=== PATIENT | female | born 1950 | race Caucasian/White ===

== ENCOUNTER 2022-11-18 11:39 | Outpatient (CLI) | payer MEDICARE, BC, SELFPAY | END 2022-11-18 11:40 | disposition home or self-care (01) | LOC: AMB 11-23 05:18 | PROVIDERS: PCP Internal Medicine; Visit Provider Family Medicine | DX: L89.329 Pressure ulcer of left buttock, unspecified stage (principal) | CPT/HCPCS: A0425; A0428 ==

== ENCOUNTER 2022-11-22 14:19 | Outpatient (CLI) | payer MEDICARE, BC, MEDICAID, SELFPAY | END 2022-11-22 14:20 | disposition home or self-care (01) | PROVIDERS: PCP Internal Medicine; Visit Provider Nurse Practitioner Family | DX: L89.314 Pressure ulcer of right buttock, stage 4 (principal); L89.152 Pressure ulcer of sacral region, stage 2; M86.68 Other chronic osteomyelitis, other site; G35 Multiple sclerosis; M62.3 Immobility syndrome (paraplegic); Z99.3 Dependence on wheelchair | CPT/HCPCS: 11042; 97602; 99213 ==

== ENCOUNTER 2022-11-29 12:40 | Outpatient (CLI) | payer MEDICARE, BC, MEDICAID, SELFPAY | END 2022-11-29 12:41 | disposition home or self-care (01) | LOC: WOUND 12:40 | PROVIDERS: PCP Internal Medicine; Visit Provider Nurse Practitioner Family | DX: L89.314 Pressure ulcer of right buttock, stage 4 (principal); G35 Multiple sclerosis; Z99.3 Dependence on wheelchair | CPT/HCPCS: 11042 ==

== ENCOUNTER 2022-12-05 14:05 | Outpatient (CLI) | payer MEDICARE, BC, MEDICAID, SELFPAY | END 2022-12-05 14:06 | disposition home or self-care (01) | LOC: WOUND 14:05 | PROVIDERS: PCP Internal Medicine; Visit Provider Family Medicine | DX: M86.68 Other chronic osteomyelitis, other site (principal); L89.152 Pressure ulcer of sacral region, stage 2; L89.314 Pressure ulcer of right buttock, stage 4; G35 Multiple sclerosis; M62.3 Immobility syndrome (paraplegic); Z99.3 Dependence on wheelchair; R55 Syncope and collapse | CPT/HCPCS: 11042; 97597; 99212 ==

== ENCOUNTER 2022-12-05 15:05 | Emergency (ER) | payer MEDICARE, BC, MEDICAID, SELFPAY ==
[2022-12-05 15:15] VITALS: BP 113/47; PULSE 91; RESP 16; TEMP 35.8; O2SAT 89
--- NOTE | 2022-12-05 15:23 | ED_ITS ---
HPI - General Adult General Chief complaint: Syncope/Fainted Stated complaint: Low BP Time Seen by Provider: 12/05/22 15:14 History of Present Illness HPI narrative: This 72-year-old female was at the wound clinic having a decubitus ulcer treated when she yawned and then became suddenly lightheaded with near loss of consciousness. Her blood pressure was noted to be a systolic value of around 70. She did not have an immediate recovery of her blood pressure her so she was sent here. Upon arrival here her systolic blood pressure is 105. Repeat blood pressure shows 113/47. Other vital signs are in normal range. She does not have tachycardia or fever. Related Data Home Medications Medication Instructions Recorded Confirmed anastrozole 1 mg tablet 1 mg PO DAILY 11/16/22 11/16/22 baclofen 20 mg tablet 40 mg PO QID 11/16/22 11/16/22 calcium carbonate 600 mg-vitamin 1 tab PO QAM 11/16/22 11/16/22 D3 10 mcg (400 unit) tablet cetirizine 10 mg tablet 10 mg PO DAILY 11/16/22 11/16/22 citalopram 10 mg tablet 10 mg PO DAILY 11/16/22 11/16/22 clonazepam 0.5 mg tablet 1 mg PO HS 11/16/22 11/17/22 dalfampridine 10 mg 10 mg PO Q12H 11/16/22 11/17/22 tablet,extended release,12 hr (Ampyra) doxycycline hyclate 100 mg capsule 100 mg PO BID 11/16/22 11/16/22 levofloxacin 750 mg tablet 750 mg PO QAM 11/16/22 11/16/22 levothyroxine 50 mcg tablet 50 mcg PO QAM 11/16/22 11/16/22 metoprolol tartrate 25 mg tablet 25 mg PO BID 11/16/22 11/16/22 omeprazole 20 mg capsule,delayed 20 mg PO QAM 11/16/22 11/16/22 release potassium chloride 10 mEq 10 meq PO BID 11/16/22 11/16/22 tablet,extended release(part/cryst) rivaroxaban 10 mg tablet (Xarelto) 10 mg PO QPM 11/16/22 11/16/22 simvastatin 20 mg tablet 20 mg PO QPM 11/16/22 11/16/22 tizanidine 4 mg tablet 4 mg PO QPM 11/16/22 11/16/22 melatonin 10 mg capsule 20 mg PO HS 11/17/22 11/17/22 multivitamin (Daily Multi-Vitamin 1 tab PO DAILY 11/17/22 11/17/22 tablet) natalizumab 300 mg/15 mL 300 mg IV Q28D 11/17/22 11/17/22 intravenous solution (Tysabri) omega 3-ucm-yrk-fish oil 1,000 mg 1 cap PO DAILY 11/17/22 11/17/22 (120 mg-180 mg) capsule (Fish Oil) vitamin B complex (B 1 tab PO DAILY 11/17/22 11/17/22 Complex-Vitamin B12 tablet) Allergies Allergy/AdvReac Type Severity Reaction Status Date / Time Penicillins Allergy Verified 11/16/22 13:37 Review of Systems Status of ROS: Reports: 10 or more systems reviewed and unremarkable except as noted in History and below Narrative: Constitutional: No fevers, no weight gain or loss. Eyes: No discharge. No vision changes. HENT: No congestion, no sore throat, no ear pain. Cardiovascular: No chest pain, no palpitations. Respiratory: No shortness of breath, no wheezes, no cough. Gastrointestinal: No abdominal pain, no vomiting, no diarrhea. Genitourinary: No dysuria, no hematuria. Musculoskeletal: Normal range of motion. Skin: No rashes, no pruritis. Decubitus ulcer. Neurological: No weakness, sensory change, speech change. History of multiple sclerosis. Endo/Heme/Allergies: No bruising or bleeding. No polydipsia. Pysch: no suicidality, no anxiety, no insomnia. All other systems reviewed and are negative. [facility] Medical History (Updated 12/05/22 @ 16:31 by Josesito Mccoy MD) Sleep apnea ?G47.30 - Sleep apnea, unspecified (ICD-10) History of DVT (deep vein thrombosis) ?Z86.718 - Personal history of other venous thrombosis and embolism (ICD-10) Decubitus ulcer ?L89.90 - Pressure ulcer of unspecified site, unspecified stage (ICD-10) Breast cancer ?C50.919 - Malignant neoplasm of unspecified site of unspecified female breast (ICD-10) Chronic anemia ?D64.9 - Anemia, unspecified (ICD-10) Neurogenic bladder ?N31.9 - Neuromuscular dysfunction of bladder, unspecified (ICD-10) Paroxysmal atrial fibrillation ?I48.0 - Paroxysmal atrial fibrillation (ICD-10) Morbid obesity ?E66.01 - Morbid (severe) obesity due to excess calories (ICD-10) Multiple sclerosis ?G35 - Multiple sclerosis (ICD-10) Osteomyelitis ?M86.9 - Osteomyelitis, unspecified (ICD-10) Surgical History S/P breast lumpectomy ?Z98.890 - Other specified postprocedural states (ICD-10) Family History (Updated 11/16/22 @ 23:21 by Nikolas Moncada MD) Sister Breast cancer Mother Diabetes Heart disease Brother Lung cancer Father Stroke Social History (Updated 11/16/22 @ 23:23 by Nikolas Moncada MD) Narrative: She has been nonambulatory since about 1976 secondary to multiple sclerosis. She is bed-bound or wheelchair-bound. She has custom equipment made for her both wheelchair in bed due to her disabilities. She does not smoke. She does not drink alcohol. Her son Du and daughter Dottie are healthcare power of powder room attendant. Code status is full. She lives at home in [place]. Prolonged hospital stay at [facility] for 3 months this winter Highest level of school completed/degree received: 10th grade Smoking Status: Never smoker Do you use any of these nicotine containing products: None Second hand tobacco smoke exposure: No How often do you have a drink containing alcohol: never AUDIT-C Alcohol total score: 0 Non-prescribed substance use: denies use Caffeine: Yes (soda) service: No Exam Narrative: Exam Narrative: Constitutional: Well-developed, well-nourished, no acute distress. HEENT: Normocephalic, atraumatic. Neck: Normal range of motion. Nontender. Supple. Heart: Regular. No murmurs. Normal rate. Intact distal pulses. Lungs: Clear to auscultation. No chest discomfort. No wheezes, rhonchi, or rales. Abdomen: Normal bowel sounds. Nontender. No rebound tenderness. Genitalia: Deferred. Back: No midline tenderness. Normal range of motion. Extremities: Normal range of motion. No injury. Skin: No rash. Warm. No erythema or pallor. Neurologic: No altered sensation. No weakness. Alert and oriented. Psychiatric: No suicidality. No anxiety or depression. No insomnia. Nursing notes and vitals signs are reviewed. Const: Vital Signs, click to edit/add: Vital Signs - 24 hr 12/05/22 15:15 12/05/22 15:56 12/05/22 16:02 Temperature 96.5 F L Pulse Rate [Bilate ral Apical] 91 Respiratory Rate 16 Blood Pressure 121/43 L 120/41 L Blood Pressure [Ri ght Upper Arm] 113/47 L Pulse Oximetry 89 Oxygen Delivery Me thod Room Air 12/05/22 16:12 12/05/22 16:22 Temperature Pulse Rate [Bilate ral Apical] Respiratory Rate Blood Pressure 108/43 L 120/42 L Blood Pressure [Ri ght Upper Arm] Pulse Oximetry Oxygen Delivery Me thod Course Vital Signs Vital signs: Initial Vital Signs Temperature 96.5 F L 12/05/22 15:15 Temperature Source Temporal Artery Scan 12/05/22 15:15 Pulse Rate 91 12/05/22 15:15 Respiratory Rate 16 12/05/22 15:15 Blood Pressure 113/47 L 12/05/22 15:15 Blood Pressure Mean 69 L 12/05/22 15:15 Blood Pressure Position Sitting 12/05/22 15:15 Pulse Oximetry 89 12/05/22 15:15 Oxygen Delivery Method Room Air 12/05/22 15:15 Vital Signs Temperature 96.5 F L 12/05/22 15:15 Pulse Rate 91 12/05/22 15:15 Respiratory Rate 16 12/05/22 15:15 Blood Pressure 113/47 L 12/05/22 15:15 Pulse Oximetry 89 12/05/22 15:15 Oxygen Delivery Method Room Air 12/05/22 15:15 Temperature 96.5 F L 12/05/22 15:15 Pulse Rate 91 12/05/22 15:15 Respiratory Rate 16 12/05/22 15:15 Blood Pressure 120/42 L 12/05/22 16:22 Pulse Oximetry 89 12/05/22 15:15 Oxygen Delivery Method Room Air 12/05/22 15:15 Medical Decision Making MDM Narrative Medical decision making narrative: This patient had low blood pressure at to wound clinic that did not immediately respond. Upon arrival here her blood pressure had improved and has remained in normal range along with other vital signs. She did have an IV established and labs drawn. She received a L of normal saline intravenously. Lab results returned with no new findings. She does have a chronic anemia. This patient is okay to be discharged home to continue current plans. Lab Data Labs: Lab Results 12/05/22 Range/Units 15:25 WBC 7.14 (4.50-11.00) K/uL RBC 4.12 (4.00-5.20) m/uL Hgb 8.9 L (12.0-16.0) gm/dL Hct 31.2 L (33.0-51.0) % MCV 76 L (80-100) fL MCH 22 L (26-34) pg MCHC 29 L (32-36) gm/dL RDW Coeff of Michele 20.2 H (11.5-15.5) % Plt Count 294 (140-440) K/uL Neut % (Auto) 56.4 (42.0-72.0) % Lymph % (Auto) 30.4 (20-44) % [place] % (Auto) 9.1 (0.0-11.0) % Eos % (Auto) 3.1 (0.0-7.0) % Baso % (Auto) 0.7 (0.0-3.0) % Neut # (Auto) 4.03 (1.7-7.0) K/uL Lymph # (Auto) 2.17 (0.90-2.90) K/uL [place] # (Auto) 0.60 (0.00-0.90) K/UL Eos # (Auto) 0.22 (0.00-0.50) K/uL Baso # (Auto) 0.05 (0.00-0.30) K/uL Sodium 133 L (135-149) mmol/L Potassium 3.8 (3.6-5.1) mmol/L Chloride 101 (96-114) mmol/L Carbon Dioxide 26 (20-32) mmol/L BUN 20 (7-30) mg/dL Creatinine 0.6 (0.5-1.5) mg/dL Estimated GFR 95 ml/min Glucose 119 H (60-115) mg/dL Calcium 10.0 (8.4-10.6) mg/dL Discharge Plan Discharge Clinical Impression: Vasovagal syncope Patient Disposition: Home w/ Parent or Adult Condition: Improved Additional Instructions: Continue current plans. Follow up with MD or return if worsening. Prescriptions: No Action anastrozole 1 mg tablet 1 mg PO DAILY doxycycline hyclate 100 mg capsule 100 mg PO BID cetirizine 10 mg tablet 10 mg PO DAILY tizanidine 4 mg tablet 4 mg PO QPM citalopram 10 mg tablet 10 mg PO DAILY clonazepam 0.5 mg tablet 1 mg PO HS baclofen 20 mg tablet 40 mg PO QID levothyroxine 50 mcg tablet 50 mcg PO QAM simvastatin 20 mg tablet 20 mg PO QPM omeprazole 20 mg capsule,delayed release(DR/EC) 20 mg PO QAM levofloxacin 750 mg tablet 750 mg PO QAM potassium chloride 10 mEq tablet,ER particles/crystals 10 meq PO BID metoprolol tartrate 25 mg tablet 25 mg PO BID calcium carbonate-vitamin D3 600 mg-10 mcg (400 unit) tablet 1 tab PO QAM dalfampridine [Ampyra] 10 mg tablet extended release 12 hr 10 mg PO Q12H Xarelto 10 mg tablet 10 mg PO QPM Tysabri 300 mg/15 mL solution 300 mg IV Q28D Rx Instructions: administer over 60 mins melatonin 10 mg capsule 20 mg PO HS multivitamin [Daily Multi-Vitamin] Tablet 1 tab PO DAILY vitamin B complex [B Complex-Vitamin B12] Tablet 1 tab PO DAILY omega 9-lpc-zrs-fish oil [Fish Oil] 1,000 mg (120 mg-180 mg) capsule 1 cap PO DAILY Follow Up/Referrals: Lory Hudson PA-C [Primary Care Provider] - Stand Alone Forms: [employer] ([employer] Info Instructions
[2022-12-05] MEDS: 0.9 % SODIUM CHLORIDE 1000 ml 1,000 ML IV (15:38)
[2022-12-05 15:45] LABS: Basophils Absolute Auto 0.05 K/uL (0.00-0.30); Basophils Percent Auto 0.7 % (0.0-3.0); Eosinophils Absolute Auto 0.22 K/uL (0.00-0.50); Eosinophils Percent Auto 3.1 % (0.0-7.0); Hematocrit 31.2 % (33.0-51.0); Hemoglobin* 8.9 gm/dL (12.0-16.0); Immature Granulocytes Abs Auto 0.02 K/uL (0.00-0.30); Immature Granulocytes Pct Auto 0.3 %; Lymphocytes Absolute Auto 2.17 K/uL (0.90-2.90); Lymphocytes Percent Auto 30.4 % (20-44); Mean Corpuscular HGB Conc 29 gm/dL (32-36); Mean Corpuscular Hemoglobin 22 pg (26-34); Mean Corpuscular Volume 76 fL (80-100); Monocytes Percent Auto 9.1 % (0.0-11.0); Neutrophils Absolute Auto 4.03 K/uL (1.7-7.0); Neutrophils Percent Auto 56.4 % (42.0-72.0); Platelet Count* 294 K/uL (140-440); RDW Coefficient of Variation % 20.2 % (11.5-15.5); Red Blood Count 4.12 m/uL (4.00-5.20); White Blood Count* 7.14 K/uL (4.50-11.00)
[2022-12-05 15:48] LABS: Slide Review Reflex No
[2022-12-05 15:56] VITALS: BP 121/43
[2022-12-05 16:02] VITALS: BP 120/41
[2022-12-05 16:03] LABS: Chloride* 101 mmol/L (96-114)
[2022-12-05 16:04] LABS: Potassium* 3.8 mmol/L (3.6-5.1); Sodium* 133 mmol/L (135-149)
[2022-12-05 16:06] LABS: Creatinine* 0.6 mg/dL (0.5-1.5); Estimated Glomerular Filt Rate 95 ml/min
[2022-12-05 16:07] LABS: Blood Urea Nitrogen* 20 mg/dL (7-30); Carbon Dioxide* 26 mmol/L (20-32); Glucose* 119 mg/dL (60-115)
[2022-12-05 16:12] VITALS: BP 108/43
[2022-12-05 16:22] VITALS: BP 120/42
== END 2022-12-05 18:03 | disposition home or self-care (01) ==
PROVIDERS: Emergency Provider Emergency Medicine Emergency Medical Services; PCP Internal Medicine
DX: R55 Syncope and collapse (principal)
CPT/HCPCS: 11042; 36415; 80048; 85025; 97597; 99212; 99283; 99284; J7030

== ENCOUNTER 2022-12-13 11:03 | Outpatient (CLI) | payer MEDICARE, BC, MEDICAID, SELFPAY | END 2022-12-13 11:04 | disposition home or self-care (01) | LOC: WOUND 11:03 | PROVIDERS: PCP Internal Medicine; Visit Provider Family Medicine | DX: S31.821A Laceration without foreign body of left buttock, initial encounter (principal); M86.68 Other chronic osteomyelitis, other site; Z99.3 Dependence on wheelchair | CPT/HCPCS: 11042 ==

== ENCOUNTER 2022-12-27 11:09 | Outpatient (CLI) | payer MEDICARE, BC, MEDICAID, SELFPAY | END 2022-12-27 11:10 | disposition home or self-care (01) | LOC: WOUND 11:10 | PROVIDERS: PCP Internal Medicine; Visit Provider Nurse Practitioner Family | DX: M86.68 Other chronic osteomyelitis, other site (principal); L89.314 Pressure ulcer of right buttock, stage 4; M62.3 Immobility syndrome (paraplegic) | CPT/HCPCS: 11042 ==

== ENCOUNTER 2023-01-03 12:56 | Outpatient (CLI) | payer MEDICARE, BC, MEDICAID, SELFPAY | END 2023-01-03 12:57 | disposition home or self-care (01) | LOC: WOUND 12:56 | PROVIDERS: PCP Internal Medicine; Visit Provider Nurse Practitioner Family | DX: M86.68 Other chronic osteomyelitis, other site (principal); L89.314 Pressure ulcer of right buttock, stage 4 | CPT/HCPCS: 11042 ==

== ENCOUNTER 2023-01-10 12:35 | Outpatient (CLI) | payer MEDICARE, BC, MEDICAID, SELFPAY | END 2023-01-10 12:36 | disposition home or self-care (01) | LOC: WOUND 12:36 | PROVIDERS: PCP Internal Medicine; Visit Provider Nurse Practitioner Family | DX: M86.68 Other chronic osteomyelitis, other site (principal); L89.314 Pressure ulcer of right buttock, stage 4; M62.3 Immobility syndrome (paraplegic) | CPT/HCPCS: 11042 ==

== ENCOUNTER 2023-01-24 12:50 | Outpatient (CLI) | payer MEDICARE, BC, MEDICAID, SELFPAY | END 2023-01-24 12:51 | disposition home or self-care (01) | LOC: WOUND 12:51 | PROVIDERS: PCP Internal Medicine; Visit Provider Nurse Practitioner Family | DX: L89.314 Pressure ulcer of right buttock, stage 4 (principal); M62.3 Immobility syndrome (paraplegic); Z99.3 Dependence on wheelchair | CPT/HCPCS: 11042 ==

== ENCOUNTER 2023-01-31 13:01 | Outpatient (CLI) | payer MEDICARE, BC, MEDICAID, SELFPAY | END 2023-01-31 13:02 | disposition home or self-care (01) | LOC: WOUND 13:02 | PROVIDERS: PCP Internal Medicine; Visit Provider Nurse Practitioner Family | DX: M86.68 Other chronic osteomyelitis, other site; G35 Multiple sclerosis; Z99.3 Dependence on wheelchair; L89.314 Pressure ulcer of right buttock, stage 4 | CPT/HCPCS: 11042 ==

== ENCOUNTER 2023-02-07 12:41 | Outpatient (CLI) | payer MEDICARE, BC, MEDICAID, SELFPAY | END 2023-02-07 12:42 | disposition home or self-care (01) | LOC: WOUND 12:42 | PROVIDERS: PCP Internal Medicine; Visit Provider Nurse Practitioner Family | DX: M86.68 Other chronic osteomyelitis, other site (principal); L89.314 Pressure ulcer of right buttock, stage 4; G35 Multiple sclerosis; M62.3 Immobility syndrome (paraplegic); Z99.3 Dependence on wheelchair | CPT/HCPCS: 11043 ==

== ENCOUNTER 2023-02-14 14:11 | Outpatient (CLI) | payer MEDICARE, BC, SELFPAY ==
[2023-02-14 16:06] LABS: Basophils Absolute Auto 0.07 K/uL (0.00-0.30); Basophils Percent Auto 1.1 % (0.0-3.0); Eosinophils Absolute Auto 0.28 K/uL (0.00-0.50); Eosinophils Percent Auto 4.3 % (0.0-7.0); Hematocrit 38.8 % (33.0-51.0); Hemoglobin* 11.6 gm/dL (12.0-16.0); Immature Granulocytes Abs Auto 0.11 K/uL (0.00-0.30); Immature Granulocytes Pct Auto 1.7 %; Mean Corpuscular HGB Conc 30 gm/dL (32-36); Mean Corpuscular Hemoglobin 26 pg (26-34); Mean Corpuscular Volume 86 fL (80-100); Monocytes Percent Auto 6.4 % (0.0-11.0); Neutrophils Percent Auto 41.5 % (42.0-72.0); Platelet Count* 394 K/uL (140-440); RDW Coefficient of Variation % 26.1 % (11.5-15.5); Red Blood Count 4.49 m/uL (4.00-5.20); White Blood Count* 6.55 K/uL (4.50-11.00)
[2023-02-14 16:18] LABS: Chloride* 101 mmol/L (96-114); Sodium* 138 mmol/L (135-149)
[2023-02-14 16:21] LABS: Creatinine* 0.6 mg/dL (0.5-1.5); Estimated Glomerular Filt Rate 95 ml/min
[2023-02-14 16:22] LABS: Anion Gap 10 mEq/L (7-15); Blood Urea Nitrogen* 11 mg/dL (7-30); Calcium* 10.6 mg/dL (8.4-10.6); Carbon Dioxide* 27 mmol/L (20-32); Glucose* 94 mg/dL (60-115)
[2023-02-14 16:25] LABS: C Reactive Protein* 5.5 mg/dL (0.5-1.0)
[2023-02-14 16:46] LABS: Slide Review Reflex Yes
[2023-02-14 16:47] LABS: Slide Review Acceptable Review (Acceptable)
== END 2023-02-14 14:12 | disposition home or self-care (01) ==
PROVIDERS: PCP Internal Medicine; Visit Provider Nurse Practitioner Family
DX: M86.68 Other chronic osteomyelitis, other site (principal); L89.314 Pressure ulcer of right buttock, stage 4; G35 Multiple sclerosis; M62.3 Immobility syndrome (paraplegic); Z99.3 Dependence on wheelchair; Z11.2 Encounter for screening for other bacterial diseases
CPT/HCPCS: 11043; 36415; 72193; 80048; 85025; 86140; 87070; 87186; 99213; Q9967

== ENCOUNTER 2023-02-14 16:00 | Outpatient (CLI) | payer MEDICARE, BC, SELFPAY ==
--- NOTE | 2023-02-14 16:00 | CRLHL7_ITS ---
For Patients: As a result of the Century Cures Act, medical imaging exams and procedure reports are released immediately into your electronic medical record. You may view this report before your referring provider. If you have questions, please contact your health care provider. Indication: Non healing, infected pressure ulcer Technique: Postcontrast CT pelvis. 116 cc Isovue 370 intravenous contrast. Please note that all CT scans at this facility use dose modulation, iterative reconstruction, and/or weight-based dosing when appropriate to reduce radiation dose to as low as reasonably achievable. Comparison: CT 01/17/2023. MRI 11/16/2022. Findings: Chronic pressure ulcer at the right ischial region noted with packing material present. There is no drainable abscess present. Chronic osteomyelitis changes to the right posterior ischial bone noted without acute fracture. Chronic postop changes of cystectomy and ileal diversion with peristomal hernia containing non inflamed loops of bowel. No adenopathy. Impression: Chronic pressure ulcer about the right ischial tuberosity with no drainable fluid collection or abscess. Chronic osteomyelitis changes to the right posterior iliac bone. Please note that all CT scans at this facility use dose modulation, iterative reconstruction, and/or weight-based dosing when appropriate to reduce radiation dose to as low as reasonably achievable. Dictated by Star Gutierrez MD @ 02/15/2023 10:20:21 AM (Electronically Signed)
== END 2023-02-14 16:01 | disposition home or self-care (01) ==
LOC: CT 16:00
PROVIDERS: PCP Internal Medicine; Visit Provider Nurse Practitioner Family
DX: L89.90 Pressure ulcer of unspecified site, unspecified stage (principal); M86.8X8 Other osteomyelitis, other site
CPT/HCPCS: 72193; Q9967

== ENCOUNTER 2023-02-21 12:48 | Outpatient (CLI) | payer MEDICARE, BC, SELFPAY | END 2023-02-21 12:49 | disposition home or self-care (01) | LOC: WOUND 12:48 | PROVIDERS: PCP Internal Medicine; Visit Provider Nurse Practitioner Family | DX: M86.68 Other chronic osteomyelitis, other site (principal); L89.314 Pressure ulcer of right buttock, stage 4; G35 Multiple sclerosis; M62.3 Immobility syndrome (paraplegic); Z99.3 Dependence on wheelchair | CPT/HCPCS: 11043 ==

== ENCOUNTER 2023-02-28 12:42 | Outpatient (CLI) | payer MEDICARE, BC, SELFPAY | END 2023-02-28 12:43 | disposition home or self-care (01) | LOC: WOUND 12:42 | PROVIDERS: PCP Internal Medicine; Visit Provider Nurse Practitioner Family | DX: M86.68 Other chronic osteomyelitis, other site (principal); L89.314 Pressure ulcer of right buttock, stage 4; G35 Multiple sclerosis; M62.3 Immobility syndrome (paraplegic); Z99.3 Dependence on wheelchair | CPT/HCPCS: 11043 ==

== ENCOUNTER 2023-03-07 13:06 | Emergency (ER) | payer MEDICARE, BC, SELFPAY ==
[2023-03-07 13:16] VITALS: BP 127/81; RESP 18; TEMP 36.6; O2SAT 95; BMI 40.3
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
--- NOTE | 2023-03-07 13:36 | CRLHL7_ITS ---
For Patients: As a result of the Century Cures Act, medical imaging exams and procedure reports are released immediately into your electronic medical record. You may view this report before your referring provider. If you have questions, please contact your health care provider. INDICATION: Trauma. TECHNIQUE: Noncontrast CT images acquired through the brain. COMPARISON: None. FINDINGS: Prominence of the ventricles and sulci compatible with mild diffuse cerebral volume loss. No mass effect or midline shift. The cook-white differentiation is maintained. No acute intracranial hemorrhage or pathologic extra-axial fluid collection. Scattered hypoattenuation in the supratentorial white matter, suggestive of mild chronic microvascular ischemic changes. Atherosclerotic calcifications in the carotid siphons. The globes are symmetric. The calvarium is intact. The paranasal sinuses and mastoid air cells are clear. IMPRESSION: No acute intracranial hemorrhage or mass effect. Please note that all CT scans at this facility use dose modulation, iterative reconstruction, and/or weight-based dosing when appropriate to reduce radiation dose to as low as reasonably achievable. Dictated by Sonu Grant MD @ 03/07/2023 2:58:45 PM (Electronically Signed)
--- NOTE | 2023-03-07 14:51 | ED.NURSE ---
Large decubitus ulcer on right buttock. Wound treated by Yamile from wound care. Pt tolerated procedure well. See note from wound care.
== END 2023-03-07 15:28 | disposition home or self-care (01) ==
PROVIDERS: Emergency Provider Emergency Medicine; PCP Internal Medicine
DX: S09.90XA Unspecified injury of head, initial encounter (principal); W05.0XXA Fall from non-moving wheelchair, initial encounter
CPT/HCPCS: 70450; 99283; 99284

== ENCOUNTER 2023-03-14 13:00 | Outpatient (CLI) | payer MEDICARE, BC, SELFPAY | END 2023-03-14 13:01 | disposition home or self-care (01) | LOC: WOUND 13:00 | PROVIDERS: PCP Internal Medicine; Visit Provider Nurse Practitioner Family | DX: M86.68 Other chronic osteomyelitis, other site (principal); L89.314 Pressure ulcer of right buttock, stage 4; G35 Multiple sclerosis; M62.3 Immobility syndrome (paraplegic); Z99.3 Dependence on wheelchair | CPT/HCPCS: 11042 ==

== ENCOUNTER 2023-03-15 17:26 | Inpatient (IN) | payer MEDICARE, BC, SELFPAY ==
[2023-03-15] VITALS (19 sets, daily range): BP systolic 114–166; BP diastolic 54–89; PULSE 103–121; RESP 16–24; TEMP 38.3–39.6; O2SAT 89–96; BMI 40.1
--- NOTE | 2023-03-15 18:10 | ED_ITS ---
HPI - General Adult General Chief complaint: Fever Stated complaint: Fever Time Seen by Provider: 03/15/23 18:10 History of Present Illness HPI narrative: Patient with fever that started this morning. Being seen by wound care clinic for coccyx wound, was evaluated by home care today and that looked stable . UA was run today (urostomy ) and negative. 72-year-old woman presenting to the emergency room with concern of fever. She says she feels fine though when prompted does admit that she feels hot. She does acknowledge that fever was supposedly measured earlier today. Does have a slow healing decubitus ulcer with history of associated osteomyelitis in the setting of some degree of immobility, non ambulatory, with multiple sclerosis. Does have a neurogenic bladder and urostomy. Apparently this was checked earlier and ?negative?. Reportedly this coccygeal wound area was also ?stable?. She denies any pain. No sore throat. No cough or cold symptoms. She says she is not feeling short of breath. No diarrhea. With questioning again does admit that she feels more weak. Resides in her home with her . Has a FACILITIES MAINTENANCE SUPERVISOR. Related Data Home Medications Medication Instructions Recorded Confirmed anastrozole 1 mg tablet 1 mg PO DAILY 11/16/22 03/16/23 baclofen 20 mg tablet 40 mg PO QID 11/16/22 03/16/23 calcium carbonate 600 mg-vitamin 1 tab PO QAM 11/16/22 03/16/23 D3 10 mcg (400 unit) tablet cetirizine 10 mg tablet 10 mg PO DAILY 11/16/22 03/16/23 citalopram 10 mg tablet 10 mg PO DAILY 11/16/22 03/16/23 clonazepam 0.5 mg tablet 1 mg PO HS 11/16/22 03/16/23 dalfampridine 10 mg 10 mg PO Q12H 11/16/22 03/16/23 tablet,extended release,12 hr (Ampyra) levothyroxine 50 mcg tablet 50 mcg PO QAM 11/16/22 03/16/23 metoprolol tartrate 25 mg tablet 12.5 mg PO BID 11/16/22 03/16/23 omeprazole 20 mg capsule,delayed 20 mg PO QAM 11/16/22 03/16/23 release potassium chloride 10 mEq 10 meq PO BID 11/16/22 03/16/23 tablet,extended release(part/cryst) rivaroxaban 10 mg tablet (Xarelto) 10 mg PO QPM 11/16/22 03/16/23 simvastatin 20 mg tablet 20 mg PO QPM 11/16/22 03/16/23 tizanidine 4 mg tablet 4 mg PO QPM 11/16/22 03/16/23 melatonin 10 mg capsule 20 mg PO HS 11/17/22 03/16/23 multivitamin (Daily Multi-Vitamin 1 tab PO DAILY 11/17/22 03/16/23 tablet) natalizumab 300 mg/15 mL 300 mg IV Q28D 11/17/22 03/16/23 intravenous solution (Tysabri) omega 9-rxc-npc-fish oil 1,000 mg 1 cap PO DAILY 11/17/22 03/16/23 (120 mg-180 mg) capsule (Fish Oil) vitamin B complex (B 1 tab PO DAILY 11/17/22 03/16/23 Complex-Vitamin B12 tablet) alendronate 70 mg tablet 70 mg PO .WEEKLY 03/16/23 03/16/23 Allergies Allergy/AdvReac Type Severity Reaction Status Date / Time Penicillins Allergy Verified 03/15/23 17:37 Review of Systems Status of ROS: Reports: 6 or more systems reviewed and unremarkable except as noted in History and below [facility] Medical History Sleep apnea ?G47.30 - Sleep apnea, unspecified (ICD-10) History of DVT (deep vein thrombosis) ?Z86.718 - Personal history of other venous thrombosis and embolism (ICD-10) Decubitus ulcer ?L89.90 - Pressure ulcer of unspecified site, unspecified stage (ICD-10) Breast cancer ?C50.919 - Malignant neoplasm of unspecified site of unspecified female breast (ICD-10) Chronic anemia ?D64.9 - Anemia, unspecified (ICD-10) Neurogenic bladder ?N31.9 - Neuromuscular dysfunction of bladder, unspecified (ICD-10) Paroxysmal atrial fibrillation ?I48.0 - Paroxysmal atrial fibrillation (ICD-10) Morbid obesity ?E66.01 - Morbid (severe) obesity due to excess calories (ICD-10) Multiple sclerosis ?G35 - Multiple sclerosis (ICD-10) Osteomyelitis ?M86.9 - Osteomyelitis, unspecified (ICD-10) Surgical History S/P breast lumpectomy ?Z98.890 - Other specified postprocedural states (ICD-10) Family History Sister Breast cancer Mother Diabetes Heart disease Brother Lung cancer Father Stroke Social History Narrative: She has been nonambulatory since about 1976 secondary to multiple sclerosis. She is bed-bound or wheelchair-bound. She has custom equipment made for her both wheelchair in bed due to her disabilities. She does not smoke. She does not drink alcohol. Her son Du and daughter Dottie are healthcare power of car dumper operator helper. Code status is full. She lives at home in [place]. Prolonged hospital stay at [place] for 3 months this winter What is your current living situation?: I presently have a place to live Problems where you live: no known problems Problems where you live details: n/a In the past 12 months, utilities in danger of being shut off: no In past 12 months, lack of transportation kept you from medical appts, meetings, work, or getting things needed for daily living: no In the past 12 mos, have been you worried that your food would run out before you had money to buy more?: never true In the past 12 mos, the food you bought just didn't last and you didn't have money to buy more?: never true Highest level of school completed/degree received: 10th grade Smoking Status: Never smoker Do you use any of these nicotine containing products: None Second hand tobacco smoke exposure: No How often do you have a drink containing alcohol: never AUDIT-C Alcohol total score: 0 Non-prescribed substance use: denies use Caffeine: Yes (soda) How often does anyone, including family, friends and others, physically hurt you : never How often does anyone, including family, friends and others, insult or talk down to you: never How often does anyone, including family, friends and others, threaten you with harm: never How often does anyone, including family, friends and others, scream or curse at you: never service: No Exam Narrative: Exam Narrative: Pleasant. Answers reflexively. 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 Looks quite flushed over her under chin and upper chest. Skin otherwise is warm and dry. Examination of the decubitus ulcer/sacral ulcer has a protective bandage spanning and dressing in the area. Quite hot without indurated skin though on the left buttock area. Some striations into the buttock. No apparent pain. Do not appreciate drainage from the area of the wound. Generally erythematous though it looks like this is somewhat chronic surrounding the wound. Lungs appear to be clear. Heart is tachycardic in what auscultates for a regular rhythm. Abdomen is soft and nontender. Large ventral wall hernia is soft low left of midline. There is noninflamed urostomy with moderately yellow urine that looks clear. Oropharynx is moist. Difficult to appreciate the posterior oropharynx but I think it is without erythema. Cranial nerves 2-12 to be intact. She is weak and needs significant assistance to sit. Contracted so mewhat and with less muscle tone on the right leg versus the left. Is well perfused. No lower extremity edema. Const: Vital Signs, click to edit/add: Vital Signs - 24 hr 03/15/23 17:37 03/15/23 18:35 03/15/23 19:16 Temperature 100.9 F H 103.2 F H Pulse Rate 112 H Pulse Rate [Pulse Oximeter] 108 H Respiratory Rate 24 Blood Pressure Blood Pressure [Ri ght Forearm] 141/73 H Pulse Oximetry 93 91 Oxygen Delivery Me thod Room Air 03/15/23 19:17 03/15/23 19:30 03/15/23 19:32 Temperature 103 F H Pulse Rate 112 H 113 H Pulse Rate [Pulse Oximeter] Respiratory Rate 16 Blood Pressure 166/89 H Blood Pressure [Ri ght Forearm] Pulse Oximetry 96 91 91 Oxygen Delivery Me thod Room Air 03/15/23 19:45 Temperature 102.5 F H Pulse Rate Pulse Rate [Pulse Oximeter] Respiratory Rate Blood Pressure Blood Pressure [Ri ght Forearm] Pulse Oximetry Oxygen Delivery Me thod Documenting provider has reviewed patient's vital signs: yes Course Vital Signs Vital signs: Initial Vital Signs Temperature 100.9 F H 03/15/23 17:37 Temperature Source Temporal Artery Scan 03/15/23 17:37 Pulse Rate 108 H 03/15/23 17:37 Respiratory Rate 24 03/15/23 17:37 Blood Pressure 141/73 H 03/15/23 17:37 Blood Pressure Mean 95 03/15/23 17:37 Blood Pressure Position Supine 03/15/23 17:37 Pulse Oximetry 93 03/15/23 17:37 Oxygen Delivery Method Room Air 03/15/23 17:37 Vital Signs Temperature 100.9 F H 03/15/23 17:37 Pulse Rate 108 H 03/15/23 17:37 Respiratory Rate 24 03/15/23 17:37 Blood Pressure 141/73 H 03/15/23 17:37 Pulse Oximetry 93 03/15/23 17:37 Oxygen Delivery Method Room Air 03/15/23 17:37 Temperature 98.3 F 03/23/23 15:31 Pulse Rate 87 03/23/23 15:31 Respiratory Rate 24 03/23/23 15:31 Blood Pressure 147/75 H 03/23/23 15:31 Pulse Oximetry 91 03/23/23 15:31 Oxygen Delivery Method Room Air 03/23/23 15:31 Oxygen Flow Rate 0 03/23/23 15:31 Medical Decision Making MDM Narrative Medical decision making narrative: Especially with urostomy and history of MS differential for fever should include UTI. Will check for pneumonia as well. She is anticoagulated though could have secondary tachycardia with AFib with RVR or recurrent pulmonary embolus. I would think that this tachycardia is more related to the degree of fever that has escalated quickly. Will be checking blood cultures. Concern also of sepsis; uncertain source at this point. Initiating fluid hydration/boluses. By the time I am seeing Ms. Pierson, screenings are negative for COVID and influenza. I would anticipate admission. I think she is hotter than initially measured. Recheck does confirm 103.2. Has been ordered for acetaminophen. Wound cultures from October and January of this year with E coli demonstrating toussaint sensitivity. Elevated lactate and white count. Possibly altered mental status. Initially tachycardic. Marked fever. Meeting criteria for sepsis. Urine might be source on review. Cellulitis associated with possibly associated decubitus ulcer may also be source. I did review chest x-ray without clear infiltrate. Radiology over-read as below. IMPRESSION: Bibasilar atelectasis. No acute findings and no significant changes from the prior exam. Discussed with hospitalist for admission. Ertapenem initiated Fever and tachycardia is resolved. Sustained blood pressure. Lab Data Lab results reviewed: Yes I reviewed the patient's lab results Labs: Lab Results 03/15/23 03/15/23 03/15/23 Range/Units 17:36 18:35 18:50 WBC 13.63 H (4.50-11.00) K/uL RBC 4.38 (4.00-5.20) m/uL Hgb 11.7 L (12.0-16.0) gm/dL Hct 37.2 (33.0-51.0) % MCV 85 (80-100) fL MCH 27 (26-34) pg MCHC 32 (32-36) gm/dL RDW Coeff of Michele 22.4 H (11.5-15.5) % Plt Count 257 (140-440) K/uL Neut % (Auto) 85.5 H (42.0-72.0) % Lymph % (Auto) 9.0 L (20-44) % [place] % (Auto) 5.0 (0.0-11.0) % Eos % (Auto) 0.1 (0.0-7.0) % Baso % (Auto) 0.2 (0.0-3.0) % Neut # (Auto) 11.70 H (1.7-7.0) K/uL Lymph # (Auto) 1.20 (0.90-2.90) K/uL [place] # (Auto) 0.70 (0.00-0.90) K/UL Eos # (Auto) 0.00 (0.00-0.50) K/uL Baso # (Auto) 0.00 (0.00-0.30) K/uL Abs Immat Gran (auto) 0.00 (0.00-0.30) K/uL Imm/Tot Granulo (auto) 0.2 % Sodium 134 L (135-149) mmol/L Potassium 4.1 (3.6-5.1) mmol/L Chloride 101 (96-114) mmol/L Carbon Dioxide 21 (20-32) mmol/L Anion Gap 12 (7-15) mEq/L BUN 12 (7-30) mg/dL Creatinine 0.7 (0.5-1.5) mg/dL Estimated GFR 92 ml/min Glucose 142 H (60-115) mg/dL Lactate 2.5 H (0.5-1.9) mmol/L Calcium 9.9 (8.4-10.6) mg/dL Magnesium 1.7 (1.5-2.6) mg/dL Total Bilirubin 0.5 (0.1-1.5) mg/dL Direct Bilirubin 0.0 (0.0-0.5) mg/dL AST 36 H (12-35) U/L ALT 28 (4-35) U/L Alkaline Phosphatase 113 (40-150) U/L C-Reactive Protein 6.9 H (0.5-1.0) mg/dL Total Protein 8.1 (6.0-8.3) g/dL Albumin 4.0 (3.3-5.0) g/dL Procalcitonin 0.23 (<0.50) ng/mL Urine Color (Yellow) Urine Appearance (Clear) Urine pH (5.0-8.5) Ur Specific [place] (1.000-1.030) Urine Protein (Negative) Urine Glucose (UA) (Negative) Urine Ketones (Negative) Urine Blood (Negative) Urine Nitrite (Negative) Urine Bilirubin (Negative) Urine Urobilinogen (0.2-1.0) Ur Leukocyte Esterase (Negative) Urine RBC (0-2) Urine WBC (0-5) Ur Squamous Epith Cells (None-Few) Urine Bacteria (None) SARS-CoV-2 (PCR) Negative SARS-CoV-2 (Negative) Influenza Type A (PCR) Negative PCR FLU A (Negative) Influenza Type B (PCR) Negative PCR FLU B (Negative) 03/15/23 Range/Units 19:10 WBC (4.50-11.00) K/uL RBC (4.00-5.20) m/uL Hgb (12.0-16.0) gm/dL Hct (33.0-51.0) % MCV (80-100) fL MCH (26-34) pg MCHC (32-36) gm/dL RDW Coeff of Michele (11.5-15.5) % Plt Count (140-440) K/uL Neut % (Auto) (42.0-72.0) % Lymph % (Auto) (20-44) % [place] % (Auto) (0.0-11.0) % Eos % (Auto) (0.0-7.0) % Baso % (Auto) (0.0-3.0) % Neut # (Auto) (1.7-7.0) K/uL Lymph # (Auto) (0.90-2.90) K/uL [place] # (Auto) (0.00-0.90) K/UL Eos # (Auto) (0.00-0.50) K/uL Baso # (Auto) (0.00-0.30) K/uL Abs Immat Gran (auto) (0.00-0.30) K/uL Imm/Tot Granulo (auto) % Sodium (135-149) mmol/L Potassium (3.6-5.1) mmol/L Chloride (96-114) mmol/L Carbon Dioxide (20-32) mmol/L Anion Gap (7-15) mEq/L BUN (7-30) mg/dL Creatinine (0.5-1.5) mg/dL Estimated GFR ml/min Glucose (60-115) mg/dL Lactate (0.5-1.9) mmol/L Calcium (8.4-10.6) mg/dL Magnesium (1.5-2.6) mg/dL Total Bilirubin (0.1-1.5) mg/dL Direct Bilirubin (0.0-0.5) mg/dL AST (12-35) U/L ALT (4-35) U/L Alkaline Phosphatase (40-150) U/L C-Reactive Protein (0.5-1.0) mg/dL Total Protein (6.0-8.3) g/dL Albumin (3.3-5.0) g/dL Procalcitonin (<0.50) ng/mL Urine Color Yellow (Yellow) Urine Appearance Clear (Clear) Urine pH 7.0 (5.0-8.5) Ur Specific [place] 1.015 (1.000-1.030) Urine Protein Negative (Negative) Urine Glucose (UA) Negative (Negative) Urine Ketones Negative (Negative) Urine Blood 2+ A (Negative) Urine Nitrite Negative (Negative) Urine Bilirubin Negative (Negative) Urine Urobilinogen 0.2 (0.2-1.0) Ur Leukocyte Esterase 1+ A (Negative) Urine RBC 5-10 A (0-2) Urine WBC 2-5 (0-5) Ur Squamous Epith Cells None (None-Few) Urine Bacteria None (None) SARS-CoV-2 (PCR) (Negative) Influenza Type A (PCR) (Negative) Influenza Type B (PCR) (Negative) Critical Care Time Critical Care Time Critical Care Time: Yes Attestation: The patient required my highest level preparedness to intervene emergently and I personally spent this critical care time directly and personally managing the patient. This critical care time included: Obtaining a history; Examining the patient; Pulse oximetry; Ordering and reviewing of studies; Arranging urgent treatment with development of a management plan; Evaluation of patients response to treatment; Frequent reassessment discussions with other providers. This critical care time was performed to assess and manage the high probability of imminent life-threatening deterioration that could result in multiorgan failure. It was exclusive of separate billable procedures and treating other patients and teaching time. Total Critical Care Time in Minutes: 60 Discharge Plan Discharge Clinical Impression: Fever, Cellulitis, Sepsis Patient Disposition: Admitted As Observation Condition: Stable
[2023-03-15 18:18] LABS: PCR FLU A Negative PCR FLU A (Negative); PCR FLU B Negative PCR FLU B (Negative)
[2023-03-15 18:19] LABS: SARS PCR* Negative SARS-CoV-2 (Negative)
--- NOTE | 2023-03-15 18:34 | CRLHL7_ITS ---
For Patients: As a result of the Century Cures Act, medical imaging exams and procedure reports are released immediately into your electronic medical record. You may view this report before your referring provider. If you have questions, please contact your health care provider. INDICATION: Fever. TECHNIQUE: Chest 1 views. COMPARISON: June 27, 2018. FINDINGS: Patient is rotated. Cardiovascular and mediastinum: Heart size and vasculature are normal in caliber and appearance. Lungs and pleural spaces: Bibasilar atelectasis no sign of infiltrate or mass. No sign of pleural effusion. No pneumothorax. Bones and soft tissues: No significant findings. IMPRESSION: Bibasilar atelectasis. No acute findings and no significant changes from the prior exam. Dictated by Boo North MD @ 03/15/2023 8:07:25 PM (Electronically Signed)
[2023-03-15 19:00] LABS: Lactate* 2.5 mmol/L (0.5-1.9)
[2023-03-15 19:03] LABS: Basophils Percent Auto 0.2 % (0.0-3.0); Eosinophils Percent Auto 0.1 % (0.0-7.0); Hematocrit 37.2 % (33.0-51.0); Hemoglobin* 11.7 gm/dL (12.0-16.0); Immature Granulocytes Pct Auto 0.2 %; Mean Corpuscular HGB Conc 32 gm/dL (32-36); Mean Corpuscular Hemoglobin 27 pg (26-34); Mean Corpuscular Volume 85 fL (80-100); Neutrophils Percent Auto 85.5 % (42.0-72.0); Platelet Count* 257 K/uL (140-440); RDW Coefficient of Variation % 22.4 % (11.5-15.5); Red Blood Count 4.38 m/uL (4.00-5.20); White Blood Count* 13.63 K/uL (4.50-11.00)
[2023-03-15 19:05] LABS: Slide Review Reflex No
[2023-03-15] MEDS: ACETAMINOPHEN 500 MG TABLET 1000 MG PO (19:05)
[2023-03-15] MEDS: 0.9 % SODIUM CHLORIDE 1000 ml 1,000 ML 2000 ML IV (19:05)
[2023-03-15 19:15] LABS: Appearance Urine Clear (Clear); Bilirubin Urine Negative (Negative); Blood Urine 2+ (Negative); Color Urine Yellow (Yellow); Glucose Urine Negative (Negative); Ketones Urine Negative (Negative); Leukocyte Esterase Urine 1+ (Negative); Nitrite Urine Negative (Negative); Protein Urine Negative (Negative); Specific Gravity Urine 1.015 (1.000-1.030); Urobilinogen Urine 0.2 (0.2-1.0)
[2023-03-15 19:19] LABS: Chloride* 101 mmol/L (96-114)
[2023-03-15 19:20] LABS: Potassium* 4.1 mmol/L (3.6-5.1); Sodium* 134 mmol/L (135-149)
[2023-03-15 19:22] LABS: Creatinine* 0.7 mg/dL (0.5-1.5); Estimated Glomerular Filt Rate 92 ml/min
[2023-03-15 19:23] LABS: Alanine Aminotransferase* 28 U/L (4-35); Alkaline Phosphatase* 113 U/L (40-150); Anion Gap 12 mEq/L (7-15); Aspartate Amino Transferase* 36 U/L (12-35); Bilirubin Total* 0.5 mg/dL (0.1-1.5); Blood Urea Nitrogen* 12 mg/dL (7-30); Calcium* 9.9 mg/dL (8.4-10.6); Carbon Dioxide* 21 mmol/L (20-32); Glucose* 142 mg/dL (60-115); Magnesium* 1.7 mg/dL (1.5-2.6); Total Protein* 8.1 g/dL (6.0-8.3)
[2023-03-15 19:25] LABS: C Reactive Protein* 6.9 mg/dL (0.5-1.0)
[2023-03-15] MEDS: LACTATED RINGERS 1000 ML 1,000 ML 3000 ML IV (20:04)
[2023-03-15] MEDS: ERTAPENEM 1 GM in 0.9 % SODIUM CHLORIDE Mini-bag 100 ML IVPB (20:09)
--- NOTE | 2023-03-15 20:37 | ED.NURSE ---
Called and updated patient's son and Margarito HONG.
--- NOTE | 2023-03-15 21:28 | P.IMHP_ITS ---
Hospitalist- H&P: HPI History of Present Illness Date Seen: 03/15/23 Chief complaint: Fever Narrative: Serene Pierson is a 72 year old female [facility] Medical History Sleep apnea ?G47.30 - Sleep apnea, unspecified (ICD-10) History of DVT (deep vein thrombosis) ?Z86.718 - Personal history of other venous thrombosis and embolism (ICD-10) Decubitus ulcer ?L89.90 - Pressure ulcer of unspecified site, unspecified stage (ICD-10) Breast cancer ?C50.919 - Malignant neoplasm of unspecified site of unspecified female breast (ICD-10) Chronic anemia ?D64.9 - Anemia, unspecified (ICD-10) Neurogenic bladder ?N31.9 - Neuromuscular dysfunction of bladder, unspecified (ICD-10) Paroxysmal atrial fibrillation ?I48.0 - Paroxysmal atrial fibrillation (ICD-10) Morbid obesity ?E66.01 - Morbid (severe) obesity due to excess calories (ICD-10) Multiple sclerosis ?G35 - Multiple sclerosis (ICD-10) Osteomyelitis ?M86.9 - Osteomyelitis, unspecified (ICD-10) Surgical History S/P breast lumpectomy ?Z98.890 - Other specified postprocedural states (ICD-10) Family History Sister Breast cancer Mother Diabetes Heart disease Brother Lung cancer Father Stroke Social History Narrative: She has been nonambulatory since about 1976 secondary to multiple sclerosis. She is bed-bound or wheelchair-bound. She has custom equipment made for her both wheelchair in bed due to her disabilities. She does not smoke. She does not drink alcohol. Her son Du and daughter Dottie are healthcare power of bankruptcy attorney. Code status is full. She lives at home in [place]. Prolonged hospital stay at [place] for 3 months this winter Highest level of school completed/degree received: 10th grade Smoking Status: Never smoker Do you use any of these nicotine containing products: None Second hand tobacco smoke exposure: No How often do you have a drink containing alcohol: never AUDIT-C Alcohol total score: 0 Non-prescribed substance use: denies use Caffeine: Yes (soda) service: No Meds Home Medications and Allergies Home Medications Medication Instructions Recorded Confirmed Type anastrozole 1 mg tablet 1 mg PO DAILY 11/16/22 11/16/22 History baclofen 20 mg tablet 40 mg PO QID 11/16/22 11/16/22 History calcium carbonate 600 mg-vitamin 1 tab PO QAM 11/16/22 11/16/22 History D3 10 mcg (400 unit) tablet cetirizine 10 mg tablet 10 mg PO DAILY 11/16/22 11/16/22 History citalopram 10 mg tablet 10 mg PO DAILY 11/16/22 11/16/22 History clonazepam 0.5 mg tablet 1 mg PO HS 11/16/22 11/17/22 History dalfampridine 10 mg 10 mg PO Q12H 11/16/22 11/17/22 History tablet,extended release,12 hr (Ampyra) doxycycline hyclate 100 mg capsule 100 mg PO BID 11/16/22 11/16/22 History levofloxacin 750 mg tablet 750 mg PO QAM 11/16/22 11/16/22 History levothyroxine 50 mcg tablet 50 mcg PO QAM 11/16/22 11/16/22 History metoprolol tartrate 25 mg tablet 25 mg PO BID 11/16/22 11/16/22 History omeprazole 20 mg capsule,delayed 20 mg PO QAM 11/16/22 11/16/22 History release potassium chloride 10 mEq 10 meq PO BID 11/16/22 11/16/22 History tablet,extended release(part/cryst) rivaroxaban 10 mg tablet (Xarelto) 10 mg PO QPM 11/16/22 11/16/22 History simvastatin 20 mg tablet 20 mg PO QPM 11/16/22 11/16/22 History tizanidine 4 mg tablet 4 mg PO QPM 11/16/22 11/16/22 History melatonin 10 mg capsule 20 mg PO HS 11/17/22 11/17/22 History multivitamin (Daily Multi-Vitamin 1 tab PO DAILY 11/17/22 11/17/22 History tablet) natalizumab 300 mg/15 mL 300 mg IV Q28D 11/17/22 11/17/22 History intravenous solution (Tysabri) omega 4-qte-atd-fish oil 1,000 mg 1 cap PO DAILY 11/17/22 11/17/22 History (120 mg-180 mg) capsule (Fish Oil) vitamin B complex (B 1 tab PO DAILY 11/17/22 11/17/22 History Complex-Vitamin B12 tablet) Allergies Allergy/AdvReac Type Severity Reaction Status Date / Time Penicillins Allergy Verified 03/15/23 17:37 Exam Const: Vital Signs, click to edit/add: Vital Signs - 24 hr 03/15/23 17:37 03/15/23 18:35 03/15/23 19:16 Temperature 100.9 F H 103.2 F H Pulse Rate 112 H Pulse Rate [Pulse Oximeter] 108 H Respiratory Rate 24 Blood Pressure Blood Pressure [Ri ght Forearm] 141/73 H Pulse [facility]ximetry 93 [facility] 03/15/23 19:17 03/15/23 19:30 03/15/23 19:32 Temperature 103 F H Pulse Rate 112 H 113 H Pulse Rate [Pulse Oximeter] Respiratory Rate 16 Blood Pressure 166/89 H Blood Pressure [Ri ght Forearm] Pulse Oximetry 96 91 [facility] 03/15/23 19:33 03/15/23 19:45 03/15/23 19:45 Temperature 102.5 F H Pulse Rate 113 H 115 H Pulse Rate [Pulse Oximeter] Respiratory Rate Blood Pressure Blood Pressure [Ri ght Forearm] Pulse Oximetry 91 91 [facility] 03/15/23 20:00 03/15/23 20:02 03/15/23 20:15 Temperature Pulse Rate 121 H 119 H 120 H Pulse Rate [Pulse Oximeter] Respiratory Rate Blood Pressure 157/77 H Blood Pressure [Ri ght Forearm] Pulse Oximetry 91 91 92 [facility] 03/15/23 20:30 03/15/23 20:32 03/15/23 20:33 Temperature Pulse Rate 119 H 121 H 120 H Pulse Rate [Pulse Oximeter] Respiratory Rate Blood Pressure 146/72 H Blood Pressure [Ri ght Forearm] Pulse Oximetry 91 96 95 [facility] 03/15/23 20:45 Temperature Pulse Rate 120 H Pulse Rate [Pulse Oximeter] Respiratory Rate Blood Pressure Blood Pressure [Ri ght Forearm] Pulse Oximetry 89 Oxygen Delivery [facility] Hospitalist - H&P: Result Labs Labs: Short CBC 03/15/23 Range/Units 18:50 WBC 13.63 H (4.50-11.00) K/uL Hgb 11.7 L (12.0-16.0) gm/dL Hct 37.2 (33.0-51.0) % Plt Count 257 (140-440) K/uL BMP 03/15/23 18:35 Sodium 134 L Potassium 4.1 Chloride 101 Carbon Dioxide 21 BUN 12 Creatinine 0.7 Glucose 142 H Calcium 9.9 Liver Function 03/15/23 Range/Units 18:35 Total Bilirubin 0.5 (0.1-1.5) mg/dL Direct Bilirubin 0.0 (0.0-0.5) mg/dL AST 36 H (12-35) U/L ALT 28 (4-35) U/L Alkaline Phosphatase 113 (40-150) U/L Albumin 4.0 (3.3-5.0) g/dL Urine 03/15/23 Range/Units 19:10 Urine Color Yellow (Yellow) Urine Appearance Clear (Clear) Urine pH 7.0 (5.0-8.5) Ur Specific [place] 1.015 (1.000-1.030) Urine Protein Negative (Negative) Urine Glucose (UA) Negative (Negative) Assessment and Plan Assessment and plan (1) Sepsis: Status: Acute (2) Osteomyelitis: Problem comment: Associated with decubitus ulcer she has osteomyelitis on her right ischial spine. Status: Acute (3) Decubitus ulcer: Problem comment: Acute worsening of chronic ulcer. Associated with osteomyelitis. Given ch ronicity uncertain if this will ever heal completely. Surgical consultation. Obtain cultures from Clinic in [place] to help guide therapy. Status: Acute (4) Paroxysmal atrial fibrillation: Problem comment: On rate control and partial anticoagulation Status: Acute (5) History of DVT (deep vein thrombosis): Problem comment: On long-term anticoagulation with rivaroxaban 10 mg daily Status: Acute (6) Multiple sclerosis: Status: Acute (7) Neurogenic bladder: Problem comment: Has urostomy after cystectomy and ileal conduit from sigmoid Status: Acute (8) Morbid obesity: Status: Acute (9) Sleep apnea: Problem comment: Suspected based on clinical factors. patient doubts this diagnosis. Outpatient evaluation if desired Status: Suspected
[2023-03-15 21:38] LABS: Lactate* 2.5 mmol/L (0.5-1.9)
--- NOTE | 2023-03-15 21:53 | P.IMHP_ITS ---
Hospitalist- H&P: HPI History of Present Illness Date Seen: 03/15/23 Chief complaint: Fever Narrative: Serene Pierson is a 72 year old female with complicated past medical history including history paroxysmal atrial fibrillation (on Xarelto), neurogenic bladder with a ileal conduit urostomy,, multiple sclerosis, hypothyroidism, hypertension, hematuria, history of osteomyelitis, pressure injury of the right heel and of the perineal ischial region, multiple ventral abdominal wall dagoberto ias, large diaphragmatic hiatal hernia. She also has a poorly healing sacral ulcer. She follows with wound clinic. She reports fever this morning. Associated symptoms included chills, rigors, and generalized weakness. Her home care [employer] recommended ED evaluation. She presented to ED where she was febrile and tachycardic. CXR with no acute findings. In the ED notable labs included WBC 13.6. Lactate 2.5. Repeat lactate 2.5. She was started on ertapenem, given IVF bolus and admitted for further evaluation. She denies chest pain, sob, abdominal pain, back pain. CXR IMPRESSION: Bibasilar atelectasis. No acute findings and no significant changes from the prior exam. Review of Systems Status of ROS: Reports: 10 or more systems reviewed and unremarkable except as noted in History and below [facility] Medical History Sleep apnea ?G47.30 - Sleep apnea, unspecified (ICD-10) History of DVT (deep vein thrombosis) ?Z86.718 - Personal history of other venous thrombosis and embolism (ICD-10) Decubitus ulcer ?L89.90 - Pressure ulcer of unspecified site, unspecified stage (ICD-10) Breast cancer ?C50.919 - Malignant neoplasm of unspecified site of unspecified female breast (ICD-10) Chronic anemia ?D64.9 - Anemia, unspecified (ICD-10) Neurogenic bladder ?N31.9 - Neuromuscular dysfunction of bladder, unspecified (ICD-10) Paroxysmal atrial fibrillation ?I48.0 - Paroxysmal atrial fibrillation (ICD-10) Morbid obesity ?E66.01 - Morbid (severe) obesity due to excess calories (ICD-10) Multiple sclerosis ?G35 - Multiple sclerosis (ICD-10) Osteomyelitis ?M86.9 - Osteomyelitis, unspecified (ICD-10) Surgical History S/P breast lumpectomy ?Z98.890 - Other specified postprocedural states (ICD-10) Family History Sister Breast cancer Mother Diabetes Heart disease Brother Lung cancer Father Stroke Social History Narrative: She has been nonambulatory since about 1976 secondary to multiple sclerosis. She is bed-bound or wheelchair-bound. She has custom equipment made for her both wheelchair in bed due to her disabilities. She does not smoke. She does not drink alcohol. Her son Du and daughter Dottie are healthcare power of combination welder apprentice. Code status is full. She lives at home in [place]. Prolonged hospital stay at [place] for 3 months this winter What is your current living situation?: I presently have a place to live Problems where you live: no known problems Problems where you live details: n/a In the past 12 months, utilities in danger of being shut off: no In past 12 months, lack of transportation kept you from medical appts, meetings, work, or getting things needed for daily living: no In the past 12 mos, have been you worried that your food would run out before you had money to buy more?: never true In the past 12 mos, the food you bought just didn't last and you didn't have money to buy more?: never true Highest level of school completed/degree received: 10th grade Smoking Status: Never smoker Do you use any of these nicotine containing products: None Second hand tobacco smoke exposure: No How often do you have a drink containing alcohol: never AUDIT-C Alcohol total score: 0 Non-prescribed substance use: denies use Caffeine: Yes (soda) How often does anyone, including family, friends and others, physically hurt you : never How often does anyone, including family, friends and others, insult or talk down to you: never How often does anyone, including family, friends and others, threaten you with harm: never How often does anyone, including family, friends and others, scream or curse at you: never service: No Meds Home Medications and Allergies Home Medications Medication Instructions Recorded Confirmed Type anastrozole 1 mg tablet 1 mg PO DAILY 05/31/23 05/31/23 History baclofen 20 mg tablet 40 mg PO QID 11/16/22 11/16/22 History calcium carbonate 600 mg-vitamin 1 tab PO QAM 11/16/22 11/16/22 History D3 10 mcg (400 unit) tablet cetirizine 10 mg tablet 10 mg PO DAILY 11/16/22 11/16/22 History citalopram 10 mg tablet 10 mg PO DAILY 11/16/22 11/16/22 History clonazepam 0.5 mg tablet 1 mg PO HS 11/16/22 11/17/22 History dalfampridine 10 mg 10 mg PO Q12H 11/16/22 11/17/22 History tablet,extended release,12 hr (Ampyra) doxycycline hyclate 100 mg capsule 100 mg PO BID 11/16/22 11/16/22 History levofloxacin 750 mg tablet 750 mg PO QAM 11/16/22 11/16/22 History levothyroxine 50 mcg tablet 50 mcg PO QAM 11/16/22 11/16/22 History metoprolol tartrate 25 mg tablet 25 mg PO BID 11/16/22 11/16/22 History omeprazole 20 mg capsule,delayed 20 mg PO QAM 11/16/22 11/16/22 History release potassium chloride 10 mEq 10 meq PO BID 11/16/22 11/16/22 History tablet,extended release(part/cryst) rivaroxaban 10 mg tablet (Xarelto) 10 mg PO QPM 11/16/22 11/16/22 History simvastatin 20 mg tablet 20 mg PO QPM 11/16/22 11/16/22 History tizanidine 4 mg tablet 4 mg PO QPM 11/16/22 11/16/22 History melatonin 10 mg capsule 20 mg PO HS 11/17/22 11/17/22 History multivitamin (Daily Multi-Vitamin 1 tab PO DAILY 11/17/22 11/17/22 History tablet) natalizumab 300 mg/15 mL 300 mg IV Q28D 11/17/22 11/17/22 History intravenous solution (Tysabri) omega 5-cfy-ldv-fish oil 1,000 mg 1 cap PO DAILY 11/17/22 11/17/22 History (120 mg-180 mg) capsule (Fish Oil) vitamin B complex (B 1 tab PO DAILY 11/17/22 11/17/22 History Complex-Vitamin B12 tablet) Allergies Allergy/AdvReac Type Severity Reaction Status Date / Time Penicillins Allergy Verified 03/15/23 17:37 Exam Narrative: Exam Narrative: Gen: no acute distress HEENT: NCAT EOMI mmm Neck: Supple CV: Tachycardic normal s1 s2 Lungs: CTAB Abd: Soft,nt, nd Neuro: Alert, oriented, CN grossly intact; nonfocal screening?exam Psych: appropriate affect MSK: age appropriate muscle mass Skin; Warm, dry no rash on face; chronic osteomyelitis of coccyx/decubitus ulcer with purulent discharge Const: Vital Signs, click to edit/add: Vital Signs - 24 hr 03/15/23 17:37 03/15/23 18:35 03/15/23 19:16 Temperature 100.9 F H 103.2 F H Pulse Rate 112 H Pulse Rate [Pulse Oximeter] 108 H Respiratory Rate 24 Blood Pressure Blood Pressure [Le ft Arm] Blood Pressure [Ri ght Forearm] 141/73 H Pulse Oximetry 93 91 Oxygen Delivery Me thod Room Air 03/15/23 19:17 03/15/23 19:30 03/15/23 19:32 Temperature 103 F H Pulse Rate 112 H 113 H Pulse Rate [Pulse Oximeter] Respiratory Rate 16 Blood Pressure 166/89 H Blood Pressure [Le ft Arm] Blood Pressure [Ri ght Forearm] Pulse Oximetry 96 91 91 Oxygen Delivery Me thod Room Air 03/15/23 19:33 03/15/23 19:45 03/15/23 19:45 Temperature 102.5 F H Pulse Rate 113 H 115 H Pulse Rate [Pulse Oximeter] Respiratory Rate Blood Pressure Blood Pressure [Le ft Arm] Blood Pressure [Ri ght Forearm] Pulse Oximetry 91 91 Oxygen Delivery Me thod 03/15/23 20:00 03/15/23 20:02 03/15/23 20:15 Temperature Pulse Rate 121 H 119 H 120 H Pulse Rate [Pulse Oximeter] Respiratory Rate Blood Pressure 157/77 H Blood Pressure [Le ft Arm] Blood Pressure [Ri ght Forearm] Pulse Oximetry 91 91 92 Oxygen Delivery Me thod 03/15/23 20:30 03/15/23 20:32 03/15/23 20:33 Temperature Pulse Rate 119 H 121 H 120 H Pulse Rate [Pulse Oximeter] Respiratory Rate Blood Pressure 146/72 H Blood Pressure [Le ft Arm] Blood Pressure [Ri ght Forearm] Pulse Oximetry 91 96 95 Oxygen Delivery Me thod 03/15/23 20:45 03/15/23 21:11 03/15/23 21:11 Temperature 103.0 F H Pulse Rate 120 H Pulse Rate [Pulse Oximeter] 118 H Respiratory Rate 18 16 Blood Pressure Blood Pressure [Le ft Arm] 114/54 L Blood Pressure [Ri ght Forearm] Pulse Oximetry 89 91 89 Oxygen Delivery Me thod Room Air Room Air Hospitalist - H&P: Result Labs Labs: Short CBC 03/15/23 Range/Units 18:50 WBC 13.63 H (4.50-11.00) K/uL Hgb 11.7 L (12.0-16.0) gm/dL Hct 37.2 (33.0-51.0) % Plt Count 257 (140-440) K/uL BMP 03/15/23 18:35 Sodium 134 L Potassium 4.1 Chloride 101 Carbon Dioxide 21 BUN 12 Creatinine 0.7 Glucose 142 H Calcium 9.9 Liver Function 03/15/23 Range/Units 18:35 Total Bilirubin 0.5 (0.1-1.5) mg/dL Direct Bilirubin 0.0 (0.0-0.5) mg/dL AST 36 H (12-35) U/L ALT 28 (4-35) U/L Alkaline Phosphatase 113 (40-150) U/L Albumin 4.0 (3.3-5.0) g/dL Urine 03/15/23 Range/Units 19:10 Urine Color Yellow (Yellow) Urine Appearance Clear (Clear) Urine pH 7.0 (5.0-8.5) Ur Specific [place] 1.015 (1.000-1.030) Urine Protein Negative (Negative) Urine Glucose (UA) Negative (Negative) Assessment and Plan Assessment and plan (1) Sepsis: Status: Acute (2) Osteomyelitis: Problem comment: Associated with decubitus ulcer she has osteomyelitis on her right ischial spine. Status: Acute (3) Decubitus ulcer: Problem comment: Acute worsening of chronic ulcer. Associated with osteomyelitis. Given chronicity uncertain if this will ever heal completely. Surgical consultation. Obtain cultures from Clinic in [place] to help guide therapy. Status: Acute (4) History of DVT (deep vein thrombosis): Problem comment: On long-term anticoagulation with rivaroxaban 10 mg daily Status: Acute (5) Paroxysmal atrial fibrillation: Problem comment: On rate control and partial anticoagulation Status: Acute (6) Neurogenic bladder: Problem comment: Has urostomy after cystectomy and ileal conduit from sigmoid Status: Acute (7) Multiple sclerosis: Status: Acute (8) Morbid obesity: Status: Acute (9) Sleep apnea: Problem comment: Suspected based on clinical factors. patient doubts this diagnosis. Outpatient evaluation if desired Status: Suspected Plan Serene Pierson is a 72 year old female with complicated past medical history including history paroxysmal atrial fibrillation (on Xarelto), neurogenic bladder with a ileal conduit urostomy,, multiple sclerosis, hypothyroidism, hypertension, hematuria, history of osteomyelitis, pressure injury of the right heel and of the perineal ischial region, multiple ventral abdominal wall hernias, large diaphragmatic hiatal hernia. She also has a poorly healing sacral ulcer. She follows with wound clinic. She reports fever this morning. Associated symptoms included chills, rigors, and generalized weakness. She presented to ED where she was febrile and tachycardic. CXR with no acute findings. In the ED notable labs included WBC 13.6. Lactate 2.5. Repeat lactate 2.5. She was started on ertapenem, given IVF bolus and admitted for further evaluation. 1. Sepsis secondary to decubitus ulcer and chronic osteomyelitis of coccyx and ischial/preineal region pressure ulcers 2. Hx of PAF, on Xarelto Plan -admit to inpatient -wound cx and gram stain of decubitus ulcer -wound care consult in AM; may consider curbside surgical consult re local tissue debridement -IVF -goal MAP>65 -monitor I&0 -serial lactate -antibiotics: add vanco, continue ertapenem previous wound cx with pansensitive Ecoli; ?PCN allergy -f/u Cx -consider ID teleconsult in AM pending clinical course and CT imaging of lumbar/sacral region if not improving. Code-Full DVT ppx-on xarelto Family communication-updated son levi by phone his sister is planning to stop by tomorrow
[2023-03-15 22:02] LABS: Procalcitonin* 0.23 ng/mL (<0.50)
[2023-03-15] MEDS: RIVAROXABAN 10 MG TABLET PO (22:03)
[2023-03-15] MEDS: 0.9 % SODIUM CHLORIDE 1000 ml 1,000 ML 125 ML IV (22:04)
[2023-03-15] MEDS: SODIUM CHLORIDE 0.9 % (FLUSH) 10 ML SYRINGE 5 ML IVF (22:05)
[2023-03-15] MEDS: 0.9 % SODIUM CHLORIDE 1000 ml 1,000 ML IV (22:18)
[2023-03-16] VITALS (12 sets, daily range): BP systolic 91–131; BP diastolic 46–67; PULSE 70–102; RESP 18–24; TEMP 37.2–39.5; O2SAT 92–97; BMI 39.9
[2023-03-16] MEDS: ACETAMINOPHEN 325 MG TABLET 650 MG PO ×3 (00:58→18:16)
[2023-03-16] MEDS: ONDANSETRON 2 MG/ML inj 4 MG IVP (01:02)
[2023-03-16] MEDS: SODIUM CHLORIDE 0.9 % (FLUSH) 10 ML SYRINGE 5 ML IVF ×2 (01:03→20:53)
[2023-03-16 03:12] LABS: Lactate Sepsis w/Reflex* 1.5 mmol/L (0.5-1.9)
[2023-03-16 03:14] LABS: Basophils Percent Auto 0.1 % (0.0-3.0); Eosinophils Percent Auto 0.1 % (0.0-7.0); Hematocrit 30.6 % (33.0-51.0); Hemoglobin* 9.7 gm/dL (12.0-16.0); Immature Granulocytes Pct Auto 0.5 %; Lymphocytes Percent Auto 9.7 % (20-44); Mean Corpuscular HGB Conc 32 gm/dL (32-36); Mean Corpuscular Hemoglobin 27 pg (26-34); Mean Corpuscular Volume 86 fL (80-100); Monocytes Percent Auto 4.3 % (0.0-11.0); Neutrophils Percent Auto 85.3 % (42.0-72.0); Platelet Count* 201 K/uL (140-440); RDW Coefficient of Variation % 22.2 % (11.5-15.5); Red Blood Count 3.58 m/uL (4.00-5.20); White Blood Count* 11.44 K/uL (4.50-11.00)
[2023-03-16 03:20] LABS: Slide Review Reflex No
[2023-03-16 03:27] LABS: Albumin* 3.2 g/dL (3.3-5.0); Chloride* 105 mmol/L (96-114)
[2023-03-16 03:28] LABS: Potassium* 3.6 mmol/L (3.6-5.1); Sodium* 134 mmol/L (135-149)
[2023-03-16 03:30] LABS: Alkaline Phosphatase* 88 U/L (40-150); Anion Gap 9 mEq/L (7-15); Aspartate Amino Transferase* 37 U/L (12-35); Bilirubin Total* 0.4 mg/dL (0.1-1.5); Blood Urea Nitrogen* 11 mg/dL (7-30); Carbon Dioxide* 20 mmol/L (20-32); Creatinine* 0.5 mg/dL (0.5-1.5); Est. Creatinine Clearance* 43.91; Estimated Glomerular Filt Rate 100 ml/min; Total Protein* 6.8 g/dL (6.0-8.3)
[2023-03-16 03:31] LABS: Alanine Aminotransferase* 26 U/L (4-35); Calcium* 8.6 mg/dL (8.4-10.6); Glucose* 152 mg/dL (60-115)
[2023-03-16 03:47] LABS: Procalcitonin* 0.84 ng/mL (<0.50)
[2023-03-16] MEDS: LEVOTHYROXINE 50 MCG TABLET PO (06:08)
--- NOTE | 2023-03-16 06:57 | PC.NURSE ---
Pt arrived to floor approx 2100 from ED and appears sweaty and felt hot to touch, oral temp of 103.0, tylenol administed with low temp of 101.3 and back up to 103.1 and then 102.1. Pt has urostomy which requires frequent emptying due to all the IV fluids pt received, changed this morning due to leaking under the wafer. Please have pt or [employer] bring in pt own urology supplies. Dressing changed to wound pr Dr Lofton, wound care consult currently in place. repositions q2hrs, tolerated well. Pt confusion cleared up as night progressed. BP stable during night. 1 episode of emesis, pt had relief with zofran and no more emesis remainder of night.
[2023-03-16] MEDS: OMEPRAZOLE 20 MG CAPSULE DR PO (08:54)
[2023-03-16] MEDS: CITALOPRAM HYDROBROMIDE 20 MG TABLET 10 MG PO (08:54)
[2023-03-16] MEDS: METOPROLOL TARTRATE 25 MG TABLET 12.5 MG PO ×2 (08:55→20:32)
[2023-03-16] MEDS: BACLOFEN 10 MG TABLET 40 MG PO ×4 (08:55→20:37)
[2023-03-16] MEDS: 0.9 % SODIUM CHLORIDE 1000 ml 1,000 ML 125 ML IV (08:57)
--- NOTE | 2023-03-16 13:42 | PM.IMPN1 ---
Progress Note: A&P Assessment and plan (1) Sepsis: Problem details: Source is likely osteomyelitis of the right ischial spine. Vancomycin and imipenem. Status: Acute (2) Bacteremia: Problem details: Blood culture shows Gram-positive cocci in clusters. Status: Acute (3) Multiple sclerosis: Problem details: Functionally paraplegic. Unclear whether she can get the care she needs from her with wound care and repositioning to heal her ulcers. Consider residential facility Status: Acute (4) Osteomyelitis: Problem details: Associated with decubitus ulcer she has osteomyelitis on her right ischial spine. Chronic since at least May of 2022 Status: Acute (5) Morbid obesity: Status: Acute (6) Paroxysmal atrial fibrillation: Problem details: On rate control and partial anticoagulation Status: Acute (7) Neurogenic bladder: Problem details: Has urostomy after cystectomy and ileal conduit from sigmoid Status: Acute (8) Chronic anemia: Problem details: January 2023 had evaluation at [facility] with EGD which showed cystic fundic gland polyps in the gastric antrum and colonoscopy which was incomplete showing a 7 mm sessile polyp in the sigmoid. She underwent CT colonography which was unremarkable. Overall findings were felt to be reassuring. No obvious source of bleeding identified. Status: Acute (9) Decubitus ulcer: Problem details: Acute worsening of chronic ulcer. Associated with osteomyelitis. Given chronicity uncertain if this will ever heal completely. Surgical consultation. Status: Acute (10) Sleep apnea: Problem details: Suspected based on clinical factors. patient doubts this diagnosis. Outpatient evaluation if desired Status: Suspected Time Spent With Patient Total time spent: Total time spent today is 65 minutes, 45 minutes in coordination of care and discussing with patient and other providers ongoing evaluation management of chronic osteomyelitis and sepsis Subjective Date Seen: 03/16/23 Interval history: 72-year-old female paraplegic from multiple sclerosis and chronic decubitus ulcer with osteomyelitis of the right ischial tuberosity admitted to the hospital with fever and chills. She has been followed by [facility] and was doing well as recently as Monday, 2 days ago. Yesterday she had onset of symptoms of illness with fever and weakness. At the time of admission she was felt to have sepsis presumably from her decubitus ulcer. She was admitted on vancomycin and ertapenem. She was hospitalized at [facility] from May 30, 2022 to 08/24/2022. She had surgical debridement of her wound at that time. She was hospitalized here in October 2022. At that time MRI showed chronic osteomyelitis of right ischial spine. Discharged from here on Levaquin and doxycycline. She took this for about 8 weeks by secondhand report. She has subsequently been treated again recently with Levaquin for a cellulitis in the area of her decubitus ulcer.. She has previously had pansensitive E coli and Pseudomonas cultured from wound and urine. Secondhand reports also history of MRSA infection. She lives at home with her who is her caregiver. She is unable to reposition herself in bed. She has a urostomy Exam Narrative: Exam Narrative: She is alert and appears in no distress. She gives her own history. Breathing is unlabored. Respirations are clear to auscultation. Cardiovascular: S1, S2 relatively regular rate and rhythm. Abdomen is soft she has a large mid abdominal hernia. Palpation shows there is bowel present in this hernia. This is nontender and easily reduced. Urostomy noted. She has a deep ulcer over her right ischial tuberosity with relatively well-healing granulation tissue surrounding this. No fluctuance or tenderness. Over her mid sacrum she has development of some new superficial decubitus ulcers and erythema. Const: Vital Signs, click to edit/add: Vital Signs - 24 hr 03/15/23 17:37 03/15/23 18:35 03/15/23 19:16 Temperature 100.9 F H 103.2 F H Pulse Rate 112 H Pulse Rate [Pulse Oximeter] 108 H Respiratory Rate 24 Blood Pressure Blood Pressure [Le ft Arm] Blood Pressure [Ri ght Forearm] 141/73 H Pulse Oximetry 93 91 Oxygen Delivery Me thod Room Air Oxygen Flow Rate 03/15/23 19:17 03/15/23 19:30 03/15/23 19:32 Temperature 103 F H Pulse Rate 112 H 113 H Pulse Rate [Pulse Oximeter] Respiratory Rate 16 Blood Pressure 166/89 H Blood Pressure [Le ft Arm] Blood Pressure [Ri ght Forearm] Pulse Oximetry 96 91 91 Oxygen Delivery Me thod Room Air Oxygen Flow Rate 03/15/23 19:33 03/15/23 19:45 03/15/23 19:45 Temperature 102.5 F H Pulse Rate 113 H 115 H Pulse Rate [Pulse Oximeter] Respiratory Rate Blood Pressure Blood Pressure [Le ft Arm] Blood Pressure [Ri ght Forearm] Pulse Oximetry 91 91 Oxygen Delivery Me thod Oxygen Flow Rate 03/15/23 20:00 03/15/23 20:02 03/15/23 20:15 Temperature Pulse Rate 121 H 119 H 120 H Pulse Rate [Pulse Oximeter] Respiratory Rate Blood Pressure 157/77 H Blood Pressure [Le ft Arm] Blood Pressure [Ri ght Forearm] Pulse Oximetry 91 91 92 Oxygen Delivery Me thod Oxygen Flow Rate 03/15/23 20:30 03/15/23 20:32 03/15/23 20:33 Temperature Pulse Rate 119 H 121 H 120 H Pulse Rate [Pulse Oximeter] Respiratory Rate Blood Pressure 146/72 H Blood Pressure [Le ft Arm] Blood Pressure [Ri ght Forearm] Pulse Oximetry 91 96 95 Oxygen Delivery Me thod Oxygen Flow Rate 03/15/23 20:45 03/15/23 21:11 03/15/23 21:11 Temperature 103.0 F H Pulse Rate 120 H Pulse Rate [Pulse Oximeter] 118 H Respiratory Rate 18 16 Blood Pressure Blood Pressure [Le ft Arm] 114/54 L Blood Pressure [Ri ght Forearm] Pulse Oximetry 89 91 89 Oxygen Delivery Me thod Room Air Room Air Oxygen Flow Rate 03/15/23 22:33 03/15/23 22:42 03/15/23 22:42 Temperature 102.4 F H Pulse Rate Pulse Rate [Pulse Oximeter] 108 H 108 H Respiratory Rate 20 20 Blood Pressure Blood Pressure [Le ft Arm] 132/67 Blood Pressure [Ri ght Forearm] Pulse Oximetry 94 94 Oxygen Delivery Me thod Room Air Oxygen Flow Rate 03/15/23 23:00 03/16/23 01:18 03/16/23 03:00 Temperature 103.1 F H 102.1 F H Pulse Rate 103 H Pulse Rate [Pulse Oximeter] 102 H Respiratory Rate 18 Blood Pressure Blood Pressure [Le ft Arm] 111/56 L Blood Pressure [Ri ght Forearm] Pulse Oximetry 93 Oxygen Delivery Me thod Nasal Cannula Oxygen Flow Rate 1 03/16/23 07:00 03/16/23 07:00 03/16/23 07:00 Temperature 100.3 F H Pulse Rate Pulse Rate [Pulse Oximeter] 95 Respiratory Rate 18 Blood Pressure Blood Pressure [Le ft Arm] 91/67 Blood Pressure [Ri ght Forearm] Pulse Oximetry 97 97 97 Oxygen Delivery Me thod Nasal Cannula Nasal Cannula Oxygen Flow Rate 1 1 03/16/23 07:00 03/16/23 07:00 03/16/23 07:53 Temperature 100.3 F H Pulse Rate 90 Pulse Rate [Pulse Oximeter] 95 Respiratory Rate 18 Blood Pressure Blood Pressure [Le ft Arm] Blood Pressure [Ri ght Forearm] Pulse Oximetry Oxygen Delivery Me thod Oxygen Flow Rate 03/16/23 09:00 03/16/23 11:00 Temperature 102.2 F H 100.3 F H Pulse Rate Pulse Rate [Pulse Oximeter] 83 Respiratory Rate 18 Blood Pressure Blood Pressure [Le ft Arm] 104/46 L Blood Pressure [Ri ght Forearm] Pulse Oximetry 94 Oxygen Delivery Me thod Nasal Cannula Oxygen Flow Rate 1 Documenting provider has reviewed patient's vital signs: yes Labs Labs: Laboratory Results - last 24 hr 03/15/23 03/15/23 03/15/23 17:36 18:35 18:50 WBC 13.63 H RBC 4.38 Hgb 11.7 L Hct 37.2 MCV 85 MCH 27 MCHC 32 RDW Coeff of Michele 22.4 H Plt Count 257 Neut % (Auto) 85.5 H Lymph % (Auto) 9.0 L [place] % (Auto) 5.0 Eos % (Auto) 0.1 Baso % (Auto) 0.2 Neut # (Auto) 11.70 H Lymph # (Auto) 1.20 [place] # (Auto) 0.70 Eos # (Auto) 0.00 Baso # (Auto) 0.00 Abs Immat Gran (auto) 0.00 Imm/Tot Granulo (auto) 0.2 Sodium 134 L Potassium 4.1 Chloride 101 Carbon Dioxide 21 Anion Gap 12 BUN 12 Creatinine 0.7 Estimated Creat Clear Estimated GFR 92 Glucose 142 H Lactate 2.5 H Calcium 9.9 Magnesium 1.7 Total Bilirubin 0.5 Direct Bilirubin 0.0 AST 36 H ALT 28 Alkaline Phosphatase 113 C-Reactive Protein 6.9 H Total Protein 8.1 Albumin 4.0 Procalcitonin 0.23 Urine Color Urine Appearance Urine pH Ur Specific [place] Urine Protein Urine Glucose (UA) Urine Ketones Urine Blood Urine Nitrite Urine Bilirubin Urine Urobilinogen Ur Leukocyte Esterase Urine RBC Urine WBC Ur Squamous Epith Cells Urine Bacteria SARS-CoV-2 (PCR) Negative SARS-CoV-2 Influenza Type A (PCR) Negative PCR FLU A Influenza Type B (PCR) Negative PCR FLU B Lab Acknowledgement 03/15/23 03/15/23 03/15/23 19:10 21:29 21:30 WBC RBC Hgb Hct MCV MCH MCHC RDW Coeff of Michele Plt Count Neut % (Auto) Lymph % (Auto) [place] % (Auto) Eos % (Auto) Baso % (Auto) Neut # (Auto) Lymph # (Auto) [place] # (Auto) Eos # (Auto) Baso # (Auto) Abs Immat Gran (auto) Imm/Tot Granulo (auto) Sodium Potassium Chloride Carbon Dioxide Anion Gap BUN Creatinine Estimated Creat Clear Estimated GFR Glucose Lactate 2.5 H Calcium Magnesium Total Bilirubin Direct Bilirubin AST ALT Alkaline Phosphatase C-Reactive Protein Total Protein Albumin Procalcitonin Urine Color Yellow Urine Appearance Clear Urine pH 7.0 Ur Specific [place] 1.015 Urine Protein Negative Urine Glucose (UA) Negative Urine Ketones Negative Urine Blood 2+ A Urine Nitrite Negative Urine Bilirubin Negative Urine Urobilinogen 0.2 Ur Leukocyte Esterase 1+ A Urine RBC 5-10 A Urine WBC 2-5 Ur Squamous Epith Cells None Urine Bacteria None SARS-CoV-2 (PCR) Influenza Type A (PCR) Influenza Type B (PCR) Lab Acknowledgement Test Added 03/16/23 03:04 WBC 11.44 H RBC 3.58 L Hgb 9.7 L Hct 30.6 L MCV 86 MCH 27 MCHC 32 RDW Coeff of Michele 22.2 H Plt Count 201 Neut % (Auto) 85.3 H Lymph % (Auto) 9.7 L [place] % (Auto) 4.3 Eos % (Auto) 0.1 Baso % (Auto) 0.1 Neut # (Auto) 9.80 H Lymph # (Auto) 1.10 [place] # (Auto) 0.50 Eos # (Auto) 0.00 Baso # (Auto) 0.00 Abs Immat Gran (auto) 0.10 Imm/Tot Granulo (auto) 0.5 Sodium 134 L Potassium 3.6 Chloride 105 Carbon Dioxide 20 Anion Gap 9 BUN 11 Creatinine 0.5 Estimated Creat Clear 43.91 Estimated GFR 100 Glucose 152 H Lactate 1.5 Calcium 8.6 Magnesium Total Bilirubin 0.4 Direct Bilirubin AST 37 H ALT 26 Alkaline Phosphatase 88 C-Reactive Protein Total Protein 6.8 Albumin 3.2 L Procalcitonin 0.84 H Urine Color Urine Appearance Urine pH Ur Specific [place] Urine Protein Urine Glucose (UA) Urine Ketones Urine Blood Urine Nitrite Urine Bilirubin Urine Urobilinogen Ur Leukocyte Esterase Urine RBC Urine WBC Ur Squamous Epith Cells Urine Bacteria SARS-CoV-2 (PCR) Influenza Type A (PCR) Influenza Type B (PCR) Lab Acknowledgement
--- NOTE | 2023-03-16 14:44 | PC.NURSE ---
End of shift Note: Patient has been T & R today. Have not tried to get her oob yet this shift. Have noted some intermittent confusion. Patient was very sure that she had her cell phone here with her. looked all over the room and then called her son Du who stated her cell phone is at home. she has been febrile and treated with tylenol. Yamile DE ANDA from wound center was here to change wound dressing. Will continue to monitor until report given to the next shift.
[2023-03-16] MEDS: RIVAROXABAN 10 MG TABLET PO (18:06)
[2023-03-16] MEDS: TIZANIDINE HCL 4 MG TABLET PO (18:06)
[2023-03-16] MEDS: SIMVASTATIN 20 MG TABLET PO (18:06)
[2023-03-16] MEDS: 0.9 % SODIUM CHLORIDE 1000 ml 1,000 ML 75 ML IV (20:21)
--- NOTE | 2023-03-16 23:40 | PC.NURSE ---
Patient pleasant, cooperative, and oriented to self. Patient displayed intermittent confusion during shift. Patient denies pain. Wound dressings are dry and intact. Dressing on left buttock replaced during shift and zinc cream added to surrounding area. Increased oral intake, urine output remains low despite PO intake of 1910mL this shift. Patient vital signs remained within adequate limits during shift other than temperature which ranged from 99-100.3F during shift. Antipyretic interventions given per AUG with improvement. BP remains low 100s systolically. Patient repositioned Q2h with assistance. Patient requested nasal cannula to be removed during shift, MD notified, O2 saturation maintaining above 90%. Standing order of melatonin added for HS per patient request. MRSA swab taken per MD order, results pending. ?
[2023-03-17] VITALS (9 sets, daily range): BP systolic 93–137; BP diastolic 45–68; PULSE 74–91; RESP 18–22; TEMP 37–37.4; O2SAT 91–95
[2023-03-17 06:53] LABS: Basophils Absolute Auto 0.02 K/uL (0.00-0.30); Basophils Percent Auto 0.3 % (0.0-3.0); Eosinophils Absolute Auto 0.16 K/uL (0.00-0.50); Eosinophils Percent Auto 2.7 % (0.0-7.0); Hematocrit 28.4 % (33.0-51.0); Hemoglobin* 8.9 gm/dL (12.0-16.0); Immature Granulocytes Abs Auto 0.02 K/uL (0.00-0.30); Immature Granulocytes Pct Auto 0.3 %; Lymphocytes Absolute Auto 1.43 K/uL (0.90-2.90); Lymphocytes Percent Auto 24.1 % (20-44); Mean Corpuscular HGB Conc 31 gm/dL (32-36); Mean Corpuscular Hemoglobin 27 pg (26-34); Mean Corpuscular Volume 87 fL (80-100); Monocytes Percent Auto 6.2 % (0.0-11.0); Neutrophils Absolute Auto 3.94 K/uL (1.7-7.0); Neutrophils Percent Auto 66.4 % (42.0-72.0); Platelet Count* 180 K/uL (140-440); RDW Coefficient of Variation % 22.3 % (11.5-15.5); Red Blood Count 3.27 m/uL (4.00-5.20); White Blood Count* 5.94 K/uL (4.50-11.00)
[2023-03-17 07:13] LABS: Slide Review Reflex Yes
[2023-03-17 07:17] LABS: Chloride* 108 mmol/L (96-114); Sodium* 136 mmol/L (135-149)
[2023-03-17 07:18] LABS: Potassium* 3.3 mmol/L (3.6-5.1)
[2023-03-17 07:20] LABS: Creatinine* 0.5 mg/dL (0.5-1.5); Est. Creatinine Clearance* 43.91; Estimated Glomerular Filt Rate 100 ml/min
[2023-03-17 07:21] LABS: Anion Gap 8 mEq/L (7-15); Blood Urea Nitrogen* 12 mg/dL (7-30); Calcium* 8.7 mg/dL (8.4-10.6); Carbon Dioxide* 20 mmol/L (20-32); Glucose* 88 mg/dL (60-115)
[2023-03-17] MEDS: LEVOTHYROXINE 50 MCG TABLET PO (07:40)
--- NOTE | 2023-03-17 07:43 | PC.NURSE ---
End of shift: Pt A&O with some forgetfulness. pt hypotensive at beginning of shift, provider notified, no change. Pt has been afebrile throughout shift. Denies pain. turn and repo q2h. Urostomy in place and draining large amounts of urine. Dressings to buttocks c/d/i.
[2023-03-17 07:47] LABS: C Reactive Protein* 18.2 mg/dL (0.5-1.0)
[2023-03-17] MEDS: BACLOFEN 10 MG TABLET 40 MG PO ×4 (09:46→22:09)
[2023-03-17] MEDS: CITALOPRAM HYDROBROMIDE 20 MG TABLET 10 MG PO (09:47)
[2023-03-17] MEDS: METOPROLOL TARTRATE 25 MG TABLET 12.5 MG PO ×2 (09:49→22:09)
[2023-03-17] MEDS: OMEPRAZOLE 20 MG CAPSULE DR PO (09:51)
--- NOTE | 2023-03-17 11:30 | P.IMPN_ITS ---
Progress Note: A&P Assessment and plan (1) Sepsis: Problem details: Source is likely osteomyelitis of the right ischial spine. Vancomycin and imipenem. Clinically appears to be improving. Blood and wound cultures pending Status: Acute (2) Bacteremia: Problem details: Blood culture shows Gram-positive cocci in clusters. Preliminary report is coag-negative staph Status: Acute (3) Multiple sclerosis: Problem details: Functionally paraplegic. Has been bed ridden for the last several months. Chantel ble to reposition herself in bed. Unclear whether she can get the care she needs from her with wound care and repositioning to heal her ulcers. Consider correction facility Status: Acute (4) Osteomyelitis: Problem details: Associated with decubitus ulcer she has osteomyelitis on her right ischial spine. Chronic since at least May of 2022 Status: Acute (5) Morbid obesity: Status: Acute (6) Paroxysmal atrial fibrillation: Problem details: On rate control and anticoagulation Status: Acute (7) Neurogenic bladder: Problem details: Has urostomy after cystectomy and ileal conduit from sigmoid Status: Acute (8) Chronic anemia: Problem details: January 2023 had evaluation at [place] with EGD which showed cystic fundic gland polyps in the gastric antrum and colonoscopy which was incomplete showing a 7 mm sessile polyp in the sigmoid. She underwent CT colonography which was unremarkable. Overall findings were felt to be reassuring. No obvious source of bleeding identified. Status: Acute (9) Decubitus ulcer: Problem details: Acute worsening of chronic ulcer. Associated with osteomyelitis. Given chronicity uncertain if this will ever heal completely. Status: Acute (10) Sleep apnea: Problem details: Suspected based on clinical factors. Likely the cause of nocturnal hypoxia. patient doubts this diagnosis. Outpatient evaluation if desired. Status: Suspected Plan Continue in hospital pending cultures. Continue broad-spectrum IV antibiotics pending cultures. Continue routine wound care. Ongoing assessment for plan to promote wound healing. Possible correction facility for improve skin care Time Spent With Patient Total time spent: Total time spent today is 60 minutes, 40 minutes in coordination of care discussing with patient other providers ongoing evaluation management of ulcers, id disability, sepsis Subjective Date Seen: 03/17/23 Interval history: 72-year-old female paraplegic from multiple sclerosis and chronic decubitus ulcer with osteomyelitis of the right ischial tuberosity admitted to the hospital with fever and chills. She has been followed by [facility] and was doing well as recently as Monday, 2 days prior to admission. Yesterday she had onset of symptoms of illness with fever and weakness. At the time of admission she was felt to have sepsis presumably from her decubitus ulcer. She was admitted on vancomycin and ertapenem. She was hospitalized at [facility] from May 30, 2022 to 08/24/2022 for management of her decubitus ulcer and osteomyelitis. She had surgical debridement of her wound at that time. She was hospitalized here in October 2022. At that time MRI showed chronic osteomyelitis of right ischial spine. Discharged from here on Levaquin and doxycycline. She took this for about 8 weeks by secondhand report. She has subsequently been treated again with Levaquin for a cellulitis in the area of her decubitus ulcer. She was treated with a cephalosporin for a UTI in January. She has previously had pansensitive E coli and Pseudomonas cultured from wound and urine. Secondhand reports also history of MRSA infection. She lives at home with her who is her caregiver. She is unable to reposition herself in bed. She has a urostomy. She still had low-grade fevers last night. She is otherwise feeling well. She did receive supplemental oxygen overnight. Clinical suspicion for sleep apnea. She reports never having evaluation for that but is on her list of medical problems. She is not dyspneic. She does not have a cough or chest pain. 1 of 2 blood cultures yesterday were positive. Results of that today suggests contamination with coag-negative Gram-positive cocci. Exam Narrative: Exam Narrative: She is alert and appears in no distress. She gives her own history. When I showed off her oxygen her O2 sat remains in the mid 90s. Respirations are clear to auscultation. Breathing is unlabored. Cardiovascular: S1, S2, relatively regular rhythm. Abdomen is soft without tenderness or mass. Abdominal hernia unchanged. Urostomy noted. Lower extremities are profoundly weak. No significant edema. Const: Vital Signs, click to edit/add: Vital Signs - 24 hr 03/16/23 15:00 03/16/23 15:00 03/16/23 15:00 Temperature 99.0 F Pulse Rate Pulse Rate [Pulse Oximeter] 89 Respiratory Rate 20 20 Blood Pressure [Le ft Arm] 100/65 Pulse Oximetry 97 97 97 Oxygen Delivery Me thod Nasal Cannula Nasal Cannula Oxygen Flow Rate 1 1 03/16/23 15:00 03/16/23 15:00 03/16/23 18:16 Temperature 100.3 F H Pulse Rate 84 Pulse Rate [Pulse Oximeter] Respiratory Rate 20 Blood Pressure [Le ft Arm] Pulse Oximetry Oxygen Delivery Me thod Oxygen Flow Rate 03/16/23 19:00 03/16/23 20:21 03/16/23 23:00 Temperature 100.3 F H 100 F H Pulse Rate Pulse Rate [Pulse Oximeter] 102 H Respiratory Rate 20 24 Blood Pressure [Le ft Arm] 131/49 L Pulse Oximetry 92 92 Oxygen Delivery Me thod Room Air Room Air Oxygen Flow Rate 03/16/23 23:00 03/16/23 23:13 03/17/23 01:04 Temperature 99.0 F 98.7 F Pulse Rate 70 Pulse Rate [Pulse Oximeter] 70 75 Respiratory Rate 24 Blood Pressure [Le ft Arm] 96/53 L 93/45 L Pulse Oximetry 92 91 Oxygen Delivery Me thod Room Air Room Air Oxygen Flow Rate 03/17/23 03:02 03/17/23 04:54 03/17/23 07:00 Temperature 99.4 F 99.4 F Pulse Rate Pulse Rate [Pulse Oximeter] 91 80 Respiratory Rate 22 22 Blood Pressure [Le ft Arm] 108/62 Pulse Oximetry 93 Oxygen Delivery Me thod Room Air Oxygen Flow Rate 03/17/23 07:00 03/17/23 07:00 Temperature 99.4 F Pulse Rate Pulse Rate [Pulse Oximeter] 80 Respiratory Rate 22 22 Blood Pressure [Le ft Arm] 131/67 Pulse Oximetry 95 95 Oxygen Delivery Me thod Nasal Cannula Nasal Cannula Oxygen Flow Rate 1 1 Documenting provider has reviewed patient's vital signs: yes Labs Labs: Laboratory Results - last 24 hr 03/17/23 05:38 WBC 5.94 RBC 3.27 L Hgb 8.9 L Hct 28.4 L MCV 87 MCH 27 MCHC 31 L RDW Coeff of Michele 22.3 H Plt Count 180 Neut % (Auto) 66.4 Lymph % (Auto) 24.1 [place] % (Auto) 6.2 Eos % (Auto) 2.7 Baso % (Auto) 0.3 Neut # (Auto) 3.94 Lymph # (Auto) 1.43 [place] # (Auto) 0.40 Eos # (Auto) 0.16 Baso # (Auto) 0.02 Abs Immat Gran (auto) 0.02 Imm/Tot Granulo (auto) 0.3 Sodium 136 Potassium 3.3 L Chloride 108 Carbon Dioxide 20 Anion Gap 8 BUN 12 Creatinine 0.5 Estimated Creat Clear 43.91 Estimated GFR 100 Glucose 88 Calcium 8.7 C-Reactive Protein 18.2 H
--- NOTE | 2023-03-17 12:21 | PM.WSCN ---
Date of Consult Consult date: 03/16/23 Requesting Physician: Hospitalist Primary Care Provider: Lory Hudson PA-C Consult Narrative Reason for consult: chronic stage 4 pressure ulcer right right IT Narrative: Serene Pierson is a 72 year old female known to Wound Services, being seen today after she was admitted inpatient yesterday via ER for fever and suspected sepsis. Patient with chronic osteomyelitis stage IV pressure ulcer to right Buttock/IT region. Patient was seen in the Wound Center less than 48 hours prior to today's encounter and at that time she did not have any fever, chills, malaise. She denied having pain. At that time physical exam findings showed wound had improved with increased healthy granulation tissue, and decreased wound depth measurement. . Patient reports the next morning she woke up and began experiencing a fever and malaise. She described feeling confused, but is able to answer A&O4. ER admision testing showed negative COVID, influenza, etc. She did had deterioration of wound 6 weeks ago, after she had a prolonged period in her wheelchair and was not eating consistent dressing changes and repositioning in her group [address] unchanged. Wound culture completed same day as CT with culture growth of moderate amount of E coli she was treated with a 14 day course of levofloxacin 02/22-03/08; this was supported by sensitivities report. There is a new pressure ulcer to coccyx/sacrum that was not present two days ago in wound center. patient is 100% dependent on others to help in her repositioning and incontinence efforts. Her who is of the same age often independently attempts to reposition patient in bed she does have group to mattress however this has been insufficient to support her offloading needs to facilitate wound healing we have been in direct contact with the [facility] in her case management team and they are working with the [facility] to fund a group 3 support surface/mattress to be delivered for patient to use in home to increase offloading efforts. Patient verbalizes she would be open to facility placement. Dr. Moncada present at bedside. Review of Systems Status of ROS: Reports: 6 or more systems reviewed and unremarkable except as noted in History and below [facility] Medical History Sleep apnea ?G47.30 - Sleep apnea, unspecified (ICD-10) History of DVT (deep vein thrombosis) ?Z86.718 - Personal history of other venous thrombosis and embolism (ICD-10) Decubitus ulcer ?L89.90 - Pressure ulcer of unspecified site, unspecified stage (ICD-10) Breast cancer ?C50.919 - Malignant neoplasm of unspecified site of unspecified female breast (ICD-10) Chronic anemia ?D64.9 - Anemia, unspecified (ICD-10) Neurogenic bladder ?N31.9 - Neuromuscular dysfunction of bladder, unspecified (ICD-10) Paroxysmal atrial fibrillation ?I48.0 - Paroxysmal atrial fibrillation (ICD-10) Morbid obesity ?E66.01 - Morbid (severe) obesity due to excess calories (ICD-10) Multiple sclerosis ?G35 - Multiple sclerosis (ICD-10) Osteomyelitis ?M86.9 - Osteomyelitis, unspecified (ICD-10) Surgical History S/P breast lumpectomy ?Z98.890 - Other specified postprocedural states (ICD-10) Family History Sister Breast cancer Mother Diabetes Heart disease Brother Lung cancer Father Stroke Social History Narrative: She has been nonambulatory since about 1976 secondary to multiple sclerosis. She is bed-bound or wheelchair-bound. She has custom equipment made for her both wheelchair in bed due to her disabilities. She does not smoke. She does not drink alcohol. Her son Du and daughter Dottie are healthcare power of threat analyst. Code status is full. She lives at home in [place]. Prolonged hospital stay at [place] for 3 months this winter What is your current living situation?: I presently have a place to live Problems where you live: no known problems Problems where you live details: n/a In the past 12 months, utilities in danger of being shut off: no In past 12 months, lack of transportation kept you from medical appts, meetings, work, or getting things needed for daily living: no In the past 12 mos, have been you worried that your food would run out before you had money to buy more?: never true In the past 12 mos, the food you bought just didn't last and you didn't have money to buy more?: never true Highest level of school completed/degree received: 10th grade Smoking Status: Never smoker Do you use any of these nicotine containing products: None Second hand tobacco smoke exposure: No How often do you have a drink containing alcohol: never AUDIT-C Alcohol total score: 0 Non-prescribed substance use: denies use Caffeine: Yes (soda) How often does anyone, including family, friends and others, physically hurt you: never How often does anyone, including family, friends and others, insult or talk down to you: never How often does anyone, including family, friends and others, threaten you with harm: never How often does anyone, including family, friends and others, scream or curse at you: never service: No Meds Home Medications and Allergies Home Medications Medication Instructions Recorded Confirmed Type anastrozole 1 mg tablet 1 mg PO DAILY 11/16/22 03/16/23 History baclofen 20 mg tablet 40 mg PO QID 11/16/22 03/16/23 History calcium carbonate 600 mg-vitamin 1 tab PO QAM 11/16/22 03/16/23 History D3 10 mcg (400 unit) tablet cetirizine 10 mg tablet 10 mg PO DAILY 11/16/22 03/16/23 History citalopram 10 mg tablet 10 mg PO DAILY 11/16/22 03/16/23 History clonazepam 0.5 mg tablet 1 mg PO HS 11/16/22 03/16/23 History dalfampridine 10 mg 10 mg PO Q12H 11/16/22 03/16/23 History tablet,extended release,12 hr (Ampyra) levothyroxine 50 mcg tablet 50 mcg PO QAM 11/16/22 03/16/23 History metoprolol tartrate 25 mg tablet 12.5 mg PO BID 11/16/22 03/16/23 History omeprazole 20 mg capsule,delayed 20 mg PO QAM 11/16/22 03/16/23 History release potassium chloride 10 mEq 10 meq PO BID 11/16/22 03/16/23 History tablet,extended release(part/cryst) rivaroxaban 10 mg tablet (Xarelto) 10 mg PO QPM 11/16/22 03/16/23 History simvastatin 20 mg tablet 20 mg PO QPM 11/16/22 03/16/23 History tizanidine 4 mg tablet 4 mg PO QPM 11/16/22 03/16/23 History melatonin 10 mg capsule 20 mg PO HS 11/17/22 03/16/23 History multivitamin (Daily Multi-Vitamin 1 tab PO DAILY 11/17/22 03/16/23 History tablet) natalizumab 300 mg/15 mL 300 mg IV Q28D 11/17/22 03/16/23 History intravenous solution (Tysabri) omega 5-smg-thw-fish oil 1,000 mg 1 cap PO DAILY 11/17/22 03/16/23 History (120 mg-180 mg) capsule (Fish Oil) vitamin B complex (B 1 tab PO DAILY 11/17/22 03/16/23 History Complex-Vitamin B12 tablet) alendronate 70 mg tablet 70 mg PO .WEEKLY 03/16/23 03/16/23 History Allergies Allergy/AdvReac Type Severity Reaction Status Date / Time Penicillins Allergy Verified 03/15/23 17:37 Exam Narrative: Exam Narrative: General: NAD Eyes: wearing glasses. Conjunctiva clear without drainage. Pulmonary: unlabored, symmetrical rise. On 1 L nasal cannula. Abdomen: Chronic hernia present soft and easily reducible. Abdomen nontender. Urostomy present with yellow urine in bag. Wounds: coccyx: full-thickness evolving stage 3 pressure. Measuring 3X4X0.2cm. Moderate drainage. 100% slough/biofilm/non-viable tissue. Amy-wound with darkened tissue, non-blanchable. Right IT wound: 1.2X1.2X3.5cm finger probe/exploration into wound depth reveals no fluctuance or tenderness. No periwound fluctuance or tenderness, skin temp WNL. Amy-wound with diffuse MASD. wound base with healthy granulated tissue. No evidence of purulence. Drainage moderate serosang. Const: Vital Signs, click to edit/add: Vital Signs - 24 hr 03/16/23 15:03/16/23 15:03/16/23 15:00 Temperature 99.0 F Pulse Rate Pulse Rate [Pulse Oximeter] 89 Respiratory Rate 20 20 Blood Pressure [Le ft Arm] 100/65 Pulse Oximetry 97 97 97 Oxygen Delivery Me thod Nasal Cannula Nasal Cannula Oxygen Flow Rate 1 1 03/16/23 15:03/16/23 15:00 03/16/23 18:16 Temperature 100.3 F H Pulse Rate 84 Pulse Rate [Pulse Oximeter] Respiratory Rate 20 Blood Pressure [Le ft Arm] Pulse Oximetry Oxygen Delivery Me thod Oxygen Flow Rate 03/16/23 19:00 03/16/23 20:21 03/16/23 23:00 Temperature 100.3 F H 100 F H Pulse Rate Pulse Rate [Pulse Oximeter] 102 H Respiratory Rate 20 24 Blood Pressure [Le ft Arm] 131/49 L Pulse Oximetry 92 92 Oxygen Delivery Me thod Room Air Room Air Oxygen Flow Rate 03/16/23 23:00 03/16/23 23:13 03/17/23 01:04 Temperature 99.0 F 98.7 F Pulse Rate 70 Pulse Rate [Pulse Oximeter] 70 75 Respiratory Rate 24 Blood Pressure [Le ft Arm] 96/53 L 93/45 L Pulse Oximetry 92 91 Oxygen Delivery Me thod Room Air Room Air Oxygen Flow Rate 03/17/23 03:02 03/17/23 04:54 03/17/23 07:00 Temperature 99.4 F 99.4 F Pulse Rate Pulse Rate [Pulse Oximeter] 91 80 Respiratory Rate 22 22 Blood Pressure [Le ft Arm] 108/62 Pulse Oximetry 93 Oxygen Delivery Me thod Room Air Oxygen Flow Rate 03/17/23 07:00 03/17/23 07:00 Temperature 99.4 F Pulse Rate Pulse Rate [Pulse Oximeter] 80 Respiratory Rate 22 22 Blood Pressure [Le ft Arm] 131/67 Pulse Oximetry 95 95 Oxygen Delivery Me thod Nasal Cannula Nasal Cannula Oxygen Flow Rate 1 1 Documenting provider has reviewed patient's vital signs: yes Labs Labs: Short CBC 03/17/23 Range/Units 05:38 WBC 5.94 (4.50-11.00) K/uL Hgb 8.9 L (12.0-16.0) gm/dL Hct 28.4 L (33.0-51.0) % Plt Count 180 (140-440) K/uL BMP 03/17/23 05:38 Sodium 136 Potassium 3.3 L Chloride 108 Carbon Dioxide 20 BUN 12 Creatinine 0.5 Glucose 88 Calcium 8.7 Assessment and Plan Assessment and plan (1) Pressure ulcer of contiguous region involving right buttock and hip, stage 4: Problem comment: -this wound was just cultured on 11/10 by [facility]. The results show Pseudomonas aeruginosa and Staphylococcus aureus that is MRSA. Susceptibilities are available over both of these bacteria (in our office and scanned into our EMR). Levofloxin and Vanc are appropriate -general surgery feels no debridement is necessary -outpatient wound care is appropriate -she has an appt next week with wound care; I'll have her finish her course of levofloxin and doxycycline that were ordered the day prior to admission -pt will work with wound care for appropriate mattress, hospital bed Status: Acute (2) Stage 3 skin ulcer of sacral region: Status: Acute Plan Known wound appears stable, and is unchanged from examination 2 days ago with the exception of the periwound with increased MASD. New wound to coccyx, full-thickness stage 3. Likely patient was not properly offloaded at home which lead to the development of new wound. Nursing to move patient to mattress with increased offloading capabilities. Will need repositioning every 2 hours. ABX management to continue to be managed by hospitalist team. Wound care dressing change and patient repositioned in bed to offload wound completed by this conventional underwriter with the assistance of her assigned bedside nurse. Wound care: right IT wound thoroughly cleanse the wound. Pat dry. Apply zinc barrier cream/ointment to the periwound pack wound with vashe soaked kerlix, and cover with abd. Change daily. Coccyx wound: Thoroughly cleanse. Pat dry. Apply Medihoney cover with Mepilex changed every other day and p.r.n. Hospitalist updated at bedside. Nursing updated at bedside.
[2023-03-17] MEDS: POTASSIUM BICARB 25 MEQ EFFERVESCENT TAB 50 MEQ PO (12:48)
--- NOTE | 2023-03-17 14:51 | NUTR.NU ---
RD follow-up note - following for hi protein intake. Pt declined supplements in visit with RD yesterday. Today, B intake recorded as 40%. Pt states it would be helpful for her to have the higher protein items marked on the menu. This machine sign writer assisted with that. Pt states she will focus on ordering higher protein foods and not order so much of the other items. RD will continue to monitor and evaluate per protocol.
[2023-03-17] MEDS: RIVAROXABAN 10 MG TABLET PO (17:23)
[2023-03-17] MEDS: SIMVASTATIN 20 MG TABLET PO (17:23)
[2023-03-17] MEDS: TIZANIDINE HCL 4 MG TABLET PO (17:24)
--- NOTE | 2023-03-17 18:33 | PC.NURSE ---
Patient alert, pleasant and cooperative. Remained in bed all shift. Temperatures 98.8-99.4. O2 sats 93-94% on room air. Patient was repositioned q 2 hrs. Tolerated regular diet. Dressings to buttocks changed as they were soiled. Patient tolerated dressing change well. Patient has denied pain. IV saline locked per MD orders.
[2023-03-17] MEDS: SODIUM CHLORIDE 0.9 % (FLUSH) 10 ML SYRINGE 5 ML IVF (19:53)
[2023-03-17] MEDS: MELATONIN 3 MG TABLET PO (22:09)
[2023-03-18] VITALS (7 sets, daily range): BP systolic 123–144; BP diastolic 68–82; PULSE 70–77; RESP 18–22; TEMP 36.8–37.1; O2SAT 92–95
--- NOTE | 2023-03-18 06:37 | PC.NURSE ---
Shift note: Pt is doing well this shift. Alert and oriented. Turn and reposition Q2h and on demand. At 2300, pt complained of leaking of urostomy bag. New bag applied and beddings change, dressing to the coccyx area changed. Pt remained in bed throughout the night, had adequate sleep. Low grade fever 99.3 recorded at the start of the shift, otherwise vitally stable.
[2023-03-18 06:39] LABS: Basophils Percent Auto 0.7 % (0.0-3.0); Hematocrit 29.4 % (33.0-51.0); Hemoglobin* 9.2 gm/dL (12.0-16.0); Immature Granulocytes Pct Auto 0.2 %; Lymphocytes Percent Auto 37.5 % (20-44); Mean Corpuscular HGB Conc 31 gm/dL (32-36); Mean Corpuscular Hemoglobin 27 pg (26-34); Mean Corpuscular Volume 87 fL (80-100); Neutrophils Percent Auto 49.6 % (42.0-72.0); Platelet Count* 198 K/uL (140-440); RDW Coefficient of Variation % 21.7 % (11.5-15.5); White Blood Count* 4.43 K/uL (4.50-11.00)
[2023-03-18 06:54] LABS: Slide Review Reflex Yes
[2023-03-18] MEDS: LEVOTHYROXINE 50 MCG TABLET PO (06:55)
[2023-03-18 07:08] LABS: Chloride* 107 mmol/L (96-114)
[2023-03-18 07:09] LABS: Potassium* 3.6 mmol/L (3.6-5.1); Sodium* 138 mmol/L (135-149)
[2023-03-18 07:11] LABS: Creatinine* 0.5 mg/dL (0.5-1.5); Est. Creatinine Clearance* 43.91; Estimated Glomerular Filt Rate 100 ml/min
[2023-03-18 07:12] LABS: Anion Gap 11 mEq/L (7-15); Blood Urea Nitrogen* 10 mg/dL (7-30); Carbon Dioxide* 20 mmol/L (20-32); Glucose* 87 mg/dL (60-115)
[2023-03-18 07:13] LABS: Calcium* 9.4 mg/dL (8.4-10.6)
[2023-03-18 07:15] LABS: C Reactive Protein* 8.1 mg/dL (0.5-1.0)
[2023-03-18 07:18] LABS: Slide Review Acceptable Review (Acceptable)
[2023-03-18] MEDS: BACLOFEN 10 MG TABLET 40 MG PO ×4 (08:51→20:40)
[2023-03-18] MEDS: CITALOPRAM HYDROBROMIDE 20 MG TABLET 10 MG PO (08:53)
[2023-03-18] MEDS: OMEPRAZOLE 20 MG CAPSULE DR PO (08:54)
[2023-03-18] MEDS: METOPROLOL TARTRATE 25 MG TABLET 12.5 MG PO ×2 (08:55→20:40)
[2023-03-18] MEDS: SODIUM CHLORIDE 0.9 % (FLUSH) 10 ML SYRINGE 5 ML IVF ×2 (08:56→20:42)
[2023-03-18 10:54] LABS: Slide Review Acceptable Review (Acceptable)
[2023-03-18] MEDS: LACTOBACILLUS ACIDOPHILUS 1 TABLET 1 TAB PO ×2 (14:46→17:41)
--- NOTE | 2023-03-18 15:24 | PM.IMPN1 ---
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 Current culture growing MRSA Status: Acute (2) Stage 3 skin ulcer of sacral region: Status: Acute (3) Bacteremia: Problem details: One of 2 blood cultures show Staph epidermidis. Suspect contamination. Status: Acute (4) Sepsis: Problem details: Source is likely osteomyelitis of the right ischial spine. Vancomycin and imipenem. Clinically appears to be improving. Blood and wound cultures pending Status: Acute (5) Cellulitis: Problem details: Wound cellulitis appears better Status: Acute (6) Fever: Problem details: Resolved Status: Acute (7) Sleep apnea: Problem details: Suspected based on clinical factors. Likely the cause of nocturnal hypoxia. patient doubts this diagnosis. Outpatient evaluation if desired. Status: Suspected (8) History of DVT (deep vein thrombosis): Problem details: On long-term anticoagulation with rivaroxaban 10 mg daily Status: Acute (9) Decubitus ulcer: Problem details: Acute worsening of chronic ulcer. Associated with osteomyelitis. Status: Acute (10) Neurogenic bladder: Problem details: Has urostomy after cystectomy and ileal conduit from sigmoid Status: Acute (11) Chronic anemia: Problem details: January 2023 had evaluation at [place] with EGD which showed cystic fundic gland polyps in the gastric antrum and colonoscopy which was incomplete showing a 7 mm sessile polyp in the sigmoid. She underwent CT colonography which was unremarkable. Overall findings were felt to be reassuring. No obvious source of bleeding identified. Status: Acute (12) Multiple sclerosis: Problem details: Functionally paraplegic. Has been bed ridden for the last several months. Unable to reposition herself in bed. Unclear whether she can get the care she needs from her with wound care and repositioning to heal her ulcers. Consider [facility] facility Status: Acute (13) Morbid obesity: Status: Acute (14) Paroxysmal atrial fibrillation: Problem details: On rate control and anticoagulation Status: Acute Plan Continue in hospital pending cultures. Broad-spectrum IV antibiotics pending cultures. Discuss with Infectious Disease plan of care for chronic osteomyelitis of the ischial spine. Time Spent With Patient Total time spent: Total time spent today is 40 minutes, 30 minutes in coordination care discussing with patient and other providers ongoing evaluation management of osteomyelitis, disability, chronic ulcers Subjective Date Seen: 03/18/23 Interval history: 72-year-old female paraplegic from multiple sclerosis and chronic decubitus ulcer with osteomyelitis of the right ischial tuberosity admitted to the hospital with fever and chills. She has been followed by [facility] and was doing well as recently as Monday, 2 days prior to admission. Yesterday she had onset of symptoms of illness with fever and weakness. At the time of admission she was felt to have sepsis presumably from her decubitus ulcer. She was admitted on vancomycin and ertapenem. She was hospitalized at [facility] [place], [place] from May 30, 2022 to 08/24/2022 for management of her decubitus ulcer and osteomyelitis. She had surgical debridement of her wound at that time. She was hospitalized here in October 2022. At that time MRI showed chronic osteomyelitis of right ischial spine. Discharged from here on Levaquin and doxycycline. She took this for about 8 weeks by secondhand report. She has subsequently been treated again with Levaquin for a cellulitis in the area of her decubitus ulcer. She was treated with a cephalosporin for a UTI in January. She has previously had pansensitive E coli and Pseudomonas cultured from wound and urine. Secondhand reports also history of MRSA infection. She lives at home with her who is her caregiver. She is unable to reposition herself in bed. She has a urostomy. She has had no further fevers. Her blood pressure has improved. She is otherwise feeling well. She did not receive supplemental oxygen overnight. Clinical suspicion for sleep apnea. She reports never having evaluation for that but is on her list of medical problems. She is not dyspneic. She does not have a cough or chest pain. Blood culture, 1 of 2, shows Staph epidermatitis. Wound culture shows MRSA. She reports having a loose stool today. Exam Narrative: Exam Narrative: She is alert appears in no distress. Breathing is unlabored. Abdomen with bowel sounds are active. Abdomen is soft without tenderness or mass. Const: Vital Signs, click to edit/add: Vital Signs - 24 hr 03/17/23 16:00 03/17/23 16:00 03/17/23 19:00 Temperature 99.2 F 99.3 F Pulse Rate Pulse Rate [Pulse Oximeter] 79 74 Respiratory Rate 18 18 18 Blood Pressure [Le ft Arm] 137/68 102/56 L Pulse Oximetry 94 94 94 Oxygen Delivery Me thod Room Air Room Air Room Air Oxygen Flow Rate 03/17/23 23:00 03/17/23 23:00 03/17/23 23:00 Temperature 98.6 F Pulse Rate 75 Pulse Rate [Pulse Oximeter] 79 Respiratory Rate 18 18 Blood Pressure [Le ft Arm] 129/65 Pulse Oximetry 94 94 Oxygen Delivery Me thod Room Air Room Air Oxygen Flow Rate 03/18/23 03:00 Temperature 98.5 F Pulse Rate Pulse Rate [Pulse Oximeter] 77 Respiratory Rate 18 Blood Pressure [Le ft Arm] 141/77 H Pulse Oximetry 94 Oxygen Delivery Me thod Room Air Oxygen Flow Rate 1 Labs Labs: Laboratory Results - last 24 hr 03/17/23 03/18/23 05:38 05:41 WBC 4.43 L RBC 3.40 L Hgb 9.2 L Hct 29.4 L MCV 87 MCH 27 MCHC 31 L RDW Coeff of Michele 21.7 H Plt Count 198 Neut % (Auto) 49.6 Lymph % (Auto) 37.5 [place] % (Auto) 7.0 Eos % (Auto) 5.0 Baso % (Auto) 0.7 Neut # (Auto) 2.20 Lymph # (Auto) 1.70 [place] # (Auto) 0.30 Eos # (Auto) 0.20 Baso # (Auto) 0.00 Abs Immat Gran (auto) 0.00 Imm/Tot Granulo (auto) 0.2 Diff Slide Review Acceptable Review Acceptable Review Sodium 138 Potassium 3.6 Chloride 107 Carbon Dioxide 20 Anion Gap 11 BUN 10 Creatinine 0.5 Estimated Creat Clear 43.91 Estimated GFR 100 Glucose 87 Calcium 9.4 C-Reactive Protein 8.1 H
[2023-03-18] MEDS: TIZANIDINE HCL 4 MG TABLET PO (17:41)
[2023-03-18] MEDS: SIMVASTATIN 20 MG TABLET PO (17:41)
[2023-03-18] MEDS: RIVAROXABAN 10 MG TABLET PO (17:41)
--- NOTE | 2023-03-18 18:35 | PC.NURSE ---
Patient pleasant, alert and oriented today. Patient afebrile. Patient turned and repositioned in bed. Tolerated regular diet. Denied any pain. Niece was here, gave patient a bed bath, washed her hair and changed dressings to coccyx and right gluteal. Bedding changed.
[2023-03-18] MEDS: POTASSIUM CHLORIDE 10 MEQ CAPSULE ER PO (20:39)
[2023-03-18] MEDS: clonazePAM 0.5 MG TABLET 1 MG PO (20:40)
[2023-03-18] MEDS: MELATONIN 3 MG TABLET PO (20:41)
[2023-03-18] MEDS: 0.9 % SODIUM CHLORIDE 250 ml IV (21:48)
[2023-03-19] VITALS (8 sets, daily range): BP systolic 145–166; BP diastolic 58–97; PULSE 71–85; RESP 16–18; TEMP 36.6–37; O2SAT 91–93
--- NOTE | 2023-03-19 05:02 | PC.NURSE ---
Shift note: Turned and repo pt in bed throughout the night, pt tolerates dressing change to her coccix and repositioning with no c/o pain. Mepilex to the coccyx changed by RN in PM due to the stool presence.
[2023-03-19 06:42] LABS: Basophils Absolute Auto 0.02 K/uL (0.00-0.30); Basophils Percent Auto 0.4 % (0.0-3.0); Eosinophils Percent Auto 4.4 % (0.0-7.0); Hematocrit 30.9 % (33.0-51.0); Hemoglobin* 9.8 gm/dL (12.0-16.0); Immature Granulocytes Abs Auto 0.05 K/uL (0.00-0.30); Immature Granulocytes Pct Auto 1.1 %; Lymphocytes Absolute Auto 1.55 K/uL (0.90-2.90); Lymphocytes Percent Auto 33.8 % (20-44); Mean Corpuscular HGB Conc 32 gm/dL (32-36); Mean Corpuscular Hemoglobin 27 pg (26-34); Mean Corpuscular Volume 85 fL (80-100); Monocytes Percent Auto 8.3 % (0.0-11.0); Neutrophils Absolute Auto 2.39 K/uL (1.7-7.0); Platelet Count* 223 K/uL (140-440); Red Blood Count 3.62 m/uL (4.00-5.20); White Blood Count* 4.59 K/uL (4.50-11.00)
[2023-03-19 06:45] LABS: Slide Review Reflex No
[2023-03-19 07:07] LABS: Chloride* 109 mmol/L (96-114); Potassium* 3.4 mmol/L (3.6-5.1); Sodium* 140 mmol/L (135-149)
[2023-03-19 07:10] LABS: Creatinine* 0.5 mg/dL (0.5-1.5); Est. Creatinine Clearance* 43.91; Estimated Glomerular Filt Rate 100 ml/min
[2023-03-19 07:11] LABS: Anion Gap 8 mEq/L (7-15); Blood Urea Nitrogen* 10 mg/dL (7-30); Calcium* 9.4 mg/dL (8.4-10.6); Carbon Dioxide* 23 mmol/L (20-32); Glucose* 96 mg/dL (60-115)
[2023-03-19 07:13] LABS: C Reactive Protein* 4.7 mg/dL (0.5-1.0)
[2023-03-19] MEDS: BACLOFEN 10 MG TABLET 40 MG PO ×4 (09:04→20:15)
[2023-03-19] MEDS: OMEPRAZOLE 20 MG CAPSULE DR PO (09:04)
[2023-03-19] MEDS: POTASSIUM CHLORIDE 10 MEQ CAPSULE ER PO ×2 (09:04→20:16)
[2023-03-19] MEDS: CITALOPRAM HYDROBROMIDE 20 MG TABLET 10 MG PO (09:04)
[2023-03-19] MEDS: CETIRIZINE HCL 10 MG TABLET PO (09:04)
[2023-03-19] MEDS: LEVOTHYROXINE 50 MCG TABLET PO (09:06)
[2023-03-19] MEDS: METOPROLOL TARTRATE 25 MG TABLET 12.5 MG PO ×2 (09:06→20:13)
[2023-03-19] MEDS: MULTIVITAMIN/MINERALS 1 TABLET 1 TAB PO (09:06)
[2023-03-19] MEDS: LACTOBACILLUS ACIDOPHILUS 1 TABLET 1 TAB PO ×3 (09:06→17:38)
[2023-03-19] MEDS: SODIUM CHLORIDE 0.9 % (FLUSH) 10 ML SYRINGE 5 ML IVF ×2 (09:08→20:10)
--- NOTE | 2023-03-19 16:58 | PM.IMPN1 ---
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 Current culture growing MRSA Status: Acute (2) Stage 3 skin ulcer of sacral region: Status: Acute (3) Bacteremia: Problem details: One of 2 blood cultures show Staph epidermidis. Subsequent cultures negative. Suspect contamination. Status: Acute (4) Sepsis: Problem details: Clinically improved. Source is likely osteomyelitis of the right ischial spine. Vancomycin and imipenem. Clinically appears to be improving. Blood and wound cultures pending Status: Acute (5) Cellulitis: Problem details: Wound cellulitis appears better Status: Acute (6) Fever: Problem details: Resolved Status: Acute (7) Sleep apnea: Problem details: Suspected based on clinical factors. Likely the cause of nocturnal hypoxia. patient doubts this diagnosis. Outpatient evaluation if desired. Status: Suspected (8) History of DVT (deep vein thrombosis): Problem details: On long-term anticoagulation with rivaroxaban 10 mg daily Status: Acute (9) Decubitus ulcer: Problem details: Acute worsening of chronic ulcer. Associated with osteomyelitis. Status: Acute (10) Neurogenic bladder: Problem details: Has urostomy after cystectomy and ileal conduit from sigmoid Status: Acute (11) Chronic anemia: Problem details: January 2023 had evaluation at [place] with EGD which showed cystic fundic gland polyps in the gastric antrum and colonoscopy which was incomplete showing a 7 mm sessile polyp in the sigmoid. She underwent CT colonography which was unremarkable. Overall findings were felt to be reassuring. No obvious source of bleeding identified. Status: Acute (12) Multiple sclerosis: Problem details: Functionally paraplegic. Has been bed ridden for the last several months. Unable to reposition herself in bed. Unclear whether she can get the care she needs from her with wound care and repositioning to heal her ulcers. Consider senior care facility Status: Acute (13) Morbid obesity: Status: Acute (14) Paroxysmal atrial fibrillation: Problem details: On rate control and anticoagulation Status: Acute Plan Patient is clinically improving. Consult with Infectious Disease regarding ongoing plan for osteomyelitis. Also spoke with and daughter today. I am concerned that she will not do well in the home environment with the need for continuous repositioning in bed. Continue to look at alternative plans. Time Spent With Patient Total time spent: Total time spent today is 40 minutes, 30 minutes in coordination of care discussing with patient and family ongoing evaluation management of osteomyelitis and decubitus ulcers in the context of disability Subjective Date Seen: 03/19/23 Interval history: 72-year-old female paraplegic from multiple sclerosis and chronic decubitus ulcer with osteomyelitis of the right ischial tuberosity admitted to the hospital with fever and chills. She has been followed by [facility] and was doing well as recently as Monday, 2 days prior to admission. Yesterday she had onset of symptoms of illness with fever and weakness. At the time of admission she was felt to have sepsis presumably from her decubitus ulcer. She was admitted on vancomycin and ertapenem. [place] [facility] [place]/24/[place] for management of her decubitus ulcer and osteomyelitis. She had surgical debridement of her wound at that time. She was hospitalized here in October 2022. At that time MRI showed chronic osteomyelitis of right ischial spine. Discharged from here on Levaquin and doxycycline. She took this for about 8 weeks by secondhand report. She has subsequently been treated again with Levaquin for a cellulitis in the area of her decubitus ulcer. She was treated with a cephalosporin for a UTI in January. She has previously had pansensitive E coli and Pseudomonas cultured from wound and urine. Secondhand reports also history of MRSA infection. She lives at home with her who is her caregiver. She is unable to reposition herself in bed. She has a urostomy. She has had no further fevers. Her blood pressure has improved. She is otherwise feeling well. She did not receive supplemental oxygen overnight. Clinical suspicion for sleep apnea. She reports never having evaluation for that but is on her list of medical problems. She is not dyspneic. She does not have a cough or chest pain. Blood culture, 1 of 2, shows Staph epidermatitis. Repeat cultures are negative. Wound culture shows MRSA. She reports having 1 loose stool today again. Exam Narrative: Exam Narrative: She is alert and appears in no distress. Speech is normal. Respirations are clear. Cardiovascular: S1, S2, regular rate and rhythm. Abdomen is soft without tenderness. Urostomy bag noted. Extremities without significant edema. Const: Vital Signs, click to edit/add: Vital Signs - 24 hr 03/18/23 20:22 03/18/23 21:55 03/18/23 23:00 Temperature 98.3 F 98.8 F Pulse Rate [Pulse Oximeter] 70 75 75 Respiratory Rate 20 18 18 Blood Pressure [Le ft Arm] 123/69 137/68 Pulse Oximetry 92 93 Oxygen Delivery Me thod Room Air Room Air 03/18/23 23:00 03/19/23 03:00 03/19/23 07:00 Temperature 98.4 F 98.5 F Pulse Rate [Pulse Oximeter] 75 76 Respiratory Rate 18 18 18 Blood Pressure [Le ft Arm] 153/82 H 152/79 H Pulse Oximetry 93 92 92 Oxygen Delivery Me thod Room Air Room Air Room Air 03/19/23 07:00 03/19/23 07:00 03/19/23 11:00 Temperature 98.2 F Pulse Rate [Pulse Oximeter] 76 78 Respiratory Rate 18 18 18 Blood Pressure [Le ft Arm] 161/58 H Pulse Oximetry 92 92 Oxygen Delivery Me thod Room Air Room Air 03/19/23 15:00 03/19/23 15:00 Temperature Pulse Rate [Pulse Oximeter] 78 Respiratory Rate 18 18 Blood Pressure [Le ft Arm] Pulse Oximetry 92 Oxygen Delivery Me thod Room Air Documenting provider has reviewed patient's vital signs: yes Labs Labs: Laboratory Results - last 24 hr 03/19/23 05:50 WBC 4.59 RBC 3.62 L Hgb 9.8 L Hct 30.9 L MCV 85 MCH 27 MCHC 32 RDW Coeff of Michele 21.0 H Plt Count 223 Neut % (Auto) 52.0 Lymph % (Auto) 33.8 [place] % (Auto) 8.3 Eos % (Auto) 4.4 Baso % (Auto) 0.4 Neut # (Auto) 2.39 Lymph # (Auto) 1.55 [place] # (Auto) 0.40 Eos # (Auto) 0.20 Baso # (Auto) 0.02 Abs Immat Gran (auto) 0.05 Imm/Tot Granulo (auto) 1.1 Sodium 140 Potassium 3.4 L Chloride 109 Carbon Dioxide 23 Anion Gap 8 BUN 10 Creatinine 0.5 Estimated Creat Clear 43.91 Estimated GFR 100 Glucose 96 Calcium 9.4 C-Reactive Protein 4.7 H
[2023-03-19] MEDS: TIZANIDINE HCL 4 MG TABLET PO (17:37)
[2023-03-19] MEDS: SIMVASTATIN 20 MG TABLET PO (17:37)
[2023-03-19] MEDS: RIVAROXABAN 10 MG TABLET PO (17:37)
--- NOTE | 2023-03-19 17:50 | PC.NURSE ---
Patient turned and repositioned every two hours. Incontinent of loose stools. Urostomy draining cloudy yellow urine. Denies pain. Tolerating a regular diet. Per education from staff/dietitian - patient is making effort to add protein into diet for wound healing. Dressing change performed on coccyx and darcy wounds.
[2023-03-19] MEDS: MELATONIN 3 MG TABLET PO (20:14)
[2023-03-19] MEDS: clonazePAM 0.5 MG TABLET 1 MG PO (20:14)
[2023-03-20] VITALS (7 sets, daily range): BP systolic 140–164; BP diastolic 72–99; PULSE 75–107; RESP 16–18; TEMP 36.8–37.4; O2SAT 92–95
--- NOTE | 2023-03-20 03:20 | PC.NURSE ---
Pt rested well this night. Afebrile. Reporting zero pain. Turn and repo only.
[2023-03-20 06:07] LABS: Basophils Absolute Auto 0.03 K/uL (0.00-0.30); Basophils Percent Auto 0.6 % (0.0-3.0); Eosinophils Absolute Auto 0.27 K/uL (0.00-0.50); Eosinophils Percent Auto 5.3 % (0.0-7.0); Hematocrit 31.4 % (33.0-51.0); Immature Granulocytes Abs Auto 0.11 K/uL (0.00-0.30); Immature Granulocytes Pct Auto 2.2 %; Lymphocytes Absolute Auto 1.79 K/uL (0.90-2.90); Lymphocytes Percent Auto 35.2 % (20-44); Mean Corpuscular HGB Conc 32 gm/dL (32-36); Mean Corpuscular Hemoglobin 27 pg (26-34); Mean Corpuscular Volume 86 fL (80-100); Monocytes Percent Auto 9.2 % (0.0-11.0); Neutrophils Absolute Auto 2.42 K/uL (1.7-7.0); Neutrophils Percent Auto 47.5 % (42.0-72.0); Platelet Count* 235 K/uL (140-440); RDW Coefficient of Variation % 21.1 % (11.5-15.5); Red Blood Count 3.66 m/uL (4.00-5.20); White Blood Count* 5.09 K/uL (4.50-11.00)
[2023-03-20 06:16] LABS: Chloride* 108 mmol/L (96-114); Potassium* 3.5 mmol/L (3.6-5.1); Sodium* 140 mmol/L (135-149)
[2023-03-20 06:18] LABS: Creatinine* 0.5 mg/dL (0.5-1.5); Est. Creatinine Clearance* 43.91; Estimated Glomerular Filt Rate 100 ml/min; Slide Review Reflex No
[2023-03-20 06:19] LABS: Anion Gap 8 mEq/L (7-15); Blood Urea Nitrogen* 10 mg/dL (7-30); Calcium* 9.5 mg/dL (8.4-10.6); Carbon Dioxide* 24 mmol/L (20-32); Glucose* 96 mg/dL (60-115)
[2023-03-20] MEDS: LEVOTHYROXINE 50 MCG TABLET PO (06:59)
[2023-03-20] MEDS: OMEPRAZOLE 20 MG CAPSULE DR PO (08:42)
[2023-03-20] MEDS: SODIUM CHLORIDE 0.9 % (FLUSH) 10 ML SYRINGE 5 ML IVF (08:46)
[2023-03-20] MEDS: LACTOBACILLUS ACIDOPHILUS 1 TABLET 1 TAB PO ×3 (08:47→19:34)
[2023-03-20] MEDS: POTASSIUM CHLORIDE 10 MEQ CAPSULE ER PO ×2 (08:47→21:35)
[2023-03-20] MEDS: MULTIVITAMIN/MINERALS 1 TABLET 1 TAB PO (08:47)
[2023-03-20] MEDS: METOPROLOL TARTRATE 25 MG TABLET 12.5 MG PO ×2 (08:47→21:27)
[2023-03-20] MEDS: CETIRIZINE HCL 10 MG TABLET PO (08:48)
[2023-03-20] MEDS: CITALOPRAM HYDROBROMIDE 20 MG TABLET 10 MG PO (08:48)
[2023-03-20] MEDS: BACLOFEN 10 MG TABLET 40 MG PO ×4 (08:48→21:27)
--- NOTE | 2023-03-20 09:27 | REH.PT ---
Pt performing squat pivot transfers at home at baseline. Dependent with all mobility and ADLs. Uses Roho cushion in WC. Currently, pt is a ceiling lift for transfers.
[2023-03-20] MEDS: levoFLOXacin 500 MG TABLET PO (11:26)
[2023-03-20] MEDS: DOXYCYCLINE HYCLATE 100 MG PO ×2 (11:26→21:28)
--- NOTE | 2023-03-20 12:53 | P.IMPN_ITS ---
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 Current culture growing MRSA. Switch to oral antibiotics. Current plan is to manage wound care and to episodically manage worsening infection. Patient declines attempt at curative treatment for osteomyelitis of the ischial spine associated with decubitus ulcer Status: Acute (2) Stage 3 skin ulcer of sacral region: Problem details: Consider shelter for ongoing treatment of this to help her sacral ulcer heal Status: Acute (3) Bacteremia: Problem details: One of 2 blood cultures show Staph epidermidis. Subsequent cultures negative. Suspect contamination. Status: Acute (4) Sepsis: Problem details: Clinically improved. Source is likely osteomyelitis of the right ischial spine. Vancomycin and imipenem discontinued. Five more days of doxycycline and Levaquin. Clinically appears to be improving. Blood and wound cultures pending Status: Acute (5) Cellulitis: Problem details: Wound cellulitis appears better Status: Acute (6) Fever: Problem details: Resolved Status: Acute (7) Sleep apnea: Problem details: Suspected based on clinical factors. Likely the cause of nocturnal hypoxia. patient doubts this diagnosis. Outpatient evaluation if desired. Status: Suspected (8) History of DVT (deep vein thrombosis): Problem details: On long-term anticoagulation with rivaroxaban 10 mg daily Status: Acute (9) Decubitus ulcer: Problem details: Acute worsening of chronic ulcer. Associated with osteomyelitis. Status: Acute (10) Neurogenic bladder: Problem details: Has urostomy after cystectomy and ileal conduit from sigmoid Status: Acute (11) Chronic anemia: Problem details: January 2023 had evaluation at [place] with EGD which showed cystic fundic gland polyps in the gastric antrum and colonoscopy which was incomplete showing a 7 mm sessile polyp in the sigmoid. She underwent CT colonography which was unremarkable. Overall findings were felt to be reassuring. No obvious source of bleeding identified. Status: Acute (12) Multiple sclerosis: Problem details: Functionally paraplegic. Has been bed ridden for the last several months. Unable to reposition herself in bed. Unclear whether she can get the care she needs from her with wound care and repositioning to heal her ulcers. Consider senior care facility Status: Acute (13) Morbid obesity: Status: Acute (14) Paroxysmal atrial fibrillation: Problem details: On rate control and anticoagulation Status: Acute Plan Continue in hospital pending safe discharge plan. Discussing with patient a recommendation for senior care facility. At this point she is anxious to return home. Time Spent With Patient Total time spent: Total time spent today is 50 minutes, 40 minutes in coordination care discussing with patient and other providers ongoing management of sacral ulcer and disposition Subjective Date Seen: 03/20/23 Interval history: 72-year-old female paraplegic from multiple sclerosis and chronic decubitus ulcer with osteomyelitis of the right ischial tuberosity admitted to the hospital with fever and chills. She has been followed by [facility] and was doing well as recently as Monday, 2 days prior to admission. Yesterday she had onset of symptoms of illness with fever and weakness. At the time of admission she was felt to have sepsis presumably from her decubitus ulcer. She was admitted on vancomycin and ertapenem. [place] [facility] [place]/24/[place] for management of her decubitus ulcer and osteomyelitis. She had surgical debridement of her wound at that time. She was hospitalized here in October 2022. At that time MRI showed chronic osteomyelitis of right ischial spine. Discharged from here on Levaquin and doxycycline. She took this for about 8 weeks by secondhand report. She has subsequently been treated again with Levaquin for a cellulitis in the area of her decubitus ulcer. She was treated with a cephalosporin for a UTI in January. She has previously had pansensitive E coli and Pseudomonas cultured from wound and urine. Secondhand reports also history of MRSA infection. She lives at home with her who is her caregiver. She is unable to reposition herself in bed. She has a urostomy. She has had no further fevers. Her blood pressure has improved. She is otherwise feeling well. She did not receive supplemental oxygen overnight. Clinical suspicion for sleep apnea. She reports never having evaluation for that but is on her list of medical problems. She is not dyspneic. She does not have a cough or chest pain. Blood culture, 1 of 2, shows Staph epidermatitis. Repeat cultures are negative. Wound culture shows MRSA. She reports having 1 loose stool today again. I spoke with Infectious Disease consult today March 20. At this point recommendation is relatively complicated and difficult surgical intervention to create a flap with Plastic surgery and probably also a diverting colostomy. This would require the ability to provide exceptional wound care and skin care. I discussed this with the patient and she is not interested in pursuing this at this time. In the future, if she is interested, she should be referred to a tertiary care center for this. The alternative management would be to provide ongoing wound care and episodic antibiotics for worsening infection. At this point will switch her off of broad-spectrum IV antibiotics as her clinical syndrome of sepsis has resolved and place her on an additional 5 days of oral antibiotics to treat MRSA and Gram-negative rods. I spoke with the patient about disposition. I am concerned about her family's ability to provide wound care and repositioning her in bed. She does have on order a special bed to provide additional protection but that is not yet available. Exam Narrative: Exam Narrative: She is alert, pleasant and appears in no distress. Breathing is unlabored. Abdomen is soft without tenderness. Right buttock lesion appears largely unchanged though she has a small stage II ulcer outside of the area of the deeper gluteal ulcer with osteomyelitis. Her left buttock cheek has improvement in the generalized erythema. Const: Vital Signs, click to edit/add: Vital Signs - 24 hr 03/19/23 15:00 03/19/23 15:00 03/19/23 15:00 Temperature 97.9 F Pulse Rate [Pulse Oximeter] 78 71 Respiratory Rate 18 18 18 Blood Pressure [Le ft Arm] 151/73 H Pulse Oximetry 92 [facility] O[facility] Flow Rate 03/19/23 19:40 03/19/23 22:17 03/19/23 22:18 Temperature 98.6 F Pulse Rate [Pulse Oximeter] 84 84 Respiratory Rate 16 16 16 Blood Pressure [Le ft Arm] 145/79 H Pulse Oximetry 91 91 [facility] Room Air Oxygen Flow Rate 0 03/19/23 23:09 03/20/23 02:43 03/20/23 08:20 Temperature 98.6 F 98.6 F Pulse Rate [Pulse Oximeter] 85 75 Respiratory Rate 16 16 18 Blood Pressure [Le ft Arm] 166/97 H 159/86 H Pulse Oximetry 93 92 92 [facility] Room Air Room Air Oxygen Flow Rate 03/20/23 08:20 03/20/23 11:00 Temperature 98.3 F 98.8 F Pulse Rate [Pulse Oximeter] 76 82 Respiratory Rate 18 18 Blood Pressure [Le ft Arm] 164/99 H 141/85 H Pulse Oximetry 92 95 Oxygen Delivery Me thod Room Air Room Air Oxygen Flow Rate 0 Documenting provider has reviewed patient's vital signs: yes Labs Labs: Laboratory Results - last 24 hr 03/20/23 05:31 WBC 5.09 RBC 3.66 L Hgb 10.0 L Hct 31.4 L MCV 86 MCH 27 MCHC 32 RDW Coeff of Michele 21.1 H Plt Count 235 Neut % (Auto) 47.5 Lymph % (Auto) 35.2 [place] % (Auto) 9.2 Eos % (Auto) 5.3 Baso % (Auto) 0.6 Neut # (Auto) 2.42 Lymph # (Auto) 1.79 [place] # (Auto) 0.50 Eos # (Auto) 0.27 Baso # (Auto) 0.03 Abs Immat Gran (auto) 0.11 Imm/Tot Granulo (auto) 2.2 Sodium 140 Potassium 3.5 L Chloride 108 Carbon Dioxide 24 Anion Gap 8 BUN 10 Creatinine 0.5 Estimated Creat Clear 43.91 Estimated GFR 100 Glucose 96 Calcium 9.5
--- NOTE | 2023-03-20 17:05 | PC.SOCIAL ---
Discharge plans: Met with pt regarding d/c plans. Pt states she lives with her in their own home. Pt has [facility] services 11 hours a day and home care nursing once a week through [facility]. Pt refuses SNF placement and plans to return home at discharge. Pt states that home care could be increased to twice a week and her [facility] services will continue. Pt states that [facility] has ordered a hospital bed and special mattress for her at home and that it will de delivered any day. Pt is hoping to have her bedroom carpet removed prior to bed delivery. chemical research worker to follow up as needed.
[2023-03-20] MEDS: SIMVASTATIN 20 MG TABLET PO (19:34)
[2023-03-20] MEDS: TIZANIDINE HCL 4 MG TABLET PO (19:34)
[2023-03-20] MEDS: RIVAROXABAN 10 MG TABLET PO (19:35)
--- NOTE | 2023-03-20 19:51 | PC.NURSE ---
Pt pleasant and talkative. Unreceptive to sitting in chair. Turn/ Repo Q2H. Educated and encouraged pt to self adjust, and when repositioning to off load pressure on buttocks by laying on side rather than just placing a pillow under hip.
[2023-03-20] MEDS: clonazePAM 0.5 MG TABLET 1 MG PO (21:27)
[2023-03-20] MEDS: MELATONIN 3 MG TABLET PO (21:29)
--- NOTE | 2023-03-20 23:09 | PC.NURSE ---
Elevated BP, temp ~99, otherwise VSS. RA. Denies pain. Regular diet, drinking well. Urostomy stoma red, raised, moist- draining cloudy, pale yellow urine w/ sediment. Smear, soft BM x1. Repositioned q2h, heel boots on. Wound on right buttock and coccyx cleaned and redressed- moderate sanguinous drainage, periwound area reddened and warm, non-blanchable. No IV- oral abx. Will continue to monitor, follow POC, and keep pt and family updated. Vesna Pereira RN
[2023-03-21 03:35] VITALS: BP 153/86; PULSE 83; RESP 20; TEMP 36.8; O2SAT 90
[2023-03-21 06:37] LABS: Basophils Absolute Auto 0.02 K/uL (0.00-0.30); Basophils Percent Auto 0.3 % (0.0-3.0); Eosinophils Absolute Auto 0.27 K/uL (0.00-0.50); Eosinophils Percent Auto 4.5 % (0.0-7.0); Hematocrit 32.1 % (33.0-51.0); Immature Granulocytes Abs Auto 0.17 K/uL (0.00-0.30); Immature Granulocytes Pct Auto 2.8 %; Lymphocytes Absolute Auto 2.19 K/uL (0.90-2.90); Lymphocytes Percent Auto 36.2 % (20-44); Mean Corpuscular HGB Conc 31 gm/dL (32-36); Mean Corpuscular Hemoglobin 27 pg (26-34); Mean Corpuscular Volume 86 fL (80-100); Monocytes Percent Auto 7.6 % (0.0-11.0); Neutrophils Absolute Auto 2.94 K/uL (1.7-7.0); Neutrophils Percent Auto 48.6 % (42.0-72.0); Platelet Count* 243 K/uL (140-440); RDW Coefficient of Variation % 21.1 % (11.5-15.5); Red Blood Count 3.72 m/uL (4.00-5.20); White Blood Count* 6.05 K/uL (4.50-11.00)
[2023-03-21 06:43] LABS: Slide Review Reflex No
[2023-03-21 06:53] LABS: Chloride* 106 mmol/L (96-114); Potassium* 3.9 mmol/L (3.6-5.1); Sodium* 140 mmol/L (135-149)
--- NOTE | 2023-03-21 06:53 | PC.NURSE ---
[id number]: Patient cooperative w/cares. Denies pain. Afebrile. Patient rested well overnight. Frequent T&R. Urostomy draining large amounts of urine. No BM during shift.
[2023-03-21 06:56] LABS: Anion Gap 10 mEq/L (7-15); Blood Urea Nitrogen* 14 mg/dL (7-30); Carbon Dioxide* 24 mmol/L (20-32); Creatinine* 0.5 mg/dL (0.5-1.5); Est. Creatinine Clearance* 43.91; Estimated Glomerular Filt Rate 100 ml/min
[2023-03-21 06:57] LABS: Calcium* 9.2 mg/dL (8.4-10.6); Glucose* 108 mg/dL (60-115)
[2023-03-21] MEDS: LEVOTHYROXINE 50 MCG TABLET PO (07:04)
[2023-03-21 08:23] VITALS: BP 140/70; PULSE 82; RESP 20; TEMP 36.8; O2SAT 92
[2023-03-21] MEDS: LACTOBACILLUS ACIDOPHILUS 1 TABLET 1 TAB PO ×3 (08:30→17:42)
[2023-03-21] MEDS: DOXYCYCLINE HYCLATE 100 MG PO ×2 (08:31→20:27)
[2023-03-21] MEDS: POTASSIUM CHLORIDE 10 MEQ CAPSULE ER PO ×2 (08:31→20:25)
[2023-03-21] MEDS: CETIRIZINE HCL 10 MG TABLET PO (08:31)
[2023-03-21] MEDS: BACLOFEN 10 MG TABLET 40 MG PO ×4 (08:32→20:26)
[2023-03-21] MEDS: CITALOPRAM HYDROBROMIDE 20 MG TABLET 10 MG PO (08:32)
[2023-03-21] MEDS: OMEPRAZOLE 20 MG CAPSULE DR PO (08:32)
[2023-03-21] MEDS: METOPROLOL TARTRATE 25 MG TABLET 12.5 MG PO ×2 (08:33→20:26)
[2023-03-21] MEDS: MULTIVITAMIN/MINERALS 1 TABLET 1 TAB PO (08:34)
[2023-03-21] MEDS: levoFLOXacin 500 MG TABLET PO (11:16)
[2023-03-21 11:17] VITALS: BP 142/85; PULSE 83; RESP 20; TEMP 36.8; O2SAT 93
--- NOTE | 2023-03-21 15:04 | PC.SOCIAL ---
Discharge plan: Met with pt regarding discharge plan. Pt states she will not be able to return to her home until some home modifications are completed and her new hospital bed is delivered. Pt is requesting placement in a good chcf at discharge. She is not interested in a facility in [place]. Called the following facilities with the listed results: 1. [facility] - facility declined due to not having a private room. 2. [facility] - sent information and awaiting call back with decision on admit. 3. [facility] - sent information and awaiting call back with decision on admit. 4.[facility] [place] - sent information and awaiting call back with decision on admit. 5. [facility] - sent information and awaiting call back with decision on admit. 6. [facility]- sent information and awaiting call back with decision on admit. television maintenance worker to follow up as needed.
--- NOTE | 2023-03-21 15:16 | P.IMPN_ITS ---
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 Current culture growing MRSA. Switch to oral antibiotics. Current plan is to manage wound care and to episodically manage worsening infection. Patient declines attempt at curative treatment for osteomyelitis of the ischial spine associated with decubitus ulcer Status: Acute (2) Stage 3 skin ulcer of sacral region: Problem details: Consider detention for ongoing treatment of this to help her sacral ulcer heal. Status: Acute (3) Bacteremia: Problem details: One of 2 blood cultures show Staph epidermidis. Subsequent cultures negative. Suspect contamination. Status: Acute (4) Sepsis: Problem details: Clinically improved. Source is likely osteomyelitis of the right ischial spine. Vancomycin and imipenem discontinued. Five more days of doxycycline and Levaquin. Clinically appears to be improving. Blood and wound cultures pending Status: Acute (5) Cellulitis: Problem details: Wound cellulitis appears better Status: Acute (6) Fever: Problem details: Resolved Status: Acute (7) Sleep apnea: Problem details: Suspected based on clinical factors. Likely the cause of nocturnal hypoxia. patient doubts this diagnosis. Outpatient evaluation if desired. Status: Suspected (8) History of DVT (deep vein thrombosis): Problem details: On long-term anticoagulation with rivaroxaban 10 mg daily Status: Acute (9) Decubitus ulcer: Problem details: Acute worsening of chronic ulcer. Associated with osteomyelitis. Status: Acute (10) Neurogenic bladder: Problem details: Has urostomy after cystectomy and ileal conduit from sigmoid Status: Acute (11) Chronic anemia: Problem details: January 2023 had evaluation at [place] with EGD which showed cystic fundic gland polyps in the gastric antrum and colonoscopy which was incomplete showing a 7 mm sessile polyp in the sigmoid. She underwent CT colonography which was unremarkable. Overall findings were felt to be reassuring. No obvious source of bleeding identified. Status: Acute (12) Multiple sclerosis: Problem details: Functionally paraplegic. Has been bed ridden for the last several months. Unable to reposition herself in bed. Unclear whether she can get the care she needs from her with wound care and repositioning to heal her ulcers. Consider group home facility Status: Acute (13) Morbid obesity: Status: Acute (14) Paroxysmal atrial fibrillation: Problem details: On rate control and anticoagulation Status: Acute Plan Continue to provide wound care and skin care and oral antibiotics pending safe discharge plan looking to group home facility until she can return home with her new specialized air mattress when that becomes available. Time Spent With Patient Total time spent: Total time spent today is 55 minutes, 40 minutes in coordination of care and discussing with other providers ongoing evaluation management and disposition. Subjective Date Seen: 03/21/23 Interval history: 72-year-old female paraplegic from multiple sclerosis and chronic decubitus ulcer with osteomyelitis of the right ischial tuberosity admitted to the hospital with fever and chills. She has been followed by [facility] and was doing well as recently as Monday, 2 days prior to admission. Yesterday she had onset of symptoms of illness with fever and weakness. At the time of admission she was felt to have sepsis presumably from her decubitus ulcer. She was admitted on vancomycin and ertapenem. She was hospitalized at [facility] from May 30, 2022 to 08/24/2022 for management of her decubitus ulcer and osteomyelitis. She had surgical debridement of her wound at that time. She was hospitalized here in October 2022. At that time MRI showed chronic osteomyelitis of right ischial spine. Discharged from here on Levaquin and doxycycline. She took this for about 8 weeks by secondhand report. She has subsequently been treated again with Levaquin for a cellulitis in the area of her decubitus ulcer. She was treated with a cephalosporin for a UTI in January. She has previously had pansensitive E coli and Pseudomonas cultured from wound and urine. Secondhand reports also history of MRSA infection. She lives at home with her who is her caregiver. She is unable to reposition herself in bed. She has a urostomy. She has had no further fevers. Her blood pressure has improved. She is otherwise feeling well. She did not receive supplemental oxygen overnight. Clinical suspicion for sleep apnea. She reports never having evaluation for that but is on her list of medical problems. She is not dyspneic. She does not have a cough or chest pain. Blood culture, 1 of 2, shows Staph epidermatitis. Repeat cultures are negative. Wound culture shows MRSA. I spoke with Infectious Disease consult March 20. At this point the recommendation is a relatively complicated and difficult surgical intervention to create a flap with Plastic surgery and probably also a diverting colostomy. This would require the ability to provide exceptional wound care and skin care. I discussed this with the patient and she is not interested in pursuing this at this time. In the future, if she is interested, she should be referred to a tertiary care center for this. The alternative management would be to provide ongoing wound care and episodic antibiotics for worsening infection. At this point will switch her off of broad-spectrum IV antibiotics as her clinical syndrome of sepsis has resolved and place her on an additional 5 days of oral antibiotics to treat MRSA and Gram-negative rods. I spoke with the patient about disposition. I am concerned about her family's ability to provide wound care and repositioning her in bed. She does have on order a special bed to provide additional protection but that is not yet available. Exam Narrative: Exam Narrative: She is alert and appears in no distress. Breathing is unlabored. No new rash. Extremities without new edema. Const: Vital Signs, click to edit/add: Vital Signs - 24 hr 03/20/23 19:00 03/20/23 21:54 03/20/23 23:00 Temperature 98.5 F 99.3 F Pulse Rate [Pulse Oximeter] 87 107 H Respiratory Rate 16 16 16 Blood Pressure [Le ft Arm] 151/72 H 140/80 H Pulse Oximetry 92 95 95 Oxygen Delivery Me thod Room Air Room Air Room Air Oxygen Flow Rate 0 03/21/23 03:35 03/21/23 08:23 03/21/23 08:23 Temperature 98.3 F 98.3 F Pulse Rate [Pulse Oximeter] 83 82 82 Respiratory Rate 20 20 20 Blood Pressure [Le ft Arm] 153/86 H 140/70 H Pulse Oximetry 90 92 Oxygen Delivery Me thod Room Air Room Air Oxygen Flow Rate 03/21/23 08:23 03/21/23 11:17 Temperature 98.3 F Pulse Rate [Pulse Oximeter] 83 Respiratory Rate 20 20 Blood Pressure [Le ft Arm] 142/85 H Pulse Oximetry 92 93 Oxygen Delivery Me thod Room Air Room Air Oxygen Flow Rate 0 Documenting provider has reviewed patient's vital signs: yes Labs Labs: Laboratory Results - last 24 hr 03/21/23 06:19 WBC 6.05 RBC 3.72 L Hgb 10.0 L Hct 32.1 L MCV 86 MCH 27 MCHC 31 L RDW Coeff of Michele 21.1 H Plt Count 243 Neut % (Auto) 48.6 Lymph % (Auto) 36.2 [place] % (Auto) 7.6 Eos % (Auto) 4.5 Baso % (Auto) 0.3 Neut # (Auto) 2.94 Lymph # (Auto) 2.19 [place] # (Auto) 0.50 Eos # (Auto) 0.27 Baso # (Auto) 0.02 Abs Immat Gran (auto) 0.17 Imm/Tot Granulo (auto) 2.8 Sodium 140 Potassium 3.9 Chloride 106 Carbon Dioxide 24 Anion Gap 10 BUN 14 Creatinine 0.5 Estimated Creat Clear 43.91 Estimated GFR 100 Glucose 108 Calcium 9.2
[2023-03-21 15:43] VITALS: BP 152/88; PULSE 87; RESP 22; TEMP 36.9; O2SAT 92
[2023-03-21] MEDS: SIMVASTATIN 20 MG TABLET PO (17:42)
[2023-03-21] MEDS: RIVAROXABAN 10 MG TABLET PO (17:42)
[2023-03-21] MEDS: TIZANIDINE HCL 4 MG TABLET PO (17:42)
--- NOTE | 2023-03-21 19:09 | PC.NURSE ---
End of Shift: Patient pleasant and cooperative. Patient vitally stable, lungs clear, BS WNL, NO IV. Patient denies pain. Urostomy bag intact and draining into keane bag, light yellow, with sediment. Patient had 1 loose/soft BM. Wound cleaning and dressing change performed. Patient tolerating regular diet.
[2023-03-21 19:10] VITALS: BP 128/70; PULSE 93; RESP 20; TEMP 37.4; O2SAT 91
[2023-03-21] MEDS: clonazePAM 0.5 MG TABLET 1 MG PO (20:26)
[2023-03-21] MEDS: MELATONIN 3 MG TABLET PO (20:27)
--- NOTE | 2023-03-21 21:33 | PC.NURSE ---
SOM Stone from [facility] calls for additional information for review of patient- which was given.
--- NOTE | 2023-03-21 22:52 | PC.NURSE ---
Shift [id number]- Patient is turned and repositioned Q2H, with pillows for offloading. She denies pain. Urostomy is draining. Mepilex to heel is clean, dry and intact.
[2023-03-22] VITALS (7 sets, daily range): BP systolic 129–153; BP diastolic 71–88; PULSE 78–96; RESP 18–22; TEMP 36.6–37.3; O2SAT 91–93
[2023-03-22] MEDS: LEVOTHYROXINE 50 MCG TABLET PO (06:28)
--- NOTE | 2023-03-22 07:20 | PC.NURSE ---
Shift note [id number]: Pt is alert and oriented x3. Afebrile. Pt denies chest pain, pain, SOB and N/V. Pt was turned and repositioned throughout night. Pt has ulcer dressings to coccyx, right buttocks and right heel that are CDI. When commercial real estate underwriter was assessing dressings, pt stated ?They are always fine? ?You don?t have to look at them. I didn?t go anywhere? Pt was educated on wound infection signs and symptoms, pt?allow commercial real estate underwriter to assess dressings. Pt has ankle protectors on both feet. Pt?s catheter is patent and draining. Pt slept intermittently throughout night.??
[2023-03-22] MEDS: LACTOBACILLUS ACIDOPHILUS 1 TABLET 1 TAB PO ×3 (08:23→17:36)
[2023-03-22] MEDS: MULTIVITAMIN/MINERALS 1 TABLET 1 TAB PO (09:09)
[2023-03-22] MEDS: POTASSIUM CHLORIDE 10 MEQ CAPSULE ER PO ×2 (09:09→20:53)
[2023-03-22] MEDS: DOXYCYCLINE HYCLATE 100 MG PO ×2 (09:10→20:53)
[2023-03-22] MEDS: CETIRIZINE HCL 10 MG TABLET PO (09:10)
[2023-03-22] MEDS: CITALOPRAM HYDROBROMIDE 20 MG TABLET 10 MG PO (09:10)
[2023-03-22] MEDS: BACLOFEN 10 MG TABLET 40 MG PO ×4 (09:10→20:53)
[2023-03-22] MEDS: METOPROLOL TARTRATE 25 MG TABLET 12.5 MG PO ×2 (09:10→20:53)
[2023-03-22] MEDS: OMEPRAZOLE 20 MG CAPSULE DR PO (09:11)
[2023-03-22] MEDS: levoFLOXacin 500 MG TABLET PO (10:51)
--- NOTE | 2023-03-22 14:22 | PC.SOCIAL ---
Addendum entered by CHRIS Laird 03/22/23 15:13: Called these additional facilities regarding placement with the listed results: 1. [facility][1] in [place] - [phone]. Left message requesting call back if interested in receiving referral packet. 2. [facility] [phone] - secure emailed requested information and awaiting call back with decision on admit. 3. [facility] in [place] - [phone] - faxed requested information to [phone] awaiting callback with decision on admit. 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 Called and left messages requesting update. 1.[facility] in [place] 2. [facility] 3. [facility] in [facility], [facility] and [facility] in [place] declined admission. Called the following facilities today with the listed results: 1. [facility] - Left message requesting call back if interested in receiving referral packet on this patient. 2. [facility] [place] - Left message requesting call back if interested in receiving referral packet on this patient. 3. [facility] - [phone] - faxed information and awaiting call back with decision on admit. 4. [facility] - Left message requesting call back if interested in receiving referral packet on this patient. 5. [facility] in [place] - Left message requesting call back if interested in receiving referral packet on this patient. 6. [facility] in [place] - [phone] Faxed information and awaiting call back with decision on admit. 7. [facility] [place] - Left message requesting call back if interested in receiving referral packet on this patient. 8. [facility] - Left message requesting call back if interested in receiving referral packet on this patient. [facility] in [place] - Left message requesting call back if interested in receiving referral packet on this patient. 10. [facility] in [place] - Left message requesting call back if interested in receiving referral packet on this patient. 11. [facility] - [phone] information and awaiting call back with decision on admit. 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
--- NOTE | 2023-03-22 16:04 | P.IMPN_ITS ---
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 Current culture growing MRSA. Switch to oral antibiotics. Current plan is to manage wound care and to episodically manage worsening infection. Patient declines attempt at curative treatment for osteomyelitis of the ischial spine associated with decubitus ulcer Status: Acute (2) Stage 3 skin ulcer of sacral region: Problem details: Consider care home for ongoing treatment of this to help her sacral ulcer heal. Status: Acute (3) Bacteremia: Problem details: One of 2 blood cultures show Staph epidermidis. Subsequent cultures negative. Suspect contamination. Status: Acute (4) Sepsis: Problem details: Clinically improved. Source is likely osteomyelitis of the right ischial spine. Vancomycin and imipenem discontinued. Five more days of doxycycline and Levaquin. Clinically appears to be improving. Blood and wound cultures pending Status: Acute (5) Cellulitis: Problem details: Wound cellulitis appears better Status: Acute (6) Fever: Problem details: Resolved Status: Acute (7) Sleep apnea: Problem details: Suspected based on clinical factors. Likely the cause of nocturnal hypoxia. patient doubts this diagnosis. Outpatient evaluation if desired. Status: Suspected (8) History of DVT (deep vein thrombosis): Problem details: On long-term anticoagulation with rivaroxaban 10 mg daily Status: Acute (9) Decubitus ulcer: Problem details: Acute worsening of chronic ulcer. Associated with osteomyelitis. Status: Acute (10) Neurogenic bladder: Problem details: Has urostomy after cystectomy and ileal conduit from sigmoid Status: Acute (11) Chronic anemia: Problem details: January 2023 had evaluation at [place] with EGD which showed cystic fundic gland polyps in the gastric antrum and colonoscopy which was incomplete showing a 7 mm sessile polyp in the sigmoid. She underwent CT colonography which was unremarkable. Overall findings were felt to be reassuring. No obvious source of bleeding identified. Status: Acute (12) Multiple sclerosis: Problem details: Functionally paraplegic. Has been bed ridden for the last several months. Unable to reposition herself in bed. Unclear whether she can get the care she needs from her with wound care and repositioning to heal her ulcers. Consider nursing home facility Status: Acute (13) Morbid obesity: Status: Acute (14) Paroxysmal atrial fibrillation: Problem details: On rate control and anticoagulation Status: Acute Plan Continue in hospital pending safe discharge plan Subjective Date Seen: 03/22/23 Interval history: 72-year-old female paraplegic from multiple sclerosis and chronic decubitus ulcer with osteomyelitis of the right ischial tuberosity admitted to the hospital with fever and chills. She has been followed by [facility] and was doing well as recently as Monday, 2 days prior to admission. Yesterday she had onset of symptoms of illness with fever and weakness. At the time of admission she was felt to have sepsis presumably from her decubitus ulcer. She was admitted on vancomycin and ertapenem. She was hospitalized at [facility] from May 30, 2022 to 08/24/2022 for management of her decubitus ulcer and osteomyelitis. She had surgical debridement of her wound at that time. She was hospitalized here in October 2022. At that time MRI showed chronic osteomyelitis of right ischial spine. Discharged from here on Levaquin and doxycycline. She took this for about 8 weeks by secondhand report. She has subsequently been treated again with Levaquin for a cellulitis in the area of her decubitus ulcer. She was treated with a cephalosporin for a UTI in January. She has previously had pansensitive E coli and Pseudomonas cultured from wound and urine. Secondhand reports also history of MRSA infection. She lives at home with her who is her caregiver. She is unable to reposition herself in bed. She has a urostomy. She has had no further fevers. Her blood pressure has improved. She is otherwise feeling well. She did not receive supplemental oxygen overnight. Clinical suspicion for sleep apnea. She reports never having evaluation for that but is on her list of medical problems. She is not dyspneic. She does not have a cough or chest pain. Blood culture, 1 of 2, shows Staph epidermatitis. Repeat cultures are negative. Wound culture shows MRSA. I spoke with Infectious Disease consult March 20. At this point the recommendation is a relatively complicated and difficult surgical intervention to create a flap with Plastic surgery and probably also a diverting colostomy. This would require the ability to provide exceptional wound care and skin care. I discussed this with the patient and she is not interested in pursuing this at this time. In the future, if she is interested, she should be referred to a tertiary care center for this. The alternative management would be to provide ongoing wound care and episodic antibiotics for worsening infection. At this point will switch her off of broad-spectrum IV antibiotics as her clinical syndrome of sepsis has resolved and place her on an additional 5 days of oral antibiotics to treat MRSA and Gram-negative rods. I spoke with the patient about disposition. I am concerned about her family's ability to provide wound care and repositioning her in bed. She does have on order a special bed to provide additional protection but that is not yet available. Looking for nursing home facility pending arrival of appropriate bed/durable medical equipment. Exam Narrative: Exam Narrative: She is alert and appears in no distress. Respirations are clear to auscultation. Cardiovascular: S1, S2, regular rate and rhythm. Skin shows improvement over the erythema that she has had. Const: Vital Signs, click to edit/add: Vital Signs - 24 hr 03/21/23 19:10 03/22/23 00:50 03/22/23 00:50 Temperature 99.3 F Pulse Rate [Pulse Oximeter] 93 91 Respiratory Rate 20 22 22 Blood Pressure [Le ft Arm] 128/70 Blood Pressure [Le ft Forearm] Pulse Oximetry 91 91 Oxygen Delivery Me thod Room Air Oxygen Flow Rate 0 03/22/23 00:50 03/22/23 02:43 03/22/23 08:18 Temperature 98.7 F 98.3 F 98.2 F Pulse Rate [Pulse Oximeter] 84 81 Respiratory Rate 22 20 20 Blood Pressure [Le ft Arm] 129/76 137/88 Blood Pressure [Le ft Forearm] 150/86 H Pulse Oximetry 91 91 93 Oxygen Delivery Me thod Room Air Room Air Room Air Oxygen Flow Rate 03/22/23 08:18 03/22/23 08:18 03/22/23 11:30 Temperature 97.8 F Pulse Rate [Pulse Oximeter] 78 Respiratory Rate 20 20 20 Blood Pressure [Le ft Arm] Blood Pressure [Le ft Forearm] 153/85 H Pulse Oximetry 93 92 Oxygen Delivery Me thod Room Air Room Air Oxygen Flow Rate 0 03/22/23 15:55 Temperature 99 F Pulse Rate [Pulse Oximeter] Respiratory Rate 18 Blood Pressure [Le ft Arm] Blood Pressure [Le ft Forearm] 142/80 H Pulse Oximetry 92 Oxygen Delivery Me thod Room Air Oxygen Flow Rate Documenting provider has reviewed patient's vital signs: yes
[2023-03-22] MEDS: SIMVASTATIN 20 MG TABLET PO (17:36)
[2023-03-22] MEDS: TIZANIDINE HCL 4 MG TABLET PO (17:36)
[2023-03-22] MEDS: RIVAROXABAN 10 MG TABLET PO (17:36)
--- NOTE | 2023-03-22 18:40 | PC.NURSE ---
End of Shift: Patient pleasant and cooperative. Patient vitally stable, lungs clear, BS WNL, No IV. Patient denies pain. Patient bedrest. Wound cares performed, dressing changed x2 today. Patient had mod soft BM. Patient urostomy intact and draining. Patient tolerating regular diet.
[2023-03-22] MEDS: MELATONIN 3 MG TABLET PO (20:53)
[2023-03-22] MEDS: clonazePAM 0.5 MG TABLET 1 MG PO (20:54)
[2023-03-23] VITALS (7 sets, daily range): BP systolic 96–147; BP diastolic 58–84; PULSE 84–104; RESP 18–24; TEMP 36.7–37.1; O2SAT 91–93
[2023-03-23] MEDS: LEVOTHYROXINE 50 MCG TABLET PO (05:21)
--- NOTE | 2023-03-23 06:20 | PC.NURSE ---
End of shift: A&O, pleasant and cooperative. VSS w/ sats >90% on RA. Afebrile. LS clear and BS active. Denies pain. Turn and repo q2h. Mepilex on coccyx c/d/i. Mepilex on right heal c/d/i. Urostomy in place and draining adequate amounts.
[2023-03-23] MEDS: LACTOBACILLUS ACIDOPHILUS 1 TABLET 1 TAB PO ×3 (08:05→17:31)
[2023-03-23] MEDS: CETIRIZINE HCL 10 MG TABLET PO (08:56)
[2023-03-23] MEDS: POTASSIUM CHLORIDE 10 MEQ CAPSULE ER PO ×2 (08:56→20:44)
[2023-03-23] MEDS: DOXYCYCLINE HYCLATE 100 MG PO ×2 (08:56→20:44)
[2023-03-23] MEDS: BACLOFEN 10 MG TABLET 40 MG PO ×4 (08:57→20:45)
[2023-03-23] MEDS: MULTIVITAMIN/MINERALS 1 TABLET 1 TAB PO (08:57)
[2023-03-23] MEDS: OMEPRAZOLE 20 MG CAPSULE DR PO (08:57)
[2023-03-23] MEDS: CITALOPRAM HYDROBROMIDE 20 MG TABLET 10 MG PO (08:58)
[2023-03-23] MEDS: METOPROLOL TARTRATE 25 MG TABLET 12.5 MG PO ×2 (08:59→20:47)
[2023-03-23] MEDS: levoFLOXacin 500 MG TABLET PO (10:49)
--- NOTE | 2023-03-23 15:53 | PC.SOCIAL ---
Addendum entered by Shweta Adkins LCSW 03/23/23 16:19: Received call from [facility] in [place] [phone]. They are considering this patient. Also received e-mail from Dominga Mcdowell stating that the bed was too expensive and has not been ordered and could go to appeal. This health underwriter left message updating Yamile at Wound Care. Also updated son. Original Note: Discharge Planning: Contacted and recontacted facilities with the following results: 1.? [facility] in [place]- No 2.?[facility] -No 3.? [facility]- Msg left x 2 4.? [facility]- No 5.? [facility] -No 6.? [facility]- No 7.? [facility]-No 8.? [facility]-No 9.? [facility] msg # 2 10.?? [facility] Msg # 2 11.?? [facility] -Msg # 2 12.?? [facility] 13.?? [facility] msg left 14.?? [facility]- msg #2 15.?? [facility]- Msg # 2 16.?? [facility] in [place] ? No 17.?? [facility]-msg 18.?? [facility] No 19.?? [facility] -Msg Met with patient and updated facilities and noted that facilities are much further away than she wanted. Patient reports that her floors are now finished. Discussed the possibility of discharging home. Patient states that she has been working with the wound care with [facility] on ordering her bed. Met with Yamile Rod (wound care) who states that she would like patient to have the new bed in place before she is discharged home. this health underwriter was given contact information for [facility] worker, Dominga Castle [phone]. Left message and e-mail to find out timeline for bed being delivered. Social work to follow up as needed.
--- NOTE | 2023-03-23 17:04 | P.IMPN_ITS ---
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 Current culture growing MRSA. Switch to oral antibiotics. Current plan is to manage wound care and to episodically manage worsening infection. Patient declines attempt at curative treatment for osteomyelitis of the ischial spine associated with decubitus ulcer Status: Acute (2) Stage 3 skin ulcer of sacral region: Problem details: Consider detention for ongoing treatment of this to help her sacral ulcer heal. Status: Acute (3) Bacteremia: Problem details: One of 2 blood cultures show Staph epidermidis. Subsequent cultures negative. Suspect contamination. Status: Acute (4) Sepsis: Problem details: Clinically improved. Source is likely osteomyelitis of the right ischial spine. Vancomycin and imipenem discontinued. Five more days of doxycycline and Levaquin. Clinically appears to be improving. Blood and wound cultures pending Status: Acute (5) Cellulitis: Problem details: Wound cellulitis appears better Status: Acute (6) Fever: Problem details: Resolved Status: Acute (7) Sleep apnea: Problem details: Suspected based on clinical factors. Likely the cause of nocturnal hypoxia. patient doubts this diagnosis. Outpatient evaluation if desired. Status: Suspected (8) History of DVT (deep vein thrombosis): Problem details: On long-term anticoagulation with rivaroxaban 10 mg daily Status: Acute (9) Decubitus ulcer: Problem details: Acute worsening of chronic ulcer. Associated with osteomyelitis. Status: Acute (10) Neurogenic bladder: Problem details: Has urostomy after cystectomy and ileal conduit from sigmoid Status: Acute (11) Chronic anemia: Problem details: January 2023 had evaluation at [facility] with EGD which showed cystic fundic gland polyps in the gastric antrum and colonoscopy which was incomplete showing a 7 mm sessile polyp in the sigmoid. She underwent CT colonography which was unremarkable. Overall findings were felt to be reassuring. No obvious source of bleeding identified. Status: Acute (12) Multiple sclerosis: Problem details: Functionally paraplegic. Has been bed ridden for the last several months. Unable to reposition herself in bed. Unclear whether she can get the care she needs from her with wound care and repositioning to heal her ulcers. Consider shelter facility Status: Acute (13) Morbid obesity: Status: Acute (14) Paroxysmal atrial fibrillation: Problem details: On rate control and anticoagulation Status: Acute Plan Continue in hospital pending safe discharge plan. Continue antibiotics for 10 day course of treatment. Subjective Date Seen: 03/23/23 Interval history: 72-year-old female paraplegic from multiple sclerosis and chronic decubitus ulcer with osteomyelitis of the right ischial tuberosity admitted to the hospital with fever and chills. She has been followed by [facility] and was doing well as recently as Monday, 2 days prior to admission. Yesterday she had onset of symptoms of illness with fever and weakness. At the time of admission she was felt to have sepsis presumably from her decubitus ulcer. She was admitted on vancomycin and ertapenem. She was hospitalized at [facility] [place] from May 30, 2022 to 08/24/2022 for management of her decubitus ulcer and osteomyelitis. She had surgical debridement of her wound at that time. She was hospitalized here in October 2022. At that time MRI showed chronic osteomyelitis of right ischial spine. Discharged from here on Levaquin and doxycycline. She took this for about 8 weeks by secondhand report. She has subsequently been treated again with Levaquin for a cellulitis in the area of her decubitus ulcer. She was treated with a cephalosporin for a UTI in January. She has previously had pansensitive E coli and Pseudomonas cultured from wound and urine. Secondhand reports also history of MRSA infection. She lives at home with her who is her caregiver. She is unable to reposition herself in bed. She has a urostomy. She has had no further fevers. Her blood pressure has improved. She is otherwise feeling well. She did not receive supplemental oxygen overnight. Clinical suspicion for sleep apnea. She reports never having evaluation for that but is on her list of medical problems. She is not dyspneic. She does not have a cough or chest pain. Blood culture, 1 of 2, shows Staph epidermatitis. Repeat cultures are negative. Wound culture shows MRSA. I spoke with Infectious Disease consult March 20. At this point the recommendation is a relatively complicated and difficult surgical intervention to create a flap with Plastic surgery and probably also a diverting colostomy. This would require the ability to provide exceptional wound care and skin care. I discussed this with the patient and she is not interested in pursuing this at this time. In the future, if she is interested, she should be referred to a tertiary care center for this. The alternative management would be to provide ongoing wound care and episodic antibiotics for worsening infection. At this point will switch her off of broad-spectrum IV antibiotics as her clinical syndrome of sepsis has resolved and place her on an additional 5 days of oral antibiotics to treat MRSA and Gram-negative rods. I spoke with the patient about disposition. I am concerned about her family's ability to provide wound care and repositioning her in bed. She does have on order a special bed to provide additional protection but that is not yet available. Looking for shelter facility pending arrival of appropriate bed/durable medical equipment. She has no new concerns today. Exam Narrative: Exam Narrative: Skin of her backside shows improvement. The area of intense erythema is much improved. Presacral ulcer is stable. The ulcer in her right buttock cheek is clean with good granulation tissue. Const: Vital Signs, click to edit/add: Vital Signs - 24 hr 03/22/23 19:00 03/22/23 23:00 03/22/23 23:00 Temperature 98.6 F 99.1 F Pulse Rate [Pulse Oximeter] 95 96 Respiratory Rate 18 20 20 Blood Pressure [Le ft Arm] Blood Pressure [Le ft Forearm] 132/71 131/71 Pulse Oximetry 91 92 92 Oxygen Delivery Me thod Room Air Room Air Room Air Oxygen Flow Rate 03/23/23 03:07 03/23/23 08:01 03/23/23 08:01 Temperature 98.7 F 98.3 F Pulse Rate [Pulse Oximeter] 84 89 89 Respiratory Rate 18 18 18 Blood Pressure [Le ft Arm] 133/70 Blood Pressure [Le ft Forearm] 128/66 Pulse Oximetry 91 91 Oxygen Delivery Me thod Room Air Room Air Oxygen Flow Rate 03/23/23 08:01 03/23/23 11:44 03/23/23 15:31 Temperature 98.5 F 98.3 F Pulse Rate [Pulse Oximeter] 87 Respiratory Rate 18 20 24 Blood Pressure [Le ft Arm] Blood Pressure [Le ft Forearm] 137/84 147/75 H Pulse Oximetry 91 92 91 Oxygen Delivery Me thod Room Air Room Air Room Air Oxygen Flow Rate 0 0 03/23/23 15:31 03/23/23 15:31 Temperature Pulse Rate [Pulse Oximeter] 87 Respiratory Rate 24 24 Blood Pressure [Le ft Arm] Blood Pressure [Le ft Forearm] Pulse Oximetry 91 Oxygen Delivery Me thod Room Air Oxygen Flow Rate 0 Documenting provider has reviewed patient's vital signs: yes
[2023-03-23] MEDS: RIVAROXABAN 10 MG TABLET PO (17:31)
[2023-03-23] MEDS: TIZANIDINE HCL 4 MG TABLET PO (17:31)
[2023-03-23] MEDS: SIMVASTATIN 20 MG TABLET PO (17:31)
--- NOTE | 2023-03-23 18:03 | PC.NURSE ---
End of Shift: Patient pleasant and cooperative. Patient vitally stable, lungs clear, BS WNL, NO IV. Patient bedrest. Patient denies pain. Patient urostomy intact and draining. Wound cleaning and dressing changed performed. Patient had 1 soft BM. Patient tolerating regular diet.
[2023-03-23] MEDS: MELATONIN 3 MG TABLET PO (20:44)
[2023-03-23] MEDS: clonazePAM 0.5 MG TABLET 1 MG PO (20:44)
[2023-03-24 03:00] VITALS: BP 110/70; PULSE 82; RESP 20; TEMP 36.8; O2SAT 92
[2023-03-24] MEDS: LEVOTHYROXINE 50 MCG TABLET PO (06:52)
[2023-03-24 07:00] VITALS: BP 111/101; PULSE 86; RESP 18; TEMP 37.1; O2SAT 92
--- NOTE | 2023-03-24 07:00 | PC.NURSE ---
Shift note: Pt refused turning and reposition, and brief change. Pt said she comfortable at her position and she does not feel soiled. Alert and oriented, afebrile. Vitally stable. Pt has been in throughout the shift.
--- NOTE | 2023-03-24 08:08 | PC.SOCIAL ---
Discharge Planning: Currently discussing the possibility of purchasing one of the used beds from the LTCC facility. Consulting with [facility] (wound care clinic) feels it would be an appropriate option for patient considering poor state of her current bed at home. Social work to follow up as needed.
[2023-03-24] MEDS: LACTOBACILLUS ACIDOPHILUS 1 TABLET 1 TAB PO ×3 (08:39→18:23)
[2023-03-24] MEDS: BACLOFEN 10 MG TABLET 40 MG PO ×4 (08:39→21:17)
[2023-03-24] MEDS: CETIRIZINE HCL 10 MG TABLET PO (08:40)
[2023-03-24] MEDS: CITALOPRAM HYDROBROMIDE 20 MG TABLET 10 MG PO (08:40)
[2023-03-24] MEDS: POTASSIUM CHLORIDE 10 MEQ CAPSULE ER PO ×2 (08:41→21:16)
[2023-03-24] MEDS: DOXYCYCLINE HYCLATE 100 MG PO ×2 (08:41→21:16)
[2023-03-24] MEDS: METOPROLOL TARTRATE 25 MG TABLET 12.5 MG PO ×2 (08:41→21:15)
[2023-03-24] MEDS: OMEPRAZOLE 20 MG CAPSULE DR PO (08:41)
[2023-03-24] MEDS: MULTIVITAMIN/MINERALS 1 TABLET 1 TAB PO (08:41)
[2023-03-24 09:54] VITALS: BMI 39.9
[2023-03-24 11:00] VITALS: BP 126/71; PULSE 81; RESP 18; O2SAT 92
[2023-03-24] MEDS: levoFLOXacin 500 MG TABLET PO (12:19)
[2023-03-24 15:00] VITALS: BP 125/66; PULSE 88; RESP 18; TEMP 37.1; O2SAT 92
--- NOTE | 2023-03-24 15:05 | PM.IMPN1 ---
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 Current culture growing MRSA. Switch to oral antibiotics. Current plan is to manage wound care and to episodically manage worsening infection with antibiotics. Patient declines attempt at curative treatment for osteomyelitis of the ischial spine associated with decubitus ulcer. Status: Acute (2) Stage 3 skin ulcer of sacral region: Problem details: Consider senior care for ongoing treatment of this to help her sacral ulcer heal. Status: Acute (3) Bacteremia: Problem details: One of 2 blood cultures show Staph epidermidis. Subsequent cultures negative. Suspect contamination. Status: Acute (4) Sepsis: Problem details: Clinically improved. Source is likely osteomyelitis of the right ischial spine. Vancomycin and imipenem discontinued. Five more days of doxycycline and Levaquin, finish doses on March 25 then stop. Clinically appears to be improving. Status: Acute (5) Cellulitis: Problem details: Wound cellulitis appears better. Stop antibiotics March 25. Long-term plan would be to treat acute illness, cellulitis or sepsis with a 10 day course of appropriate antibiotic but without curative intent for her osteomyelitis of the ischial spine. Status: Acute (6) Sleep apnea: Problem details: Suspected based on clinical factors. Likely the cause of nocturnal hypoxia. patient doubts this diagnosis. Outpatient evaluation if desired. Status: Suspected (7) History of DVT (deep vein thrombosis): Problem details: On long-term anticoagulation with rivaroxaban 10 mg daily Status: Acute (8) Decubitus ulcer: Problem details: Chronic ulcer of right buttock with associated right ischial spine osteomyelitis. Hospitalized for 3 months May of 2022 to August of 2022. Surgical debridement at that time. Subsequent recurrent infections and hospitalizations without affective cure. Long-term recommendation is to provide ongoing wound care without expectation of cure. Episodic antibiotics for cellulitis or fever without expectation of cure. If patient chooses curative therapy in the future then referral to a tertiary care center for Plastic surgery to create a flap and diverting colostomy. Status: Acute (9) Neurogenic bladder: Problem details: Has urostomy after cystectomy and ileal conduit from sigmoid. Status: Acute (10) Chronic anemia: Problem details: January 2023 had evaluation at [facility] with EGD which showed cystic fundic gland polyps in the gastric antrum and colonoscopy which was incomplete showing a 7 mm sessile polyp in the sigmoid. She underwent CT colonography which was unremarkable. Overall findings were felt to be reassuring. No obvious source of bleeding identified. Status: Acute (11) Multiple sclerosis: Problem details: Functionally paraplegic. Has been bed ridden for the last several months. Unable to reposition herself in bed. Unclear whether she can get the care she needs from her with wound care and repositioning to heal her ulcers. Consider senior care facility Status: Acute (12) Morbid obesity: Status: Acute (13) Paroxysmal atrial fibrillation: Problem details: On rate control and anticoagulation Status: Acute Plan Continue hospital pending safe discharge plan. Today patient informs me that she would probably be decline transfer to senior care and be discharged to her own home instead. Time Spent With Patient Total time spent: Total time spent today is 35 minutes, 30 minutes in coordination of care and discussing with patient other providers disposition plan Subjective Date Seen: 03/24/23 Interval history: 72-year-old female paraplegic from multiple sclerosis and chronic decubitus ulcer with osteomyelitis of the right ischial tuberosity admitted to the hospital with fever and chills. She has been followed by [facility] and was doing well as recently as Monday, 2 days prior to admission. Yesterday she had onset of symptoms of illness with fever and weakness. At the time of admission she was felt to have sepsis presumably from her decubitus ulcer. She was admitted on vancomycin and ertapenem. She was hospitalized at [facility] [place] from May 30, 2022 to 08/24/2022 for management of her decubitus ulcer and osteomyelitis. She had surgical debridement of her wound at that time. She was hospitalized here in October 2022. At that time MRI showed chronic osteomyelitis of right ischial spine. Discharged from here on Levaquin and doxycycline. She took this for about 8 weeks by secondhand report. She has subsequently been treated again with Levaquin for a cellulitis in the area of her decubitus ulcer. She was treated with a cephalosporin for a UTI in January. She has previously had pansensitive E coli and Pseudomonas cultured from wound and urine. Secondhand reports also history of MRSA infection. She lives at home with her who is her caregiver. She is unable to reposition herself in bed. She has a urostomy. She has had no further fevers. Her blood pressure has improved. She is otherwise feeling well. She did not receive supplemental oxygen overnight. Clinical suspicion for sleep apnea. She reports never having evaluation for that but is on her list of medical problems. She is not dyspneic. She does not have a cough or chest pain. Blood culture, 1 of 2, shows Staph epidermatitis. Repeat cultures are negative. Wound culture shows MRSA. I spoke with Infectious Disease consult March 20. At this point the recommendation is a relatively complicated and difficult surgical intervention to create a flap with Plastic surgery and probably also a diverting colostomy. This would require the ability to provide exceptional wound care and skin care. I discussed this with the patient and she is not interested in pursuing this at this time. In the future, if she is interested, she should be referred to a tertiary care center for this. The alternative management would be to provide ongoing wound care and episodic antibiotics for worsening infection. At this point will switch her off of broad-spectrum IV antibiotics as her clinical syndrome of sepsis has resolved and place her on an additional 5 days of oral antibiotics to treat MRSA and Gram-negative rods. I spoke with the patient about disposition. I am concerned about her family's ability to provide wound care and repositioning her in bed. She does have on order a special bed to provide additional protection but that is not yet available. At this point is uncertain if the bed was ever ordered. Court Bailiff Or Sheriff looking into alternative sources for bed including something from the long-term care center downstairs. Looking for senior care facility pending arrival of appropriate bed/durable medical equipment. She has no new concerns today. Exam Narrative: Exam Narrative: She is alert and appears in no distress. She is oriented to her circumstances. Breathing is unlabored. Abdomen is soft without tenderness. Urostomy bag noted. Mild intertriginous irritation suggestive of a mild yeast dermatitis in the inguinal folds. Const: Vital Signs, click to edit/add: Vital Signs - 24 hr 03/23/23 15:31 03/23/23 15:31 03/23/23 15:31 Temperature 98.3 F Pulse Rate [Pulse Oximeter] 87 87 Respiratory Rate 24 24 24 Blood Pressure [Le ft Forearm] 147/75 H Pulse Oximetry 91 91 Oxygen Delivery Me thod Room Air Room Air Oxygen Flow Rate 0 0 03/23/23 19:00 03/23/23 20:43 03/23/23 23:00 Temperature 98.1 F Pulse Rate [Pulse Oximeter] 99 104 H 84 Respiratory Rate 20 Blood Pressure [Le ft Forearm] 96/58 L 113/70 Pulse Oximetry 92 Oxygen Delivery Me thod Room Air Oxygen Flow Rate 03/23/23 23:00 03/23/23 23:00 03/24/23 03:00 Temperature 98.3 F 98.2 F Pulse Rate [Pulse Oximeter] 84 82 Respiratory Rate 20 20 20 Blood Pressure [Le ft Forearm] 105/68 110/70 Pulse Oximetry 93 93 92 Oxygen Delivery Me thod Room Air Room Air Room Air Oxygen Flow Rate 0 0 0 03/24/23 07:00 03/24/23 07:00 03/24/23 07:00 Temperature 98.7 F Pulse Rate [Pulse Oximeter] 86 Respiratory Rate 18 18 18 Blood Pressure [Le ft Forearm] 111/101 H Pulse Oximetry 92 92 Oxygen Delivery Pa thod Room Air Room Air Oxygen Flow Rate Documenting provider has reviewed patient's vital signs: yes
--- NOTE | 2023-03-24 16:04 | PC.SOCIAL ---
Discharge Planning: [facility] used beds are not an option for this patient due to regulations per Trice Hardin. Did not mention this option to patient as unsure of regulations. Talked with patient in room about facility that was considering her in [place], [place] [phone]. Patient a bit reluctant to accept custodial. Discussion concerning what is best for healing since she does not have a good bed option at home yet. Patient states that life is not going good for her right now and she has heard bad things about all nursing homes. Discussion on nursing homes and putting positive view on short term stay. Patient states that her son is pushing custodial. Patient appears to be more accepting after discussion. [place] asking for a nurse to nurse for clarification on needs. Med/surg phone number given to [place]. This flex o writer operator also called [facility] [place] and will fax packet today. They might have openings next week and will consider. [facility] is not the patients choice of nursing homes. viscose cellar worker to follow up as needed.
[2023-03-24] MEDS: SIMVASTATIN 20 MG TABLET PO (18:21)
[2023-03-24] MEDS: TIZANIDINE HCL 4 MG TABLET PO (18:21)
[2023-03-24] MEDS: RIVAROXABAN 10 MG TABLET PO (18:21)
--- NOTE | 2023-03-24 19:07 | PC.NURSE ---
Addendum entered by Kait García RN 03/24/23 19:52: technical proposal writer called [facility] to give nurse to nurse report, went to voicemail. Left message with technical proposal writer name, reason for call and phone number to call back. Original Note: Nursing Care Hours: [id number] Pt this shift calm and cooperative with cares. VSS, BSx4, bilat pedal pulses present but diminished. U/o clear with sediment. No BM. Turn and repo. Dressing changed to glute and coccyx per wound care orders. Pt tolerated well. Eating and drinking sufficiently. Bed bath given, small yeast area to left lower abdomen under stomach fold. Hospitalist made aware.
[2023-03-24 21:00] VITALS: BP 101/60; PULSE 92; RESP 20; TEMP 36.7; O2SAT 92
[2023-03-24] MEDS: clonazePAM 0.5 MG TABLET 1 MG PO (21:15)
[2023-03-24] MEDS: MELATONIN 3 MG TABLET PO (21:16)
[2023-03-24 23:30] VITALS: BP 108/65; PULSE 80; PULSE 92; RESP 18; TEMP 37.1; O2SAT 92
[2023-03-25 03:35] VITALS: BP 123/70; PULSE 77; RESP 18; TEMP 36.6; O2SAT 93
[2023-03-25] MEDS: LEVOTHYROXINE 50 MCG TABLET PO (06:40)
[2023-03-25 07:00] VITALS: BP 122/78; PULSE 79; PULSE 85; RESP 18; TEMP 37.1; O2SAT 91
--- NOTE | 2023-03-25 07:34 | PC.NURSE ---
Shift note [id number]: Pt is alert and oriented x3. Afebrile. Pt denies chest pain, pain, SOB and N/V. Pt was turned and repositioned throughout night. Pt has ulcer dressings to coccyx, right buttocks and right heel that are CDI. Right heel dressing was changed and it had no drainage. Pt has ankle protectors on both feet. Pt?s catheter is patent and draining. Pt slept intermittently throughout night. Night uneventful.??
[2023-03-25] MEDS: LACTOBACILLUS ACIDOPHILUS 1 TABLET 1 TAB PO ×2 (08:47→12:51)
[2023-03-25] MEDS: CITALOPRAM HYDROBROMIDE 20 MG TABLET 10 MG PO (08:48)
[2023-03-25] MEDS: CETIRIZINE HCL 10 MG TABLET PO (08:48)
[2023-03-25] MEDS: BACLOFEN 10 MG TABLET 40 MG PO ×4 (08:48→20:50)
[2023-03-25] MEDS: DOXYCYCLINE HYCLATE 100 MG PO ×2 (08:49→20:51)
[2023-03-25] MEDS: MULTIVITAMIN/MINERALS 1 TABLET 1 TAB PO (08:49)
[2023-03-25] MEDS: OMEPRAZOLE 20 MG CAPSULE DR PO (08:49)
[2023-03-25] MEDS: POTASSIUM CHLORIDE 10 MEQ CAPSULE ER PO ×2 (08:49→20:51)
[2023-03-25] MEDS: METOPROLOL TARTRATE 25 MG TABLET 12.5 MG PO ×2 (08:49→20:51)
[2023-03-25] MEDS: levoFLOXacin 500 MG TABLET PO (12:52)
--- NOTE | 2023-03-25 13:07 | PM.IMPN1 ---
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 Current culture growing MRSA. Switch to oral antibiotics. Current plan is to manage wound care and to episodically manage worsening infection with antibiotics. Patient declines attempt at curative treatment for osteomyelitis of the ischial spine associated with decubitus ulcer. Status: Acute (2) Stage 3 skin ulcer of sacral region: Problem details: Consider [facility] for ongoing treatment of this to help her sacral ulcer heal. Status: Acute (3) Bacteremia: Problem details: One of 2 blood cultures show Staph epidermidis. Subsequent cultures negative. Suspect contamination. Status: Acute (4) Sepsis: Problem details: Clinically improved. Source is likely osteomyelitis of the right ischial spine. Vancomycin and imipenem discontinued. Five more days of doxycycline and Levaquin, finish doses on March 25 then stop. Clinically appears to be improving. Status: Acute (5) Cellulitis: Problem details: Wound cellulitis appears better. Stop antibiotics March 25. Long-term plan would be to treat acute illness, cellulitis or sepsis with a 10 day course of appropriate antibiotic but without curative intent for her osteomyelitis of the ischial spine. Status: Acute (6) Sleep apnea: Problem details: Suspected based on clinical factors. Likely the cause of nocturnal hypoxia. patient doubts this diagnosis. Outpatient evaluation if desired. Status: Suspected (7) History of DVT (deep vein thrombosis): Problem details: On long-term anticoagulation with rivaroxaban 10 mg daily Status: Acute (8) Decubitus ulcer: Problem details: Chronic ulcer of right buttock with associated right ischial spine osteomyelitis. Hospitalized for 3 months May of 2022 to August of 2022. Surgical debridement at that time. Subsequent recurrent infections and hospitalizations without affective cure. Long-term recommendation is to provide ongoing wound care without expectation of cure. Episodic antibiotics for cellulitis or fever without expectation of cure. If patient chooses curative therapy in the future then referral to a tertiary care center for Plastic surgery to create a flap and diverting colostomy. -hospitalized at [facility] from May 30, 2022 to 08/24/2022 for management of her decubitus ulcer and osteomyelitis. Status: Acute (9) Neurogenic bladder: Problem details: Has urostomy after cystectomy and ileal conduit from sigmoid. Status: Acute (10) Chronic anemia: Problem details: January 2023 had evaluation at [place] with EGD which showed cystic fundic gland polyps in the gastric antrum and colonoscopy which was incomplete showing a 7 mm sessile polyp in the sigmoid. She underwent CT colonography which was unremarkable. Overall findings were felt to be reassuring. No obvious source of bleeding identified. Status: Acute (11) Multiple sclerosis: Problem details: Functionally paraplegic. Has been bed ridden for the last several months. Unable to reposition herself in bed. Unclear whether she can get the care she needs from her with wound care and repositioning to heal her ulcers. Consider senior living facility Status: Acute (12) Morbid obesity: Status: Acute (13) Paroxysmal atrial fibrillation: Problem details: On rate control and anticoagulation Status: Acute Subjective Date Seen: 03/25/23 Interval history: Daily Progress Note - Hospital Medicine #: 11 CC: sepsis (resolved), unhealed stasis wounds/chronic osteo, MS, obesity OVERNIGHT UPDATES FROM STAFF & MED, LAB, IMAGING UPDATES slept fine. c/o of not having enough protein or food choices to meet her needs. no new fever. no pain. she is disappointed about the lack of [facility] support from the [facility]. reviewed and highlighted pertient history from my colleagues note: -72-year-old female paraplegic from multiple sclerosis and chronic decubitus ulcer with osteomyelitis of the right ischial tuberosity admitted to the hospital with fever and chills. -She was hospitalized at [facility] from May 30, 2022 to 08/24/2022 for management of her decubitus ulcer and osteomyelitis. She had surgical debridement of her wound at that time. -She was hospitalized here in October 2022. At that time MRI showed chronic osteomyelitis of right ischial spine. Discharged from here on Levaquin and doxycycline. She took this for about 8 weeks by secondhand report. -She has subsequently been treated again with Levaquin for a cellulitis in the area of her decubitus ulcer. -She was treated with a cephalosporin for a UTI in January. -She has previously had pansensitive E coli and Pseudomonas cultured from wound and urine. Secondhand reports also history of MRSA infection. -She lives at home with her who is her caregiver. She is unable to reposition herself in bed. She has a urostomy. -The alternative management (to diverting colostomy in setting of large flap and off weighted for months) would be to provide ongoing wound care and episodic antibiotics for worsening infection. 122/78. Pulse 85. Resp is 18. Afebrile. Room air sats 91%. No new CBCs since 03/21. Elevated white count had decreased to and a normal white count No new metabolic panels. All electrolytes and renal function were normal last checked on March 21. C reactive protein had down trended nicely, we. Following this. Blood cultures remained negative, after 1 was growing staph epi MRSA screen nasal was negative Wound culture showed MRSA Objective: stable. Vitals: see above Lungs: Clear. Cardiac: S1S2. wounds not examined this morning in rounds. Disposition/Potential discharge - Likely to return to previous living situation. Today I spent 50minutes seeing the patient, reviewing [facility] and [facility] notes/diagnostics, discussing the care plan with our care time that includes social work, PT/OT, pharmacy, RT, senior living and documenting my impressions and plan in the medical record. Exam Const: Vital Signs, click to edit/add: Vital Signs - 24 hr 03/24/23 15:00 03/24/23 15:00 03/24/23 15:00 Temperature 98.7 F Pulse Rate [Pulse Oximeter] 88 88 Respiratory Rate 18 18 18 Blood Pressure [Le ft Forearm] 125/66 Pulse Oximetry 92 92 Oxygen Delivery Me thod Room Air Room Air Oxygen Flow Rate 03/24/23 21:00 03/24/23 23:30 03/24/23 23:30 Temperature 98.1 F Pulse Rate [Pulse Oximeter] 92 80 Respiratory Rate 20 18 18 Blood Pressure [Le ft Forearm] 101/60 Pulse Oximetry 92 92 Oxygen Delivery Me thod Room Air Room Air Oxygen Flow Rate 0 03/24/23 23:30 03/25/23 03:35 03/25/23 07:00 Temperature 98.7 F 97.8 F 98.7 F Pulse Rate [Pulse Oximeter] 92 77 79 Respiratory Rate 18 18 18 Blood Pressure [Le ft Forearm] 108/65 123/70 122/78 Pulse Oximetry 92 93 91 Oxygen Delivery Me thod Room Air Room Air Room Air Oxygen Flow Rate 0 03/25/23 07:00 03/25/23 07:00 Temperature Pulse Rate [Pulse Oximeter] 85 Respiratory Rate 18 18 Blood Pressure [Le ft Forearm] Pulse Oximetry 91 Oxygen Delivery Me thod Room Air Oxygen Flow Rate 0
[2023-03-25 15:00] VITALS: BP 118/69; PULSE 85; RESP 18; O2SAT 91; O2SAT 93
[2023-03-25] MEDS: RIVAROXABAN 10 MG TABLET PO (17:45)
[2023-03-25] MEDS: TIZANIDINE HCL 4 MG TABLET PO (17:45)
[2023-03-25] MEDS: SIMVASTATIN 20 MG TABLET PO (17:45)
[2023-03-25 19:30] VITALS: BP 111/60; PULSE 87; RESP 18; TEMP 37.1; O2SAT 91
--- NOTE | 2023-03-25 19:48 | PC.NURSE ---
Nursing Care Hours: [id number] Pt this shift calm and cooperative with cares. Bed bath given, pt family member washed pt hair. Dressing changed per wound care orders, pt tolerated well. VSS. Eating and drinking sufficiently, encouraged to choose protein options. Turn and repo Q2H.
[2023-03-25] MEDS: clonazePAM 0.5 MG TABLET 1 MG PO (20:52)
[2023-03-25] MEDS: MELATONIN 3 MG TABLET PO (20:52)
[2023-03-25 22:05] VITALS: BP 111/60; PULSE 87; PULSE 94; RESP 18; TEMP 37.1; O2SAT 91; O2SAT 93
[2023-03-26] VITALS (7 sets, daily range): BP systolic 102–129; BP diastolic 63–85; PULSE 74–84; RESP 16–18; TEMP 36.7–37.5; O2SAT 92–95
[2023-03-26] MEDS: LEVOTHYROXINE 50 MCG TABLET PO (05:59)
--- NOTE | 2023-03-26 06:11 | PC.NURSE ---
Addendum entered by Senait Hoffman 03/26/23 06:56: Shift note [id number] not ([id number]) Original Note: Shift note [id number]: Pt is alert and oriented x3. Afebrile. Pt denies chest pain, pain, SOB and N/V. Pt was turned and repositioned throughout night. Pt has ulcer dressings to right buttocks, coccyx and right heel that are CDI. Pt has ankle protectors on both feet. Pt's urostomy was changed around 2200 03/27/23. Pt?s catheter is patent and draining. Pt slept intermittently throughout night.??
--- NOTE | 2023-03-26 08:44 | PM.IMPN1 ---
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 Current culture growing MRSA. Switch to oral antibiotics. Current plan is to manage wound care and to episodically manage worsening infection with antibiotics. Patient declines attempt at curative treatment for osteomyelitis of the ischial spine associated with decubitus ulcer. Status: Acute (2) Stage 3 skin ulcer of sacral region: Problem details: [facility] for [facility] treatment of this to help her sacral ulcer heal. Status: Acute (3) Bacteremia: Problem details: One of 2 blood cultures show Staph epidermidis. Subsequent cultures negative. Suspect contamination. Status: Acute (4) Sepsis: Problem details: Clinically improved. Source is likely osteomyelitis of the right ischial spine. Vancomycin and imipenem discontinued. Five more days of doxycycline and Levaquin, finish doses on March 25 then stop. Clinically appears to be improving. Status: Acute (5) Cellulitis: Problem details: Wound cellulitis appears better. Stop antibiotics March 25. Long-term plan would be to treat acute illness, cellulitis or sepsis with a 10 day course of appropriate antibiotic but without curative intent for her osteomyelitis of the ischial spine. Status: Acute (6) Sleep apnea: Problem details: Suspected based on clinical factors. Likely the cause of nocturnal hypoxia. patient doubts this diagnosis. Outpatient evaluation if desired. Status: Suspected (7) History of DVT (deep vein thrombosis): Problem details: On long-term anticoagulation with rivaroxaban 10 mg daily Status: Acute (8) Decubitus ulcer: Problem details: Chronic ulcer of right buttock with associated right ischial spine osteomyelitis. Hospitalized for 3 months May of 2022 to August of 2022. Surgical debridement at that time. Subsequent recurrent infections and hospitalizations without affective cure. Long-term recommendation is to provide ongoing wound care without expectation of cure. Episodic antibiotics for cellulitis or fever without expectation of cure. If patient chooses curative therapy in the future then referral to a tertiary care center for Plastic surgery to create a flap and diverting colostomy. -hospitalized at [facility] from May 30, 2022 to 08/24/2022 for management of her decubitus ulcer and osteomyelitis. Status: Acute (9) Neurogenic bladder: Problem details: Has urostomy after cystectomy and ileal conduit from sigmoid. Status: Acute (10) Chronic anemia: Problem details: January 2023 had evaluation at [place] [facility] with EGD which showed cystic fundic gland polyps in the gastric antrum and colonoscopy which was incomplete showing a 7 mm sessile polyp in the sigmoid. She underwent CT colonography which was unremarkable. Overall findings were felt to be reassuring. No obvious source of bleeding identified. Status: Acute (11) Multiple sclerosis: Problem details: Functionally paraplegic. Has been bed ridden for the last several months. Unable to reposition herself in bed. Unclear whether she can get the care she needs from her with wound care and repositioning to heal her ulcers. Consider [facility] Status: Acute (12) Morbid obesity: Status: Acute (13) Paroxysmal atrial fibrillation: Problem details: On rate control and anticoagulation Status: Acute Subjective Date Seen: 03/26/23 Interval history: Daily Progress Note - Hospital Medicine #: 12 CC: sepsis (resolved), unhealed stasis wounds/chronic osteo, MS, obesity OVERNIGHT UPDATES FROM STAFF & MED, LAB, IMAGING UPDATES slept ok. no new needs for hospitalist. no new fever. no pain. she is disappointed about the lack of [facility] support from the [facility]. reviewed and highlighted pertinent history from my colleagues note: -72-year-old female paraplegic from multiple sclerosis and chronic decubitus ulcer with osteomyelitis of the right ischial tuberosity admitted to the hospital with fever and chills. -She was hospitalized at [facility] from May 30, 2022 to 08/24/2022 for management of her decubitus ulcer and osteomyelitis. She had surgical debridement of her wound at that time. -She was hospitalized here in October 2022. At that time MRI showed chronic osteomyelitis of right ischial spine. Discharged from here on Levaquin and doxycycline. She took this for about 8 weeks by secondhand report. -She has subsequently been treated again with Levaquin for a cellulitis in the area of her decubitus ulcer. -She was treated with a cephalosporin for a UTI in January. -She has previously had pansensitive E coli and Pseudomonas cultured from wound and urine. Secondhand reports also history of MRSA infection. -She lives at home with her who is her caregiver. She is unable to reposition herself in bed. She has a urostomy. -The alternative management (to diverting colostomy in setting of large flap and off weighted for months) would be to provide ongoing wound care and episodic antibiotics for worsening infection. Afebrile 119/85. 129/75 Pulse 70s Respiratory rate 18 Pulse ox 93% on room air No new CBCs since 03/21. Elevated white count had decreased to and a normal white count No new metabolic panels. All electrolytes and renal function were normal last checked on March 21. C reactive protein had down trended nicely. Blood cultures remained negative, after 1 was growing staph epi MRSA screen nasal was negative Wound culture showed MRSA Objective: stable. Vitals: see above Lungs: Clear. Cardiac: S1S2. wounds not examined this morning in rounds. Disposition/Potential discharge - Likely to return to previous living situation. Today I spent 50minutes seeing the patient, reviewing [facility] and [facility] notes/diagnostics, discussing the care plan with our care time that includes social work, PT/OT, pharmacy, RT, penitentiary and documenting my impressions and plan in the medical record. Exam Const: Vital Signs, click to edit/add: Vital Signs - 24 hr 03/25/23 15:00 03/25/23 15:00 03/25/23 15:00 Temperature Pulse Rate [Pulse Oximeter] 85 85 Respiratory Rate 18 18 18 Blood Pressure [Le ft Forearm] 118/69 Pulse Oximetry 93 91 Oxygen Delivery Me thod Room Air Room Air Oxygen Flow Rate 03/25/23 19:30 03/25/23 22:05 03/25/23 22:05 Temperature 98.7 F Pulse Rate [Pulse Oximeter] 87 94 Respiratory Rate 18 18 18 Blood Pressure [Le ft Forearm] 111/60 Pulse Oximetry 91 93 Oxygen Delivery Me thod Room Air Room Air Oxygen Flow Rate 0 03/25/23 22:05 03/26/23 04:10 03/26/23 08:00 Temperature 98.7 F 98.1 F 98.3 F Pulse Rate [Pulse Oximeter] 87 77 76 Respiratory Rate 18 18 18 Blood Pressure [Le ft Forearm] 111/60 129/75 119/85 Pulse Oximetry 91 92 93 Oxygen Delivery Me thod Room Air Room Air Room Air Oxygen Flow Rate 0 03/26/23 08:00 Temperature Pulse Rate [Pulse Oximeter] Respiratory Rate Blood Pressure [Le ft Forearm] Pulse Oximetry 93 Oxygen Delivery Me thod Room Air Oxygen Flow Rate
[2023-03-26] MEDS: OMEPRAZOLE 20 MG CAPSULE DR PO (09:01)
[2023-03-26] MEDS: POTASSIUM CHLORIDE 10 MEQ CAPSULE ER PO ×2 (09:01→20:41)
[2023-03-26] MEDS: METOPROLOL TARTRATE 25 MG TABLET 12.5 MG PO ×2 (09:02→20:42)
[2023-03-26] MEDS: CITALOPRAM HYDROBROMIDE 20 MG TABLET 10 MG PO (09:02)
[2023-03-26] MEDS: BACLOFEN 10 MG TABLET 40 MG PO ×4 (09:02→20:43)
[2023-03-26] MEDS: CETIRIZINE HCL 10 MG TABLET PO (09:02)
[2023-03-26] MEDS: MULTIVITAMIN/MINERALS 1 TABLET 1 TAB PO (09:02)
[2023-03-26] MEDS: RIVAROXABAN 10 MG TABLET PO (17:34)
[2023-03-26] MEDS: TIZANIDINE HCL 4 MG TABLET PO (17:34)
[2023-03-26] MEDS: SIMVASTATIN 20 MG TABLET PO (17:34)
[2023-03-26] MEDS: clonazePAM 0.5 MG TABLET 1 MG PO (20:42)
[2023-03-26] MEDS: MELATONIN 3 MG TABLET PO (20:43)
[2023-03-27] VITALS (8 sets, daily range): BP systolic 113–140; BP diastolic 68–83; PULSE 76–104; RESP 14–18; TEMP 36.6–37.2; O2SAT 93–95
[2023-03-27] MEDS: LEVOTHYROXINE 50 MCG TABLET PO (07:48)
--- NOTE | 2023-03-27 08:16 | PC.NURSE ---
Shift note [id number]: Pt is alert and oriented x3. Afebrile. Pt denies chest pain, pain, SOB and N/V. Pt was turned and repositioned throughout night. Pt?s?ulcer dressings to right buttock, coccyx and right heel are CDI. Pt?s catheter is patent and draining. Pt has ankle protectors on both feet.?Pt slept intermittently throughout night.??
[2023-03-27] MEDS: MULTIVITAMIN/MINERALS 1 TABLET 1 TAB PO (08:54)
[2023-03-27] MEDS: CITALOPRAM HYDROBROMIDE 20 MG TABLET 10 MG PO (08:54)
[2023-03-27] MEDS: POTASSIUM CHLORIDE 10 MEQ CAPSULE ER PO ×2 (08:54→20:49)
[2023-03-27] MEDS: BACLOFEN 10 MG TABLET 40 MG PO ×4 (08:55→20:50)
[2023-03-27] MEDS: CETIRIZINE HCL 10 MG TABLET PO (08:55)
[2023-03-27] MEDS: OMEPRAZOLE 20 MG CAPSULE DR PO (08:55)
[2023-03-27] MEDS: METOPROLOL TARTRATE 25 MG TABLET 12.5 MG PO ×2 (08:56→20:48)
--- NOTE | 2023-03-27 11:53 | P.IMPN_ITS ---
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 Current culture growing MRSA. She has finished a 10 day course of doxycycline and Levaquin. Current plan is to manage wound care and to episodically manage worsening infection with antibiotics. Patient declines attempt at curative treatment for osteomyelitis of the ischial spine associated with decubitus ulcer. This would require going to a tertiary care center and having Plastic surgery perform a flap and likely a diverting colostomy to protect the healing wound. Status: Acute (2) Stage 3 skin ulcer of sacral region: Problem details: We have discussed returning home, getting a better bed and air mattress, transfe rring to long term facility. Patient decides she wants to go home. Status: Acute (3) Bacteremia: Problem details: One of 2 blood cultures show Staph epidermidis. Subsequent cultures negative. Suspect contamination. Status: Acute (4) Sepsis: Problem details: Clinically improved. Source is likely osteomyelitis of the right ischial spine. Vancomycin and imipenem discontinued. Five more days of doxycycline and Levaquin, finish doses on March 25 then stop. Clinically appears to be improving. Status: Acute (5) Cellulitis: Problem details: Wound cellulitis appears better. Stop antibiotics March 25. Long-term plan would be to treat acute illness, cellulitis or sepsis with a 10 day course of appropriate antibiotic but without curative intent for her osteomyelitis of the ischial spine. Status: Acute (6) Sleep apnea: Problem details: Suspected based on clinical factors. Likely the cause of nocturnal hypoxia. patient doubts this diagnosis. Outpatient evaluation if desired. Status: Suspected (7) History of DVT (deep vein thrombosis): Problem details: On long-term anticoagulation with rivaroxaban 10 mg daily Status: Acute (8) Decubitus ulcer: Problem details: Chronic ulcer of right buttock with associated right ischial spine osteomyelitis. Hospitalized for 3 months May of 2022 to August of 2022. Surgical debridement at that time. Subsequent recurrent infections and hospitalizations without affective cure. Long-term recommendation is to provide ongoing wound care without expectation of cure. Episodic antibiotics for cellulitis or fever without expectation of cure. If patient chooses curative therapy in the future then referral to a tertiary care center for Plastic surgery to create a flap and diverting colostomy. -hospitalized at [facility] [place] [facility] from May 30, 2022 to 08/24/2022 for management of her decubitus ulcer and osteomyelitis. Status: Acute (9) Neurogenic bladder: Problem details: Has urostomy after cystectomy and ileal conduit from sigmoid. Status: Acute (10) Chronic anemia: Problem details: January 2023 had evaluation at [place] with EGD which showed cystic fundic gland polyps in the gastric antrum and colonoscopy which was incomplete showing a 7 mm sessile polyp in the sigmoid. She underwent CT colonography which was unremarkable. Overall findings were felt to be reassuring. No obvious source of bleeding identified. Status: Acute (11) Multiple sclerosis: Problem details: Functionally paraplegic. Has been bed ridden for the last several months. Unable to reposition herself in bed. After discussion with patient she wants to be back home rather than placed in a group home for ongoing wound care and fci care. Status: Acute (12) Morbid obesity: Status: Acute (13) Paroxysmal atrial fibrillation: Problem details: On rate control and anticoagulation Status: Acute Plan Possible discharge to home tomorrow. Will need ambulance transfer. Outpatient follow-up with the wound clinic. Care Home care by family. Ongoing attempts to obtain a better bed for protection of her skin Time Spent With Patient Total time spent: Total time spent today is 40 minutes, 30 minutes in coordination of care and discussing with patient other providers plan of disposition, wound care. Subjective Date Seen: 03/27/23 Interval history: 72-year-old female severely disabled by multiple sclerosis admitted to the hospital with sepsis. The time of admission evaluation suggested the source of sepsis was cellulitis around her chronic right buttock ulcer and osteomyelitis. She was found to have MRSA in her right buttock wound She received aggressive treatment on admission and her signs and symptoms of sepsis resolved fairly quickly. She then received a 10 day course of Levaquin and doxycycline. During that time there have been no new symptoms of acute illness. She has been receiving wound care for her right buttock ulcer and osteomyelitis as well as other sacral decubitus ulcers. All of these are improving. Phone consultation with Infectious Disease specialist regarding her chronic right osteomyelitis of the ischial spine recommended either aggressive intervention with Plastic surgery providing a flap and a diverting colostomy verses no long-term antibiotic treatment of her ulcer and osteomyelitis but just good wound care. Episodic antibiotic treatment for 10 days if she develops cellulitis and fever. This would likely require treatment to cover MRSA. Ongoing discussions with patient about plan of care have led to the conclusion that she does not want aggressive treatment which would be done at a tertiary care facility including Plastic surgery for a flap and a diverting colostomy to try to resolve her pelvic osteomyelitis. Her preference is to go home. Initially it was conversation and attempts made to transfer her to a group home but does have been so far unsuccessful. Today she reports to me that she wants to go home. There has been an ongoing process of trying to arrange for her to get a higher level of air mattress and hospital bed to protect her skin. So far this is not been successful. Today she reports no new concerns. She reports otherwise feeling well. Exam Narrative: Exam Narrative: She is alert and appears in no distress. Breathing is unlabored. Abdomen is soft. Her UE urostomy is draining a clear yellow urine. Const: Vital Signs, click to edit/add: Vital Signs - 24 hr 03/26/23 12:35 03/26/23 15:00 03/26/23 15:00 Temperature 98.5 F 99.5 F Pulse Rate [Pulse Oximeter] 76 82 Respiratory Rate 18 16 Blood Pressure [Le ft Forearm] 102/77 114/74 Pulse Oximetry 95 93 93 Oxygen Delivery Me thod Room Air Room Air Room Air Oxygen Flow Rate 03/26/23 20:45 03/26/23 22:40 03/26/23 22:40 Temperature 98.2 F Pulse Rate [Pulse Oximeter] 84 74 Respiratory Rate 18 18 18 Blood Pressure [Le ft Forearm] 124/69 Pulse Oximetry 93 92 Oxygen Delivery Wy thod Room Air Room Air Oxygen Flow Rate 0 03/26/23 22:40 03/26/23 23:30 03/27/23 02:50 Temperature 98.2 F Pulse Rate [Pulse Oximeter] 74 Respiratory Rate 18 18 16 Blood Pressure [Le ft Forearm] 108/63 Pulse Oximetry 92 Oxygen Delivery Wy thod Room Air Oxygen Flow Rate 0 03/27/23 06:00 03/27/23 08:08 03/27/23 08:08 Temperature 97.9 F Pulse Rate [Pulse Oximeter] 76 76 Respiratory Rate 16 14 14 Blood Pressure [Le ft Forearm] 137/83 Pulse Oximetry 95 Oxygen Delivery Wy thod Room Air Oxygen Flow Rate 03/27/23 08:08 03/27/23 11:19 Temperature 98.1 F Pulse Rate [Pulse Oximeter] 79 Respiratory Rate 14 16 Blood Pressure [Le ft Forearm] 122/68 Pulse Oximetry 95 94 Oxygen Delivery Me thod Room Air Room Air Oxygen Flow Rate 0 Documenting provider has reviewed patient's vital signs: yes
--- NOTE | 2023-03-27 12:45 | PC.SOCIAL ---
Discharge planning: Received call back from [facility] stating they can not accept pt. Met again with pt regarding d/c plan. Pt states she has decided to discharge home and is not longer interested in a half-way facility. Pt plans to return home to the hospital bed she already has and to continue to work with [facility] regarding renting a new bed in the future. Provided pt with Important Message from Medicare and answered quwestions regarding appeal process. Pt states she is not interested in appealing her discharge and plans to return home tomorrow and is requesting ambulance transport. Pt states her insurance has covered the cost of discharge home from [facility] in the past and she expects it to be covered by her insurance this time. line worker called and left messages regarding this discharge plan with her RN from [facility], Kerrie Luna [phone]; [employer] Dominga Marrero at [phone] and [facility] home care assistant, Sravan at [phone]. Received call back from [facility] home care requesting face to face and discharge information be faxed to [phone]. [facility] has scheduled to visit pt at home on 03/29/23. line worker to follow up as needed.
--- NOTE | 2023-03-27 18:07 | PC.NURSE ---
End of Shift: Patient pleasant and cooperative. Patient vitally stable, lungs clear, BS WNL, NO IV. Patient bedrest. Patient denies pain. Urostomy intact and draining. No BM this shift. Wound Care/dressing change performed. Mepilex x3 applied to bottom, medihoney used on skin. Patient tolerating regular diet.
[2023-03-27] MEDS: TIZANIDINE HCL 4 MG TABLET PO (18:27)
[2023-03-27] MEDS: RIVAROXABAN 10 MG TABLET PO (18:27)
[2023-03-27] MEDS: SIMVASTATIN 20 MG TABLET PO (18:27)
[2023-03-27] MEDS: MELATONIN 3 MG TABLET PO (20:49)
[2023-03-27] MEDS: clonazePAM 0.5 MG TABLET 1 MG PO (20:49)
[2023-03-28 03:00] VITALS: RESP 16; O2SAT 95
[2023-03-28 05:38] VITALS: RESP 16
--- NOTE | 2023-03-28 05:39 | PC.NURSE ---
Shift note: Pt has been sleeping very well. alert and oriented and has been in bed throughout the shift. Restful night sleep observed. Urostomy patent and draining light dayanna colored urine which has normal odor. No pain, SOB, and fever reported and observed. Refused turning and reposition.
[2023-03-28] MEDS: LEVOTHYROXINE 50 MCG TABLET PO (06:55)
[2023-03-28 07:14] LABS: Basophils Absolute Auto 0.04 K/uL (0.00-0.30); Basophils Percent Auto 0.8 % (0.0-3.0); Eosinophils Absolute Auto 0.17 K/uL (0.00-0.50); Eosinophils Percent Auto 3.3 % (0.0-7.0); Hematocrit 36.5 % (33.0-51.0); Immature Granulocytes Abs Auto 0.03 K/uL (0.00-0.30); Immature Granulocytes Pct Auto 0.6 %; Lymphocytes Percent Auto 47.1 % (20-44); Mean Corpuscular HGB Conc 30 gm/dL (32-36); Mean Corpuscular Hemoglobin 27 pg (26-34); Mean Corpuscular Volume 91 fL (80-100); Monocytes Percent Auto 6.9 % (0.0-11.0); Neutrophils Percent Auto 41.3 % (42.0-72.0); Platelet Count* 296 K/uL (140-440); RDW Coefficient of Variation % 19.9 % (11.5-15.5); Red Blood Count 4.03 m/uL (4.00-5.20)
[2023-03-28 07:16] LABS: Slide Review Reflex No
[2023-03-28 07:28] LABS: Chloride* 107 mmol/L (96-114); Potassium* 4.3 mmol/L (3.6-5.1); Sodium* 140 mmol/L (135-149)
[2023-03-28 07:30] LABS: Creatinine* 0.6 mg/dL (0.5-1.5); Est. Creatinine Clearance* 43.91; Estimated Glomerular Filt Rate 95 ml/min
[2023-03-28 07:31] LABS: Anion Gap 10 mEq/L (7-15); Blood Urea Nitrogen* 20 mg/dL (7-30); Carbon Dioxide* 23 mmol/L (20-32); Glucose* 107 mg/dL (60-115)
[2023-03-28 09:00] VITALS: BP 103/79; PULSE 79; RESP 20; TEMP 36.8; O2SAT 93
[2023-03-28] MEDS: FERROUS SULFATE 325 MG TABLET 650 MG PO (09:21)
[2023-03-28] MEDS: MULTIVITAMIN/MINERALS 1 TABLET 1 TAB PO (09:23)
[2023-03-28] MEDS: CITALOPRAM HYDROBROMIDE 20 MG TABLET 10 MG PO (09:23)
[2023-03-28] MEDS: CETIRIZINE HCL 10 MG TABLET PO (09:23)
[2023-03-28] MEDS: BACLOFEN 10 MG TABLET 40 MG PO ×2 (09:23→15:43)
[2023-03-28] MEDS: POTASSIUM CHLORIDE 10 MEQ CAPSULE ER PO (09:25)
[2023-03-28] MEDS: METOPROLOL TARTRATE 25 MG TABLET 12.5 MG PO (09:25)
[2023-03-28] MEDS: OMEPRAZOLE 20 MG CAPSULE DR PO (09:25)
--- NOTE | 2023-03-28 12:24 | PC.SOCIAL ---
Discharge planning: Met with pt who is aware and agrees with discharge today. However, she wants to be discharged after 2:00 as she does not expect her hospital bed to be put togather and available at home before then. Ambulance is scheuduled for 3:00 slate picker today. Pt confirms there will be family at home to receive her from 3:00 on today if the ambulance is delayed past 3:00. Home care orders for RN for wound care were faxed to [facility]. [facility] has already planned to resume care tomorrow and will increase visits from once a week to twice a week. Pt is aware and agrees with this plan.
[2023-03-28 13:00] VITALS: BP 119/76; PULSE 92; RESP 20; TEMP 37.1; O2SAT 93
--- NOTE | 2023-03-28 15:52 | PC.NURSE ---
Please see eMar for meds given. Urostomy drained 850cc of urine. Plan EMS transfer to own home this afternoon. Report to oncoming shift RN.
--- NOTE | 2023-03-28 16:26 | PC.NURSE ---
Discharge: This newswriter picked up this patient at 1500. Professor Of Genetics performed wound dressing change and cleanse, put clothes on dressing, and EMS showed up to transport patient. Belongings were packed, vitals nor assessment were performed by newswriter. EMS vitals of patient showed patient is vitally stable. Patient denies pain. Patient signed belongings sheet and discharge form. Patient left the floor by EMS to home at 1620.
--- NOTE | 2023-03-30 21:03 | P.DS_ITS ---
DS: Providers Provider Date Seen: 03/28/23 Date of admission: 03/15/23 21:15 Primary care physician: Lory Hudson PA-C Admitting Clinician: aJmie Lofton MD Consults: 03/16/23 09:00 Consult to Wound Care [CONS] Routine Comment: chronic osteomyelitis coccyx, decubitus ulcer Consulting Provider: Yamile Rod Attending Physician on discharge: Emmanuel Moncada MD Date of Discharge: 03/28/23 DS: Diagnosis Discharge Diagnosis (1) Sepsis: Status: Acute Problem details: Was ill on admission. Cause of the illness and sepsis likely due to cellulitis around her she decubitus ulcers and osteomyelitis. Source is likely osteomyelitis of the right ischial spine. Vancomycin and imipenem discontinued. Five more days of doxycycline and Levaquin, finish doses on March 25 then stop. Clinically appears to be improving. (2) Cellulitis: Status: Acute Problem details: Wound cellulitis appears better. Stop antibiotics March 25. Long-term plan would be to treat acute illness, cellulitis or sepsis with a 10 day course of appropriate antibiotic but without curative intent for her osteomyelitis of the ischial spine. (3) Pressure ulcer of contiguous region involving right buttock and hip, stage 4: Status: Acute Problem details: Chronic ulcer with osteomyelitis. Current culture growing MRSA. She has finished a 10 day course of doxycycline and Levaquin. Current plan is to manage wound care and to episodically manage worsening infection with antibiotics. Patient declines attempt at curative treatment for osteomyelitis of the ischial spine associated with decubitus ulcer. This would require going to a tertiary care center and having Plastic surgery perform a flap and likely a diverting colostomy to protect the healing wound. (4) Osteomyelitis: Status: Acute Problem details: Associated with decubitus ulcer she has osteomyelitis on her right ischial spine. Chronic since at least May of 2022 (5) Multiple sclerosis: Status: Acute Problem details: Functionally paraplegic. Has been bed ridden for the last several months. Unable to reposition herself in bed. After discussion with patient she wants to be back home rather than placed in a residential for ongoing wound care and alf care. (6) Morbid obesity: Status: Acute (7) Paroxysmal atrial fibrillation: Status: Acute Problem details: On rate control and anticoagulation (8) Neurogenic bladder: Status: Acute Problem details: Has urostomy after cystectomy and ileal conduit from sigmoid. (9) Chronic anemia: Status: Acute Problem details: January 2023 had evaluation at [facility] with EGD which showed cystic fundic gland polyps in the gastric antrum and colonoscopy which was incomplete showing a 7 mm sessile polyp in the sigmoid. She underwent CT colonography which was unremar kable. Overall findings were felt to be reassuring. No obvious source of bleeding identified. (10) Decubitus ulcer: Status: Acute Problem details: Chronic ulcer of right buttock with associated right ischial spine osteomyelitis. Hospitalized for 3 months May of 2022 to August of 2022. Surgical debridement at that time. Subsequent recurrent infections and hospitalizations without affective cure. Long-term recommendation is to provide ongoing wound care without expectation of cure. Episodic antibiotics for cellulitis or fever without expectation of cure. If patient chooses curative therapy in the future then referral to a tertiary care center for Plastic surgery to create a flap and diverting colostomy. -hospitalized at [facility] from May 30, 2022 to 08/24/2022 for management of her decubitus ulcer and osteomyelitis. (11) History of DVT (deep vein thrombosis): Status: Acute Problem details: On long-term anticoagulation with rivaroxaban 10 mg daily (12) Sleep apnea: Status: Suspected Problem details: Suspected based on clinical factors. Likely the cause of nocturnal hypoxia. patient doubts this diagnosis. Outpatient evaluation if desired. (13) Stage 3 skin ulcer of sacral region: Status: Acute Problem details: We have discussed returning home, getting a better bed and air mattress, transferring to [facility] facility. Patient decides she wants to go home. (14) Discharge planning issues: Status: Acute Problem details: Patient has significant needs for care at home. She also has what is likely an inadequate bed and mattress for her to be resting all day. Ongoing discussion about arrangements to be made to get a better bed and mattress as an outpatient. Plan for ongoing chronic wound care also discussed. Attempted arrangements for [facility] facility placement were discussed but patient was quite adamant that she wanted to return home. DS: Summary Hospital Course Hospital Course: 72-year-old female severely disabled by multiple sclerosis admitted to the hospital with sepsis. The time of admission evaluation suggested the source of sepsis was cellulitis around her chronic right buttock ulcer and osteomyelitis. She was found to have MRSA in her right buttock wound She received aggressive treatment on admission and her signs and symptoms of sepsis resolved fairly quickly. She then received a 10 day course of Levaquin and doxycycline. During that time there have been no new symptoms of acute illness. She has been receiving wound care for her right buttock ulcer and osteomyelitis as well as other sacral decubitus ulcers. All of these are improving. Phone consultation with Infectious Disease specialist regarding her chronic right osteomyelitis of the ischial spine recommended either aggressive intervention with Plastic surgery providing a flap and a diverting colostomy verses no long-term antibiotic treatment of her ulcer and osteomyelitis but just good wound care. Episodic antibiotic treatment for 10 days if she develops cellulitis and fever. This would likely require treatment to cover MRSA. Ongoing discussions with patient about plan of care have led to the conclusion that she does not want aggressive treatment which would be done at a tertiary [facility] facility including Plastic surgery for a flap and a diverting colostomy to try to resolve her pelvic osteomyelitis. Her preference is to go home. Initially it was conversation and attempts made to transfer her to a residential but does have been so far unsuccessful. Today she reports to me that she wants to go home. There has been an ongoing process of trying to arrange for her to get a higher level of air mattress and hospital bed to protect her skin. So far this is not been successful. She has been medically stable over the last few days with no new health concerns. Status at Discharge Functional status at discharge: bed bound Overall status at discharge: patient is progressing back to baseline Time Spent with Patient Time attestation: Total time spent providing and/or coordinating discharge services:40 Time spent: Greater than 30 minutes Exam Narrative: Exam Narrative: She is alert and appears in no distress. Breathing is unlabored. Marked improvement in her sacral decubitus ulcer. Right buttock and ischial ulcer are improved since admission and stable. DS: Data Data Completed and Pending Completed studies during hospitalization: Procedures Excision of Buttock Subcutaneous Tissue and Fascia, Open Approach (11/16/22) Excision of Right Upper Leg Subcutaneous Tissue and Fascia, Open Approach (11/16/22) Transfusion of Nonautologous Red Blood Cells into Peripheral Vein, Percutaneous Approach (11/16/22) Discharge Plan Discharge Disposition: Home w/ Parent or Adult Date of Admission: 03/15/23 21:15 Attending Provider on Discharge: Nikolas Moncada Consulting Providers: Yamile Rod Primary Care Provider: Lory Hudson Condition: Stable Anticipated Discharge Date/Time: 03/28/23 10:34 Discharge Medications: New potassium chloride 10 mEq Capsule, Extended Release 10 meq PO DAILY Qty: 30 0RF ferrous sulfate 325 mg (65 mg iron) tablet 325 mg PO Q OTHER DAY Qty: 100 0RF Continued anastrozole 1 mg tablet 1 mg PO DAILY cetirizine 10 mg tablet 10 mg PO DAILY tizanidine 4 mg tablet 4 mg PO QPM citalopram 10 mg tablet 10 mg PO DAILY clonazepam 0.5 mg tablet 1 mg PO HS baclofen 20 mg tablet 40 mg PO QID levothyroxine 50 mcg tablet 50 mcg PO QAM simvastatin 20 mg tablet 20 mg PO QPM omeprazole 20 mg capsule,delayed release(DR/EC) 20 mg PO QAM metoprolol tartrate 25 mg tablet 12.5 mg PO BID calcium carbonate-vitamin D3 600 mg-10 mcg (400 unit) tablet 1 tab PO QAM dalfampridine [Ampyra] 10 mg tablet extended release 12 hr 10 mg PO Q12H Xarelto 10 mg tablet 10 mg PO QPM Tysabri 300 mg/15 mL solution 300 mg IV Q28D Rx Instructions: administer over 60 mins melatonin 10 mg capsule 20 mg PO HS multivitamin [Daily Multi-Vitamin] Tablet 1 tab PO DAILY vitamin B complex [B Complex-Vitamin B12] Tablet 1 tab PO DAILY omega 9-srp-eyc-fish oil [Fish Oil] 1,000 mg (120 mg-180 mg) capsule 1 cap PO DAILY alendronate 70 mg tablet 70 mg PO .WEEKLY Discontinued potassium chloride 10 mEq tablet,ER particles/crystals 10 meq PO BID Discharge Orders: Discharge Order (Routine); Ordered 03/28/23 Ordered By: Nikolas Moncada Patient Education: Iron Supplements (By mouth), Potassium Chloride (By mouth) Activity Level: Up with assist and Other Activity Detail: Frequently reposition in bed or chair Discharge Diet: Regular Follow Up Appointments: Lory Hudson PA-C [Primary Care Provider] - 04/03/23 2:40 pm ([facility] for follow-up. ) Yamile Rod, HOB MACHINE OPERATOR [Nurse Practitioner] - (April 04 12:45pm @ [facility]) Forms: [facility] Info Instructions
== END 2023-03-28 16:20 | disposition home or self-care (01) | DRG 871 ==
LOC: ED 19:56 → MEDSURG 20:38
PROVIDERS: Family Medicine; Admitting Provider Hospitalist; Emergency Provider Family Medicine; PCP Internal Medicine; Visit Provider Hospitalist
DX: A41.9 Sepsis, unspecified organism (principal); L89.153 Pressure ulcer of sacral region, stage 3; L89.44 Pressure ulcer of contiguous site of back, buttock and hip, stage 4; M86.18 Other acute osteomyelitis, other site; L03.90 Cellulitis, unspecified; R50.9 Fever, unspecified; G35 Multiple sclerosis; B95.8 Unspecified staphylococcus as the cause of diseases classified elsewhere; N31.9 Neuromuscular dysfunction of bladder, unspecified; I48.0 Paroxysmal atrial fibrillation; I10 Essential (primary) hypertension; E03.9 Hypothyroidism, unspecified; E66.01 Morbid (severe) obesity due to excess calories; Z86.718 Personal history of other venous thrombosis and embolism; D64.89 Other specified anemias; B95.62 Methicillin resistant Staphylococcus aureus infection as the cause of diseases classified elsewhere; G47.30 Sleep apnea, unspecified; L30.8 Other specified dermatitis; Z79.01 Long term (current) use of anticoagulants
CPT/HCPCS: 11042; 36415; 71045; 80048; 80053; 80076; 81001; 83605; 83735; 84145; 85025; 86140; 87040; 87070; 87081; 87186; 87205; 87631; 94761; 97166; 97530; 99284; 99291; A9153; A9270; J0743; J1335; J2405; J3370; J7030; J7050; J7120

== ENCOUNTER 2023-03-28 16:12 | Outpatient (CLI) | payer MEDICARE, BC, SELFPAY | END 2023-03-28 16:13 | disposition home or self-care (01) | LOC: AMB 03-29 16:44 | PROVIDERS: PCP Internal Medicine; Visit Provider Family Medicine | DX: Z74.01 Bed confinement status (principal) | CPT/HCPCS: A0425; A0428 ==

== ENCOUNTER 2023-04-04 12:50 | Outpatient (CLI) | payer MEDICARE, BC, SELFPAY | END 2023-04-04 12:51 | disposition home or self-care (01) | LOC: WOUND 12:51 | PROVIDERS: PCP Internal Medicine; Visit Provider Nurse Practitioner Family | DX: M86.68 Other chronic osteomyelitis, other site (principal); L89.314 Pressure ulcer of right buttock, stage 4; L89.613 Pressure ulcer of right heel, stage 3; M62.3 Immobility syndrome (paraplegic); Z99.3 Dependence on wheelchair | CPT/HCPCS: 11042; 97602; 99211 ==

== ENCOUNTER 2023-05-16 16:45 | Emergency (ER) | payer MEDICARE, BC, SELFPAY ==
[2023-05-16 16:55] VITALS: BP 95/51; PULSE 73; RESP 18; TEMP 36.2; O2SAT 93; BMI 40.0
[2023-05-16 17:25] VITALS: BP 95/51; PULSE 74; RESP 18; O2SAT 97
--- NOTE | 2023-05-16 17:35 | ED.GENADULT ---
HPI - General Adult General Chief complaint: Weakness Stated complaint: weakness Time Seen by Provider: 05/16/23 17:24 History of Present Illness HPI narrative: This 72-year-old female comes in reporting feeling off today. She clarifies is to state that she felt some lightheadedness and then felt warm. She has multiple sclerosis and states that she always is laying in a bed except for when she gets up for an appointment somewhere or if she needs to wash her hair. She does have a decubitus ulcer that is being attended to by home nurse. She also has a urostomy and has had frequent urinary tract infections. She finished an antibiotic bit more than a week ago and now states that her urine is odorous. She does not report any pain and has not had any fevers. She arrives with a systolic pressure at around 95 but states that this is not uncommon for her. She does not report any cough for shortness of breath. She was hospitalized for several days within the past month because of a fever and concern about a cellulitis or infection around the decubitus ulcer. She was offered a more definitive intervention for this ulcer but she declined this and stated that she simply wanted to go home. There was also discussion about placement in some snf facility but none were available and again the patient stated that she just wanted to go home At that time. Related Data Home Medications Medication Instructions Recorded Confirmed anastrozole 1 mg tablet 1 mg PO DAILY 11/16/22 03/16/23 baclofen 20 mg tablet 40 mg PO QID 11/16/22 03/16/23 calcium carbonate 600 mg-vitamin 1 tab PO QAM 11/16/22 03/16/23 D3 10 mcg (400 unit) tablet cetirizine 10 mg tablet 10 mg PO DAILY 11/16/22 03/16/23 citalopram 10 mg tablet 10 mg PO DAILY 11/16/22 03/16/23 clonazepam 0.5 mg tablet 1 mg PO HS 11/16/22 03/16/23 dalfampridine 10 mg 10 mg PO Q12H 11/16/22 03/16/23 tablet,extended release,12 hr (Ampyra) levothyroxine 50 mcg tablet 50 mcg PO QAM 11/16/22 03/16/23 metoprolol tartrate 25 mg tablet 12.5 mg PO BID 11/16/22 03/16/23 omeprazole 20 mg capsule,delayed 20 mg PO QAM 11/16/22 03/16/23 release rivaroxaban 10 mg tablet (Xarelto) 10 mg PO QPM 11/16/22 03/16/23 simvastatin 20 mg tablet 20 mg PO QPM 11/16/22 03/16/23 tizanidine 4 mg tablet 4 mg PO QPM 11/16/22 03/16/23 melatonin 10 mg capsule 20 mg PO HS 11/17/22 03/16/23 multivitamin (Daily Multi-Vitamin 1 tab PO DAILY 11/17/22 03/16/23 tablet) natalizumab 300 mg/15 mL 300 mg IV Q28D 11/17/22 03/16/23 intravenous solution (Tysabri) omega 8-fvp-qxe-fish oil 1,000 mg 1 cap PO DAILY 11/17/22 03/16/23 (120 mg-180 mg) capsule (Fish Oil) vitamin B complex (B 1 tab PO DAILY 11/17/22 03/16/23 Complex-Vitamin B12 tablet) alendronate 70 mg tablet 70 mg PO .WEEKLY 03/16/23 03/16/23 Previous Rx's Medication Instructions Recorded potassium chloride 10 mEq 10 meq PO DAILY #30 caps 03/27/23 capsule,extended release ferrous sulfate 325 mg (65 mg 325 mg PO Q OTHER DAY #100 tabs 03/28/23 iron) tablet Allergies Allergy/AdvReac Type Severity Reaction Status Date / Time Penicillins Allergy Verified 03/15/23 17:37 Review of Systems Status of ROS: Reports: 10 or more systems reviewed and unremarkable except as noted in History and below Narrative: Constitutional: No fevers, no weight gain or loss. Eyes: No discharge. No vision changes. HENT: No congestion, no sore throat, no ear pain. Cardiovascular: No chest pain, no palpitations. Respiratory: No shortness of breath, no wheezes, no cough. Gastrointestinal: No abdominal pain, no vomiting, no diarrhea. Genitourinary: she reports odorous urine in her urostomy bag. Musculoskeletal: multiple sclerosis. She spends most of her time in bed. Skin: No rashes, no pruritis. Neurological: No sensory change, speech change. She had an episode of lightheadedness prior to arrival. Endo/Heme/Allergies: No bruising or bleeding. No polydipsia. Pysch: no suicidality, no anxiety, no insomnia. All other systems reviewed and are negative. [facility] Medical History (Updated 05/16/23 @ 19:34 by Josesito Mccoy MD) Discharge planning issues ?Z02.9 - Encounter for administrative examinations, unspecified (ICD-10) Sleep apnea ?G47.30 - Sleep apnea, unspecified (ICD-10) History of DVT (deep vein thrombosis) ?Z86.718 - Personal history of other venous thrombosis and embolism (ICD-10) Decubitus ulcer ?L89.90 - Pressure ulcer of unspecified site, unspecified stage (ICD-10) Breast cancer ?C50.919 - Malignant neoplasm of unspecified site of unspecified female breast (ICD-10) Chronic anemia ?D64.9 - Anemia, unspecified (ICD-10) Neurogenic bladder ?N31.9 - Neuromuscular dysfunction of bladder, unspecified (ICD-10) Paroxysmal atrial fibrillation ?I48.0 - Paroxysmal atrial fibrillation (ICD-10) Morbid obesity ?E66.01 - Morbid (severe) obesity due to excess calories (ICD-10) Multiple sclerosis ?G35 - Multiple sclerosis (ICD-10) Osteomyelitis ?M86.9 - Osteomyelitis, unspecified (ICD-10) Surgical History S/P breast lumpectomy ?Z98.890 - Other specified postprocedural states (ICD-10) Family History Sister Breast cancer Mother Diabetes Heart disease Brother Lung cancer Father Stroke Social History Narrative: She has been nonambulatory since about 1976 secondary to multiple sclerosis. She is bed-bound or wheelchair-bound. She has custom equipment made for her both wheelchair in bed due to her disabilities. She does not smoke. She does not drink alcohol. Her son Du and daughter Dottie are healthcare power of insurance defense attorney. Code status is full. She lives at home in [place]. Prolonged hospital stay at [facility] for 3 months this winter What is your current living situation?: I presently have a place to live Problems where you live: no known problems Problems where you live details: n/a In the past 12 months, utilities in danger of being shut off: no In past 12 months, lack of transportation kept you from medical appts, meetings, work, or getting things needed for daily living: no In the past 12 mos, have been you worried that your food would run out before you had money to buy more?: never true In the past 12 mos, the food you bought just didn't last and you didn't have money to buy more?: never true Highest level of school completed/degree received: 10th grade Smoking Status: Never smoker Do you use any of these nicotine containing products: None Second hand tobacco smoke exposure: No How often do you have a drink containing alcohol: never AUDIT-C Alcohol total score: 0 Non-prescribed substance use: denies use Caffeine: Yes (soda) How often does anyone, including family, friends and others, physically hurt you: never How often does anyone, including family, friends and others, insult or talk down to you: never How often does anyone, including family, friends and others, threaten you with harm: never How often does anyone, including family, friends and others, scream or curse at you: never service: No Exam Narrative: Exam Narrative: Constitutional: Well-developed, well-nourished, no acute distress. Morbidly obese. HEENT: Normocephalic, atraumatic. Neck: Normal range of motion. Nontender. Supple. Heart: Regular. No murmurs. Normal rate. Intact distal pulses. Lungs: Clear to auscultation. No chest discomfort. No wheezes, rhonchi, or rales. Abdomen: Normal bowel sounds. Nontender. No rebound tenderness. Genitalia: Deferred. Extremities: No injury. Skin: Intact. No rash. Warm. No erythema or pallor. Neurologic: No altered sensation. Alert and oriented. Psychiatric: No suicidality. No anxiety or depression. No insomnia. Nursing notes and vitals signs are reviewed. Const: Vital Signs, click to edit/add: Vital Signs - 24 hr 05/16/23 16:55 05/16/23 17:25 05/16/23 17:50 Temperature 97.1 F L Pulse Rate [Pulse Oximeter] 73 74 78 Respiratory Rate 18 18 16 Blood Pressure [Ri ght Upper Arm] 95/51 L 95/51 L 97/58 L Pulse Oximetry 93 97 96 Oxygen Delivery Me thod Room Air Room Air Room Air 05/16/23 18:00 05/16/23 18:30 05/16/23 19:00 Temperature Pulse Rate [Pulse Oximeter] 72 68 72 Respiratory Rate 18 18 16 [facility] 103/59 L 116/81 126/68 Pulse Oximetry 97 97 96 Oxygen Delivery Me thod Room Air Room Air Room Air Course Vital Signs Vital signs: Initial Vital Signs Temperature 97.1 F L 05/16/23 16:55 Temperature Source Temporal Artery Scan 05/16/23 16:55 Pulse Rate 73 05/16/23 16:55 Respiratory Rate 18 05/16/23 16:55 Blood Pressure 95/51 L 05/16/23 16:55 Blood Pressure Mean 65 L 05/16/23 16:55 Pulse Oximetry 93 05/16/23 16:55 Oxygen Delivery Method Room Air 05/16/23 16:55 Vital Signs Temperature 97.1 F L 05/16/23 16:55 Pulse Rate 73 05/16/23 16:55 Respiratory Rate 18 05/16/23 16:55 Blood Pressure 95/51 L 05/16/23 16:55 Pulse Oximetry 93 05/16/23 16:55 Oxygen Delivery Method Room Air 05/16/23 16:55 Temperature 97.1 F L 05/16/23 16:55 Pulse Rate 72 05/16/23 19:00 Respiratory Rate 16 05/16/23 19:00 Blood Pressure 126/68 05/16/23 19:00 Pulse Oximetry 96 05/16/23 19:00 Oxygen Delivery Method Room Air 05/16/23 19:00 Medications Administered Medications: Discontinued Medications Generic Name Dose Route Start Last Admin Trade Name Freq PRN Reason Stop Dose Admin Sodium Chloride 1,000 mls @ 1,000 mls/hr 05/16/23 17:45 05/16/23 18:19 0.9 % Sodium Chloride 1000 Ml IV 05/16/23 18:44 1,000 mls/hr .Q1H MIKAYLA Administration Medical Decision Making MDM Narrative Medical decision making narrative: This patient comes in with feeling of lightheadedness that occurred today. She arrives with blood pressure at around 95 systolic. An IV was established where she received a L of fluids and this helped her feel better. Her repeat blood pressure returned a systolic value of 126. Additionally lab results are also reassuring. Her white count in her blood and her urine are both in normal range. She is not showing any sign of infection or other new condition needing treatment today. She does take antihypertensive medicines. I advised her to check her blood pressure and record results and follow up with her primary physician to review these medicines. Lab Data Labs: Lab Results 05/16/23 05/16/23 05/16/23 Range/Units 17:34 17:53 17:58 WBC 9.57 (4.50-11.00) K/uL RBC 4.02 (4.00-5.20) m/uL Hgb 11.1 L (12.0-16.0) gm/dL Hct 36.3 (33.0-51.0) % MCV 90 (80-100) fL MCH 28 (26-34) pg MCHC 31 L (32-36) gm/dL RDW Coeff of Michele 16.4 H (11.5-15.5) % Plt Count 231 (140-440) K/uL Neut % (Auto) 60.9 (42.0-72.0) % Lymph % (Auto) 27.3 (20-44) % [place] % (Auto) 8.6 (0.0-11.0) % Eos % (Auto) 2.3 (0.0-7.0) % Baso % (Auto) 0.3 (0.0-3.0) % Neut # (Auto) 5.83 (1.7-7.0) K/uL Lymph # (Auto) 2.61 (0.90-2.90) K/uL [place] # (Auto) 0.80 (0.00-0.90) K/UL Eos # (Auto) 0.22 (0.00-0.50) K/uL Baso # (Auto) 0.03 (0.00-0.30) K/uL Abs Immat Gran (auto) 0.06 (0.00-0.30) K/uL Imm/Tot Granulo (auto) 0.6 % Sodium 137 (135-149) mmol/L Potassium 4.2 (3.6-5.1) mmol/L Chloride 104 (96-114) mmol/L Carbon Dioxide 24 (20-32) mmol/L Anion Gap 9 (7-15) mEq/L BUN 20 (7-30) mg/dL Creatinine 0.5 (0.5-1.5) mg/dL Estimated Creat Clear 43.91 Estimated GFR 100 ml/min Glucose 97 (60-115) mg/dL Lactate 1.6 (0.5-1.9) mmol/L Calcium 9.8 (8.4-10.6) mg/dL Urine Color Yellow (Yellow) Urine Appearance Slightly Cloudy A (Clear) Urine pH 7.0 (5.0-8.5) Ur Specific Frost 1.015 (1.000-1.030) Urine Protein 2+ A (Negative) Urine Glucose (UA) Negative (Negative) Urine Ketones Negative (Negative) Urine Blood 2+ A (Negative) Urine Nitrite Negative (Negative) Urine Bilirubin Negative (Negative) Urine Urobilinogen 0.2 (0.2-1.0) Ur Leukocyte Esterase Trace A (Negative) Urine RBC 10-25 A (0-2) Urine WBC 2-5 (0-5) Ur Squamous Epith Cells None (None-Few) Urine Bacteria None (None) ECG Data Attestation: I personally reviewed and interpreted this ECG as follows: Interpretation: Normal sinus rhythm. Rate is 71 beats per minute. There are no ST or T-wave abnormalities. Discharge Plan Discharge Clinical Impression: Acute hypotension, Fluid volume depletion Patient Disposition: Home w/ Parent or Adult Condition: Improved Additional Instructions: Record blood pressures and follow up with primary physician to review medications. Return if worsening symptoms happen. Prescriptions: No Action anastrozole 1 mg tablet 1 mg PO DAILY cetirizine 10 mg tablet 10 mg PO DAILY tizanidine 4 mg tablet 4 mg PO QPM citalopram 10 mg tablet 10 mg PO DAILY clonazepam 0.5 mg tablet 1 mg PO HS baclofen 20 mg tablet 40 mg PO QID levothyroxine 50 mcg tablet 50 mcg PO QAM simvastatin 20 mg tablet 20 mg PO QPM omeprazole 20 mg capsule,delayed release(DR/EC) 20 mg PO QAM metoprolol tartrate 25 mg tablet 12.5 mg PO BID calcium carbonate-vitamin D3 600 mg-10 mcg (400 unit) tablet 1 tab PO QAM dalfampridine [Ampyra] 10 mg tablet extended release 12 hr 10 mg PO Q12H Xarelto 10 mg tablet 10 mg PO QPM Tysabri 300 mg/15 mL solution 300 mg IV Q28D Rx Instructions: administer over 60 mins melatonin 10 mg capsule 20 mg PO HS multivitamin [Daily Multi-Vitamin] Tablet 1 tab PO DAILY vitamin B complex [B Complex-Vitamin B12] Tablet 1 tab PO DAILY omega 6-enj-wte-fish oil [Fish Oil] 1,000 mg (120 mg-180 mg) capsule 1 cap PO DAILY alendronate 70 mg tablet 70 mg PO .WEEKLY potassium chloride 10 mEq Capsule, Extended Release 10 meq PO DAILY Qty: 30 0RF ferrous sulfate 325 mg (65 mg iron) tablet 325 mg PO Q OTHER DAY Qty: 100 0RF Follow Up/Referrals: Lory Hudson PA-C [Primary Care Provider] - Stand Alone Forms: [employer] Info Instructions
[2023-05-16 17:50] VITALS: BP 97/58; PULSE 78; RESP 16; O2SAT 96
[2023-05-16 18:00] VITALS: BP 103/59; PULSE 72; RESP 18; O2SAT 97
[2023-05-16 18:08] LABS: Lactate* 1.6 mmol/L (0.5-1.9)
[2023-05-16 18:09] LABS: Basophils Absolute Auto 0.03 K/uL (0.00-0.30); Basophils Percent Auto 0.3 % (0.0-3.0); Eosinophils Absolute Auto 0.22 K/uL (0.00-0.50); Eosinophils Percent Auto 2.3 % (0.0-7.0); Hematocrit 36.3 % (33.0-51.0); Hemoglobin* 11.1 gm/dL (12.0-16.0); Immature Granulocytes Abs Auto 0.06 K/uL (0.00-0.30); Immature Granulocytes Pct Auto 0.6 %; Lymphocytes Absolute Auto 2.61 K/uL (0.90-2.90); Lymphocytes Percent Auto 27.3 % (20-44); Mean Corpuscular HGB Conc 31 gm/dL (32-36); Mean Corpuscular Hemoglobin 28 pg (26-34); Mean Corpuscular Volume 90 fL (80-100); Monocytes Percent Auto 8.6 % (0.0-11.0); Neutrophils Absolute Auto 5.83 K/uL (1.7-7.0); Neutrophils Percent Auto 60.9 % (42.0-72.0); Platelet Count* 231 K/uL (140-440); RDW Coefficient of Variation % 16.4 % (11.5-15.5); Red Blood Count 4.02 m/uL (4.00-5.20); White Blood Count* 9.57 K/uL (4.50-11.00)
[2023-05-16] MEDS: 0.9 % SODIUM CHLORIDE 1000 ml 1,000 ML IV (18:19)
[2023-05-16 18:23] LABS: Slide Review Reflex No
[2023-05-16 18:25] LABS: Chloride* 104 mmol/L (96-114); Potassium* 4.2 mmol/L (3.6-5.1); Sodium* 137 mmol/L (135-149)
[2023-05-16 18:28] LABS: Anion Gap 9 mEq/L (7-15); Blood Urea Nitrogen* 20 mg/dL (7-30); Carbon Dioxide* 24 mmol/L (20-32); Creatinine* 0.5 mg/dL (0.5-1.5); Est. Creatinine Clearance* 43.91; Estimated Glomerular Filt Rate 100 ml/min
[2023-05-16 18:29] LABS: Calcium* 9.8 mg/dL (8.4-10.6); Glucose* 97 mg/dL (60-115)
[2023-05-16 18:30] VITALS: BP 116/81; PULSE 68; RESP 18; O2SAT 97
[2023-05-16 18:40] LABS: Appearance Urine Slightly Cloudy (Clear); Bilirubin Urine Negative (Negative); Blood Urine 2+ (Negative); Color Urine Yellow (Yellow); Glucose Urine Negative (Negative); Ketones Urine Negative (Negative); Leukocyte Esterase Urine Trace (Negative); Nitrite Urine Negative (Negative); Protein Urine 2+ (Negative); Specific Gravity Urine 1.015 (1.000-1.030); Urobilinogen Urine 0.2 (0.2-1.0)
[2023-05-16 19:00] VITALS: BP 126/68; PULSE 72; RESP 16; O2SAT 96
--- NOTE | 2023-05-16 19:32 | ED.NURSE ---
esa Berman Rn report on patient and family went home to get the van to take the patient home.
== END 2023-05-16 20:39 | disposition home or self-care (01) ==
PROVIDERS: Emergency Provider Emergency Medicine Emergency Medical Services; PCP Internal Medicine
DX: I95.9 Hypotension, unspecified (principal); E86.9 Volume depletion, unspecified
CPT/HCPCS: 36415; 80048; 81001; 83605; 85025; 93005; 96360; 96361; 99284; J7030

== ENCOUNTER 2023-05-18 16:25 | Inpatient (IN) | payer MEDICARE, BC, SELFPAY ==
[2023-05-18] VITALS (32 sets, daily range): BP systolic 102–144; BP diastolic 50–87; PULSE 94–112; RESP 18–24; TEMP 37.3–38.1; O2SAT 90–100; BMI 42.9
--- NOTE | 2023-05-18 16:59 | CRLHL7_ITS ---
For Patients: As a result of the Cures Act, medical imaging exams and procedure reports are released immediately into your electronic medical record. You may view this report before your referring provider. If you have questions, please contact your health care provider. INDICATION: Fever COMPARISON: [id number] TECHNIQUE: 1 view chest radiograph. FINDINGS: Lung volumes are moderate. Dense left retrocardiac opacity. No pulmonary edema. No pleural effusion. No pneumothorax. No pneumomediastinum. Normal cardiomediastinal silhouette. Bones: Normal for age. IMPRESSION: Left retrocardiac opacity is nonspecific and could be pneumonia or atelectasis. Dictated by Cheryl Rice MD @ 05/18/2023 6:20:35 PM (Electronically Signed)
[2023-05-18] MEDS: 0.9 % SODIUM CHLORIDE 1000 ml 1,000 ML IV ×3 (17:05→19:00)
--- NOTE | 2023-05-18 17:07 | ED_ITS ---
HPI - Fever General Chief Complaint: Fever Stated Complaint: Fever Time Seen by Provider: 05/18/23 16:28 History of Present Illness HPI Narrative: This 72-year-old female comes in by ambulance because of chills and fever that began earlier today. Ambulance personnel states that they recorded a temperature of 104? F. Upon arrival here her oral temperature was 100.6?. She does have some tachycardia. The patient does not report any cough or shortness of breath. She does have a urostomy and states that she does get recurrent urinary tract infections. She was seen by me a couple days ago as she was feeling lightheaded and at that time her labs were reassuring. She did receive IV fluids then in this helped her feel much better. She does have multiple sclerosis and has a chronic sacral decubitus ulcer. She did receive a prescription for Keflex and has taken a few of these tablets but did not take any today. She spends most of her time laying down and rarely gets up. She has had problems with this decubitus ulcer in the past and was offered a plastic surgical procedure to create a flap to cover over the chronic ulceration which the patient declined. Related Data Home Medications Medication Instructions Recorded Confirmed anastrozole 1 mg tablet 1 mg PO DAILY 11/16/22 05/18/23 baclofen 20 mg tablet 40 mg PO QID 11/16/22 05/18/23 calcium carbonate 600 mg-vitamin 1 tab PO QAM 11/16/22 05/18/23 D3 10 mcg (400 unit) tablet cetirizine 10 mg tablet 10 mg PO DAILY 11/16/22 05/18/23 citalopram 10 mg tablet 10 mg PO DAILY 11/16/22 05/18/23 clonazepam 0.5 mg tablet 1 mg PO HS 11/16/22 05/18/23 dalfampridine 10 mg 10 mg PO Q12H 11/16/22 05/18/23 tablet,extended release,12 hr (Ampyra) levothyroxine 50 mcg tablet 50 mcg PO QAM 11/16/22 05/18/23 metoprolol tartrate 25 mg tablet 12.5 mg PO BID 11/16/22 05/18/23 omeprazole 20 mg capsule,delayed 20 mg PO QAM 11/16/22 05/18/23 release rivaroxaban 10 mg tablet (Xarelto) 10 mg PO QPM 11/16/22 05/18/23 simvastatin 20 mg tablet 20 mg PO QPM 11/16/22 05/18/23 tizanidine 4 mg tablet 4 mg PO QPM 11/16/22 05/18/23 melatonin 10 mg capsule 20 mg PO HS 11/17/22 05/18/23 multivitamin (Daily Multi-Vitamin 1 tab PO DAILY 11/17/22 05/18/23 tablet) natalizumab 300 mg/15 mL 300 mg IV Q28D 11/17/22 03/16/23 intravenous solution (Tysabri) omega 0-cql-zvk-fish oil 1,000 mg 1 cap PO DAILY 11/17/22 05/18/23 (120 mg-180 mg) capsule (Fish Oil) vitamin B complex (B 1 tab PO DAILY 11/17/22 03/16/23 Complex-Vitamin B12 tablet) alendronate 70 mg tablet 70 mg PO .WEEKLY 03/16/23 05/18/23 Previous Rx's Medication Instructions Recorded potassium chloride 10 mEq 10 meq PO DAILY #30 caps 03/27/23 capsule,extended release ferrous sulfate 325 mg (65 mg 325 mg PO Q OTHER DAY #100 tabs 03/28/23 iron) tablet Allergies Allergy/AdvReac Type Severity Reaction Status Date / Time Penicillins Allergy Verified 05/18/23 16:35 Review of Systems Status of ROS Reports: 10 or more systems reviewed and unremarkable except as noted in History and below Narrative Constitutional: No weight gain or loss. She reports fever and chills today. Eyes: No discharge. No vision changes. HENT: No congestion, no sore throat, no ear pain. Cardiovascular: No chest pain, no palpitations. Respiratory: No shortness of breath, no wheezes, no cough. Gastrointestinal: No abdominal pain, no vomiting, no diarrhea. Genitourinary: No dysuria, no hematuria. Musculoskeletal: Chronic disability from multiple sclerosis. Skin: No rashes, no pruritis. Chronic decubitus ulcer. Neurological: No dizziness, weakness, sensory change, speech change. Endo/Heme/Allergies: No bruising or bleeding. No polydipsia. Pysch: no suicidality, no anxiety, no insomnia. All other systems reviewed and are negative. [facility] Medical History (Updated 05/18/23 @ 18:57 by Josesito Mccoy MD) Discharge planning issues ?Z02.9 - Encounter for administrative examinations, unspecified (ICD-10) Sleep apnea ?G47.30 - Sleep apnea, unspecified (ICD-10) History of DVT (deep vein thrombosis) ?Z86.718 - Personal history of other venous thrombosis and embolism (ICD-10) Decubitus ulcer ?L89.90 - Pressure ulcer of unspecified site, unspecified stage (ICD-10) Breast cancer ?C50.919 - Malignant neoplasm of unspecified site of unspecified female breast (ICD-10) Chronic anemia ?D64.9 - Anemia, unspecified (ICD-10) Neurogenic bladder ?N31.9 - Neuromuscular dysfunction of bladder, unspecified (ICD-10) Paroxysmal atrial fibrillation ?I48.0 - Paroxysmal atrial fibrillation (ICD-10) Morbid obesity ?E66.01 - Morbid (severe) obesity due to excess calories (ICD-10) Multiple sclerosis ?G35 - Multiple sclerosis (ICD-10) Osteomyelitis ?M86.9 - Osteomyelitis, unspecified (ICD-10) Surgical History S/P breast lumpectomy ?Z98.890 - Other specified postprocedural states (ICD-10) Family History Sister Breast cancer Mother Diabetes Heart disease Brother Lung cancer Father Stroke Social History Narrative: She has been nonambulatory since about 1976 secondary to multiple sclerosis. She is bed-bound or wheelchair-bound. She has custom equipment made for her both wheelchair in bed due to her disabilities. She does not smoke. She does not drink alcohol. Her son Du and daughter Dottie are healthcare power of varnish cooker. Code status is full. She lives at home in [place]. Prolonged hospital stay at [facility] for 3 months this winter What is your current living situation?: I presently have a place to live Problems where you live: no known problems Problems where you live details: n/a In the past 12 months, utilities in danger of being shut off: no In past 12 months, lack of transportation kept you from medical appts, meetings, work, or getting things needed for daily living: no In the past 12 mos, have been you worried that your food would run out before you had money to buy more?: never true In the past 12 mos, the food you bought just didn't last and you didn't have money to buy more?: never true Highest level of school completed/degree received: 10th grade Smoking Status: Never smoker Do you use any of these nicotine containing products: None Second hand tobacco smoke exposure: No How often do you have a drink containing alcohol: never AUDIT-C Alcohol total score: 0 Non-prescribed substance use: denies use Caffeine: Yes (soda) How often does anyone, including family, friends and others, physically hurt you : never How often does anyone, including family, friends and others, insult or talk down to you: never How often does anyone, including family, friends and others, threaten you with harm: never How often does anyone, including family, friends and others, scream or curse at you: never service: No Exam Narrative Exam Narrative: Constitutional: Well-developed, well-nourished. HEENT: Normocephalic, atraumatic. Neck: Normal range of motion. Nontender. Supple. Heart: Regular. No murmurs. Tachycardia. Intact distal pulses. Lungs: Clear to auscultation. No chest discomfort. No wheezes, rhonchi, or rales. Abdomen: Normal bowel sounds. Nontender. No rebound tenderness. Genitalia: Deferred. Back: No midline tenderness. Normal range of motion. Extremities: No injury. Neurologic: No altered sensation. No weakness. Alert and oriented. Psychiatric: No suicidality. No anxiety or depression. No insomnia. Nursing notes and vitals signs are reviewed. Const Vital Signs, click to edit/add: Vital Signs - 24 hr 05/18/23 16:27 05/18/23 16:35 05/18/23 16:37 Temperature 100.6 F H 100.4 F H Pulse Rate 108 H Pulse Rate [Right Pulse Oximeter] 108 H Respiratory Rate 18 24 Blood Pressure Blood Pressure [Left Upper Arm] 128/57 L Pulse Oximetry 92 93 93 Oxygen Delivery Method Room Air Room Air 05/18/23 16:45 05/18/23 16:48 05/18/23 17:00 Temperature Pulse Rate 109 H 109 H 109 H Pulse Rate [Right Pulse Oximeter] Respiratory Rate Blood Pressure 144/57 H Blood Pressure [Left Upper Arm] Pulse Oximetry 93 94 94 Oxygen Delivery Method 05/18/23 17:01 05/18/23 17:15 05/18/23 17:30 Temperature Pulse Rate 109 H 107 H 103 H Pulse Rate [Right Pulse Oximeter] Respiratory Rate Blood Pressure 137/59 L Blood Pressure [Left Upper Arm] Pulse Oximetry 94 93 97 Oxygen Delivery Method 05/18/23 17:35 05/18/23 17:45 05/18/23 17:48 Temperature Pulse Rate 109 H 107 H 112 H Pulse Rate [Right Pulse Oximeter] Respiratory Rate Blood Pressure 112/87 Blood Pressure [Left Upper Arm] Pulse Oximetry 96 95 96 Oxygen Delivery Method 05/18/23 18:00 05/18/23 18:01 05/18/23 18:38 Temperature 99.8 F H Pulse Rate 106 H 107 H Pulse Rate [Right Pulse Oximeter] Respiratory Rate Blood Pressure 123/51 L Blood Pressure [Left Upper Arm] Pulse Oximetry 94 93 Oxygen Delivery Method Course Vital Signs Vital signs: Initial Vital Signs Temperature 100.6 F H 05/18/23 16:27 Temperature Source Oral 05/18/23 16:27 Pulse Rate 108 H 05/18/23 16:27 Pulse Rhythm Regular 05/18/23 16:27 Respiratory Rate 18 05/18/23 16:27 Blood Pressure 128/57 L 05/18/23 16:27 Blood Pressure Mean 80 05/18/23 16:27 Pulse Oximetry 92 05/18/23 16:27 Oxygen Delivery Method Room Air 05/18/23 16:27 Vital Signs Temperature 100.6 F H 05/18/23 16:27 Pulse Rate 108 H 05/18/23 16:27 Respiratory Rate 18 05/18/23 16:27 Blood Pressure 128/57 L 05/18/23 16:27 Pulse Oximetry 92 05/18/23 16:27 Oxygen Delivery Method Room Air 05/18/23 16:27 Temperature 99.8 F H 05/18/23 18:38 Pulse Rate 107 H 05/18/23 18:01 Respiratory Rate 24 05/18/23 16:37 Blood Pressure 123/51 L 05/18/23 18:01 Pulse Oximetry 93 05/18/23 18:01 Oxygen Delivery Method Room Air 05/18/23 16:37 Medications Administered Medications: Generic Name Dose Route Start Last Admin Trade Name Nathan PRN Reason Stop Dose Admin Sodium Chloride 1,000 mls @ 1,000 mls/hr 05/18/23 18:30 05/18/23 18:34 0.9 % Sodium Chloride 1000 Ml IV 05/18/23 19:29 Infused .Q1H MIKAYLA Infusion Discontinued Medications Generic Name Dose Route Start Last Admin Trade Name Nathan PRN Reason Stop Dose Admin Acetaminophen 1,000 mg 05/18/23 17:33 05/18/23 17:45 Acetaminophen 500 Mg Tablet PO 05/18/23 17:34 1,000 mg ONCE ONE Administration Ertapenem 1 gm/ Sodium 100 mls @ 200 mls/hr 05/18/23 17:39 05/18/23 18:30 Chloride IVPB 05/18/23 17:40 Infused ONCE ONE Infusion Sodium Chloride 1,000 mls @ 1,000 mls/hr 05/18/23 17:45 05/18/23 17:52 0.9 % Sodium Chloride 1000 Ml IV 05/18/23 18:44 Infused .Q1H MIKAYLA Infusion MDM - Fever MDM Narrative Medical decision making narrative: This patient comes in with fever and tachycardia and is therefore tripping triggers to indicate workup for sepsis. The patient had 3 IVs established actually. She received 2 L of IV fluids initially and later 1/3 L. Her lactate returns at 2.2. Her CRP is 3.6. Urinalysis does show 5-10 white blood cells per high-powered field. Troponin returns at 0. Her white count is also elevated. After blood cultures were obtained the patient did receive a dose of ertapenem. Chest x-ray shows no obvious acute findings but may show some sign of infiltrate however the patient does not have any shortness of breath or cough. I did speak with the hospitalist insemination worker, Elif Madera, who agrees to her admission into the hospital. Lab Data Labs: Lab Results 05/18/23 05/18/23 05/18/23 Range/Units 16:38 17:04 17:45 WBC 14.74 H (4.50-11.00) K/uL RBC 3.89 L (4.00-5.20) m/uL Hgb 10.7 L (12.0-16.0) gm/dL Hct 34.2 (33.0-51.0) % MCV 88 (80-100) fL MCH 28 (26-34) pg MCHC 31 L (32-36) gm/dL RDW Coeff of Michele 16.8 H (11.5-15.5) % Plt Count 252 (140-440) K/uL Neut % (Auto) 73.4 H (42.0-72.0) % Lymph % (Auto) 15.7 L (20-44) % [place] % (Auto) 7.9 (0.0-11.0) % Eos % (Auto) 1.3 (0.0-7.0) % Baso % (Auto) 0.3 (0.0-3.0) % Neut # (Auto) 10.80 H (1.7-7.0) K/uL Lymph # (Auto) 2.30 (0.90-2.90) K/uL [place] # (Auto) 1.20 H (0.00-0.90) K/UL Eos # (Auto) 0.20 (0.00-0.50) K/uL Baso # (Auto) 0.00 (0.00-0.30) K/uL Abs Immat Gran (auto) 0.20 (0.00-0.30) K/uL Imm/Tot Granulo (auto) 1.4 % Sodium 133 L (135-149) mmol/L Potassium 4.3 (3.6-5.1) mmol/L Chloride 103 (96-114) mmol/L Carbon Dioxide 21 (20-32) mmol/L Anion Gap 9 (7-15) mEq/L BUN 14 (7-30) mg/dL Creatinine 0.5 (0.5-1.5) mg/dL Estimated Creat Clear 43.91 Estimated GFR 100 ml/min Glucose 116 H (60-115) mg/dL Lactate 2.2 H (0.5-1.9) mmol/L Calcium 9.7 (8.4-10.6) mg/dL C-Reactive Protein 3.6 H (0.5-1.0) mg/dL Urine Color Yellow (Yellow) Urine Appearance Clear (Clear) Urine pH 7.0 (5.0-8.5) Ur Specific [place] 1.020 (1.000-1.030) Urine Protein Negative (Negative) Urine Glucose (UA) Negative (Negative) Urine Ketones Negative (Negative) Urine Blood 3+ A (Negative) Urine Nitrite Positive A (Negative) Urine Bilirubin Negative (Negative) Urine Urobilinogen 0.2 (0.2-1.0) Ur Leukocyte Esterase 1+ A (Negative) Urine RBC 50-100 A (0-2) Urine WBC 5-10 A (0-5) Ur Squamous Epith Cells None (None-Few) Urine Bacteria Many A (None) SARS-CoV-2 (PCR) Negative SARS-CoV-2 (Negative) Influenza Type A (PCR) Negative PCR FLU A (Negative) Influenza Type B (PCR) Negative PCR FLU B (Negative) RSV (PCR) Negative PCR RSV (Negative) POC Troponin I 0.00 L (0.01-0.04) ng/ml Imaging Data Chest x-ray: Radiologist's impression: Left retrocardiac opacity is nonspecific and could be pneumonia or atelectasis. ECG Data Attestation: I personally reviewed and interpreted this ECG as follows: Interpretation: Sinus tachycardia, rate 110 beats per minute. There are no specific ST or T- wave abnormalities. Discharge Plan Discharge Clinical Impression: Sepsis, Multiple sclerosis, Pressure ulcer of contiguous region involving right buttock and hip, stage 4 Patient Disposition: Admitted As Inpatient Condition: Unchanged Prescriptions: No Action anastrozole 1 mg tablet 1 mg PO DAILY cetirizine 10 mg tablet 10 mg PO DAILY tizanidine 4 mg tablet 4 mg PO QPM citalopram 10 mg tablet 10 mg PO DAILY clonazepam 0.5 mg tablet 1 mg PO HS baclofen 20 mg tablet 40 mg PO QID levothyroxine 50 mcg tablet 50 mcg PO QAM simvastatin 20 mg tablet 20 mg PO QPM omeprazole 20 mg capsule,delayed release(DR/EC) 20 mg PO QAM metoprolol tartrate 25 mg tablet 12.5 mg PO BID calcium carbonate-vitamin D3 600 mg-10 mcg (400 unit) tablet 1 tab PO QAM dalfampridine [Ampyra] 10 mg tablet extended release 12 hr 10 mg PO Q12H Xarelto 10 mg tablet 10 mg PO QPM Tysabri 300 mg/15 mL solution 300 mg IV Q28D Rx Instructions: administer over 60 mins melatonin 10 mg capsule 20 mg PO HS multivitamin [Daily Multi-Vitamin] Tablet 1 tab PO DAILY vitamin B complex [B Complex-Vitamin B12] Tablet 1 tab PO DAILY omega 4-min-kyq-fish oil [Fish Oil] 1,000 mg (120 mg-180 mg) capsule 1 cap PO DAILY alendronate 70 mg tablet 70 mg PO .WEEKLY potassium chloride 10 mEq Capsule, Extended Release 10 meq PO DAILY Qty: 30 0RF ferrous sulfate 325 mg (65 mg iron) tablet 325 mg PO Q OTHER DAY Qty: 100 0RF Follow Up/Referrals: Lory Hudson PA-C [Primary Care Provider] -
[2023-05-18 17:15] LABS: Lactate* 2.2 mmol/L (0.5-1.9)
[2023-05-18 17:30] LABS: Basophils Percent Auto 0.3 % (0.0-3.0); Eosinophils Percent Auto 1.3 % (0.0-7.0); Hematocrit 34.2 % (33.0-51.0); Hemoglobin* 10.7 gm/dL (12.0-16.0); Immature Granulocytes Pct Auto 1.4 %; Lymphocytes Percent Auto 15.7 % (20-44); Mean Corpuscular HGB Conc 31 gm/dL (32-36); Mean Corpuscular Hemoglobin 28 pg (26-34); Mean Corpuscular Volume 88 fL (80-100); Monocytes Percent Auto 7.9 % (0.0-11.0); Neutrophils Percent Auto 73.4 % (42.0-72.0); Platelet Count* 252 K/uL (140-440); RDW Coefficient of Variation % 16.8 % (11.5-15.5); Red Blood Count 3.89 m/uL (4.00-5.20); White Blood Count* 14.74 K/uL (4.50-11.00)
[2023-05-18 17:41] LABS: Slide Review Reflex No
[2023-05-18] MEDS: ACETAMINOPHEN 500 MG TABLET 1000 MG PO (17:45)
--- NOTE | 2023-05-18 17:50 | ED.NURSE ---
Pt had a wound that i was unable to personally assess on pt coccyx. While turning and changing pt, accompanying RN's changed the dressing on pt wound.
[2023-05-18 17:53] LABS: Appearance Urine Clear (Clear); Bilirubin Urine Negative (Negative); Blood Urine 3+ (Negative); Color Urine Yellow (Yellow); Glucose Urine Negative (Negative); Ketones Urine Negative (Negative); Leukocyte Esterase Urine 1+ (Negative); Nitrite Urine Positive (Negative); Protein Urine Negative (Negative); Urobilinogen Urine 0.2 (0.2-1.0)
[2023-05-18 17:58] LABS: PCR FLU A Negative PCR FLU A (Negative); PCR FLU B Negative PCR FLU B (Negative); PCR RSV Negative PCR RSV (Negative)
[2023-05-18] MEDS: ERTAPENEM 1 GM in 0.9 % SODIUM CHLORIDE Mini-bag 100 ML IVPB (18:00)
[2023-05-18 18:03] LABS: SARS PCR* Negative SARS-CoV-2 (Negative)
[2023-05-18 18:05] LABS: Chloride* 103 mmol/L (96-114); Potassium* 4.3 mmol/L (3.6-5.1); Sodium* 133 mmol/L (135-149)
[2023-05-18 18:08] LABS: Creatinine* 0.5 mg/dL (0.5-1.5); Est. Creatinine Clearance* 43.91; Estimated Glomerular Filt Rate 100 ml/min
[2023-05-18 18:09] LABS: Anion Gap 9 mEq/L (7-15); Blood Urea Nitrogen* 14 mg/dL (7-30); Calcium* 9.7 mg/dL (8.4-10.6); Carbon Dioxide* 21 mmol/L (20-32); Glucose* 116 mg/dL (60-115)
[2023-05-18 18:12] LABS: C Reactive Protein* 3.6 mg/dL (0.5-1.0)
[2023-05-18 18:25] LABS: RBC Urine 50-100 (0-2)
--- NOTE | 2023-05-18 18:25 | ED.NURSE ---
350cc of urine drained from pt urostomy bag.
[2023-05-18 18:26] LABS: Bacteria Urine Many
--- NOTE | 2023-05-18 18:28 | ED.NURSE ---
UA collected from pt urostomy bag, new bag was not obtained for UA due to not having accurate supplies for a urostomy that fits pt.
[2023-05-18 19:09] LABS: Lactate* 1.6 mmol/L (0.5-1.9)
--- NOTE | 2023-05-18 20:02 | ED.NURSE ---
Report given to Ritchie YOUSSEF
--- NOTE | 2023-05-18 22:11 | PM.IMHP1 ---
Hospitalist- H&P: HPI History of Present Illness Date Seen: 05/18/23 Chief complaint: Fever Narrative: Serene Pierson is a 72 year old female past medical history significant for MS, chronically bed bound, neurogenic bladder, obesity, paroxysmal atrial fibrillation on chronic anticoagulation, history of DVT, chronic osteomyelitis, stage III skin ulcer of sacral region, stage IV pressure ulcer of right buttock and hip is admitted to the medical floor from the ED for sepsis with presumed wound infection. Patient reports feeling her usual self until late morning when she vomited once following breakfast. No vomiting since. Has in general not felt well the entire day, feverish. Denies headaches or dizziness. Has since developed nasal congestion this evening. Denies new or worsening cough or chest congestion. No shortness of breath. Does not use oxygen or a CPAP at home. No nausea. Last bowel movement was 3 days ago which is not uncommon for her. Has a urostomy in place and changes the bag regularly. Was scheduled for an outpatient wound care clinic visit on Monday. She tells me there was going to be a discussion of a wound VAC. In the ED, patient was found to have a temperature of 100.6?. She has been tachycardic with a stable blood pressure. She was started on ertapenem and received a total of 3 L IV NS with improvement of lactate from 2.2-1.6. Nonsmoker. No alcohol use. Due to MS, is bedbound or dependent on wheelchair. Supported by and children. Review of Systems Narrative: REVIEW OF SYSTEMS: Complete review of systems performed and negative unless otherwise stated in HPI or below. [facility] Medical History Neurogenic bladder ?N31.9 - Neuromuscular dysfunction of bladder, unspecified (ICD-10) History of DVT (deep vein thrombosis) ?Z86.718 - Personal history of other venous thrombosis and embolism (ICD-10) Chronic anemia ?D64.9 - Anemia, unspecified (ICD-10) Paroxysmal atrial fibrillation ?I48.0 - Paroxysmal atrial fibrillation (ICD-10) Discharge planning issues ?Z02.9 - Encounter for administrative examinations, unspecified (ICD-10) Sleep apnea ?G47.30 - Sleep apnea, unspecified (ICD-10) Decubitus ulcer ?L89.90 - Pressure ulcer of unspecified site, unspecified stage (ICD-10) Breast cancer ?C50.919 - Malignant neoplasm of unspecified site of unspecified female breast (ICD-10) Morbid obesity ?E66.01 - Morbid (severe) obesity due to excess calories (ICD-10) Multiple sclerosis ?G35 - Multiple sclerosis (ICD-10) Osteomyelitis ?M86.9 - Osteomyelitis, unspecified (ICD-10) Surgical History S/P breast lumpectomy ?Z98.890 - Other specified postprocedural states (ICD-10) Family History Sister Breast cancer Mother Diabetes Heart disease Brother Lung cancer Father Stroke Social History Narrative: She has been nonambulatory since about 1976 secondary to multiple sclerosis. She is bed-bound or wheelchair-bound. She has custom equipment made for her both wheelchair in bed due to her disabilities. She does not smoke. She does not drink alcohol. Her son Du and daughter Dottie are healthcare power of sustainability manager. Code status is full. She lives at home in [place]. Prolonged hospital stay at [facility] for 3 months this winter What is your current living situation?: I presently have a place to live Problems where you live: no known problems Problems where you live details: n/a In the past 12 months, utilities in danger of being shut off: no In past 12 months, lack of transportation kept you from medical appts, meetings, work, or getting things needed for daily living: no In the past 12 mos, have been you worried that your food would run out before you had money to buy more?: never true In the past 12 mos, the food you bought just didn't last and you didn't have money to buy more?: never true Highest level of school completed/degree received: 10th grade Smoking Status: Never smoker Do you use any of these nicotine containing products: None Second hand tobacco smoke exposure: No How often do you have a drink containing alcohol: never AUDIT-C Alcohol total score: 0 Non-prescribed substance use: denies use Caffeine: Yes (soda) How often does anyone, including family, friends and others, physically hurt you: never How often does anyone, including family, friends and others, insult or talk down to you: never How often does anyone, including family, friends and others, threaten you with harm: never How often does anyone, including family, friends and others, scream or curse at you: never service: No Meds Home Medications and Allergies Home Medications Medication Instructions Recorded Confirmed Type anastrozole 1 mg tablet 1 mg PO DAILY 11/16/22 05/18/23 History baclofen 20 mg tablet 40 mg PO QID 11/16/22 05/18/23 History calcium carbonate 600 mg-vitamin 1 tab PO QAM 11/16/22 05/18/23 History D3 10 mcg (400 unit) tablet cetirizine 10 mg tablet 10 mg PO DAILY 11/16/22 05/18/23 History citalopram 10 mg tablet 10 mg PO DAILY 11/16/22 05/18/23 History clonazepam 0.5 mg tablet 1 mg PO HS 11/16/22 05/18/23 History dalfampridine 10 mg 10 mg PO Q12H 11/16/22 05/18/23 History tablet,extended release,12 hr (Ampyra) levothyroxine 50 mcg tablet 50 mcg PO QAM 11/16/22 05/18/23 History metoprolol tartrate 25 mg tablet 12.5 mg PO BID 11/16/22 05/18/23 History omeprazole 20 mg capsule,delayed 20 mg PO QAM 11/16/22 05/18/23 History release rivaroxaban 10 mg tablet (Xarelto) 10 mg PO QPM 11/16/22 05/18/23 History simvastatin 20 mg tablet 20 mg PO QPM 11/16/22 05/18/23 History tizanidine 4 mg tablet 4 mg PO QPM 11/16/22 05/18/23 History melatonin 10 mg capsule 20 mg PO HS 11/17/22 05/18/23 History multivitamin (Daily Multi-Vitamin 1 tab PO DAILY 11/17/22 05/18/23 History tablet) natalizumab 300 mg/15 mL 300 mg IV Q28D 11/17/22 03/16/23 History intravenous solution (Tysabri) omega 9-svi-zat-fish oil 1,000 mg 1 cap PO DAILY 11/17/22 05/18/23 History (120 mg-180 mg) capsule (Fish Oil) vitamin B complex (B 1 tab PO DAILY 11/17/22 03/16/23 History Complex-Vitamin B12 tablet) alendronate 70 mg tablet 70 mg PO .WEEKLY 03/16/23 05/18/23 History Allergies Allergy/AdvReac Type Severity Reaction Status Date / Time Penicillins Allergy Verified 05/18/23 16:35 Exam Narrative: Exam Narrative: PHYSICAL EXAM General: Sitting up in bed, Pleasant, conversant, NAD HEENT: Normocephalic, atraumatic, sclera white, EOMI, oral mucosa moist Cardiovascular: RRR, S1S2. No pitting edema Pulmonary: Mildly diminished without rhonchi, rales, expiratory wheezes. No dyspnea on room air Abdominal: Soft, nondistended, NTTP, no guarding Neurological: Alert, answering questions appropriately, cranial nerves intact, no focal findings Extremities: No gross joint deformity or swelling. AROMI. Neurovascularly intact Skin: Warm, dry. New wound dressing applied in ED, surrounding erythema, currently dry without drainage or bleeding. Const: Vital Signs, click to edit/add: Vital Signs - 24 hr 05/18/23 16:27 05/18/23 16:35 05/18/23 16:37 Temperature 100.6 F H 100.4 F H Pulse Rate 108 H Pulse Rate [Left P ulse Oximeter] Pulse Rate [Right Pulse Oximeter] 108 H Respiratory Rate 18 24 Blood Pressure Blood Pressure [Le ft Upper Arm] 128/57 L Blood Pressure [Ri ght Arm] Pulse Oximetry 92 93 93 Oxygen Delivery Me thod Room Air Room Air 05/18/23 16:45 05/18/23 16:48 05/18/23 17:00 Temperature Pulse Rate 109 H 109 H 109 H Pulse Rate [Left P ulse Oximeter] Pulse Rate [Right Pulse Oximeter] Respiratory Rate Blood Pressure 144/57 H Blood Pressure [Le ft Upper Arm] Blood Pressure [Ri ght Arm] Pulse Oximetry 93 94 94 Oxygen Delivery Me thod 05/18/23 17:01 05/18/23 17:15 05/18/23 17:30 Temperature Pulse Rate 109 H 107 H 103 H Pulse Rate [Left P ulse Oximeter] Pulse Rate [Right Pulse Oximeter] Respiratory Rate Blood Pressure 137/59 L Blood Pressure [Le ft Upper Arm] Blood Pressure [Ri ght Arm] Pulse Oximetry 94 93 97 Oxygen Delivery Me thod 05/18/23 17:35 05/18/23 17:45 05/18/23 17:48 Temperature Pulse Rate 109 H 107 H 112 H Pulse Rate [Left P ulse Oximeter] Pulse Rate [Right Pulse Oximeter] Respiratory Rate Blood Pressure 112/87 Blood Pressure [Le ft Upper Arm] Blood Pressure [Ri ght Arm] Pulse Oximetry 96 95 96 Oxygen Delivery Me thod 05/18/23 18:00 05/18/23 18:01 05/18/23 18:02 Temperature Pulse Rate 106 H 107 H 107 H Pulse Rate [Left P ulse Oximeter] Pulse Rate [Right Pulse Oximeter] Respiratory Rate Blood Pressure 123/51 L Blood Pressure [Le ft Upper Arm] Blood Pressure [Ri ght Arm] Pulse Oximetry 94 93 94 Oxygen Delivery Me thod 05/18/23 18:15 05/18/23 18:30 05/18/23 18:32 Temperature Pulse Rate 108 H 110 H 110 H Pulse Rate [Left P ulse Oximeter] Pulse Rate [Right Pulse Oximeter] Respiratory Rate Blood Pressure 102/50 L Blood Pressure [Le ft Upper Arm] Blood Pressure [Ri ght Arm] Pulse Oximetry 92 90 91 Oxygen Delivery Me thod 05/18/23 18:38 05/18/23 18:45 05/18/23 19:00 Temperature 99.8 F H Pulse Rate 108 H 107 H Pulse Rate [Left P ulse Oximeter] Pulse Rate [Right Pulse Oximeter] Respiratory Rate Blood Pressure Blood Pressure [Le ft Upper Arm] Blood Pressure [Ri ght Arm] Pulse Oximetry 91 91 Oxygen Delivery Me thod 05/18/23 19:01 05/18/23 19:05 05/18/23 19:15 Temperature Pulse Rate 108 H 109 H Pulse Rate [Left P ulse Oximeter] Pulse Rate [Right Pulse Oximeter] Respiratory Rate 24 Blood Pressure 111/57 L Blood Pressure [Le ft Upper Arm] Blood Pressure [Ri ght Arm] Pulse Oximetry 91 91 Oxygen Delivery Me thod 05/18/23 19:30 05/18/23 19:32 05/18/23 19:45 Temperature Pulse Rate 109 H 109 H 106 H Pulse Rate [Left P ulse Oximeter] Pulse Rate [Right Pulse Oximeter] Respiratory Rate Blood Pressure 113/53 L Blood Pressure [Le ft Upper Arm] Blood Pressure [Ri ght Arm] Pulse Oximetry 92 91 92 Oxygen Delivery Me thod 05/18/23 19:49 05/18/23 20:00 05/18/23 20:25 Temperature 99.1 F 100.0 F H Pulse Rate 107 H Pulse Rate [Left P ulse Oximeter] 105 H Pulse Rate [Right Pulse Oximeter] Respiratory Rate 22 Blood Pressure Blood Pressure [Le ft Upper Arm] Blood Pressure [Ri ght Arm] 111/50 L Pulse Oximetry 92 95 Oxygen Delivery Me thod Room Air 05/18/23 21:36 Temperature Pulse Rate Pulse Rate [Left P ulse Oximeter] Pulse Rate [Right Pulse Oximeter] Respiratory Rate Blood Pressure Blood Pressure [Le ft Upper Arm] Blood Pressure [Ri ght Arm] Pulse Oximetry 95 Oxygen Delivery Me thod Room Air Hospitalist - H&P: Result Labs Labs: Short CBC 05/18/23 Range/Units 16:38 WBC 14.74 H (4.50-11.00) K/uL Hgb 10.7 L (12.0-16.0) gm/dL Hct 34.2 (33.0-51.0) % Plt Count 252 (140-440) K/uL BMP 05/18/23 16:38 Sodium 133 L Potassium 4.3 Chloride 103 Carbon Dioxide 21 BUN 14 Creatinine 0.5 Glucose 116 H Calcium 9.7 Urine 05/18/23 Range/Units 17:45 Urine Color Yellow (Yellow) Urine Appearance Clear (Clear) Urine pH 7.0 (5.0-8.5) Ur Specific [place] 1.020 (1.000-1.030) Urine Protein Negative (Negative) Urine Glucose (UA) Negative (Negative) ECG Attestation: I personally reviewed and interpreted this ECG as follows: Interpretation: Sinus tachycardia, rate 110 Imaging Chest x-ray: Radiologist's impression: FINDINGS: Lung volumes are moderate. Dense left retrocardiac opacity. No pulmonary edema. No pleural effusion. No pneumothorax. No pneumomediastinum. Normal cardiomediastinal silhouette. Bones: Normal for age. IMPRESSION: Left retrocardiac opacity is nonspecific and could be pneumonia or atelectasis. Assessment and Plan Assessment and plan (1) Sepsis: Problem comment: -fever 100.6, tachycardic, WBC 14, initial lactate 2.2 improved to 1.6 following fluid resuscitation, CRP 3.6, suspected related to chronic nonhealing sacral/buttock wound with known osteomyelitis. CXR shows left retrocardiac opacity is nonspecific and could be pneumonia or atelectasis. Previous CXR with atelectasis, no new pulmonary complaints or oxygen demand. Monitor -continue ertapenem (1st dose in ED). Previous wound cultures growing E coli sensitive to ertapenem/imipenem -add vancomycin, previous wound cultures growing Staph aureus (no MRSA) and Streptococcus group C both sensitive to vancomycin -continue IVF maintenance, monitoring for fluid overload -Tylenol p.r.n. fever -UC, BC x2 pending. Repeat CBC, BMP, CRP, lactate in a.m. Status: Acute (2) Osteomyelitis: Problem comment: -Associated with decubitus ulcer she has osteomyelitis on her right ischial spine. Chronic since at least May of 2022 -per previous hospitalization discussions, patient has declined consideration of curative treatment which would require plastic surgery and a diverting colostomy -query benefit of suppressive therapy with oral antibiotics Status: Acute (3) Stage 3 skin ulcer of sacral region: Problem comment: -current wound cares include wound dressing changes by GENERAL CLERK/home health nurse 3-4 times weekly -wound dressing changed in the ED prior to admission to floor -scheduled for wound care clinic on 05/19/2023. Patient reports there was talk of a wound VAC for further management Status: Acute (4) Pressure ulcer of contiguous region involving right buttock and hip, stage 4: Problem comment: -Chronic ulcer with osteomyelitis. During most recent hospitalization patient was treated with ertapenem, imipenem, vancomycin and transitioned to oral doxycycline and Levaquin based upon cultures growing Staph aureus, group C Streptococcus, E coli. I do not see a report of a recent positive MRSA wound culture. [facility] records indicate a positive wound MRSA in October 2022. -continue antibiotic management as above, pain management with usual home medications -wound care consult while hospitalized as patient is missing outpatient clinic appointment on Monday Status: Acute (5) Multiple sclerosis: Problem comment: -Functionally paraplegic. Bedbound. Unable to reposition herself in bed Status: Acute (6) Neurogenic bladder: Problem comment: -urostomy in place -UA collected, questionable dirty collection compromising results, UC pending. Consider repeat UA with appropriate sample if necessary Status: Acute (7) Chronic anemia: Problem comment: -acute on chronic, hemoglobin 10.7, continue to monitor -January 2023 had evaluation at [facility] with EGD which showed cystic fundic gland polyps in the gastric antrum and colonoscopy which was incomplete showing a 7 mm sessile polyp in the sigmoid. She underwent CT colonography which was unremarkable. Overall findings were felt to be reassuring. No obvious source of bleeding identified. Status: Acute (8) Paroxysmal atrial fibrillation: Problem comment: -history of DVT -continue metoprolol with parameters -continue anticoagulation, chronic Status: Acute Plan CODE: Full as discussed with patient and daughter VTE PPX: Chronic anticoagulation with Xarelto Disposition: Inpatient
[2023-05-18] MEDS: 0.9 % SODIUM CHLORIDE 1000 ml 1,000 ML 75 ML IV (22:47)
[2023-05-18] MEDS: ACETAMINOPHEN 325 MG TABLET 975 MG PO (23:42)
[2023-05-19] VITALS (11 sets, daily range): BP systolic 101–123; BP diastolic 43–85; PULSE 81–111; RESP 20–26; TEMP 37.2–38.5; O2SAT 88–93; BMI 42.3
[2023-05-19] MEDS: NON-FORMULARY MEDICATION (Melatonin 20 MG) 20 EACH PO (00:07)
[2023-05-19 06:43] LABS: Lactate* 1.1 mmol/L (0.5-1.9)
[2023-05-19 06:48] LABS: Hematocrit 32.1 % (33.0-51.0); Hemoglobin* 10.1 gm/dL (12.0-16.0); Mean Corpuscular HGB Conc 32 gm/dL (32-36); Mean Corpuscular Hemoglobin 28 pg (26-34); Mean Corpuscular Volume 88 fL (80-100); Platelet Count* 196 K/uL (140-440); Red Blood Count 3.66 m/uL (4.00-5.20); White Blood Count* 10.31 K/uL (4.50-11.00)
[2023-05-19 06:56] LABS: Slide Review Reflex No
[2023-05-19] MEDS: ACETAMINOPHEN 325 MG TABLET 975 MG PO ×2 (06:59→17:58)
[2023-05-19 07:06] LABS: Chloride* 109 mmol/L (96-114); Potassium* 3.7 mmol/L (3.6-5.1); Sodium* 136 mmol/L (135-149)
[2023-05-19 07:08] LABS: Creatinine* 0.5 mg/dL (0.5-1.5); Est. Creatinine Clearance* 43.91; Estimated Glomerular Filt Rate 100 ml/min
[2023-05-19 07:09] LABS: Anion Gap 7 mEq/L (7-15); Blood Urea Nitrogen* 9 mg/dL (7-30); Carbon Dioxide* 20 mmol/L (20-32); Glucose* 136 mg/dL (60-115)
--- NOTE | 2023-05-19 07:48 | PC.NURSE ---
Patient pleasant, alert and oriented. Temperatures 100.0-101.2. PRN Tylenol given. Urostomy bag changed due to leaking. Dressings to buttock changed. One Mepilex applied to open area on left lower buttock. Other areas of buttocks had denuded skin and barrier cream was appled per CN. Denied pain.
[2023-05-19] MEDS: BACLOFEN 10 MG TABLET 40 MG PO ×4 (08:16→20:49)
[2023-05-19] MEDS: LEVOTHYROXINE 50 MCG TABLET PO (08:17)
[2023-05-19] MEDS: METOPROLOL TARTRATE 25 MG TABLET 12.5 MG PO ×2 (08:18→20:51)
[2023-05-19] MEDS: CITALOPRAM HYDROBROMIDE 20 MG TABLET 10 MG PO (08:19)
[2023-05-19] MEDS: POTASSIUM CHLORIDE 10 MEQ CAPSULE ER PO (08:20)
[2023-05-19] MEDS: OMEPRAZOLE 20 MG CAPSULE DR PO (08:20)
[2023-05-19] MEDS: CETIRIZINE HCL 10 MG TABLET PO (08:20)
[2023-05-19] MEDS: SODIUM CHLORIDE 0.9 % (FLUSH) 10 ML SYRINGE 5 ML IVF ×2 (08:21→20:51)
--- NOTE | 2023-05-19 08:57 | REH.PT ---
PT & OT Eval & treat not indicated for this pt. Pt is bed and w/c bound and uses a mechanical lift for transfers. PT & OT are available for consultation as needed.
[2023-05-19] MEDS: 0.9 % SODIUM CHLORIDE 1000 ml 1,000 ML 75 ML IV (12:14)
--- NOTE | 2023-05-19 14:16 | PM.IMPN1 ---
Progress Note: A&P Assessment and plan (1) Sepsis: Problem details: -fever 100.6, tachycardic, WBC 14, initial lactate 2.2 improved to 1.6 following fluid resuscitation, CRP 3.6, suspected related to chronic nonhealing sacral/buttock wound with known osteomyelitis. CXR shows left retrocardiac opacity is nonspecific and could be pneumonia or atelectasis. Previous CXR with atelectasis, no new pulmonary complaints or oxygen demand. Monitor -continue ertapenem (1st dose in ED). Previous wound cultures growing E coli sensitive to ertapenem/imipenem -add vancomycin, previous wound cultures growing Staph aureus (MRSA 10/2022) and Streptococcus group C both sensitive to vancomycin -continue IVF maintenance, monitoring for fluid overload -Tylenol p.r.n. fever -05/19/23: UC growing out gram negative rods, ID and sensitivities are pending; BC x2, with an anerobic bottle growing out gram positive cocci in clusters, ID and sensitivities are pending - Repeat CBC, BMP, CRP, lactate in a.m. Status: Acute (2) Osteomyelitis: Problem details: -Associated with decubitus ulcer she has osteomyelitis on her right ischial spine. Chronic since at least May of 2022 -per previous hospitalization discussions, patient has declined consideration of curative treatment which would require plastic surgery and a diverting colostomy -wound culture obtained 05/19/2023 after IV antibiotics were started -query possible benefit of suppressive therapy with oral antibiotics -pressure ulcer prevention precautions Status: Acute (3) Stage 3 skin ulcer of sacral region: Problem details: -current wound cares include wound dressing changes by [employer]/home health nurse 3-4 times weekly -wound dressing changed in the ED prior to admission to floor -scheduled for wound care clinic on 05/19/2023. Patient reports there was talk of a wound VAC for further management Status: Acute (4) Pressure ulcer of contiguous region involving right buttock and hip, stage 4: Problem details: -Chronic ulcer with osteomyelitis. During most recent hospitalization patient was treated with ertapenem, imipenem, vancomycin and transitioned to oral doxycycline and Levaquin based upon cultures growing Staph aureus, group C Streptococcus, E coli. I do not see a report of a recent positive MRSA wound culture. [facility] records indicate a positive wound MRSA in October 2022. -continue antibiotic management as above, pain management with usual home medications -wound care consult while hospitalized as patient is missing outpatient clinic appointment on Monday Status: Acute (5) Multiple sclerosis: Problem details: -Functionally paraplegic. Bedbound. Unable to reposition herself in bed Status: Acute (6) Neurogenic bladder: Problem details: -urostomy in place -UA collected, questionable dirty collection compromising results, UC pending. Consider repeat UA with appropriate sample if necessary Status: Acute (7) Chronic anemia: Problem details: -acute on chronic, hemoglobin 10.7, continue to monitor -January 2023 had evaluation at [place] with EGD which showed cystic fundic gland polyps in the gastric antrum and colonoscopy which was incomplete showing a 7 mm sessile polyp in the sigmoid. She underwent CT colonography which was unremarkable. Overall findings were felt to be reassuring. No obvious source of bleeding identified. Status: Acute (8) Paroxysmal atrial fibrillation: Problem details: -history of DVT -continue metoprolol with parameters -continue anticoagulation, chronic Status: Acute Time Spent With Patient Total time spent: 40 minutes Subjective Date Seen: 05/19/23 Interval history: Hospital day 2. History of present illness: ?Serene Pierson is a 72 year old female past medical history significant for MS, chronically bed bound, neurogenic bladder, obesity, paroxysmal atrial fibrillation on chronic anticoagulation, history of DVT, chronic osteomyelitis, stage III skin ulcer of sacral region, stage IV pressure ulcer of right buttock and hip is admitted to the medical floor from the ED for sepsis with presumed wound infection. Patient reports feeling her usual self until late morning when she vomited once following breakfast. No vomiting since. Has in general not felt well the entire day, feverish. Denies headaches or dizziness. Has since developed nasal congestion this evening. Denies new or worsening cough or chest congestion. No shortness of breath. Does not use oxygen or a CPAP at home. No nausea. Last bowel movement was 3 days ago which is not uncommon for her. Has a urostomy in place and changes the bag regularly. Was scheduled for an outpatient wound care clinic visit on Monday. She tells me there was going to be a discussion of a wound VAC. In the ED, patient was found to have a temperature of 100.6?. She has been tachycardic with a stable blood pressure. She was started on ertapenem and received a total of 3 L IV NS with improvement of lactate from 2.2-1.6. Patient indicates she is not any worse than yesterday. She notes that sense of having a fever has resolved now. She had lost her appetite in association with fevers that she had yesterday in that is slowly improving. Had nausea and vomiting 2 days ago but this has since improved. Denies dyspnea, cough. Tolerating supportive efforts in the hospital. Exam Narrative: Exam Narrative: Appears comfortable and in no acute distress. Awake, alert, oriented to self, place, time, situation. Slow to respond to some questions. Friendly, articulate, cooperative. Vision and hearing are grossly normal. Oropharynx benign. Cranial nerves 3-12 grossly normal. Neck is supple. Lungs with decreased breath sounds in bases but really quite clear to auscultation without wheezing, rhonchi, or rales. Heart tones with regular rhythm, normal S1-S2. Abdomen with active bowel sounds, soft, nontender. Skin with the chronic pressure ulcer over the right ischial. Tunneling of 5 cm. Wound culture obtained after copious irrigation with normal saline. Functional paraplegia from MS. Const: Vital Signs, click to edit/add: Vital Signs - 24 hr 05/18/23 16:27 05/18/23 16:35 05/18/23 16:37 Temperature 100.6 F H 100.4 F H Pulse Rate 108 H Pulse Rate [Left P ulse Oximeter] Pulse Rate [Right Pulse Oximeter] 108 H Respiratory Rate 18 24 Blood Pressure Blood Pressure [Le ft Forearm] Blood Pressure [Le ft Upper Arm] 128/57 L Blood Pressure [Ri ght Arm] Pulse Oximetry 92 93 93 Oxygen Delivery Me thod Room Air Room Air 05/18/23 16:45 05/18/23 16:48 05/18/23 17:00 Temperature Pulse Rate 109 H 109 H 109 H Pulse Rate [Left P ulse Oximeter] Pulse Rate [Right Pulse Oximeter] Respiratory Rate Blood Pressure 144/57 H Blood Pressure [Le ft Forearm] Blood Pressure [Le ft Upper Arm] Blood Pressure [Ri ght Arm] Pulse Oximetry 93 94 94 Oxygen Delivery Me thod 05/18/23 17:01 05/18/23 17:15 05/18/23 17:30 Temperature Pulse Rate 109 H 107 H 103 H Pulse Rate [Left P ulse Oximeter] Pulse Rate [Right Pulse Oximeter] Respiratory Rate Blood Pressure 137/59 L Blood Pressure [Le ft Forearm] Blood Pressure [Le ft Upper Arm] Blood Pressure [Ri ght Arm] Pulse Oximetry 94 93 97 Oxygen Delivery Me thod 05/18/23 17:35 05/18/23 17:45 05/18/23 17:48 Temperature Pulse Rate 109 H 107 H 112 H Pulse Rate [Left P ulse Oximeter] Pulse Rate [Right Pulse Oximeter] Respiratory Rate Blood Pressure 112/87 Blood Pressure [Le ft Forearm] Blood Pressure [Le ft Upper Arm] Blood Pressure [Ri ght Arm] Pulse Oximetry 96 95 96 Oxygen Delivery Me thod 05/18/23 18:00 05/18/23 18:01 05/18/23 18:02 Temperature Pulse Rate 106 H 107 H 107 H Pulse Rate [Left P ulse Oximeter] Pulse Rate [Right Pulse Oximeter] Respiratory Rate Blood Pressure 123/51 L Blood Pressure [Le ft Forearm] Blood Pressure [Le ft Upper Arm] Blood Pressure [Ri ght Arm] Pulse Oximetry 94 93 94 Oxygen Delivery Me thod 05/18/23 18:15 05/18/23 18:30 05/18/23 18:32 Temperature Pulse Rate 108 H 110 H 110 H Pulse Rate [Left P ulse Oximeter] Pulse Rate [Right Pulse Oximeter] Respiratory Rate Blood Pressure 102/50 L Blood Pressure [Le ft Forearm] Blood Pressure [Le ft Upper Arm] Blood Pressure [Ri ght Arm] Pulse Oximetry 92 90 91 Oxygen Delivery Me thod 05/18/23 18:38 05/18/23 18:45 05/18/23 19:00 Temperature 99.8 F H Pulse Rate 108 H 107 H Pulse Rate [Left P ulse Oximeter] Pulse Rate [Right Pulse Oximeter] Respiratory Rate Blood Pressure Blood Pressure [Le ft Forearm] Blood Pressure [Le ft Upper Arm] Blood Pressure [Ri ght Arm] Pulse Oximetry 91 91 Oxygen Delivery Me thod 05/18/23 19:01 05/18/23 19:05 05/18/23 19:15 Temperature Pulse Rate 108 H 109 H Pulse Rate [Left P ulse Oximeter] Pulse Rate [Right Pulse Oximeter] Respiratory Rate 24 Blood Pressure 111/57 L Blood Pressure [Le ft Forearm] Blood Pressure [Le ft Upper Arm] Blood Pressure [Ri ght Arm] Pulse Oximetry 91 91 Oxygen Delivery Me thod 05/18/23 19:30 05/18/23 19:32 05/18/23 19:45 Temperature Pulse Rate 109 H 109 H 106 H Pulse Rate [Left P ulse Oximeter] Pulse Rate [Right Pulse Oximeter] Respiratory Rate Blood Pressure 113/53 L Blood Pressure [Le ft Forearm] Blood Pressure [Le ft Upper Arm] Blood Pressure [Ri ght Arm] Pulse Oximetry 92 91 92 Oxygen Delivery Me thod 05/18/23 19:49 05/18/23 20:00 05/18/23 20:25 Temperature 99.1 F 100.0 F H Pulse Rate 107 H Pulse Rate [Left P ulse Oximeter] 105 H Pulse Rate [Right Pulse Oximeter] Respiratory Rate 22 Blood Pressure Blood Pressure [Le ft Forearm] Blood Pressure [Le ft Upper Arm] Blood Pressure [Ri ght Arm] 111/50 L Pulse Oximetry 92 95 Oxygen Delivery Me thod Room Air 05/18/23 21:36 05/18/23 21:36 05/18/23 23:00 Temperature 100.2 F H Pulse Rate 103 H Pulse Rate [Left P ulse Oximeter] 94 Pulse Rate [Right Pulse Oximeter] Respiratory Rate 22 Blood Pressure Blood Pressure [Le ft Forearm] Blood Pressure [Le ft Upper Arm] Blood Pressure [Ri ght Arm] 131/65 Pulse Oximetry 95 100 Oxygen Delivery Me od Room Air Room Air 05/18/23 23:00 05/19/23 02:35 05/19/23 06:59 Temperature 100.7 F H 100.2 F H Pulse Rate Pulse Rate [Left P ulse Oximeter] 111 H Pulse Rate [Right Pulse Oximeter] Respiratory Rate 26 H Blood Pressure Blood Pressure [Le ft Forearm] Blood Pressure [Le ft Upper Arm] Blood Pressure [Ri ght Arm] 121/59 L Pulse Oximetry 100 88 Oxygen Delivery Me thod Room Air 05/19/23 07:00 05/19/23 07:00 05/19/23 11:00 Temperature 101.3 F H 99.6 F Pulse Rate Pulse Rate [Left P ulse Oximeter] 104 H 91 Pulse Rate [Right Pulse Oximeter] Respiratory Rate 20 20 Blood Pressure Blood Pressure [Le ft Forearm] 115/68 119/72 Blood Pressure [Le ft Upper Arm] Blood Pressure [Ri ght Arm] Pulse Oximetry 90 90 93 Oxygen Delivery Me thod Room Air Room Air Labs Labs: Laboratory Results - last 24 hr 05/18/23 05/18/23 05/18/23 16:38 17:04 17:45 WBC 14.74 H RBC 3.89 L Hgb 10.7 L Hct 34.2 MCV 88 MCH 28 MCHC 31 L RDW Coeff of Michele 16.8 H Plt Count 252 Neut % (Auto) 73.4 H Lymph % (Auto) 15.7 L [place] % (Auto) 7.9 Eos % (Auto) 1.3 Baso % (Auto) 0.3 Neut # (Auto) 10.80 H Lymph # (Auto) 2.30 [place] # (Auto) 1.20 H Eos # (Auto) 0.20 Baso # (Auto) 0.00 Abs Immat Gran (auto) 0.20 Imm/Tot Granulo (auto) 1.4 Sodium 133 L Potassium 4.3 Chloride 103 Carbon Dioxide 21 Anion Gap 9 BUN 14 Creatinine 0.5 Estimated Creat Clear 43.91 Estimated GFR 100 Glucose 116 H Lactate 2.2 H Calcium 9.7 Magnesium C-Reactive Protein 3.6 H Urine Color Yellow Urine Appearance Clear Urine pH 7.0 Ur Specific [place] 1.020 Urine Protein Negative Urine Glucose (UA) Negative Urine Ketones Negative Urine Blood 3+ A Urine Nitrite Positive A Urine Bilirubin Negative Urine Urobilinogen 0.2 Ur Leukocyte Esterase 1+ A Urine RBC 50-100 A Urine WBC 5-10 A Ur Squamous Epith Cells None Urine Bacteria Many A SARS-CoV-2 (PCR) Negative SARS-CoV-2 Influenza Type A (PCR) Negative PCR FLU A Influenza Type B (PCR) Negative PCR FLU B RSV (PCR) Negative PCR RSV POC Troponin I 0.00 L 05/18/23 05/19/23 18:58 06:35 WBC 10.31 RBC 3.66 L Hgb 10.1 L Hct 32.1 L MCV 88 MCH 28 MCHC 32 RDW Coeff of Michele Plt Count 196 Neut % (Auto) Lymph % (Auto) [place] % (Auto) Eos % (Auto) Baso % (Auto) Neut # (Auto) Lymph # (Auto) [place] # (Auto) Eos # (Auto) Baso # (Auto) Abs Immat Gran (auto) Imm/Tot Granulo (auto) Sodium 136 Potassium 3.7 Chloride 109 Carbon Dioxide 20 Anion Gap 7 BUN 9 Creatinine 0.5 Estimated Creat Clear 43.91 Estimated GFR 100 Glucose 136 H Lactate 1.6 1.1 Calcium 9.0 Magnesium 2.0 C-Reactive Protein 14.0 H Urine Color Urine Appearance Urine pH Ur Specific [place] Urine Protein Urine Glucose (UA) Urine Ketones Urine Blood Urine Nitrite Urine Bilirubin Urine Urobilinogen Ur Leukocyte Esterase Urine RBC Urine WBC Ur Squamous Epith Cells Urine Bacteria SARS-CoV-2 (PCR) Influenza Type A (PCR) Influenza Type B (PCR) RSV (PCR) POC Troponin I
--- NOTE | 2023-05-19 16:16 | P.IMCN_ITS ---
Date of Consult Patient: [facility] Patient Consult date: 05/19/23 Requesting Physician: Hospitalist Primary Care Provider: Lory Hudson PA-C Consult Narrative Narrative: Serene Pierson is a 72 year old female admitted to Med/surg due to sepsis. Serene is a patient of [facility] though she has not been able to present to appointments for last 5 weeks. Transportation has been the main issue. Pressure ulcer to Right IT region is chronic. Patient does recognize she would like to continue to work with wound center, though unclear on when she may be able to return. Had hoped to present to appointment today. [place] ill, blood pressure issues. Feeling faint. Thus leading up to hospitalization. Is open to discussion of [facility] presenting to care for her in her home. Though states has tried this in past and did not like the provider. Did not feel comfortable with their care. Does not have adequate pressure relieving mattress in home. Has been working on this for some time, though does not believe county will be able to provide. Has not liked other options in past. Encouraged to accept what may be able to be covered. Review of Systems Status of ROS: Reports: 6 or more systems reviewed and unremarkable except as noted in History and below : Reports: urinary incontinence Musculo: Reports: muscle weakness Integ/Breast: Reports: redness (Lateral right thigh outlined. Possible celluli tis/source. Decreased per RN) and other (Chronic Right IT pressure ulcer) [facility] Medical History Neurogenic bladder ?N31.9 - Neuromuscular dysfunction of bladder, unspecified (ICD-10) History of DVT (deep vein thrombosis) ?Z86.718 - Personal history of other venous thrombosis and embolism (ICD-10) Chronic anemia ?D64.9 - Anemia, unspecified (ICD-10) Paroxysmal atrial fibrillation ?I48.0 - Paroxysmal atrial fibrillation (ICD-10) Discharge planning issues ?Z02.9 - Encounter for administrative examinations, unspecified (ICD-10) Sleep apnea ?G47.30 - Sleep apnea, unspecified (ICD-10) Decubitus ulcer ?L89.90 - Pressure ulcer of unspecified site, unspecified stage (ICD-10) Breast cancer ?C50.919 - Malignant neoplasm of unspecified site of unspecified female breast (ICD-10) Morbid obesity ?E66.01 - Morbid (severe) obesity due to excess calories (ICD-10) Multiple sclerosis ?G35 - Multiple sclerosis (ICD-10) Osteomyelitis ?M86.9 - Osteomyelitis, unspecified (ICD-10) Surgical History S/P breast lumpectomy ?Z98.890 - Other specified postprocedural states (ICD-10) Family History Sister Breast cancer Mother Diabetes Heart disease Brother Lung cancer Father Stroke Social History Narrative: She has been nonambulatory since about 1976 secondary to multiple sclerosis. She is bed-bound or wheelchair-bound. She has custom equipment made for her both wheelchair in bed due to her disabilities. She does not smoke. She does not drink alcohol. Her son Du and daughter Dottie are healthcare power of disability attorney. Code status is full. She lives at home in [place]. Prolonged hospital stay at [facility] for 3 months this winter What is your current living situation?: I presently have a place to live Problems where you live: no known problems Problems where you live details: n/a In the past 12 months, utilities in danger of being shut off: no In past 12 months, lack of transportation kept you from medical appts, meetings, work, or getting things needed for daily living: no In the past 12 mos, have been you worried that your food would run out before you had money to buy more?: never true In the past 12 mos, the food you bought just didn't last and you didn't have money to buy more?: never true Highest level of school completed/degree received: 10th grade Smoking Status: Never smoker Do you use any of these nicotine containing products: None Second hand tobacco smoke exposure: No How often do you have a drink containing alcohol: never AUDIT-C Alcohol total score: 0 Non-prescribed substance use: denies use Caffeine: Yes (soda) How often does anyone, including family, friends and others, physically hurt you : never How often does anyone, including family, friends and others, insult or talk down to you: never How often does anyone, including family, friends and others, threaten you with harm: never How often does anyone, including family, friends and others, scream or curse at you: never service: No Meds Home Medications and Allergies Home Medications Medication Instructions Recorded Confirmed Type anastrozole 1 mg tablet 1 mg PO DAILY 11/16/22 05/18/23 History baclofen 20 mg tablet 40 mg PO QID 11/16/22 05/18/23 History calcium carbonate 600 mg-vitamin 1 tab PO QAM 11/16/22 05/18/23 History D3 10 mcg (400 unit) tablet cetirizine 10 mg tablet 10 mg PO DAILY 11/16/22 05/18/23 History citalopram 10 mg tablet 10 mg PO DAILY 11/16/22 05/18/23 History clonazepam 0.5 mg tablet 1 mg PO HS 11/16/22 05/18/23 History dalfampridine 10 mg 10 mg PO Q12H 11/16/22 05/18/23 History tablet,extended release,12 hr (Ampyra) levothyroxine 50 mcg tablet 50 mcg PO QAM 11/16/22 05/18/23 History metoprolol tartrate 25 mg tablet 12.5 mg PO BID 11/16/22 05/18/23 History omeprazole 20 mg capsule,delayed 20 mg PO QAM 11/16/22 05/18/23 History release rivaroxaban 10 mg tablet (Xarelto) 10 mg PO QPM 11/16/22 05/18/23 History simvastatin 20 mg tablet 20 mg PO QPM 11/16/22 05/18/23 History tizanidine 4 mg tablet 4 mg PO QPM 11/16/22 05/18/23 History melatonin 10 mg capsule 20 mg PO HS 11/17/22 05/18/23 History multivitamin (Daily Multi-Vitamin 1 tab PO DAILY 11/17/22 05/18/23 History tablet) natalizumab 300 mg/15 mL 300 mg IV Q28D 11/17/22 03/16/23 History intravenous solution (Tysabri) omega 2-cbz-qdp-fish oil 1,000 mg 1 cap PO DAILY 11/17/22 05/18/23 History (120 mg-180 mg) capsule (Fish Oil) alendronate 70 mg tablet 70 mg PO .WEEKLY 03/16/23 05/18/23 History Allergies Allergy/AdvReac Type Severity Reaction Status Date / Time Penicillins Allergy Verified 05/18/23 16:35 Exam Const: Vital Signs, click to edit/add: Vital Signs - 24 hr 05/18/23 16:27 05/18/23 16:35 05/18/23 16:37 Temperature 100.6 F H 100.4 F H Pulse Rate 108 H Pulse Rate [Left P ulse Oximeter] Pulse Rate [Right Pulse Oximeter] 108 H Respiratory Rate 18 24 Blood Pressure Blood Pressure [Le ft Forearm] Blood Pressure [Le ft Upper Arm] 128/57 L Blood Pressure [Ri ght Arm] Pulse Oximetry 92 93 93 Oxygen Delivery Me thod Room Air Room Air 05/18/23 16:45 05/18/23 16:48 05/18/23 17:00 Temperature Pulse Rate 109 H 109 H 109 H Pulse Rate [Left P ulse Oximeter] Pulse Rate [Right Pulse Oximeter] Respiratory Rate Blood Pressure 144/57 H Blood Pressure [Le ft Forearm] Blood Pressure [Le ft Upper Arm] Blood Pressure [Ri ght Arm] Pulse Oximetry 93 94 94 Oxygen Delivery Me thod 05/18/23 17:01 05/18/23 17:15 05/18/23 17:30 Temperature Pulse Rate 109 H 107 H 103 H Pulse Rate [Left P ulse Oximeter] Pulse Rate [Right Pulse Oximeter] Respiratory Rate Blood Pressure 137/59 L Blood Pressure [Le ft Forearm] Blood Pressure [Le ft Upper Arm] Blood Pressure [Ri ght Arm] Pulse Oximetry 94 93 97 Oxygen Delivery Me thod 05/18/23 17:35 05/18/23 17:45 05/18/23 17:48 Temperature Pulse Rate 109 H 107 H 112 H Pulse Rate [Left P ulse Oximeter] Pulse Rate [Right Pulse Oximeter] Respiratory Rate Blood Pressure 112/87 Blood Pressure [Le ft Forearm] Blood Pressure [Le ft Upper Arm] Blood Pressure [Ri ght Arm] Pulse Oximetry 96 95 96 Oxygen Delivery Me thod 05/18/23 18:00 05/18/23 18:01 05/18/23 18:02 Temperature Pulse Rate 106 H 107 H 107 H Pulse Rate [Left P ulse Oximeter] Pulse Rate [Right Pulse Oximeter] Respiratory Rate Blood Pressure 123/51 L Blood Pressure [Le ft Forearm] Blood Pressure [Le ft Upper Arm] Blood Pressure [Ri ght Arm] Pulse Oximetry 94 93 94 Oxygen Delivery Me thod 05/18/23 18:15 05/18/23 18:30 05/18/23 18:32 Temperature Pulse Rate 108 H 110 H 110 H Pulse Rate [Left P ulse Oximeter] Pulse Rate [Right Pulse Oximeter] Respiratory Rate Blood Pressure 102/50 L Blood Pressure [Le ft Forearm] Blood Pressure [Le ft Upper Arm] Blood Pressure [Ri ght Arm] Pulse Oximetry 92 90 91 Oxygen Delivery Me thod 05/18/23 18:38 05/18/23 18:45 05/18/23 19:00 Temperature 99.8 F H Pulse Rate 108 H 107 H Pulse Rate [Left P ulse Oximeter] Pulse Rate [Right Pulse Oximeter] Respiratory Rate Blood Pressure Blood Pressure [Le ft Forearm] Blood Pressure [Le ft Upper Arm] Blood Pressure [Ri ght Arm] Pulse Oximetry 91 91 Oxygen Delivery Me thod 05/18/23 19:01 05/18/23 19:05 05/18/23 19:15 Temperature Pulse Rate 108 H 109 H Pulse Rate [Left P ulse Oximeter] Pulse Rate [Right Pulse Oximeter] Respiratory Rate 24 Blood Pressure 111/57 L Blood Pressure [Le ft Forearm] Blood Pressure [Le ft Upper Arm] Blood Pressure [Ri ght Arm] Pulse Oximetry 91 91 Oxygen Delivery Me thod 05/18/23 19:30 05/18/23 19:32 05/18/23 19:45 Temperature Pulse Rate 109 H 109 H 106 H Pulse Rate [Left P ulse Oximeter] Pulse Rate [Right Pulse Oximeter] Respiratory Rate Blood Pressure 113/53 L Blood Pressure [Le ft Forearm] Blood Pressure [Le ft Upper Arm] Blood Pressure [Ri ght Arm] Pulse Oximetry 92 91 92 Oxygen Delivery Me thod 05/18/23 19:49 05/18/23 20:00 05/18/23 20:25 Temperature 99.1 F 100.0 F H Pulse Rate 107 H Pulse Rate [Left P ulse Oximeter] 105 H Pulse Rate [Right Pulse Oximeter] Respiratory Rate 22 Blood Pressure Blood Pressure [Le ft Forearm] Blood Pressure [Le ft Upper Arm] Blood Pressure [Ri ght Arm] 111/50 L Pulse Oximetry 92 95 Oxygen Delivery Me thod Room Air 05/18/23 21:36 05/18/23 21:36 05/18/23 23:00 Temperature 100.2 F H Pulse Rate 103 H Pulse Rate [Left P ulse Oximeter] 94 Pulse Rate [Right Pulse Oximeter] Respiratory Rate 22 Blood Pressure Blood Pressure [Le ft Forearm] Blood Pressure [Le ft Upper Arm] Blood Pressure [Ri ght Arm] 131/65 Pulse Oximetry 95 100 Oxygen Delivery Me thod Room Air Room Air 05/18/23 23:00 05/19/23 02:35 05/19/23 06:59 Temperature 100.7 F H 100.2 F H Pulse Rate Pulse Rate [Left P ulse Oximeter] 111 H Pulse Rate [Right Pulse Oximeter] Respiratory Rate 26 H Blood Pressure Blood Pressure [Le ft Forearm] Blood Pressure [Le ft Upper Arm] Blood Pressure [Ri ght Arm] 121/59 L Pulse Oximetry 100 88 Oxygen Delivery Me thod Room Air 05/19/23 07:00 05/19/23 07:00 05/19/23 11:00 Temperature 101.3 F H 99.6 F Pulse Rate Pulse Rate [Left P ulse Oximeter] 104 H 91 Pulse Rate [Right Pulse Oximeter] Respiratory Rate 20 20 Blood Pressure Blood Pressure [Le ft Forearm] 115/68 119/72 Blood Pressure [Le ft Upper Arm] Blood Pressure [Ri ght Arm] Pulse Oximetry 90 90 93 Oxygen Delivery Me thod Room Air Room Air Common normals: no apparent distress Exam limitations: physical limitations General appearance: cooperative Orientation/consciousness: Yes awake, Yes oriented to person and Yes oriented to place Resp: Common normals: normal respiratory effort Effort & inspection: able to speak in complete sentences Neuro: Sensorium/orientation: awake, oriented to person and oriented to place Skin: General skin exam: erythema Wounds: wounds noted size (1x1x5.2cm ) and drainage bloody Labs Labs: Short CBC 05/18/23 05/19/23 Range/Units 16:38 06:35 WBC 14.74 H 10.31 (4.50-11.00) K/uL Hgb 10.7 L 10.1 L (12.0-16.0) gm/dL Hct 34.2 32.1 L (33.0-51.0) % Plt Count 252 196 (140-440) K/uL BMP 05/18/23 05/19/23 16:38 06:35 Sodium 133 L 136 Potassium 4.3 3.7 Chloride 103 109 Carbon Dioxide 21 20 BUN 14 9 Creatinine 0.5 0.5 Glucose 116 H 136 H Calcium 9.7 9.0 Urine 05/18/23 Range/Units 17:45 Urine Color Yellow (Yellow) Urine Appearance Clear (Clear) Urine pH 7.0 (5.0-8.5) Ur Specific [place] 1.020 (1.000-1.030) Urine Protein Negative (Negative) Urine Glucose (UA) Negative (Negative) Assessment and Plan Assessment and plan (1) Sepsis: Problem comment: -fever 100.6, tachycardic, WBC 14, initial lactate 2.2 improved to 1.6 following fluid resuscitation, CRP 3.6, suspected related to chronic nonhealing sacral/buttock wound with known osteomyelitis. CXR shows left retrocardiac opacity is nonspecific and could be pneumonia or atelectasis. Previous CXR with atelectasis, no new pulmonary complaints or oxygen demand. Monitor -continue ertapenem (1st dose in ED). Previous wound cultures growing E coli sensitive to ertapenem/imipenem -add vancomycin, previous wound cultures growing Staph aureus (MRSA 10/2022) and Streptococcus group C both sensitive to vancomycin -continue IVF maintenance, monitoring for fluid overload -Tylenol p.r.n. fever -05/19/23: UC growing out gram negative rods, ID and sensitivities are pending; BC x2, with an anerobic bottle growing out gram positive cocci in clusters, ID and sensitivities are pending - Repeat CBC, BMP, CRP, lactate in a.m. Status: Acute (2) Chronic anemia: Problem comment: -acute on chronic, hemoglobin 10.7, continue to monitor -January 2023 had evaluation at [facility] with EGD which showed cystic fundic gland polyps in the gastric antrum and colonoscopy which was incomplete showing a 7 mm sessile polyp in the sigmoid. She underwent CT colonography which was unremarkable. Overall findings were felt to be reassuring. No obvious source of bleeding identified. Status: Acute (3) Pressure ulcer of contiguous region involving right buttock and hip, stage 4: Problem comment: -Chronic ulcer with osteomyelitis. During most recent hospitalization patient was treated with ertapenem, imipenem, vancomycin and transitioned to oral doxycycline and Levaquin based upon cultures growing Staph aureus, group C Streptococcus, E coli. I do not see a report of a recent positive MRSA wound culture. [facility] records indicate a positive wound MRSA in October 2022. -continue antibiotic management as above, pain management with usual home medications -wound care consult while hospitalized as patient is missing outpatient clinic appointment on Monday Status: Acute (4) Morbid obesity: Status: Acute (5) Multiple sclerosis: Problem comment: -Functionally paraplegic. Bedbound. Unable to reposition herself in bed Status: Acute Plan -Unable to visualize wound bed due to size of opening. Large amount of drainage to old dressing applied earlier this morning. Sanguinous to serosanguineous in nature. Bleeds readily with probing for depth. Likely sign of wound infection. Found to be 5.2cm today. In review of Wound Center visit notes appears depth is greater. Free of foul odor. -Upon discharge from Inpatient status patient will need to decide if further Wound Treatment in Wound Center is reasonable for her. Whether [facility] in home would benefit patient. Wound unlikely to heal timely or easily. Realistically wound may need surgical intervention for closure. Patient has previously declined. -Hospitalist team treating patient for sepsis. Wound culture completed. IV Antibiotics. Wound Orders/Treatment Plan: Will treat wound with every day to every other day dressing changes while hospitalized. Cleanse wound. Irrigate with Vashe if able. Apply small amount of zinc barrier cream to immediate wound edges. Moisten sterile gauze 4x4, open 4x4 fully, gently pack into depth of wound. Cover with silicone foam border dressing if possible. If not able to cover with silicone foam border dressing due to need to change daily ok to utilize ABD pad. If needs to be taped to skin ensure to utilize Medipore or silicone tape. Pressure relieve is necessary. Continue to treat areas of moisture breakdown surrounding wound with zinc barrier cream.
[2023-05-19] MEDS: SIMVASTATIN 20 MG TABLET PO (17:40)
[2023-05-19] MEDS: TIZANIDINE HCL 4 MG TABLET PO (17:40)
[2023-05-19] MEDS: RIVAROXABAN 10 MG TABLET PO (17:40)
[2023-05-19] MEDS: LACTOBACILLUS ACIDOPHILUS 1 TABLET 2 TAB PO (17:58)
[2023-05-19] MEDS: ERTAPENEM 1 GM in 0.9 % SODIUM CHLORIDE Mini-bag 100 ML IVPB (17:58)
--- NOTE | 2023-05-19 18:56 | PC.NURSE ---
End of shift [id number] - Pt alert, oriented to self, place, situation. Witnessed to have difficulty finding her words during shift and losing train of thought while talking with RN. Pt not up from bed during shift, reposition Q2h. Incontinent of bowel, BM x 2 during shift. Urostomy dressing and bag changed during shift with pt own supplies. Pt reported not have strong appetite, did order breakfast and lunch trays but only ordered yogurt and jello in evening. Pt febrile during shift from 99.6-101.3F. Interventions given per MAR with improvement. All other VS stable during shift. Wound dressing changed with MD present. Wound care consult also performed dressing change. Pt denied pain during dressing change and during shift. Skin on buttocks noted to be reddened and broken down, barrier cream applied PRN and mepilex added. Pt appears to be resting comfortably at end of shift.
[2023-05-19] MEDS: clonazePAM 0.5 MG TABLET 1 MG PO (22:52)
[2023-05-20] VITALS (8 sets, daily range): BP systolic 109–150; BP diastolic 57–85; PULSE 76–106; RESP 18–24; TEMP 36.8–37.4; O2SAT 91–94
[2023-05-20] MEDS: 0.9 % SODIUM CHLORIDE 1000 ml 1,000 ML 75 ML IV ×2 (05:12→20:52)
--- NOTE | 2023-05-20 05:37 | PC.NURSE ---
[id number]: Patient cooperative with cares. Denies pain. Frequent T&R to offload sacral region. 2 Mepilex on sacral region intact. Barrier cream applied to buttock. Cellulitis to R. thigh remains within the previously drawn line. Urostomy draining large amounts of urine. Oral temps 99.8, 99.0, 99.3 with no Tylenol administered. 1 large incontinent BM during shift. Appeared to rest well during noc.
[2023-05-20 07:44] LABS: Hemoglobin* 9.4 gm/dL (12.0-16.0); Lactate* 0.8 mmol/L (0.5-1.9); Mean Corpuscular HGB Conc 31 gm/dL (32-36); Mean Corpuscular Hemoglobin 28 pg (26-34); Mean Corpuscular Volume 89 fL (80-100); Platelet Count* 182 K/uL (140-440); Red Blood Count 3.38 m/uL (4.00-5.20); White Blood Count* 7.58 K/uL (4.50-11.00)
[2023-05-20 07:48] LABS: Slide Review Reflex No
[2023-05-20 07:59] LABS: Chloride* 110 mmol/L (96-114); Potassium* 3.4 mmol/L (3.6-5.1); Sodium* 139 mmol/L (135-149)
[2023-05-20 08:01] LABS: Creatinine* 0.5 mg/dL (0.5-1.5); Est. Creatinine Clearance* 43.91; Estimated Glomerular Filt Rate 100 ml/min
[2023-05-20 08:02] LABS: Anion Gap 8 mEq/L (7-15); Blood Urea Nitrogen* 9 mg/dL (7-30); Calcium* 8.7 mg/dL (8.4-10.6); Carbon Dioxide* 21 mmol/L (20-32); Glucose* 109 mg/dL (60-115)
[2023-05-20] MEDS: LACTOBACILLUS ACIDOPHILUS 1 TABLET 2 TAB PO ×3 (09:07→17:27)
[2023-05-20] MEDS: BACLOFEN 10 MG TABLET 40 MG PO ×4 (09:08→20:56)
[2023-05-20] MEDS: CETIRIZINE HCL 10 MG TABLET PO (09:08)
[2023-05-20] MEDS: LEVOTHYROXINE 50 MCG TABLET PO (09:08)
[2023-05-20] MEDS: METOPROLOL TARTRATE 25 MG TABLET 12.5 MG PO ×2 (09:08→20:57)
[2023-05-20] MEDS: CITALOPRAM HYDROBROMIDE 20 MG TABLET 10 MG PO (09:08)
[2023-05-20] MEDS: SODIUM CHLORIDE 0.9 % (FLUSH) 10 ML SYRINGE 5 ML IVF (09:09)
[2023-05-20] MEDS: OMEPRAZOLE 20 MG CAPSULE DR PO (09:09)
[2023-05-20] MEDS: POTASSIUM CHLORIDE 10 MEQ CAPSULE ER PO ×2 (09:09→11:41)
--- NOTE | 2023-05-20 09:33 | PM.IMPN1 ---
Progress Note: A&P Assessment and plan (1) Gram-positive bacteremia: Problem details: -awaiting cultures. Continue broad-spectrum antibiotics. Gram-negative rods growing in urine. -cont ertapenem and vanc -sepsis markers/SIRS resolved. Status: Acute (2) Sepsis: Problem details: -resolved, however gram pos blood culture. gram neg rods in urine. no new cough. -continue ertapenem (1st dose in ED). Previous wound cultures growing E coli sensitive to ertapenem/imipenem -add vancomycin, previous wound cultures growing Staph aureus (MRSA 10/2022) and Streptococcus group C both sensitive to vancomycin -continue IVF maintenance, monitoring for fluid overload -Tylenol p.r.n. fever -05/19/23: UC growing out gram negative rods, ID and sensitivities are pending; BC x2, with an anerobic bottle growing out gram positive cocci in clusters, ID and sensitivities are pending - Repeat CBC, BMP, CRP, lactate in a.m. Status: Acute (3) Osteomyelitis: Problem details: -Associated with decubitus ulcer she has osteomyelitis on her right ischial spine. Chronic since at least May of 2022 -per previous hospitalization discussions, patient has declined consideration of curative treatment which would require plastic surgery and a diverting colostomy -wound culture obtained 05/19/2023 after IV antibiotics were started -query possible benefit of suppressive therapy with oral antibiotics -pressure ulcer prevention precautions Status: Acute (4) Multiple sclerosis: Problem details: -Functionally paraplegic. Bedbound. Unable to reposition herself in bed Status: Acute (5) Sleep apnea: Problem details: Suspected based on clinical factors. Likely the cause of nocturnal hypoxia. patient doubts this diagnosis. Outpatient evaluation if desired. Status: Suspected (6) Neurogenic bladder: Problem details: -urostomy in place -UA collected, questionable dirty collection compromising results, UC pending. Consider repeat UA with appropriate sample if necessary Status: Acute (7) Chronic anemia: Problem details: -acute on chronic, hemoglobin 10.7, continue to monitor -January 2023 had evaluation at [facility] with EGD which showed cystic fundic gland polyps in the gastric antrum and colonoscopy which was incomplete showing a 7 mm sessile polyp in the sigmoid. She underwent CT colonography which was unremarkable. Overall findings were felt to be reassuring. No obvious source of bleeding identified. Status: Acute (8) Paroxysmal atrial fibrillation: Problem details: -history of DVT -continue metoprolol with parameters -continue anticoagulation, chronic Status: Acute (9) History of DVT (deep vein thrombosis): Problem details: On long-term anticoagulation with rivaroxaban 10 mg daily Status: Acute (10) Morbid obesity: Status: Acute (11) Discharge planning issues: Problem details: Patient has significant needs for care at home. She also has what is likely an inadequate bed and mattress for her to be resting all day. Ongoing discussion about arrangements to be made to get a better bed and mattress as an outpatient. Plan for ongoing chronic wound care also discussed. Attempted arrangements for detention facility placement were discussed but patient was quite adamant that she wanted to return home. Status: Acute Subjective Date Seen: 05/20/23 Interval history: Daily Progress Note - Hospital #: 2 CC: chronic paraplegia, chronic wounds, new cellulits, gram positive bacteremia OVERNIGHT UPDATES FROM STAFF & MED, LAB, IMAGING UPDATES patient looks about her baseline. She describes a more chronic lack of umpf and wishes she had a better life. RN note: [id number]: Patient cooperative with cares. Denies pain. Frequent T&R to offload sacral region. 2 Mepilex on sacral region intact. Barrier cream applied to buttock. Cellulitis to R. thigh remains within the previously drawn line. Urostomy draining large amounts of urine. Oral temps 99.8, 99.0, 99.3 with no Tylenol administered. 1 large incontinent BM during shift. Appeared to rest well during noc. Vital signs reveal a T max late yesterday afternoon to 100.6. 99.8 at 8:00 p.m.. 98.8 this morning. Blood pressure 150/75. Pulse 106. Respiratory rate 20 and unlabored Pulse ox 91-92% on room air Weight 108.9 kilos down from 111 at admission CBC is reviewed, hemoglobin has dropped to 9.4 Platelets are stable. No blood gas drawn during this admission Potassium is down 3.4 C reactive protein 14.0- down to 12.9 this am Nonspecific chest x-ray, one view on the 30th I reviewed urine from admission. Positive nitrate. 1+ leukocyte esterase. Review microbiology studies: Wound culture, MRSA swab, urine culture and 2 blood cultures. Is the Gram-positive organism growing in her anaerobic bottle. Awaiting further clarification on coags status. Objective: resting comfortably Vitals: see above Lungs: Clear. Cardiac: S1S2. wounds not examined. Disposition/Potential discharge - Likely to return to previous living situation. Today I spent 50minutes seeing the patient, reviewing Expanse and EPIC notes/diagnostics, discussing the care plan with our care time that includes social work, PT/OT, pharmacy, RT, detention and documenting my impressions and plan in the medical record. Exam Const: Vital Signs, click to edit/add: Vital Signs - 24 hr 05/19/23 11:00 05/19/23 15:00 05/19/23 15:00 Temperature 99.6 F 99.8 F H Pulse Rate Pulse Rate [Left P ulse Oximeter] 91 92 Respiratory Rate 20 20 Blood Pressure [Le ft Forearm] 119/72 123/85 Blood Pressure [Ri ght Arm] Pulse Oximetry 93 92 92 Oxygen Delivery Me thod Room Air Room Air 05/19/23 17:58 05/19/23 18:53 05/19/23 20:16 Temperature 100.6 F H 99.5 F 99.8 F H Pulse Rate Pulse Rate [Left P ulse Oximeter] 83 Respiratory Rate 22 Blood Pressure [Le ft Forearm] Blood Pressure [Ri ght Arm] 108/43 L Pulse Oximetry 91 Oxygen Delivery Me thod Room Air 05/19/23 22:49 05/19/23 23:00 05/19/23 23:53 Temperature 99.0 F Pulse Rate 84 Pulse Rate [Left P ulse Oximeter] 81 Respiratory Rate 22 Blood Pressure [Le ft Forearm] 101/64 Blood Pressure [Ri ght Arm] Pulse Oximetry 92 92 Oxygen Delivery Me thod Room Air 05/20/23 03:45 05/20/23 07:00 05/20/23 07:00 Temperature 99.3 F 98.8 F Pulse Rate 89 Pulse Rate [Left P ulse Oximeter] 101 H 106 H Respiratory Rate 20 20 Blood Pressure [Le ft Forearm] 139/72 150/75 H Blood Pressure [Ri ght Arm] Pulse Oximetry 92 91 Oxygen Delivery Me thod Room Air Room Air 05/20/23 07:00 05/20/23 07:00 Temperature Pulse Rate Pulse Rate [Left P ulse Oximeter] 106 H Respiratory Rate 20 Blood Pressure [Le ft Forearm] Blood Pressure [Ri ght Arm] Pulse Oximetry 91 Oxygen Delivery Me thod Labs Labs: Laboratory Results - last 24 hr 05/20/23 07:40 WBC 7.58 RBC 3.38 L Hgb 9.4 L Hct 30.0 L MCV 89 MCH 28 MCHC 31 L Plt Count 182 Sodium 139 Potassium 3.4 L Chloride 110 Carbon Dioxide 21 Anion Gap 8 BUN 9 Creatinine 0.5 Estimated Creat Clear 43.91 Estimated GFR 100 Glucose 109 Lactate 0.8 Calcium 8.7
[2023-05-20 11:07] LABS: C Reactive Protein* 12.9 mg/dL (0.5-1.0)
--- NOTE | 2023-05-20 14:32 | PC.NURSE ---
Nursing Care Hours: [id number] Pt this shift calm and cooperative, alert and oriented. Bed bound, turn and repo. Wound dressing changed today d/t saturation. Pt tolerated well. Urostomy patent. VSS pt afebrile. Nutritional supplement given.
[2023-05-20] MEDS: RIVAROXABAN 10 MG TABLET PO (17:23)
[2023-05-20] MEDS: TIZANIDINE HCL 4 MG TABLET PO (17:23)
[2023-05-20] MEDS: SIMVASTATIN 20 MG TABLET PO (17:23)
[2023-05-20] MEDS: POTASSIUM CHLORIDE 10 MEQ CAPSULE ER 20 MEQ PO (17:24)
[2023-05-20] MEDS: ERTAPENEM 1 GM in 0.9 % SODIUM CHLORIDE Mini-bag 100 ML IVPB (18:57)
[2023-05-20] MEDS: MELATONIN 3 MG TABLET 18 MG PO (20:56)
[2023-05-20] MEDS: clonazePAM 0.5 MG TABLET 1 MG PO (20:56)
--- NOTE | 2023-05-20 21:55 | PC.NURSE ---
@ 1500 BP 148/85, @ 1900 BP 109/57. RR=24. Otherwise VSS. RA. Denies pain. Negative self-talk, statements like this is no way to live. Decreased appetite, 50% of dinner. Tolerating though. 820 cc in. Urostomy draining pale yellow, cloudy urine w/ mucous shreds- 450 cc out. Last BM yesterday, 05/19. Wound on right hip, dressing c/d/i. PIV in left and right hands- right hand w/ NS @ 75 cc/hr, intermittent IV abx. Will continue to monitor, follow POC, and keep pt and family updated. Vesna Pereira RN
[2023-05-21] VITALS (12 sets, daily range): BP systolic 133–153; BP diastolic 76–95; PULSE 67–97; RESP 18–24; TEMP 36.5–37.4; O2SAT 89–95
[2023-05-21 06:49] LABS: HCO3 VBG 24 mmol/L (21-28); PCO2 VBG 33 mmHG (40-50); pH VBG 7.479 (7.32-7.43)
--- NOTE | 2023-05-21 06:51 | PC.NURSE ---
23-07: Pleasant and cooperative. T&R. No complaints of pain. mepi to sacral & right buttock CDI. No bm. Sediment noted in urine.?Tele = 1st degree HB, charge updated, no c/o chest pain or pressure. ?
[2023-05-21 07:00] LABS: Hemoglobin* 9.7 gm/dL (12.0-16.0); Mean Corpuscular HGB Conc 31 gm/dL (32-36); Mean Corpuscular Hemoglobin 28 pg (26-34); Mean Corpuscular Volume 89 fL (80-100); Platelet Count* 195 K/uL (140-440); White Blood Count* 5.91 K/uL (4.50-11.00)
[2023-05-21 07:08] LABS: Slide Review Reflex No
[2023-05-21 07:43] LABS: Albumin* 3.4 g/dL (3.3-5.0); Chloride* 110 mmol/L (96-114)
[2023-05-21 07:44] LABS: Sodium* 138 mmol/L (135-149)
[2023-05-21 07:46] LABS: Creatinine* 0.4 mg/dL (0.5-1.5); Est. Creatinine Clearance* 43.91; Estimated Glomerular Filt Rate 105 ml/min
[2023-05-21 07:47] LABS: Alanine Aminotransferase* 23 U/L (4-35); Alkaline Phosphatase* 95 U/L (40-150); Anion Gap 6 mEq/L (7-15); Aspartate Amino Transferase* 31 U/L (12-35); Bilirubin Total* 0.4 mg/dL (0.1-1.5); Blood Urea Nitrogen* 13 mg/dL (7-30); Calcium* 9.2 mg/dL (8.4-10.6); Carbon Dioxide* 22 mmol/L (20-32); Glucose* 105 mg/dL (60-115); Total Protein* 7.1 g/dL (6.0-8.3)
[2023-05-21 07:49] LABS: C Reactive Protein* 5.6 mg/dL (0.5-1.0)
[2023-05-21 08:08] LABS: Hemoglobin A1C* 5.6 % (0-5.6)
--- NOTE | 2023-05-21 08:39 | P.IMPN_ITS ---
Progress Note: A&P Assessment and plan (1) Gram-positive bacteremia: Problem details: -1 bottle staph epidermidis, likely contaminant. Negative second bottle. -sepsis markers/SIRS resolved. however, she relates episodes of feeling flushed, tired, and little confused ... this still happening in the hospital, and it is what tells me my wounds are infected -antibiotics for bacteremia could be concluded .. 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 Previous wound cultures growing E coli sensitive to ertapenem/imipenem -add vancomycin, previous wound cultures growing Staph aureus (MRSA 10/2022) and Streptococcus group C both sensitive to vancomycin -off IV fluids -clinically improved -Tylenol p.r.n. fever Status: Acute (3) Cellulitis: Problem details: Right lateral thigh had area of redness and distinct warmth; nothing to culture as skin is intact. wound, blood, urine cultures obtained. Status: Resolved (4) Osteomyelitis: Problem details: -Associated with decubitus ulcer she has osteomyelitis on her right ischial spine. Chronic since at least May of 2022 -per previous hospitalization discussions, patient has declined consideration of curative treatment which would require plastic surgery and a diverting colostomy -wound culture obtained 05/19/2023 after IV antibiotics were started -query possible benefit of suppressive therapy with oral antibiotics -pressure ulcer prevention precautions -appears clinically back to baseline Status: Acute (5) Multiple sclerosis: Problem details: -Functionally paraplegic. Bedbound. Unable to reposition herself in bed Status: Acute (6) Sleep apnea: Problem details: Suspected based on clinical factors. Likely the cause of nocturnal hypoxia. patient doubts this diagnosis. Outpatient evaluation if desired. Status: Suspected (7) Neurogenic bladder: Problem details: -urostomy in place -UA collected, questionable dirty collection compromising results, UC pending. Consider repeat UA with appropriate sample if necessary Status: Acute (8) Chronic anemia: Problem details: -acute on chronic, hemoglobin 10.7, continue to monitor -January 2023 had evaluation at [place] with EGD which showed cystic fundic gland polyps in the gastric antrum and colonoscopy which was incomplete showing a 7 mm sessile polyp in the sigmoid. She underwent CT colonography which was unremarkable. Overall findings were felt to be reassuring. No obvious source of bleeding identified. Status: Acute (9) Paroxysmal atrial fibrillation: Problem details: -history of DVT -continue metoprolol with parameters -continue anticoagulation, chronic Status: Acute (10) History of DVT (deep vein thrombosis): Problem details: On long-term anticoagulation with rivaroxaban 10 mg daily Status: Acute (11) Morbid obesity: Status: Acute (12) Discharge planning issues: Problem details: Patient has significant needs for care at home. She also has what is likely an inadequate bed and mattress for her to be resting all day. Ongoing discussion about arrangements to be made to get a better bed and mattress as an outpatient. Plan for ongoing chronic wound care also discussed. Attempted arrangements for assisted facility placement were discussed but patient was quite adamant that she wanted to return home. Status: Acute Subjective Date Seen: 05/21/23 Interval history: Daily Progress Note - Hospital Medicine Day #: 3 CC: chronic paraplegia, chronic wounds, new cellulitis, gram positive bacteremia OVERNIGHT UPDATES FROM STAFF & MED, LAB, IMAGING UPDATES patient looks about her baseline. She describes a more chronic lack of umpf and wishes she had a better life. RN note: : Pleasant and cooperative. T&R. No complaints of pain. mepi to sacral & right buttock CDI. No bm. Sediment noted in urine. Tele = 1st degree HB, charge updated, no c/o chest pain or pressure. CBC stable. Hemoglobin up from 9 0.4-9.7. Lytes normal. PH mildly alkalotic at 7.5 No CO2 retention Electrolytes are all stable, potassium is normalized. Hemoglobin A1c 5.6 Normal magnesium, normal LFTs CRP continues to downtrend Nonspecific chest x-ray, one view on the I reviewed urine from admission. Positive nitrate. 1+ leukocyte esterase. Urine culture pending Review microbiology studies: Positive MRSA 1 blood culture growing Staph epidermidis Objective: resting comfortably Vitals: see above Lungs: Clear. Cardiac: S1S2. Right Thigh - warmth and erythema both improved. skin intact. no draining. other wounds are chronic >1 year Disposition/Potential discharge - Likely to return to previous living situation. Today I spent 50minutes seeing the patient, reviewing Expanse and EPIC notes/diagnostics, discussing the care plan with our care time that includes social work, PT/OT, pharmacy, RT, assisted and documenting my impressions and plan in the medical record. Exam Const: Vital Signs, click to edit/add: Vital Signs - 24 hr 05/20/23 11:00 05/20/23 15:00 05/20/23 15:00 Temperature 98.3 F 98.3 F Pulse Rate Pulse Rate [Left P ulse Oximeter] 76 87 Respiratory Rate 20 18 Blood Pressure [Le ft Forearm] 128/67 148/85 H Pulse Oximetry 94 93 94 Oxygen Delivery Me thod Room Air Room Air 05/20/23 15:00 05/20/23 18:04 05/20/23 18:59 Temperature 98.7 F Pulse Rate 79 Pulse Rate [Left P ulse Oximeter] 76 Respiratory Rate 18 24 Blood Pressure [Le ft Forearm] 109/57 L Pulse Oximetry 92 Oxygen Delivery Me thod Room Air 05/20/23 23:00 05/20/23 23:00 05/20/23 23:28 Temperature 98.5 F Pulse Rate 82 Pulse Rate [Left P ulse Oximeter] 79 Respiratory Rate 18 Blood Pressure [Le ft Forearm] 138/70 Pulse Oximetry 93 93 Oxygen Delivery Me thod Room Air 05/21/23 03:49 05/21/23 07:22 05/21/23 08:24 Temperature 98.3 F Pulse Rate 90 Pulse Rate [Left P ulse Oximeter] 82 Respiratory Rate 24 Blood Pressure [Le ft Forearm] 145/76 H Pulse Oximetry 90 90 Oxygen Delivery Me thod Room Air Labs Labs: Laboratory Results - last 24 hr 05/20/23 05/20/23 05/21/23 07:40 09:39 06:08 WBC 5.91 RBC 3.50 L Hgb 9.7 L Hct 31.0 L MCV 89 MCH 28 MCHC 31 L Plt Count 195 VBG pH 7.479 H VBG pCO2 33 L VBG pO2 125.0 H VBG HCO3 24 Sodium 138 Potassium 4.0 Chloride 110 Carbon Dioxide 22 Anion Gap 6 L BUN 13 Creatinine 0.4 L Estimated Creat Clear 43.91 Estimated GFR 105 Glucose 105 Hemoglobin A1c 5.6 Calcium 9.2 Magnesium 2.0 Total Bilirubin 0.4 AST 31 ALT 23 Alkaline Phosphatase 95 C-Reactive Protein 12.9 H 5.6 H Total Protein 7.1 Albumin 3.4 Lab Acknowledgement Test Added
[2023-05-21] MEDS: POTASSIUM CHLORIDE 10 MEQ CAPSULE ER 20 MEQ PO ×2 (09:44→17:34)
[2023-05-21] MEDS: BACLOFEN 10 MG TABLET 40 MG PO ×4 (09:44→21:24)
[2023-05-21] MEDS: LEVOTHYROXINE 50 MCG TABLET PO (09:44)
[2023-05-21] MEDS: LACTOBACILLUS ACIDOPHILUS 1 TABLET 2 TAB PO ×3 (09:44→17:35)
[2023-05-21] MEDS: METOPROLOL TARTRATE 25 MG TABLET 12.5 MG PO ×2 (09:45→20:32)
[2023-05-21] MEDS: CITALOPRAM HYDROBROMIDE 20 MG TABLET 10 MG PO (09:45)
[2023-05-21] MEDS: OMEPRAZOLE 20 MG CAPSULE DR PO (09:45)
[2023-05-21] MEDS: CETIRIZINE HCL 10 MG TABLET PO (09:45)
[2023-05-21] MEDS: SODIUM CHLORIDE 0.9 % (FLUSH) 10 ML SYRINGE 5 ML IVF ×2 (11:04→20:34)
[2023-05-21] MEDS: LOPERAMIDE HCL 2 MG CAPSULE 4 MG PO (12:37)
[2023-05-21] MEDS: RIVAROXABAN 10 MG TABLET PO (17:34)
[2023-05-21] MEDS: SIMVASTATIN 20 MG TABLET PO (17:34)
--- NOTE | 2023-05-21 18:11 | PC.NURSE ---
Shift Summary: Patient pleasant and cooperative. Vitals stable and WNL. Denies SOB or pain. T&R q2h and as requested by patient. Dressing changed today and pictures taken for documentation per MD request. x3 loose incontinent BM, imodium given x1. Urostomy emptied q4h. Tolerating regular diet well, denies nausea.
[2023-05-21] MEDS: ERTAPENEM 1 GM in 0.9 % SODIUM CHLORIDE Mini-bag 100 ML IVPB (18:29)
[2023-05-21] MEDS: TIZANIDINE HCL 4 MG TABLET PO (21:24)
[2023-05-21] MEDS: clonazePAM 0.5 MG TABLET 1 MG PO (21:24)
[2023-05-21] MEDS: 0.9 % SODIUM CHLORIDE 250 ml IV (23:44)
[2023-05-22] VITALS (8 sets, daily range): BP systolic 129–156; BP diastolic 80–96; PULSE 74–102; RESP 16–20; TEMP 36.5–36.8; O2SAT 90–95
--- NOTE | 2023-05-22 05:44 | PC.NURSE ---
[id number]: Patient cooperative with cares. Denies pain. Frequent T&R. Afebrile. Urostomy draining large amounts of pale urine with a fair amount of sediment. Mepilex to R. buttock C/D/I. Appeared to rest well during noc.
[2023-05-22 06:28] LABS: Hematocrit 31.5 % (33.0-51.0); Hemoglobin* 9.8 gm/dL (12.0-16.0); Mean Corpuscular HGB Conc 31 gm/dL (32-36); Mean Corpuscular Hemoglobin 28 pg (26-34); Mean Corpuscular Volume 89 fL (80-100); Platelet Count* 230 K/uL (140-440); Red Blood Count 3.56 m/uL (4.00-5.20); White Blood Count* 5.78 K/uL (4.50-11.00)
[2023-05-22 06:42] LABS: Chloride* 108 mmol/L (96-114); Potassium* 3.6 mmol/L (3.6-5.1); Sodium* 138 mmol/L (135-149)
[2023-05-22 06:44] LABS: Slide Review Reflex No
[2023-05-22 06:45] LABS: Anion Gap 5 mEq/L (7-15); Carbon Dioxide* 25 mmol/L (20-32); Creatinine* 0.5 mg/dL (0.5-1.5); Est. Creatinine Clearance* 43.91; Estimated Glomerular Filt Rate 100 ml/min
[2023-05-22 06:46] LABS: Blood Urea Nitrogen* 10 mg/dL (7-30); Calcium* 9.4 mg/dL (8.4-10.6); Glucose* 112 mg/dL (60-115)
[2023-05-22 06:49] LABS: C Reactive Protein* 4.1 mg/dL (0.5-1.0)
[2023-05-22 07:03] LABS: Procalcitonin* 0.11 ng/mL (<0.50)
[2023-05-22] MEDS: LEVOTHYROXINE 50 MCG TABLET PO (09:33)
[2023-05-22] MEDS: LACTOBACILLUS ACIDOPHILUS 1 TABLET 2 TAB PO ×3 (09:52→17:15)
[2023-05-22] MEDS: METOPROLOL TARTRATE 25 MG TABLET 12.5 MG PO ×2 (09:53→20:18)
[2023-05-22] MEDS: POTASSIUM CHLORIDE 10 MEQ CAPSULE ER 20 MEQ PO ×2 (09:53→17:14)
[2023-05-22] MEDS: OMEPRAZOLE 20 MG CAPSULE DR PO (09:53)
[2023-05-22] MEDS: CETIRIZINE HCL 10 MG TABLET PO (09:54)
[2023-05-22] MEDS: SODIUM CHLORIDE 0.9 % (FLUSH) 10 ML SYRINGE 5 ML IVF ×2 (09:55→20:22)
[2023-05-22] MEDS: CITALOPRAM HYDROBROMIDE 20 MG TABLET 10 MG PO (09:56)
[2023-05-22] MEDS: BACLOFEN 10 MG TABLET 40 MG PO ×4 (11:24→20:17)
[2023-05-22] MEDS: DOXYCYCLINE HYCLATE 100 MG PO ×2 (11:31→20:20)
[2023-05-22] MEDS: cephALEXin 500 MG CAPSULE 1000 MG PO ×2 (11:31→20:20)
--- NOTE | 2023-05-22 13:16 | P.IMPN_ITS ---
Progress Note: A&P Assessment and plan (1) Gram-positive bacteremia: Problem details: -1 bottle staph epidermidis, likely contaminant. Negative second bottle. -sepsis markers/SIRS resolved. however, she relates episodes of feeling flushed, tired, and little confused ... this still happening in the hospital, and it is what tells me my wounds are infected -discussion with ID: oral doxy and keflex would cover the UTI and the right thigh cellulitis. No ongoing abx treatment for the sacral wound. Status: Acute (2) Sepsis: Problem details: resolved see above for ID recs Status: Acute (3) Cellulitis: Problem details: as above Status: Resolved (4) Osteomyelitis: Problem details: -Associated with decubitus ulcer she has osteomyelitis on her right ischial spine. Chronic since at least May of 2022 -per previous hospitalization discussions, patient has declined consideration of curative treatment which would require plastic surgery and a diverting colostomy -wound culture obtained 05/19/2023 after IV antibiotics were started -pressure ulcer prevention precautions -appears clinically back to baseline Status: Acute (5) Multiple sclerosis: Problem details: -Functionally paraplegic. Bedbound. Unable to reposition herself in bed Status: Acute (6) Sleep apnea: Problem details: Suspected based on clinical factors. Likely the cause of nocturnal hypoxia. patient doubts this diagnosis. Outpatient evaluation if desired. Status: Suspected (7) Neurogenic bladder: Problem details: -urostomy in place -UA collected, questionable dirty collection compromising results, UC pending. Consider repeat UA with appropriate sample if necessary Status: Acute (8) Chronic anemia: Problem details: -acute on chronic, hemoglobin 10.7, continue to monitor -January 2023 had evaluation at [place] with EGD which showed cystic fundic gland polyps in the gastric antrum and colonoscopy which was incomplete showing a 7 mm sessile polyp in the sigmoid. She underwent CT colonography which was unremarkable. Overall findings were felt to be reassuring. No obvious source of bleeding identified. Status: Acute (9) Paroxysmal atrial fibrillation: Problem details: -history of DVT -continue metoprolol with parameters -continue anticoagulation, chronic Status: Acute (10) History of DVT (deep vein thrombosis): Problem details: On long-term anticoagulation with rivaroxaban 10 mg daily Status: Acute (11) Morbid obesity: Status: Acute (12) Discharge planning issues: Problem details: Patient has significant needs for care at home. She also has what is likely an inadequate bed and mattress for her to be resting all day. Ongoing discussion about arrangements to be made to get a better bed and mattress as an outpatient. Plan for ongoing chronic wound care also discussed. Attempted arrangements for snf facility placement were discussed but patient was quite adamant that she wanted to return home. Status: Acute Subjective Date Seen: 05/22/23 Interval history: Daily Progress Note - Hospital Medicine Day #: 4 CC: chronic paraplegia, chronic wounds, new cellulitis, gram positive bacteremia OVERNIGHT UPDATES FROM STAFF & MED, LAB, IMAGING UPDATES patient looks about her baseline. She describes a more chronic lack of umpf and wishes she had a better life. CBC stable Procalcitonin, CRP down trending. Electrolytes are all normal. Micro review The micro organisms growing from her chronic wound are pansensitive and likely more of a colonization and not an infection. Her urine culture is growing E coli and Klebsiella Her initial blood cultures are negative with 1 bottle and staph epi in the other bottle. Two new bottles of blood cultures are pending. Nonspecific chest x-ray, one view on the 30 Objective: resting comfortably Vitals: see above Lungs: Clear. Cardiac: S1S2. Right Thigh - warmth and erythema both improved. skin intact. no draining. other wounds are chronic >1 year Disposition/Potential discharge - Likely to return to previous living situation. Today I spent 50minutes seeing the patient, reviewing Expanse and EPIC notes/diagnostics, discussing the care plan with our care time that includes social work, PT/OT, pharmacy, RT, snf and documenting my impressions and plan in the medical record. Exam Const: Vital Signs, click to edit/add: Vital Signs - 24 hr 05/21/23 14:33 05/21/23 15:00 05/21/23 15:36 Temperature 98 F Pulse Rate 77 Pulse Rate [Left P ulse Oximeter] 74 Respiratory Rate 18 Blood Pressure [Le ft Forearm] 148/77 H Blood Pressure [Ri ght Arm] Pulse Oximetry 94 93 Oxygen Delivery Me thod Room Air 05/21/23 20:27 05/21/23 22:36 05/21/23 22:37 Temperature 99.4 F Pulse Rate 73 Pulse Rate [Left P ulse Oximeter] 97 Respiratory Rate 20 Blood Pressure [Le ft Forearm] 151/90 H Blood Pressure [Ri ght Arm] Pulse Oximetry 92 92 Oxygen Delivery Me thod Room Air 05/21/23 23:39 05/22/23 02:25 05/22/23 07:00 Temperature 98.1 F 97.8 F Pulse Rate Pulse Rate [Left P ulse Oximeter] 71 74 Respiratory Rate 22 20 Blood Pressure [Le ft Forearm] 135/78 151/80 H Blood Pressure [Ri ght Arm] Pulse Oximetry 92 91 91 Oxygen Delivery Me thod Room Air Room Air 05/22/23 07:00 05/22/23 07:00 05/22/23 07:25 Temperature 98.0 F Pulse Rate 78 Pulse Rate [Left P ulse Oximeter] 82 Respiratory Rate 18 16 Blood Pressure [Le ft Forearm] Blood Pressure [Ri ght Arm] 151/96 H Pulse Oximetry 90 Oxygen Delivery Me thod Room Air 05/22/23 11:00 Temperature 98.2 F Pulse Rate Pulse Rate [Left P ulse Oximeter] 77 Respiratory Rate 16 Blood Pressure [Le ft Forearm] Blood Pressure [Ri ght Arm] 156/92 H Pulse Oximetry 95 Oxygen Delivery Me thod Room Air Labs Labs: Laboratory Results - last 24 hr 05/22/23 06:10 WBC 5.78 RBC 3.56 L Hgb 9.8 L Hct 31.5 L MCV 89 MCH 28 MCHC 31 L Plt Count 230 Sodium 138 Potassium 3.6 Chloride 108 Carbon Dioxide 25 Anion Gap 5 L BUN 10 Creatinine 0.5 Estimated Creat Clear 43.91 Estimated GFR 100 Glucose 112 Calcium 9.4 C-Reactive Protein 4.1 H Procalcitonin 0.11
[2023-05-22] MEDS: RIVAROXABAN 10 MG TABLET PO (17:15)
[2023-05-22] MEDS: SIMVASTATIN 20 MG TABLET PO (17:15)
--- NOTE | 2023-05-22 19:28 | PC.NURSE ---
End of shift-- Pt pleasant, cooperative, alert and oriented. VSS and pt is afebrile. SPO2 maintained >90% on RA. She denied any pain. Telemetry shows NSR with 1st degree AV block. Fine crackles auscultated in bilateral bases of lungs posteriorly, otherwise CTA. Pt denied nausea, ate 50-100% of 2 regular trays today and had no BMs. Urostomy patent and drained large amounts of yellow urine today with sediment noted. Dressing to coccyx was C/D/I and per nursing notes was last changed yesterday. Pt turned and repositioned frequently this shift and tolerated it well. Report to oncoming shift and all questions answered.
[2023-05-22] MEDS: TIZANIDINE HCL 4 MG TABLET PO (20:19)
[2023-05-22] MEDS: clonazePAM 0.5 MG TABLET 1 MG PO (20:19)
[2023-05-23 03:00] VITALS: BP 151/86; PULSE 88; RESP 24; TEMP 36.6; O2SAT 90
[2023-05-23] MEDS: NYSTATIN POWDER 1 APPLIC TOPICAL ×2 (03:10→09:10)
[2023-05-23] MEDS: LEVOTHYROXINE 50 MCG TABLET PO (06:07)
[2023-05-23 06:52] LABS: Hematocrit 34.6 % (33.0-51.0); Hemoglobin* 10.9 gm/dL (12.0-16.0); Mean Corpuscular HGB Conc 32 gm/dL (32-36); Mean Corpuscular Hemoglobin 28 pg (26-34); Mean Corpuscular Volume 88 fL (80-100); Platelet Count* 243 K/uL (140-440); Red Blood Count 3.92 m/uL (4.00-5.20); White Blood Count* 11.13 K/uL (4.50-11.00)
[2023-05-23 07:15] LABS: Slide Review Reflex No
[2023-05-23 07:23] LABS: Chloride* 106 mmol/L (96-114); Sodium* 138 mmol/L (135-149)
[2023-05-23 07:24] VITALS: BP 158/93; PULSE 88; RESP 18; TEMP 36.3; O2SAT 93
[2023-05-23 07:24] LABS: Potassium* 3.6 mmol/L (3.6-5.1)
[2023-05-23 07:26] LABS: Anion Gap 10 mEq/L (7-15); Blood Urea Nitrogen* 14 mg/dL (7-30); Carbon Dioxide* 22 mmol/L (20-32); Creatinine* 0.5 mg/dL (0.5-1.5); Est. Creatinine Clearance* 43.91; Estimated Glomerular Filt Rate 100 ml/min
[2023-05-23 07:27] LABS: Calcium* 9.5 mg/dL (8.4-10.6); Glucose* 110 mg/dL (60-115)
[2023-05-23] MEDS: OMEPRAZOLE 20 MG CAPSULE DR PO (07:27)
--- NOTE | 2023-05-23 07:36 | PC.NURSE ---
19-: pleasant and cooperative. T&R Q2H. VSS. 2x Soft/loose stools, mepi saturated with stool, television script writer performed dressing change and packed wound with new gauze soaked in Vashe x 2 d/t. Sediment/mucous in urine did clog the cath x 1, television script writer was able to pinch sediment through. Urostomy bag started to leak, new bag placed 05/23/23, pt only had 1 wing to further secure the urostomy bag, pt is unsure if she has more supply at home, will discuss with .
[2023-05-23 07:55] VITALS: O2SAT 93
[2023-05-23 08:01] VITALS: PULSE 86
[2023-05-23] MEDS: POTASSIUM CHLORIDE 10 MEQ CAPSULE ER 20 MEQ PO (09:08)
[2023-05-23] MEDS: BACLOFEN 10 MG TABLET 40 MG PO ×2 (09:08→13:09)
[2023-05-23] MEDS: CITALOPRAM HYDROBROMIDE 20 MG TABLET 10 MG PO (09:08)
[2023-05-23] MEDS: CETIRIZINE HCL 10 MG TABLET PO (09:09)
[2023-05-23] MEDS: LACTOBACILLUS ACIDOPHILUS 1 TABLET 2 TAB PO ×2 (09:09→13:09)
[2023-05-23] MEDS: cephALEXin 500 MG CAPSULE 1000 MG PO (09:09)
[2023-05-23] MEDS: METOPROLOL TARTRATE 25 MG TABLET 12.5 MG PO (09:09)
[2023-05-23] MEDS: SODIUM CHLORIDE 0.9 % (FLUSH) 10 ML SYRINGE 5 ML IVF (09:10)
[2023-05-23] MEDS: DOXYCYCLINE HYCLATE 100 MG PO (09:11)
--- NOTE | 2023-05-23 10:23 | PM.DS1 ---
DS: Providers Provider Date Seen: 05/23/23 Date of admission: 05/18/23 20:13 Primary care physician: Lory Hudson PA-C Admitting Clinician: Benita Casas MD Consults: 05/18/23 22:07 Consult to Wound Care [CONS] Routine Comment: wound care clinic visit scheduled for 05/19 Consulting Provider: Yamile Rod 05/19/23 11:24 Consult to Wound Care [CONS] Routine Comment: Consulting Provider: Mayelin Diehl 05/23/23 00:32 Consult to Emergency Medicine Physician [CONS] Routine Comment: Reason for Consult:: Discharge Planning Needs Attending Physician on discharge: Benita Casas MD Date of Discharge: 05/23/23 DS: Diagnosis Discharge Diagnosis (1) Osteomyelitis: Status: Acute Problem details: -Associated with decubitus ulcer she has osteomyelitis on her right ischial spine. Chronic since at least May of 2022 -per previous hospitalization discussions, patient has declined consideration of curative treatment which would require plastic surgery and a diverting colostomy -received IV vancomycin and ertapenem while an inpatient, being discharged on Keflex and doxycycline. Sensitivities reviewed. -pressure ulcer prevention precautions -appears clinically back to baseline -mobile wound care clinic recommended (2) Multiple sclerosis: Status: Acute Problem details: -Functionally paraplegic. Bedbound. Unable to reposition herself in bed (3) Neurogenic bladder: Status: Acute Problem details: -urostomy in place -UTI treated as an inpatient. Continue antibiotics as outlined above. (4) Paroxysmal atrial fibrillation: Status: Acute Problem details: -history of DVT -continue metoprolol with parameters -continue anticoagulation, chronic (5) Pressure ulcer of contiguous region involving right buttock and hip, stage 4: Status: Acute Problem details: -Chronic ulcer with osteomyelitis. During most recent hospitalization patient was treated with ertapenem, vancomycin and transitioned to oral doxycycline and longstanding history of MRSA positive. Current wound culture sensitivities reviewed. -continue antibiotic management as above, pain management with usual home medications -wound care consult completed. (6) Sleep apnea: Status: Suspected Problem details: Suspected based on clinical factors. Likely the cause of nocturnal hypoxia. patient doubts this diagnosis. Outpatient evaluation if desired. (7) Morbid obesity: Status: Acute DS: Summary Hospital Course Hospital Course: FINAL DIAGNOSIS/FOLLOW UP ISSUES: 1. Patient needs to decide how aggressive she wants to be regarding the wound care options. I would recommend mobile wound care clinic coming to her. Wound care, dressing changes, offloading will take months. 2. Continue oral antibiotics as outlined, 5 days after hospitalization BRIEF HOSPITAL COURSE: Patient was admitted for 6 days. Synopsis of acute inpatient issues are outlined above. Chronic medical conditions with notable findings outlined above. DISCHARGE MEDICATIONS: See Reconciled list - SIGNIFICANT CHANGES: Oral Keflex, oral doxycycline as outlined above Specific instructions to the patient and follow-up are outlined below. REVIEW OF SYSTEMS No new chest pain or dyspnea Pain controlled No voiding difficulties Tolerating diet challenge PHYSICAL EXAM: CONSTITUTIONAL: VITAL SIGNS: see record. HEENT: Normocephalic, atraumatic. PERRL, EOMI, conjunctivae pink, no scleral icterus. Ears and nose externally normal. Pharynx normal. NECK: No JVD. No carotid bruit, no thyromegaly, no adenopathy. CHEST: Clear to auscultation bilaterally. HEART: S1 and S2 normal. Edema ABDOMEN: Soft, nontender. Normal bowel sounds. MUSCULOSKELETAL: No gross joint deformity or swelling. NEURO: Cranial nerves intact. Grossly intact. No asymmetric findings. SKIN: No rashes, petechiae, concerning changes PSYCHIATRIC: Mood euthymic. DISPOSITION: Home with spouse Time spent on discharge 37 minutes. Status at Discharge Functional status at discharge: wheelchair bound Overall status at discharge: patient is progressing back to baseline Time Spent with Patient Time attestation: Total time spent providing and/or coordinating discharge services: Time spent: Greater than 30 minutes Exam Const: Vital Signs, click to edit/add: Vital Signs - 24 hr 05/22/23 11:00 05/22/23 15:00 05/22/23 15:00 Temperature 98.2 F Pulse Rate Pulse Rate [Left P ulse Oximeter] 77 96 Respiratory Rate 16 18 Blood Pressure [Le ft Forearm] Blood Pressure [Ri ght Arm] 156/92 H 149/96 H Pulse Oximetry 95 92 92 Oxygen Delivery Me thod Room Air Room Air 05/22/23 15:00 05/22/23 15:00 05/22/23 19:00 Temperature 98.3 F Pulse Rate 80 Pulse Rate [Left P ulse Oximeter] 96 102 H Respiratory Rate 18 18 Blood Pressure [Le ft Forearm] 141/80 H Blood Pressure [Ri ght Arm] Pulse Oximetry 91 Oxygen Delivery Me thod Room Air 05/22/23 23:00 05/22/23 23:00 05/22/23 23:33 Temperature 97.7 F Pulse Rate 78 Pulse Rate [Left P ulse Oximeter] 80 Respiratory Rate 18 18 Blood Pressure [Le ft Forearm] Blood Pressure [Ri ght Arm] 129/80 Pulse Oximetry 92 Oxygen Delivery Me thod Room Air 05/23/23 03:00 05/23/23 07:24 05/23/23 07:55 Temperature 97.8 F 97.3 F L Pulse Rate Pulse Rate [Left P ulse Oximeter] 88 88 Respiratory Rate 24 18 Blood Pressure [Le ft Forearm] Blood Pressure [Ri ght Arm] 151/86 H 158/93 H Pulse Oximetry 90 93 93 Oxygen Delivery Me thod Room Air Room Air 05/23/23 08:01 Temperature Pulse Rate 86 Pulse Rate [Left P ulse Oximeter] Respiratory Rate Blood Pressure [Le ft Forearm] Blood Pressure [Ri ght Arm] Pulse Oximetry Oxygen Delivery Me thod DS: Data Data Completed and Pending Completed studies during hospitalization: Procedures Excision of Buttock Subcutaneous Tissue and Fascia, Open Approach (11/16/22) Excision of Right Upper Leg Subcutaneous Tissue and Fascia, Open Approach (11/16/22) Introduction of Other Gas into Respiratory Tract, Via Natural or Artificial Opening (03/15/23) Transfusion of Nonautologous Red Blood Cells into Peripheral Vein, Percutaneous Approach (11/16/22) Labs on day of discharge: Labs from last 24 hours 05/23/23 06:14 WBC 11.13 H RBC 3.92 L Hgb 10.9 L Hct 34.6 MCV 88 MCH 28 MCHC 32 Plt Count 243 Sodium 138 Potassium 3.6 Chloride 106 Carbon Dioxide 22 Anion Gap 10 BUN 14 Creatinine 0.5 Estimated Creat Clear 43.91 Estimated GFR 100 Glucose 110 Calcium 9.5 Preliminary micro results at discharge 05/18/23 17:34 Blood Culture - Preliminary Blood NO GROWTH AFTER 96 HOURS 05/18/23 16:38 Blood Culture - Preliminary Blood Staphylococcus epidermidis Discharge Plan Discharge Disposition: Home w/ Parent or Adult Date of Admission: 05/18/23 20:13 Attending Provider on Discharge: Benita Casas Consulting Providers: Yamile Rod Christina Primary Care Provider: Lory Hudson Condition: Unchanged Anticipated Discharge Date/Time: 05/23/23 10:11 Discharge Medications: New cephalexin 500 mg Capsule 1,000 mg PO BID Qty: 20 0RF doxycycline hyclate 100 mg Tablet 100 mg PO BID Qty: 10 0RF Continued anastrozole 1 mg tablet 1 mg PO DAILY cetirizine 10 mg tablet 10 mg PO DAILY tizanidine 4 mg tablet 4 mg PO QPM citalopram 10 mg tablet 10 mg PO DAILY clonazepam 0.5 mg tablet 1 mg PO HS baclofen 20 mg tablet 40 mg PO QID levothyroxine 50 mcg tablet 50 mcg PO QAM simvastatin 20 mg tablet 20 mg PO QPM omeprazole 20 mg capsule,delayed release(DR/EC) 20 mg PO QAM metoprolol tartrate 25 mg tablet 12.5 mg PO BID calcium carbonate-vitamin D3 600 mg-10 mcg (400 unit) tablet 1 tab PO QAM dalfampridine [Ampyra] 10 mg tablet extended release 12 hr 10 mg PO Q12H Xarelto 10 mg tablet 10 mg PO QPM Tysabri 300 mg/15 mL solution 300 mg IV Q28D Rx Instructions: administer over 60 mins melatonin 10 mg capsule 20 mg PO HS multivitamin [Daily Multi-Vitamin] Tablet 1 tab PO DAILY omega 6-juj-shb-fish oil [Fish Oil] 1,000 mg (120 mg-180 mg) capsule 1 cap PO DAILY alendronate 70 mg tablet 70 mg PO .WEEKLY potassium chloride 10 mEq Capsule, Extended Release 10 meq PO DAILY Qty: 30 0RF ferrous sulfate 325 mg (65 mg iron) tablet 325 mg PO Q OTHER DAY Qty: 100 0RF Discharge Orders: Discharge Order (Routine); Ordered 05/23/23 Ordered By: Benita Casas Additional Instructions: No changes to current cares - other than the five days of oral antibiotics sent to your pharmacy following the IV antibiotics recieved in the hospital. The computer terminal operator plan to help your sacral ulcer heal requires you to follow with either the wound care clinic or a mobile wound care service. Plan -Upon discharge from Inpatient status patient will need to decide if further Wound Treatment in Wound Center is reasonable for her. Whether Mobile Wound Clinic in home would benefit patient. Wound unlikely to heal timely or easily. Realistically wound may need surgical intervention for closure. Patient has previously declined. Wound Orders/Treatment Plan: Will treat wound with every day to every other day dressing changes while hospitalized. Cleanse wound. Irrigate with Vashe if able. Apply small amount of zinc barrier cream to immediate wound edges. Moisten sterile gauze 4x4, open 4x4 fully, gently pack into depth of wound. Cover with silicone foam border dressing if possible. If not able to cover with silicone foam border dressing due to need to change daily ok to utilize ABD pad. If needs to be taped to skin ensure to utilize Medipore or silicone tape. Pressure relieve is necessary. Continue to treat areas of moisture breakdown surrounding wound with zinc barrier cream. Activity Level: Activity as Tolerated Discharge Diet: Regular Follow Up Appointments[facility] - 05/30/23 (Please get the next available appointment) Lory Hudson PA-C [Primary Care Provider] - 06/06/23 (routine hospitalization f/u. maybe a video visit is best given mobility restrictions (if available)) Forms: [employer] Info Instructions
--- NOTE | 2023-05-23 14:03 | PC.SOCIAL ---
Addendum entered by CHRIS Laird 06/13/23 15:23: Late entry addendum: Clarification of previous social work note by SHLOMO Miranda. There were two visits with social work and patient on the day of discharge. During the first visit with Irena, the patient indicated her family wanted her to go to a fdc facility at discharge from the hospital. Following a meeting between the physician and the patient, Irena and her rag room supervisor, Shayla PEREZ, met again with pt in her room regarding discharge plan. During the second social work visit, which was with the patient as there was no family member present, pt indicated she was no longer interested in a [facility] placement and had already arranged for family to provide transportation home. harvest worker offered to call family to discuss discharge plan and the patient refused this. Pt was provided with resource list of nursing homes in the area and information on how to locate the [facility] m[facility] list with ratings online in case she changed her mind and was interested in placement from home. This addendum was added to clarify there were two social work visits documented in the same original note. Original Note: Discharge planning: Met with pt today to discuss discharge planning. Pt stated after talking to family she thinks she should go to a SNF after discharge from the hospital. harvest worker spoke with pt's son via phone who also thought pt should go to a SNF. Hospitalist cleared pt to discharge home with [facility] services to start back-up and for pt to follow though with outpatient wound care clinic appointments. Hospitalist spoke to pt and pt's son about this discharge plan. This forensic social worker and rag room supervisor went into speak with the pt about the discharge plan and pt was okay with the plan. Pt was provided with The Important Message from Medicare form and was explained her rights to appeal her discharge decision if she felt she needed to. Pt has family that will transport her back home. No other social welfare administrator needed at this time.
--- NOTE | 2023-05-23 14:57 | PC.NURSE ---
Discharge: Patient pleasant and cooperative. T&R q2h, dressing dry clean and intact. Vitals stable and WNL. Bilat IV removed with catheter intact. Discharge instructions, follow up and new medications reviewed. Encourged patient and family to T&R q2h at home and to follow up with wound clinic. Patient belongings all accounted for according to patient and family, wallet checked and sent home with patient in bag. Transferred using ceiling lift into patients own wheelchair, discharged @ 1450.
== END 2023-05-23 14:50 | disposition home or self-care (01) | DRG 539 ==
LOC: ED 18:57 → MEDSURG 05-19 07:48
PROVIDERS: Internal Medicine; Physician Assistant; Admitting Provider Family Medicine; Emergency Provider Emergency Medicine Emergency Medical Services; PCP Internal Medicine; Visit Provider Family Medicine
DX: M46.28 Osteomyelitis of vertebra, sacral and sacrococcygeal region (principal); A41.9 Sepsis, unspecified organism; L89.153 Pressure ulcer of sacral region, stage 3; L89.44 Pressure ulcer of contiguous site of back, buttock and hip, stage 4; L03.115 Cellulitis of right lower limb; Z68.41 Body mass index [BMI] 40.0-44.9, adult; N39.0 Urinary tract infection, site not specified; Z87.440 Personal history of urinary (tract) infections; Z93.6 Other artificial openings of urinary tract status; G35 Multiple sclerosis; G47.30 Sleep apnea, unspecified; Z86.718 Personal history of other venous thrombosis and embolism; N31.9 Neuromuscular dysfunction of bladder, unspecified; E66.01 Morbid (severe) obesity due to excess calories; Z99.3 Dependence on wheelchair; Z74.01 Bed confinement status; Z99.89 Dependence on other enabling machines and devices; Z79.01 Long term (current) use of anticoagulants; D64.89 Other specified anemias; F44.4 Conversion disorder with motor symptom or deficit; D64.9 Anemia, unspecified; B96.20 Unspecified Escherichia coli [E. coli] as the cause of diseases classified elsewhere; B96.1 Klebsiella pneumoniae [K. pneumoniae] as the cause of diseases classified elsewhere; B95.62 Methicillin resistant Staphylococcus aureus infection as the cause of diseases classified elsewhere
CPT/HCPCS: 36415; 71045; 80048; 80053; 81001; 82803; 83036; 83605; 83735; 84145; 84484; 85025; 85027; 86140; 87040; 87070; 87081; 87086; 87186; 87631; 93005; 94761; 96360; 96361; 99284; 99285; G0378; A9270; J1335; J3370; J7030; J7050; J7120

== ENCOUNTER 2023-06-06 14:43 | Outpatient (CLI) | payer MEDICARE, BC, SELFPAY | END 2023-06-06 14:44 | disposition home or self-care (01) | LOC: WOUND 14:44 | PROVIDERS: PCP Internal Medicine; Visit Provider Nurse Practitioner Family | DX: M86.68 Other chronic osteomyelitis, other site (principal); L89.314 Pressure ulcer of right buttock, stage 4; L89.323 Pressure ulcer of left buttock, stage 3; M62.3 Immobility syndrome (paraplegic); Z99.3 Dependence on wheelchair | CPT/HCPCS: 11042; 97602; 99213 ==

== ENCOUNTER 2023-06-13 15:28 | Outpatient (CLI) | payer MEDICARE, BC, SELFPAY | END 2023-06-13 15:29 | disposition home or self-care (01) | LOC: WOUND 15:28 | PROVIDERS: PCP Internal Medicine; Visit Provider Family Medicine | DX: M86.68 Other chronic osteomyelitis, other site (principal); L89.314 Pressure ulcer of right buttock, stage 4; M62.3 Immobility syndrome (paraplegic); Z99.3 Dependence on wheelchair | CPT/HCPCS: 11042 ==

== ENCOUNTER 2023-06-27 15:05 | Outpatient (CLI) | payer MEDICARE, BC, SELFPAY | END 2023-06-27 15:06 | disposition home or self-care (01) | PROVIDERS: PCP Internal Medicine; Visit Provider Nurse Practitioner Family | DX: M86.68 Other chronic osteomyelitis, other site (principal); L89.314 Pressure ulcer of right buttock, stage 4; L89.323 Pressure ulcer of left buttock, stage 3; M62.3 Immobility syndrome (paraplegic); Z99.3 Dependence on wheelchair ==

== ENCOUNTER 2023-07-04 15:35 | Outpatient (CLI) | payer MEDICARE, BC, SELFPAY | END 2023-07-04 15:36 | disposition home or self-care (01) | LOC: WOUND 15:37 | PROVIDERS: PCP Internal Medicine; Visit Provider Nurse Practitioner Family | DX: M86.68 Other chronic osteomyelitis, other site (principal); L89.323 Pressure ulcer of left buttock, stage 3; L89.314 Pressure ulcer of right buttock, stage 4; G35 Multiple sclerosis; M62.3 Immobility syndrome (paraplegic); Z99.3 Dependence on wheelchair ==

== ENCOUNTER 2023-07-11 14:48 | Outpatient (CLI) | payer MEDICARE, BC, SELFPAY | END 2023-07-11 14:49 | disposition home or self-care (01) | LOC: WOUND 14:48 | PROVIDERS: PCP Internal Medicine; Visit Provider Nurse Practitioner Family | DX: M86.68 Other chronic osteomyelitis, other site (principal); L89.314 Pressure ulcer of right buttock, stage 4; M62.3 Immobility syndrome (paraplegic); Z99.3 Dependence on wheelchair | CPT/HCPCS: 11042 ==

== ENCOUNTER 2023-07-18 15:02 | Outpatient (CLI) | payer MEDICARE, BC, SELFPAY | END 2023-07-18 15:03 | disposition home or self-care (01) | LOC: WOUND 15:02 | PROVIDERS: PCP Internal Medicine; Visit Provider Physician Assistant | DX: M86.68 Other chronic osteomyelitis, other site (principal); L89.314 Pressure ulcer of right buttock, stage 4; L89.323 Pressure ulcer of left buttock, stage 3; M62.3 Immobility syndrome (paraplegic); Z99.3 Dependence on wheelchair | CPT/HCPCS: 97597 ==

== ENCOUNTER 2023-07-25 14:58 | Outpatient (CLI) | payer MEDICARE, BC, SELFPAY ==
[2023-07-25 18:12] LABS: Bacterial Vaginosis* Not Detected (No Detected); Candida glab/krus Not Detected (No Detected); Candida species Not Detected (No Detected); Trichomonas vaginalis Not Detected (No Detected)
== END 2023-07-25 14:59 | disposition home or self-care (01) ==
LOC: WOUND 14:58
PROVIDERS: PCP Internal Medicine; Visit Provider Family Medicine
DX: M86.68 Other chronic osteomyelitis, other site (principal); L89.314 Pressure ulcer of right buttock, stage 4; N89.8 Other specified noninflammatory disorders of vagina; M62.3 Immobility syndrome (paraplegic); Z99.3 Dependence on wheelchair
CPT/HCPCS: 11042; 81513; 87481; 87661; 97597; G0463

== ENCOUNTER 2023-08-01 14:55 | Outpatient (CLI) | payer MEDICARE, BC, SELFPAY | END 2023-08-01 14:56 | disposition home or self-care (01) | LOC: WOUND 14:55 | PROVIDERS: PCP Internal Medicine; Visit Provider Physician Assistant | DX: M86.68 Other chronic osteomyelitis, other site (principal); L89.314 Pressure ulcer of right buttock, stage 4; M62.3 Immobility syndrome (paraplegic); Z99.3 Dependence on wheelchair | CPT/HCPCS: 97597 ==

== ENCOUNTER 2023-08-08 14:46 | Outpatient (CLI) | payer MEDICARE, BC, SELFPAY | END 2023-08-08 14:47 | disposition home or self-care (01) | LOC: WOUND 14:46 | PROVIDERS: PCP Internal Medicine; Visit Provider Nurse Practitioner Family | DX: M86.68 Other chronic osteomyelitis, other site (principal); L89.314 Pressure ulcer of right buttock, stage 4; M62.3 Immobility syndrome (paraplegic); Z99.3 Dependence on wheelchair | CPT/HCPCS: 11042 ==

== ENCOUNTER 2023-08-15 09:36 | Inpatient (IN) | payer MEDICARE, BC, SELFPAY ==
[2023-08-15] VITALS (26 sets, daily range): BP systolic 112–143; BP diastolic 64–100; PULSE 83–106; RESP 16–20; TEMP 36.3–36.7; O2SAT 92–98; BMI 42.9; BMI 39.4
--- NOTE | 2023-08-15 09:51 | ED_ITS ---
HPI - Female Genitourinary General Time Seen by Provider: 09:51 Date Seen: 08/15/23 Chief complaint: Urogenital Problems, Female Stated complaint: Possible UTI Time Seen by Provider: 08/15/23 09:49 Source: patient, EMS and RN notes reviewed Mode of arrival: EMS Limitations: no limitations History of Present Illness HPI Narrative: This 72-year-old female is here with 1 of her home care providers. They are concerned that she might have a urinary tract infection. Patient has a history of MRSA, UTIs, skin infections. She is followed in our wound clinic for chronic osteomyelitis/chronic stage IV right buttock ulcer. They have not noted any fevers. They noted blood in her urostomy site today. She has been a bit more confused, yesterday was noted to be holding a phone that she could not play games on. Was signing inappropriately on documents. She did complain of chills at times through the last week. A few days last week her appetite was good. She seemed okay through the weekend however. Confusion was really noted to start yesterday. Patient states she is coughing some. She has no pain complaints. She is chronically anticoagulated for history of a DVT. She is a complete Carlos lift due to underlying neurologic changes from multiple sclerosis. Related Data Home Medications Medication Instructions Recorded Confirmed anastrozole 1 mg tablet 1 mg PO DAILY 11/16/22 08/15/23 baclofen 20 mg tablet 40 mg PO QID 11/16/22 08/15/23 calcium carbonate 600 mg-vitamin 1 tab PO QAM 11/16/22 08/15/23 D3 10 mcg (400 unit) tablet cetirizine 10 mg tablet 10 mg PO DAILY 11/16/22 08/15/23 citalopram 10 mg tablet 10 mg PO DAILY 11/16/22 08/15/23 clonazepam 0.5 mg tablet 1 mg PO HS 11/16/22 08/15/23 dalfampridine 10 mg 10 mg PO Q12H 11/16/22 08/15/23 tablet,extended release,12 hr (Ampyra) levothyroxine 50 mcg tablet 50 mcg PO QAM 11/16/22 08/15/23 metoprolol tartrate 25 mg tablet 12.5 mg PO BID 11/16/22 08/15/23 omeprazole 20 mg capsule,delayed 20 mg PO [facility] 11/16/22 08/15/23 release rivaroxaban 10 mg tablet (Xarelto) 10 mg PO QPM 11/16/22 08/15/23 simvastatin 20 mg tablet 20 mg PO QPM 11/16/22 08/15/23 tizanidine 4 mg tablet 4 mg PO QPM 11/16/22 08/15/23 melatonin 10 mg capsule 20 mg PO HS 11/17/22 05/18/23 multivitamin (Daily Multi-Vitamin 1 tab PO DAILY 11/17/22 08/15/23 tablet) natalizumab 300 mg/15 mL 300 mg IV Q28D 11/17/22 08/15/23 intravenous solution (Tysabri) omega 9-olr-cin-fish oil 1,000 mg 1 cap PO DAILY 11/17/22 05/18/23 (120 mg-180 mg) capsule (Fish Oil) alendronate 70 mg tablet 70 mg PO .WEEKLY 03/16/23 08/15/23 Previous Rx's Medication Instructions Recorded potassium chloride 10 mEq 10 meq PO DAILY #30 caps 03/27/23 capsule,extended release ferrous sulfate 325 mg (65 mg 325 mg PO Q OTHER DAY #100 tabs 03/28/23 iron) tablet Allergies Allergy/AdvReac Type Severity Reaction Status Date / Time Penicillins Allergy Verified 05/18/23 16:35 Review of Systems Status of ROS: Reports: 6 or more systems reviewed and unremarkable except as noted in History and below [facility] Medical History Neurogenic bladder ?N31.9 - Neuromuscular dysfunction of bladder, unspecified (ICD-10) History of DVT (deep vein thrombosis) ?Z86.718 - Personal history of other venous thrombosis and embolism (ICD-10) Chronic anemia ?D64.9 - Anemia, unspecified (ICD-10) Paroxysmal atrial fibrillation ?I48.0 - Paroxysmal atrial fibrillation (ICD-10) Sleep apnea ?G47.30 - Sleep apnea, unspecified (ICD-10) Decubitus ulcer ?L89.90 - Pressure ulcer of unspecified site, unspecified stage (ICD-10) Breast cancer ?C50.919 - Malignant neoplasm of unspecified site of unspecified female breast (ICD-10) Morbid obesity ?E66.01 - Morbid (severe) obesity due to excess calories (ICD-10) Multiple sclerosis ?G35 - Multiple sclerosis (ICD-10) Osteomyelitis ?M86.9 - Osteomyelitis, unspecified (ICD-10) Surgical History S/P breast lumpectomy ?Z98.890 - Other specified postprocedural states (ICD-10) Family History Sister Breast cancer Mother Diabetes Heart disease Brother Lung cancer Father Stroke Social History Narrative: She has been nonambulatory since about 1976 secondary to multiple sc lerosis. She is bed-bound or wheelchair-bound. She has custom equipment made for her both wheelchair in bed due to her disabilities. She does not smoke. She does not drink alcohol. Her son Du and daughter Dottie are healthcare power of managing attorney. Code status is full. She lives at home in [place]. Prolonged hospital stay at [place] for 3 months this winter What is your current living situation?: I presently have a place to live Problems where you live: no known problems Problems where you live details: n/a In the past 12 months, utilities in danger of being shut off: no In past 12 months, lack of transportation kept you from medical appts, meetings, work, or getting things needed for daily living: no In the past 12 mos, have been you worried that your food would run out before you had money to buy more?: never true In the past 12 mos, the food you bought just didn't last and you didn't have money to buy more?: never true Highest level of school completed/degree received: 10th grade Smoking Status: Never smoker Do you use any of these nicotine containing products: None Second hand tobacco smoke exposure: No How often do you have a drink containing alcohol: never How often do you have six or more drinks on one occasion: Never AUDIT-C Alcohol total score: 0 Non-prescribed substance use: denies use Caffeine: Yes (soda) How often does anyone, including family, friends and others, physically hurt you : never How often does anyone, including family, friends and others, insult or talk down to you: never How often does anyone, including family, friends and others, threaten you with harm: never How often does anyone, including family, friends and others, scream or curse at you: never service: No Exam Const: Vital Signs, click to edit/add: Vital Signs - 24 hr 08/15/23 09:41 08/15/23 10:00 08/15/23 11:21 Temperature 97.7 F Pulse Rate 98 Pulse Rate [Pulse Oximeter] 92 Respiratory Rate 18 Blood Pressure Blood Pressure [Ri ght Forearm] 112/78 Pulse [facility]ximetry 95 94 [facility] 08/15/23 11:30 08/15/23 11:32 08/15/23 11:45 Temperature Pulse Rate 99 96 91 Pulse Rate [Pulse Oximeter] Respiratory Rate Blood Pressure 120/83 Blood Pressure [Ri ght Forearm] Pulse Oximetry 94 95 94 [facility] 08/15/23 11:49 08/15/23 12:00 08/15/23 12:01 Temperature 97.4 F L Pulse Rate 92 98 Pulse Rate [Pulse Oximeter] Respiratory Rate Blood Pressure 143/100 H Blood Pressure [Ri ght Forearm] Pulse Oximetry 93 94 Oxygen Delivery Ms thod 08/15/23 12:15 08/15/23 12:30 08/15/23 12:32 Temperature Pulse Rate 98 99 95 Pulse Rate [Pulse Oximeter] Respiratory Rate Blood Pressure 133/64 Blood Pressure [Ri ght Forearm] Pulse Oximetry 94 95 95 Oxygen Delivery Ms thod 08/15/23 12:54 08/15/23 13:02 08/15/23 13:08 Temperature Pulse Rate 86 102 H Pulse Rate [Pulse Oximeter] Respiratory Rate Blood Pressure 124/97 H Blood Pressure [Ri ght Forearm] Pulse Oximetry 94 97 Oxygen Delivery Ms thod 08/15/23 13:15 08/15/23 13:30 08/15/23 13:32 Temperature Pulse Rate 100 96 104 H Pulse Rate [Pulse Oximeter] Respiratory Rate Blood Pressure 129/77 Blood Pressure [Ri ght Forearm] Pulse Oximetry 95 94 95 Oxygen Delivery Ms thod 08/15/23 13:45 08/15/23 13:56 Temperature 98.1 F Pulse Rate 106 H Pulse Rate [Pulse Oximeter] Respiratory Rate 20 Blood Pressure Blood Pressure [Ri ght Forearm] Pulse Oximetry 94 Oxygen Delivery Me thod Patient is alert, interactive, lying in exam bed room 6. Cheeks are flushed but no rash. Skin is warm and dry. Conjugate gaze, sclera clear. Able speak in complete sentences. Patient is bees, neck thick but no masses, do not appreciate jugular venous distension. Lungs actually are clear, no tachypnea, no wheezing, no crackles. CV regular rate and rhythm, no murmur, normal S1-S2, no S3-S4. Abdomen obese but soft, urostomy in place. Nontender, do not feel any masses or organomegaly. Lower extremities without any edema, note no areas of cellulitis. Documenting provider has reviewed patient's vital signs: yes Course Course ED Course: This is a patient at risk for infectious etiology, does have known pressure wounds. Has reported chronic underlying osteomyelitis of 1 of her wounds. Patient is truly almost mobile, to listen to her lungs I had to work my stethoscope into her lower posterior lung parker, she really could not even rotated all. Wounds were looking stable recently and wound clinic. With a blood noted in her urostomy, do agree with checking urinalysis for UTI. Looked in her records and last UTI that we have documented was 05/18/2023 with urine culture growing E coli and Klebsiella pneumoniae. Both were nitrofurantoin resistant, Klebsiella was also resistant to ampicillin. Both were sensitive to Cipro and cephalosporins. Will get full complement of labs. She has no vital signs concerning for sepsis, no fever. Will consider blood cultures if her status changes. Will also get portable chest x-ray, do triple viral swab. Reevaluation(s) Time of Reevaluation #1: 12:00 Reevaluation #1: Updated patient on the status of the hospital beds. We are waiting bed placement and hopefully should have 1 here for her. We will initiate IV antibiotics, have ordered 2 g IV Rocephin for urinary tract infection. This patient does have significant comorbidities that she is at risk for worsening or decompensation, thus, do recommend observation at least overnight. Her white blood count is currently normal, she is negative for the triple viral swab. No identifiable other etiology for infectious source at this time. Consultations Consultation #1: Did speak with Elif EMERY whom is 1 of the hospitalist. They are currently at capacity, will expect discharges. Patient will be held here until we have definitive confirmation of bed placement. They do agree that she should be observed but we need to await bed status for her. Time: 11:52 Consultation #2: Have spoke with Dr. Marie the night hospitalist, she accepts cares. Time: 13:57 Vital Signs Vital signs: Initial Vital Signs Temperature 97.7 F 08/15/23 09:41 Temperature Source Temporal Artery Scan 08/15/23 09:41 Pulse Rate 92 08/15/23 09:41 Respiratory Rate 18 08/15/23 09:41 Blood Pressure 112/78 08/15/23 09:41 Blood Pressure Mean 89 08/15/23 09:41 Pulse Oximetry 95 08/15/23 09:41 Oxygen Delivery Method Room Air 08/15/23 09:41 Vital Signs Temperature 97.7 F 08/15/23 09:41 Pulse Rate 92 08/15/23 09:41 Respiratory Rate 18 08/15/23 09:41 Blood Pressure 112/78 08/15/23 09:41 Pulse Oximetry 95 08/15/23 09:41 Oxygen Delivery Method Room Air 08/15/23 09:41 Temperature 98.1 F 08/15/23 13:56 Pulse Rate 106 H 08/15/23 13:45 Respiratory Rate 20 08/15/23 13:56 Blood Pressure 129/77 08/15/23 13:32 Pulse Oximetry 94 08/15/23 13:45 Oxygen Delivery Method Room Air 08/15/23 09:41 Medications Administered Medications: Discontinued Medications Generic Name Dose Route Start Last Admin Trade Name Freq PRN Reason Stop Dose Admin Ceftriaxone Sodium 2 gm/ 100 mls @ 200 mls/hr 08/15/23 11:54 08/15/23 12:30 Sodium Chloride IVPB 08/15/23 11:55 Infused ONCE ONE Infusion MDM - Female Genitourinary Lab Data Attestation: I reviewed the patient's lab results. Labs: Lab Results 08/15/23 08/15/23 Range/Units 10:20 10:25 WBC 6.92 (4.50-11.00) K/uL RBC 4.21 (4.00-5.20) m/uL Hgb 10.8 L (12.0-16.0) gm/dL Hct 34.7 (33.0-51.0) % MCV 82 (80-100) fL MCH 26 (26-34) pg MCHC 31 L (32-36) gm/dL RDW Coeff of Michele 17.4 H (11.5-15.5) % Plt Count 315 (140-440) K/uL Neut % (Auto) 46.9 (42.0-72.0) % Lymph % (Auto) 40.5 (20-44) % [place] % (Auto) 7.7 (0.0-11.0) % Eos % (Auto) 2.9 (0.0-7.0) % Baso % (Auto) 0.4 (0.0-3.0) % Neut # (Auto) 3.25 (1.7-7.0) K/uL Lymph # (Auto) 2.80 (0.90-2.90) K/uL [place] # (Auto) 0.50 (0.00-0.90) K/UL Eos # (Auto) 0.20 (0.00-0.50) K/uL Baso # (Auto) 0.03 (0.00-0.30) K/uL Abs Immat Gran (auto) 0.11 (0.00-0.30) K/uL Imm/Tot Granulo (auto) 1.6 % Sodium 137 (135-149) mmol/L Potassium 3.9 (3.6-5.1) mmol/L Chloride 103 (96-114) mmol/L Carbon Dioxide 21 (20-32) mmol/L Anion Gap 13 (7-15) mEq/L BUN 17 (7-30) mg/dL Creatinine 0.6 (0.5-1.5) mg/dL Estimated Creat Clear 43.91 Estimated GFR 95 ml/min Glucose 124 H (60-115) mg/dL Lactate 1.7 (0.5-1.9) mmol/L Calcium 10.7 H (8.4-10.6) mg/dL Total Bilirubin 0.4 (0.1-1.5) mg/dL AST 22 (12-35) U/L ALT 20 (4-35) U/L Alkaline Phosphatase 142 (40-150) U/L C-Reactive Protein 5.0 H (0.5-1.0) mg/dL Total Protein 9.1 H (6.0-8.3) g/dL Albumin 4.0 (3.3-5.0) g/dL Procalcitonin 0.08 (<0.50) ng/mL Urine Color Yellow (Yellow) Urine Appearance Clear (Clear) Urine pH 7.0 (5.0-8.5) Ur Specific Ord 1.020 (1.000-1.030) Urine Protein 2+ A (Negative) Urine Glucose (UA) Negative (Negative) Urine Ketones Negative (Negative) Urine Blood 3+ A (Negative) Urine Nitrite Negative (Negative) Urine Bilirubin Negative (Negative) Urine Urobilinogen 0.2 (0.2-1.0) Ur Leukocyte Esterase 3+ A (Negative) SARS-CoV-2 (PCR) Negative SARS-CoV-2 (Negative) Influenza Type A (PCR) Negative PCR FLU A (Negative) Influenza Type B (PCR) Negative PCR FLU B (Negative) RSV (PCR) Negative PCR RSV (Negative) Imaging Data Chest x-ray: Attestation: I have reviewed the pertinent imaging results. Radiologist's impression: Patient: THAI ONEILL Facility:?[facility] Patient ID:?[id number] Site Patient ID:?[id number]. Site :?50 Study:?XRay Chest PA & LATERAL-08/15/2023 10:32:00 AM Ordering Physician:ALEX Final Report: Indication: Confusion, cough Technique: AP view of the chest. Comparison: 05/18/2023 Findings: Low lung volumes. Moderately enlarged cardiomediastinal silhouette. Mild bibasilar opacities. No pleural effusion or visualized pneumothorax. Impression: Mild bibasilar opacities may represent atelectasis given low lung volumes. Dictated by Eliel Bauer MD @ 08/15/2023 10:44:00 AM (Electronic Signature) Discharge Plan Discharge Clinical Impression: Multiple sclerosis Urinary tract infection Qualifiers: Urinary tract infection type: site unspecified Hematuria presence: with hematuria Qualified Code(s): N39.0 - Urinary tract infection, site not specified ; R31.9 - Hematuria, unspecified Patient Disposition: Admitted As Observation Prescriptions: No Action anastrozole 1 mg tablet 1 mg PO DAILY cetirizine 10 mg tablet 10 mg PO DAILY tizanidine 4 mg tablet 4 mg PO QPM citalopram 10 mg tablet 10 mg PO DAILY clonazepam 0.5 mg tablet 1 mg PO HS baclofen 20 mg tablet 40 mg PO QID levothyroxine 50 mcg tablet 50 mcg PO QAM simvastatin 20 mg tablet 20 mg PO QPM omeprazole 20 mg capsule,delayed release(DR/EC) 20 mg PO QAM metoprolol tartrate 25 mg tablet 12.5 mg PO BID calcium carbonate-vitamin D3 600 mg-10 mcg (400 unit) tablet 1 tab PO QAM dalfampridine [Ampyra] 10 mg tablet extended release 12 hr 10 mg PO Q12H Xarelto 10 mg tablet 10 mg PO QPM Tysabri 300 mg/15 mL solution 300 mg IV Q28D Rx Instructions: administer over 60 mins melatonin 10 mg capsule 20 mg PO HS multivitamin [Daily Multi-Vitamin] Tablet 1 tab PO DAILY omega 4-uat-cbh-fish oil [Fish Oil] 1,000 mg (120 mg-180 mg) capsule 1 cap PO DAILY alendronate 70 mg tablet 70 mg PO .WEEKLY potassium chloride 10 mEq Capsule, Extended Release 10 meq PO DAILY Qty: 30 0RF ferrous sulfate 325 mg (65 mg iron) tablet 325 mg PO Q OTHER DAY Qty: 100 0RF Follow Up/Referrals: Lory Hudson PA-C [Primary Care Provider] -
--- NOTE | 2023-08-15 10:01 | XR_ITS ---
Patient: THAI ONEILL Facility:?[facility] Patient ID:?[id number] Site Patient ID:?[id number]. Site :?50 Study:?XRay-Chest PA & LATERAL-08/15/2023 10:32:00 AM Ordering Physician:ALEX Final Report: Indication: Confusion, cough Technique: AP view of the chest. Comparison: 05/18/2023 Findings: Low lung volumes. Moderately enlarged cardiomediastinal silhouette. Mild bibasilar opacities. No pleural effusion or visualized pneumothorax. Impression: Mild bibasilar opacities may represent atelectasis given low lung volumes. Dictated by Eliel Bauer MD @ 08/15/2023 10:44:00 AM Signed by:?Eliel Bauer MD @08/15/2023 10:44:00 AM (Electronic Signature)
[2023-08-15 10:28] LABS: Basophils Absolute Auto 0.03 K/uL (0.00-0.30); Basophils Percent Auto 0.4 % (0.0-3.0); Eosinophils Percent Auto 2.9 % (0.0-7.0); Hematocrit 34.7 % (33.0-51.0); Hemoglobin* 10.8 gm/dL (12.0-16.0); Immature Granulocytes Abs Auto 0.11 K/uL (0.00-0.30); Immature Granulocytes Pct Auto 1.6 %; Lymphocytes Percent Auto 40.5 % (20-44); Mean Corpuscular HGB Conc 31 gm/dL (32-36); Mean Corpuscular Hemoglobin 26 pg (26-34); Mean Corpuscular Volume 82 fL (80-100); Monocytes Percent Auto 7.7 % (0.0-11.0); Neutrophils Absolute Auto 3.25 K/uL (1.7-7.0); Neutrophils Percent Auto 46.9 % (42.0-72.0); Platelet Count* 315 K/uL (140-440); RDW Coefficient of Variation % 17.4 % (11.5-15.5); Red Blood Count 4.21 m/uL (4.00-5.20); White Blood Count* 6.92 K/uL (4.50-11.00)
[2023-08-15 10:31] LABS: Lactate* 1.7 mmol/L (0.5-1.9)
[2023-08-15 10:38] LABS: Slide Review Reflex No
[2023-08-15 10:48] LABS: Appearance Urine Clear (Clear); Bilirubin Urine Negative (Negative); Blood Urine 3+ (Negative); Color Urine Yellow (Yellow); Glucose Urine Negative (Negative); Ketones Urine Negative (Negative); Leukocyte Esterase Urine 3+ (Negative); Nitrite Urine Negative (Negative); Protein Urine 2+ (Negative); Urobilinogen Urine 0.2 (0.2-1.0)
[2023-08-15 10:59] LABS: Chloride* 103 mmol/L (96-114)
[2023-08-15 11:00] LABS: Potassium* 3.9 mmol/L (3.6-5.1); Sodium* 137 mmol/L (135-149)
[2023-08-15 11:02] LABS: Bilirubin Total* 0.4 mg/dL (0.1-1.5); Creatinine* 0.6 mg/dL (0.5-1.5); Est. Creatinine Clearance* 43.91; Estimated Glomerular Filt Rate 95 ml/min
[2023-08-15 11:03] LABS: Alanine Aminotransferase* 20 U/L (4-35); Alkaline Phosphatase* 142 U/L (40-150); Anion Gap 13 mEq/L (7-15); Aspartate Amino Transferase* 22 U/L (12-35); Blood Urea Nitrogen* 17 mg/dL (7-30); Calcium* 10.7 mg/dL (8.4-10.6); Carbon Dioxide* 21 mmol/L (20-32); Glucose* 124 mg/dL (60-115); Total Protein* 9.1 g/dL (6.0-8.3)
[2023-08-15 11:20] LABS: Procalcitonin* 0.08 ng/mL (<0.50)
[2023-08-15 11:22] LABS: PCR FLU A Negative PCR FLU A (Negative); PCR FLU B Negative PCR FLU B (Negative); PCR RSV Negative PCR RSV (Negative); SARS PCR* Negative SARS-CoV-2 (Negative)
[2023-08-15] MEDS: cefTRIAXone 2 GM in 0.9 % SODIUM CHLORIDE Mini-bag 100 ML IVPB (12:00)
[2023-08-15 14:21] LABS: RBC Urine 50-100 (0-2); WBC Urine >100 (0-5)
[2023-08-15 14:22] LABS: Bacteria Urine Many
--- NOTE | 2023-08-15 14:24 | P.IMHP_ITS ---
Hospitalist- H&P: HPI History of Present Illness Date Seen: 08/15/23 Chief complaint: Possible UTI Narrative: Serene Pierson is a 72 year old female with a history of MS, neurogenic bladder, paroxysmal atrial fibrillation, and pressure ulcer of R buttock, who presented to the ED today for concerns of UTI given mild confusion and blood noted in her Urostomy site. When I see patient, she is alone in her room; confusion is evident, but she is able to share symptoms and timeline with me. Over the past few days, she's had intermittent chills, no objective fever. She denies any pain, is breathing okay. MS at baseline. No bleeding noted anywhere other than urostomy. On Xarelto for history of DVT. ER Course and Findings: - UA with + WBCs, negative nitrite, culture pending - afebrile, reassuring WBC - confusion, redirectable; no focal neurologic deficits Histories updated below. Patient receives primary and specialty care through the [facility]. Review of Systems Status of ROS: Reports: 10 or more systems reviewed and unremarkable except as noted in History and below Narrative: Limited by confusion, but patient specifically denies CP, difficulty breathing, skin concerns. States that chronic buttock wound is stable. [facility] Medical History Neurogenic bladder ?N31.9 - Neuromuscular dysfunction of bladder, unspecified (ICD-10) History of DVT (deep vein thrombosis) ?Z86.718 - Personal history of other venous thrombosis and embolism (ICD-10) Chronic anemia ?D64.9 - Anemia, unspecified (ICD-10) Paroxysmal atrial fibrillation ?I48.0 - Paroxysmal atrial fibrillation (ICD-10) Sleep apnea ?G47.30 - Sleep apnea, unspecified (ICD-10) Decubitus ulcer ?L89.90 - Pressure ulcer of unspecified site, unspecified stage (ICD-10) Breast cancer ?C50.919 - Malignant neoplasm of unspecified site of unspecified female breast (ICD-10) Morbid obesity ?E66.01 - Morbid (severe) obesity due to excess calories (ICD-10) Multiple sclerosis ?G35 - Multiple sclerosis (ICD-10) Osteomyelitis ?M86.9 - Osteomyelitis, unspecified (ICD-10) Surgical History S/P breast lumpectomy ?Z98.890 - Other specified postprocedural states (ICD-10) Family History Sister Breast cancer Mother Diabetes Heart disease Brother Lung cancer Father Stroke Social History (Updated 08/15/23 @ 17:22 by Reina Marie MD) Narrative: She has been nonambulatory since about 1976 secondary to multiple sclerosis. She is bed-bound or wheelchair-bound. She has custom equipment made for her both wheelchair in bed due to her disabilities. No tobacco or ETOH use. Son Du and daughter Dottie are healthcare [employer] attorney. Code status is full. She lives at home in [place], has required TCU stays in the past for deconditioning. What is your current living situation?: I presently have a place to live Problems where you live: no known problems Problems where you live details: N/A In the past 12 months, utilities in danger of being shut off: no In past 12 months, lack of transportation kept you from medical appts, meetings, work, or getting things needed for daily living: no In the past 12 mos, have been you worried that your food would run out before you had money to buy more?: never true In the past 12 mos, the food you bought just didn't last and you didn't have money to buy more?: never true Highest level of school completed/degree received: 10th grade Smoking Status: Never smoker Do you use any of these nicotine containing products: None Second hand tobacco smoke exposure: No How often do you have a drink containing alcohol: never How often do you have six or more drinks on one occasion: Never AUDIT-C Alcohol total score: 0 Non-prescribed substance use: denies use and other Non-prescribed substance use details: N/A Caffeine: Yes How often does anyone, including family, friends and others, physically hurt you : never How often does anyone, including family, friends and others, insult or talk down to you: never How often does anyone, including family, friends and others, threaten you with harm: never How often does anyone, including family, friends and others, scream or curse at you: never service: No Meds Home Medications and Allergies Home Medications Medication Instructions Recorded Confirmed Type anastrozole 1 mg tablet 1 mg PO DAILY 11/16/22 08/15/23 History baclofen 20 mg tablet 40 mg PO QID 11/16/22 08/15/23 History calcium carbonate 600 mg-vitamin 1 tab PO QAM 11/16/22 08/15/23 History D3 10 mcg (400 unit) tablet cetirizine 10 mg tablet 10 mg PO DAILY 11/16/22 08/15/23 History citalopram 10 mg tablet 10 mg PO DAILY 11/16/22 08/15/23 History clonazepam 0.5 mg tablet 1 mg PO HS 11/16/22 08/15/23 History dalfampridine 10 mg 10 mg PO Q12H 11/16/22 08/15/23 History tablet,extended release,12 hr (Ampyra) levothyroxine 50 mcg tablet 50 mcg PO QAM 11/16/22 08/15/23 History metoprolol tartrate 25 mg tablet 12.5 mg PO BID 11/16/22 08/15/23 History omeprazole 20 mg capsule,delayed 20 mg PO QAM 11/16/22 08/15/23 History release rivaroxaban 10 mg tablet (Xarelto) 10 mg PO QPM 11/16/22 08/15/23 History simvastatin 20 mg tablet 20 mg PO HS 11/16/22 08/15/23 History tizanidine 4 mg tablet 4 mg PO HS 11/16/22 08/15/23 History melatonin 10 mg capsule 20 mg PO HS 11/17/22 05/18/23 History multivitamin (Daily Multi-Vitamin 1 tab PO DAILY 11/17/22 08/15/23 History tablet) natalizumab 300 mg/15 mL 300 mg IV Q28D 11/17/22 08/15/23 History intravenous solution (Tysabri) omega 4-ppg-iov-fish oil 1,000 mg 1 cap PO DAILY 11/17/22 05/18/23 History (120 mg-180 mg) capsule (Fish Oil) alendronate 70 mg tablet 70 mg PO .WEEKLY 03/16/23 08/15/23 History Home Medication Comments: Unable to confirm compliance Allergies Allergy/AdvReac Type Severity Reaction Status Date / Time Penicillins Allergy Verified 05/18/23 16:35 Exam 2 Narrative: Exam Narrative: GEN: Alert and nontoxic HEENT: EOMIs bilaterally, no scleral icterus CV: RRR, No concerning murmurs R: LCTA bilaterally without concerning wheezing, air movement adequate Ab: soft, no ttp, no distention. + dark, foul-smelling urine in urostomy bag Ext: wwp, no concerning edema Skin: No concerning skin lesions or rashes on exposed skin Neuro: No resting tremor, moving BUE appropriately and spontaneously Psych: Appears to have intermittent confusion, overall answering questions appropriately and + redirectable Const: Vital Signs, click to edit/add: Vital Signs - 24 hr 08/15/23 09:41 08/15/23 10:00 08/15/23 11:21 Temperature 97.7 F Pulse Rate 98 Pulse Rate [Pulse Oximeter] 92 Respiratory Rate 18 Blood Pressure Blood Pressure [Ri ght Forearm] 112/78 Pulse Oximetry 95 94 94 Oxygen Delivery Me od Room Air 08/15/23 11:30 08/15/23 11:32 08/15/23 11:45 Temperature Pulse Rate 99 96 91 Pulse Rate [Pulse Oximeter] Respiratory Rate Blood Pressure 120/83 Blood Pressure [Ri ght Forearm] Pulse Oximetry 94 95 94 Oxygen Delivery Md thod 08/15/23 11:49 08/15/23 12:00 08/15/23 12:01 Temperature 97.4 F L Pulse Rate 92 98 Pulse Rate [Pulse Oximeter] Respiratory Rate Blood Pressure 143/100 H Blood Pressure [Ri ght Forearm] Pulse Oximetry 93 94 Oxygen Delivery Md thod 08/15/23 12:15 08/15/23 12:30 08/15/23 12:32 Temperature Pulse Rate 98 99 95 Pulse Rate [Pulse Oximeter] Respiratory Rate Blood Pressure 133/64 Blood Pressure [Ri ght Forearm] Pulse Oximetry 94 95 95 Oxygen Delivery Me thod 08/15/23 12:54 08/15/23 13:02 08/15/23 13:08 Temperature Pulse Rate 86 102 H Pulse Rate [Pulse Oximeter] Respiratory Rate Blood Pressure 124/97 H Blood Pressure [Ri ght Forearm] Pulse Oximetry 94 97 Oxygen Delivery Md thod 08/15/23 13:15 08/15/23 13:30 08/15/23 13:32 Temperature Pulse Rate 100 96 104 H Pulse Rate [Pulse Oximeter] Respiratory Rate Blood Pressure 129/77 Blood Pressure [Ri ght Forearm] Pulse Oximetry 95 94 95 [facility] 08/15/23 13:45 08/15/23 13:56 Temperature 98.1 F Pulse Rate 106 H Pulse Rate [Pulse Oximeter] Respiratory Rate 20 Blood Pressure Blood Pressure [Ri ght Forearm] Pulse Oximetry 94 Oxygen Delivery [facility] Hospitalist - H&P: Result Labs Labs: Short CBC 08/15/23 Range/Units 10:20 WBC 6.92 (4.50-11.00) K/uL Hgb 10.8 L (12.0-16.0) gm/dL Hct 34.7 (33.0-51.0) % Plt Count 315 (140-440) K/uL BMP 08/15/23 10:20 Sodium 137 Potassium 3.9 Chloride 103 Carbon Dioxide 21 BUN 17 Creatinine 0.6 Glucose 124 H Calcium 10.7 H Liver Function 08/15/23 Range/Units 10:20 Total Bilirubin 0.4 (0.1-1.5) mg/dL AST 22 (12-35) U/L ALT 20 (4-35) U/L Alkaline Phosphatase 142 (40-150) U/L Albumin 4.0 (3.3-5.0) g/dL Urine 08/15/23 Range/Units 10:25 Urine Color Yellow (Yellow) Urine Appearance Clear (Clear) Urine pH 7.0 (5.0-8.5) Ur Specific [place] 1.020 (1.000-1.030) Urine Protein 2+ A (Negative) Urine Glucose (UA) Negative (Negative) Assessment and Plan Assessment and plan (1) Urinary tract infection: Problem comment: - likely given history and exam findings - Ceftriaxone initiated in ED 08/15 after reviewed recent culture results (E Coli and Klebsiella), will continue and await culture results Status: Acute (2) Confusion: Problem comment: - easily redirectable and overall answering questions appropriately, symptoms likely 2/2 UTI - no focal neurological deficits or changes, low threshold for imaging with any new or worsening symptoms Status: Acute (3) Neurogenic bladder: Problem comment: - with urostomy in place Status: Acute (4) Multiple sclerosis: Problem comment: - Functionally paraplegic, bedbound, unable to reposition herself in bed - follows with [facility] Status: Acute (5) History of DVT (deep vein thrombosis): Problem comment: - continue Xarelto Status: Acute (6) Paroxysmal atrial fibrillation: Problem comment: - and history of DVT - in sinus rhythm 08/15/23; continue Metoprolol and Xarelto Status: Acute (7) Chronic anemia: Problem comment: - normocytic; baseline 10-11, no evidence of acute bleeding, will continue to monitor Urostomy site - January 2023 had evaluation at [facility]; EGD exhibited polyps in the gastric antrum and incomplete colonoscopy exhibited 7 mm sessile polyp in the sigmoid - also had unremarkable CT colonography at [facility] Status: Acute Plan - per above - Xarelto for ppx
--- NOTE | 2023-08-15 17:06 | PC.NURSE ---
Shift Summary: Patient pleasant and cooperative. Arrived to floor around 1450. Brief changed and assessed backside. x2 mepilex on bottom present, per ED report was changed prior to admission to floor. Barrier cream applied, bottom is red and blanchable. Patient has intermittent confusion/hallucinations, easily reoriented. Urology bag present, staff to empty. Is incontinent of BM. Using call light appropriately. Patient unable to get out of bed, is bed bound at baseline, heels elevated off bed and T&R as patient tolerates/q2h.
[2023-08-15] MEDS: SODIUM CHLORIDE 0.9 % (FLUSH) 10 ML SYRINGE 5 ML IVF (17:33)
[2023-08-15] MEDS: 0.9 % SODIUM CHLORIDE 1000 ml 1,000 ML 125 ML IV (17:33)
[2023-08-15] MEDS: RIVAROXABAN 10 MG TABLET PO (18:17)
[2023-08-15] MEDS: TIZANIDINE HCL 4 MG TABLET PO (20:58)
[2023-08-15] MEDS: SIMVASTATIN 20 MG TABLET PO (20:58)
[2023-08-15] MEDS: BACLOFEN 10 MG TABLET 40 MG PO (20:58)
[2023-08-15] MEDS: METOPROLOL TARTRATE 25 MG TABLET 12.5 MG PO (20:58)
[2023-08-15] MEDS: clonazePAM 0.5 MG TABLET 1 MG PO (20:59)
[2023-08-16] MEDS: 0.9 % SODIUM CHLORIDE 1000 ml 1,000 ML 125 ML IV ×2 (00:58→09:12)
[2023-08-16 06:44] LABS: Basophils Absolute Auto 0.04 K/uL (0.00-0.30); Basophils Percent Auto 0.7 % (0.0-3.0); Eosinophils Absolute Auto 0.23 K/uL (0.00-0.50); Eosinophils Percent Auto 3.8 % (0.0-7.0); Hematocrit 30.6 % (33.0-51.0); Hemoglobin* 9.6 gm/dL (12.0-16.0); Immature Granulocytes Pct Auto 1.6 %; Lymphocytes Percent Auto 48.8 % (20-44); Mean Corpuscular HGB Conc 31 gm/dL (32-36); Mean Corpuscular Hemoglobin 26 pg (26-34); Mean Corpuscular Volume 82 fL (80-100); Monocytes Percent Auto 9.1 % (0.0-11.0); Platelet Count* 304 K/uL (140-440); RDW Coefficient of Variation % 17.3 % (11.5-15.5); Red Blood Count 3.72 m/uL (4.00-5.20); White Blood Count* 6.07 K/uL (4.50-11.00)
[2023-08-16] MEDS: LEVOTHYROXINE 50 MCG TABLET PO (06:46)
[2023-08-16] MEDS: OMEPRAZOLE 20 MG CAPSULE DR PO (06:46)
[2023-08-16 06:48] LABS: Slide Review Reflex No
--- NOTE | 2023-08-16 06:51 | PC.NURSE ---
Shift note: Pt continue to be confuse. No fever recorded. Urostomy is working working well, draining light dayanna colored urine with sediment. Pt had adequate sleep. Urostomy bag was leaking, Caregiver was informed through charge nurse and offered to bring supply by 0830 today. Turned and reposition Q2h.
[2023-08-16 07:28] LABS: Chloride* 105 mmol/L (96-114); Potassium* 3.4 mmol/L (3.6-5.1); Sodium* 137 mmol/L (135-149)
[2023-08-16 07:30] VITALS: BP 148/89; PULSE 77; RESP 18; TEMP 36.6; O2SAT 95
[2023-08-16 07:31] LABS: Anion Gap 9 mEq/L (7-15); Blood Urea Nitrogen* 13 mg/dL (7-30); Calcium* 9.9 mg/dL (8.4-10.6); Carbon Dioxide* 23 mmol/L (20-32); Creatinine* 0.6 mg/dL (0.5-1.5); Est. Creatinine Clearance* 43.91; Estimated Glomerular Filt Rate 95 ml/min; Glucose* 102 mg/dL (60-115)
[2023-08-16] MEDS: BACLOFEN 10 MG TABLET 40 MG PO ×4 (09:08→21:15)
[2023-08-16] MEDS: METOPROLOL TARTRATE 25 MG TABLET 12.5 MG PO ×2 (09:08→21:15)
[2023-08-16] MEDS: POTASSIUM CHLORIDE 10 MEQ CAPSULE ER PO (09:08)
[2023-08-16] MEDS: CITALOPRAM HYDROBROMIDE 20 MG TABLET 10 MG PO (09:08)
[2023-08-16] MEDS: CETIRIZINE HCL 10 MG TABLET PO (09:09)
[2023-08-16 11:00] VITALS: BP 139/76; PULSE 88; RESP 22; TEMP 37; O2SAT 96
--- NOTE | 2023-08-16 11:12 | PM.IMPN1 ---
Progress Note: A&P Assessment and plan (1) Urinary tract infection: Problem details: UC growing Gram-negative rods Continue Ceftriaxone initiated in ED 08/15 after reviewed recent culture results (E Coli and Klebsiella), awaiting final culture and sensitivities Clinically improving Status: Acute (2) Confusion: Problem details: - easily redirectable and overall answering questions appropriately, symptoms likely 2/2 UTI - no focal neurological deficits or changes, low threshold for imaging with any new or worsening symptoms Resolved Status: Acute (3) Neurogenic bladder: Problem details: - with urostomy in place. Urine is clear, no hematuria. Status: Acute (4) Multiple sclerosis: Problem details: - Functionally paraplegic, bedbound, unable to reposition herself in bed, chronic wounds followed by wound care clinic - follows with [facility] PT and OT consulted. Patient may decline services, therapy may sign off as patient has remained non compliant. Status: Acute (5) History of DVT (deep vein thrombosis): Problem details: - continue Xarelto Status: Acute (6) Paroxysmal atrial fibrillation: Problem details: - and history of DVT - in sinus rhythm 08/15/23; continue Metoprolol and Xarelto Status: Acute (7) Chronic anemia: Problem details: - normocytic; baseline 10-11, no evidence of acute bleeding, will continue to monitor hemoglobin and Urostomy site (hematuria resolved) - January 2023 had evaluation at [facility]; EGD exhibited polyps in the gastric antrum and incomplete colonoscopy exhibited 7 mm sessile polyp in the sigmoid - also had unremarkable CT colonography at [facility] Status: Acute (8) Pressure ulcer of contiguous region involving right buttock and hip, stage 4: Problem details: Chronic ulcer with history of osteomyelitis. Followed by Wound Care Clinic weekly (next appointment 08/22/23) -Continue home wound cares and frequent positional changes to offload. Wound care nurse not in the clinic this week. -Urostomy in place Status: Chronic Plan Possible discharge 1-2 days pending ongoing clinical improvement, urine culture Time Spent With Patient Total time spent: Total time spent caring for the patient today was 45 minutes. This includes time spent for the visit reviewing the chart, time spent during the visit, time spent after the visit and documentation and planning in coordination of care. Subjective Date Seen: 08/16/23 Interval history: Patient is awake and alert this morning, sitting up in bed. Confusion has resolved. She is alert and oriented. Recalls events of yesterday. This morning, denies headache or dizziness. Denies chest pain or shortness of breath. Tolerating orals without nausea vomiting. Urostomy bag change this morning with clear urine, no hematuria. Patient tells me her wounds have been well managed as of late. She saw Yamile in the Wound Care Clinic last week and will see her again next Monday as Yamile is out of the clinic this week. Exam Narrative: Exam Narrative: PHYSICAL EXAM General: Pleasant, conversant, NAD HEENT: Normocephalic, atraumatic, sclera white, EOMI, oral mucosa dry Cardiovascular: RRR, S1S2. No pitting edema on exam Pulmonary: CTA bilaterally without rhonchi, rales, expiratory wheezes. No dyspnea on room air Abdominal: Soft, obese, nondistended, NTTP Neurological: Alert, answering questions appropriately, alert and oriented, cranial nerves intact, no focal findings Extremities: No gross joint deformity or swelling. AROMI. Neurovascularly intact Skin: Warm, dry. Did not examine posterior wound this morning. Const: Vital Signs, click to edit/add: Vital Signs - 24 hr 08/15/23 11:21 08/15/23 11:30 08/15/23 11:32 Temperature Pulse Rate 98 99 96 Pulse Rate [Left P ulse Oximeter] Respiratory Rate Blood Pressure 120/83 Blood Pressure [Le ft Arm] Pulse Oximetry 94 94 [facility] 11:45 08/15/23 11:49 08/15/23 12:00 Temperature 97.4 F L Pulse Rate 91 92 Pulse Rate [Left P ulse Oximeter] Respiratory Rate Blood Pressure Blood Pressure [Le ft Arm] Pulse Oximetry 94 93 [facility] 08/15/23 12:01 08/15/23 12:15 08/15/23 12:30 Temperature Pulse Rate 98 98 99 Pulse Rate [Left P ulse Oximeter] Respiratory Rate Blood Pressure 143/100 H Blood Pressure [Le ft Arm] Pulse Oximetry 94 94 95 [facility] 08/15/23 12:32 08/15/23 12:54 08/15/23 13:02 Temperature Pulse Rate 95 86 Pulse Rate [Left P ulse Oximeter] Respiratory Rate Blood Pressure 133/64 124/97 H Blood Pressure [Le ft Arm] Pulse Oximetry 95 94 Oxygen Delivery Me thod 08/15/23 13:08 08/15/23 13:15 08/15/23 13:30 Temperature Pulse Rate 102 H 100 96 Pulse Rate [Left P ulse Oximeter] Respiratory Rate Blood Pressure Blood Pressure [Le ft Arm] Pulse Oximetry 97 95 94 Oxygen Delivery Me thod 08/15/23 13:32 08/15/23 13:45 08/15/23 13:56 Temperature 98.1 F Pulse Rate 104 H 106 H Pulse Rate [Left P ulse Oximeter] Respiratory Rate 20 Blood Pressure 129/77 Blood Pressure [Le ft Arm] Pulse Oximetry 95 94 Oxygen Delivery Me od 08/15/23 14:00 08/15/23 14:02 08/15/23 14:15 Temperature Pulse Rate 98 102 H 100 Pulse Rate [Left P ulse Oximeter] Respiratory Rate Blood Pressure 127/70 Blood Pressure [Le ft Arm] Pulse Oximetry 95 94 96 Oxygen Delivery Me od 08/15/23 15:43 08/15/23 19:00 08/15/23 23:00 Temperature 97.8 F 97.8 F Pulse Rate 83 Pulse Rate [Left P ulse Oximeter] 90 94 Respiratory Rate 16 16 Blood Pressure Blood Pressure [Le ft Arm] 137/75 133/79 Pulse Oximetry 98 93 Oxygen Delivery Me [facility] Room Air Room Air 08/15/23 23:00 08/15/23 23:00 08/16/23 07:30 Temperature 98 F Pulse Rate Pulse Rate [Left P ulse Oximeter] 92 77 Respiratory Rate 16 16 18 Blood Pressure Blood Pressure [Le ft Arm] 148/89 H Pulse Oximetry 92 95 Oxygen Delivery [facility] Room Air Room Air 08/16/23 07:30 08/16/23 07:30 Temperature Pulse Rate Pulse Rate [Left P ulse Oximeter] 77 Respiratory Rate 18 18 Blood Pressure Blood Pressure [Le ft Arm] Pulse Oximetry 95 [facility] Labs Labs: Laboratory Results - last 24 hr 08/15/23 08/15/23 08/15/23 10:20 10:25 17:30 WBC RBC Hgb Hct MCV MCH MCHC RDW Coeff of Michele Plt Count Neut % (Auto) Lymph % (Auto) [place] % (Auto) Eos % (Auto) Baso % (Auto) Neut # (Auto) Lymph # (Auto) [place] # (Auto) Eos # (Auto) Baso # (Auto) Abs Immat Gran (auto) Imm/Tot Granulo (auto) Sodium 137 Potassium 3.9 Chloride 103 Carbon Dioxide 21 Anion Gap 13 BUN 17 Creatinine 0.6 Estimated Creat Clear 43.91 Estimated GFR 95 Glucose 124 H Calcium 10.7 H Total Bilirubin 0.4 AST 22 ALT 20 Alkaline Phosphatase 142 C-Reactive Protein 5.0 H Total Protein 9.1 H Albumin 4.0 Procalcitonin 0.08 TSH 2.220 Urine RBC 50-100 A Urine WBC >100 A Urine WBC Clumps None Ur Squamous Epith Cells None Urine Bacteria Many A SARS-CoV-2 (PCR) Negative SARS-CoV-2 Influenza Type A (PCR) Negative PCR FLU A Influenza Type B (PCR) Negative PCR FLU B RSV (PCR) Negative PCR RSV Lab Acknowledgement Test Added 08/16/23 05:44 WBC 6.07 RBC 3.72 L Hgb 9.6 L Hct 30.6 L MCV 82 MCH 26 MCHC 31 L RDW Coeff of Michele 17.3 H Plt Count 304 Neut % (Auto) 36.0 L Lymph % (Auto) 48.8 H [place] % (Auto) 9.1 Eos % (Auto) 3.8 Baso % (Auto) 0.7 Neut # (Auto) 2.20 Lymph # (Auto) 3.00 H [place] # (Auto) 0.60 Eos # (Auto) 0.23 Baso # (Auto) 0.04 Abs Immat Gran (auto) 0.10 Imm/Tot Granulo (auto) 1.6 Sodium 137 Potassium 3.4 L Chloride 105 Carbon Dioxide 23 Anion Gap 9 BUN 13 Creatinine 0.6 Estimated Creat Clear 43.91 Estimated GFR 95 Glucose 102 Calcium 9.9 Total Bilirubin AST ALT Alkaline Phosphatase C-Reactive Protein Total Protein Albumin Procalcitonin TSH Urine RBC Urine WBC Urine WBC Clumps Ur Squamous Epith Cells Urine Bacteria SARS-CoV-2 (PCR) Influenza Type A (PCR) Influenza Type B (PCR) RSV (PCR) Lab Acknowledgement
--- NOTE | 2023-08-16 11:31 | PC.SOCIAL ---
Addendum entered by SHLOMO Saha 08/16/23 16:38: Discharge planning: airplane woodworker received a call from Kerrie Peterson #[phone]/fax #[phone] at [facility]. Kerrie stated that she is the pt's Public Health nurse and goes out to the pt's house for usp wound care twice a week. She stated the pt also goes to the W[facility] Care Clinic every two weeks for an outpatient appointment check-in. Kerrie would like a copy of the D/C Summary faxed to her when the pt discharges. Kerrie also mentioned some concerns that she had earlier this week with the pt's wound. airplane woodworker will follow-up with the provider about this information/concern. Kerrie stated that the pt's SPLITTING MACHINE TENDER is through [facility] and the pt is on an Elderly Waiver. airplane woodworker did let Kerrie know that as of right now the pt is wanting to go home after her hospital stay and not to a facility, but this worker will check-in with the pt daily in regard to her thoughts on this. Social work to follow-up as needed. Original Note: Discharge planning: airplane woodworker met with pt today to discuss discharge planning. Pt stated that she was feeling much better today after being on IV Antibiotics. Pt stated that she wants to go home after her hospital stay and is not interested in going to facility for wound care. airplane woodworker stated that this worker would check-in with her tomorrow again to see if she still feels the same about her discharge. Social work to follow-up as needed.
[2023-08-16] MEDS: cefTRIAXone 1 GM in 0.9 % SODIUM CHLORIDE Mini-bag 100 ML IVPB (11:37)
[2023-08-16 11:57] VITALS: BMI 40.2
[2023-08-16 15:00] VITALS: BP 129/64; PULSE 93; RESP 22; TEMP 37.3; O2SAT 94
[2023-08-16] MEDS: RIVAROXABAN 10 MG TABLET PO (17:34)
--- NOTE | 2023-08-16 18:06 | REH.OT ---
OT: Order received, chart reviewed, met with patient who reports she does not want to participate in therapies. OT provided ed with role of OT and she reports she will not follow up with UE ex, she reports she chooses not to and verbalizes understanding of benefits for continuing to exercise and increase activity level. The patient is dependent in self cares at baseline with exception of feeding self and reports able to feed self today. The patient does report she had new mattress delivered last week and that wound care clinic assisted with that process. OT explained benefits of higher level of care in SNF to aid in wound care management and she reports she will not go to a SNF, plans to return home with current services provided by family and ROTARY CUTTER support. Patient reports she does not want staff to look for a SNF, social work informed of this.
--- NOTE | 2023-08-16 18:18 | PC.NURSE ---
Addendum entered by Kylah Bowers RN 08/16/23 18:38: Tylenol given as temp was 100 F. Original Note: End of Shift: Patient pleasant and cooperative, Alert and oriented. Patient vitally stable, lungs clear, BS WNL, IV SL and intact. Patient denies pain, and nonambulatory/bedrest. Patient tolerating regular diet. Urostomy bag changed today, intact and draining. Patient had one BM today.
[2023-08-16 18:25] VITALS: TEMP 37.7
[2023-08-16 18:27] VITALS: TEMP 37.7
[2023-08-16] MEDS: ACETAMINOPHEN 325 MG TABLET 975 MG PO (18:27)
[2023-08-16 19:00] VITALS: BP 108/65; PULSE 106; RESP 20; TEMP 37.1; O2SAT 92
[2023-08-16] MEDS: clonazePAM 0.5 MG TABLET 1 MG PO (21:15)
[2023-08-16] MEDS: TIZANIDINE HCL 4 MG TABLET PO (21:15)
[2023-08-16] MEDS: SIMVASTATIN 20 MG TABLET PO (21:15)
[2023-08-16] MEDS: SODIUM CHLORIDE 0.9 % (FLUSH) 10 ML SYRINGE 5 ML IVF (21:18)
[2023-08-17 01:05] VITALS: RESP 16; O2SAT 95
[2023-08-17 01:12] VITALS: BP 123/76; PULSE 81; RESP 16; TEMP 36.6; O2SAT 95
--- NOTE | 2023-08-17 03:28 | PC.NURSE ---
Pt Pleasant and cooperative. Has slept well tonight. T&R when pt will allow. Ileostomy draining lt yellow urine with sediment. VSS.
[2023-08-17 06:17] LABS: Hematocrit 33.5 % (33.0-51.0); Hemoglobin* 10.2 gm/dL (12.0-16.0); Mean Corpuscular HGB Conc 30 gm/dL (32-36); Mean Corpuscular Hemoglobin 25 pg (26-34); Mean Corpuscular Volume 83 fL (80-100); Platelet Count* 307 K/uL (140-440); Red Blood Count 4.03 m/uL (4.00-5.20); White Blood Count* 5.28 K/uL (4.50-11.00)
[2023-08-17] MEDS: OMEPRAZOLE 20 MG CAPSULE DR PO (06:18)
[2023-08-17] MEDS: LEVOTHYROXINE 50 MCG TABLET PO (06:18)
[2023-08-17 06:21] LABS: Slide Review Reflex No
[2023-08-17 06:35] LABS: Chloride* 108 mmol/L (96-114); Potassium* 3.7 mmol/L (3.6-5.1); Sodium* 141 mmol/L (135-149)
[2023-08-17 06:38] LABS: Anion Gap 10 mEq/L (7-15); Blood Urea Nitrogen* 13 mg/dL (7-30); Calcium* 10.3 mg/dL (8.4-10.6); Carbon Dioxide* 23 mmol/L (20-32); Creatinine* 0.6 mg/dL (0.5-1.5); Est. Creatinine Clearance* 43.91; Estimated Glomerular Filt Rate 95 ml/min; Glucose* 113 mg/dL (60-115)
[2023-08-17 07:00] VITALS: BP 137/75; PULSE 86; RESP 16; TEMP 36.7; O2SAT 95
[2023-08-17] MEDS: POTASSIUM CHLORIDE 10 MEQ CAPSULE ER 20 MEQ PO (09:20)
[2023-08-17] MEDS: BACLOFEN 10 MG TABLET 40 MG PO (09:20)
[2023-08-17] MEDS: CETIRIZINE HCL 10 MG TABLET PO (09:20)
[2023-08-17] MEDS: METOPROLOL TARTRATE 25 MG TABLET 12.5 MG PO (09:20)
[2023-08-17] MEDS: CITALOPRAM HYDROBROMIDE 20 MG TABLET 10 MG PO (09:21)
[2023-08-17] MEDS: SODIUM CHLORIDE 0.9 % (FLUSH) 10 ML SYRINGE 5 ML IVF (09:22)
--- NOTE | 2023-08-17 10:07 | PC.SOCIAL ---
Addendum entered by Irena Caceres [facility] 08/17/23 15:04: Discharge planning: workers compensation examiner spoke with the charge nurse today about the wound concerns that were noted by the [facility] Nurse, Kerrie Peterson; i.e., odor and discharge from the wound. This case management social worker was told by the provider on staff during morning rounds that the wound was noted to be fine while the pt was here and she has an outpatient Wound Care Clinic appointment next Monday. workers compensation examiner informed the [facility] Nurse, Kerrie, about this update and asked if she would like the pt's nurse to call her for a nurse to nurse update and she declined. Social work to follow-up as needed. Addendum entered by Irena Caceres [facility] 08/17/23 14:31: Discharge planning: workers compensation examiner sent the requested Discharge Summary for the pt to [facility], Attn: Vasquez. Social work to follow-up as needed. Addendum entered by Irena Caceres [facility] 08/17/23 10:19: Discharge planning: workers compensation examiner met with pt today and she said she is pleased to return home today. She has a ride from her FOOD COUNTER WORKER/niece, Zelda. Social work to follow-up as needed. Original Note: Discharge planning: workers compensation examiner received a message from Sravan with [facility]/[employer] Property Inspector who is working with the pt and would like a copy of the pt's discharge summary when she discharges. Sravan's number is #[phone] and his fax number is #[phone]. Social work to follow-up as needed.
[2023-08-17 11:00] VITALS: BP 132/70; PULSE 80; RESP 16; TEMP 36.9; O2SAT 95
--- NOTE | 2023-08-17 11:30 | PM.DS1 ---
DS: Providers Provider Date Seen: 08/17/23 Date of admission: 08/16/23 09:12 Primary care physician: Lory Hudson PA-C Admitting Clinician: Reina Marie MD Consults: 08/15/23 15:46 Consult to Physical Therapy [CONS] Routine Comment: Reason(s) for PT Consult:: Evaluate and Treat Any Restrictions?:: Non Wt Bearing Consult to Load Dispatcher Local [CONS] Routine Comment: Reason for Consult:: Discharge Planning Needs 08/15/23 15:51 Consult to Occupational Therapy [CONS] Routine Comment: Reason(s) for OT Consult:: Evaluate and Treat Any Restrictions?:: Wt Bearing as Tolerated Attending Physician on discharge: DEJAN Ahuja PA-C [facility] Date of Discharge: 08/17/23 DS: Diagnosis Discharge Diagnosis (1) Urinary tract infection: Status: Acute Problem details: UC growing Gram-negative rods, strep agalactiae (group b). Initiated on ceftriaxone, transitioned to oral Keflex based on previous culture results from May 2023. Final culture results pending on day of discharge. (2) Confusion: Status: Acute Problem details: Resolved following initiation of antibiotic treatment for UTI (3) Neurogenic bladder: Status: Acute Problem details: -urostomy (4) Multiple sclerosis: Status: Acute Problem details: Functionally paraplegic, bedbound, unable to reposition herself in bed, chronic wounds followed by wound care clinic. Followed by [facility]. PT and OT consulted. Patient may decline services, therapy may sign off as patient has remained non compliant. (5) History of DVT (deep vein thrombosis): Status: Acute Problem details: - Xarelto (6) Paroxysmal atrial fibrillation: Status: Acute Problem details: -metoprolol and Xarelto (7) Chronic anemia: Status: Acute Problem details: - normocytic; baseline 10-11, no evidence of acute bleeding, will continue to monitor hemoglobin and Urostomy site (hematuria resolved) - January 2023 had evaluation at [facility]; EGD exhibited polyps in the gastric antrum and incomplete colonoscopy exhibited 7 mm sessile polyp in the sigmoid - also had unremarkable CT colonography at [facility] (8) Pressure ulcer of contiguous region involving right buttock and hip, stage 4: Status: Chronic Problem details: Chronic ulcer with history of osteomyelitis. Followed by Wound Care Clinic weekly (next appointment 08/22/23). Has new wound mattress at home DS: Summary Hospital Course Hospital Course: [age] year old female past medical history significant for morbid obesity, MS, neurogenic bladder with urostomy, pressure ulcer, PAF, history of DVT, was admitted to the medical floor for further management altered mental status suspected in setting of acute cystitis. Course of care and details as noted above. Patient was initiated on IV ceftriaxone, clinically improving. Confusion cleared. Transitioned to oral cephalosporin at time of discharge. Final UC pending. Remainder of chronic medical comorbidities were monitored and managed with home medications. Status at Discharge Overall status at discharge: patient is back to baseline Time Spent with Patient Time attestation: Total time spent providing and/or coordinating discharge services: Time spent: Greater than 30 minutes Exam Narrative: Exam Narrative: PHYSICAL EXAM General: Pleasant, conversant, NAD Cardiovascular: RRR Pulmonary: No dyspnea Neurological: Alert, answering questions appropriately Skin: Warm, dry. Const: Vital Signs, click to edit/add: Vital Signs - 24 hr 08/16/23 15:00 08/16/23 15:00 08/16/23 15:00 Temperature 99.2 F Pulse Rate [Left P ulse Oximeter] 93 93 Respiratory Rate 22 22 22 Blood Pressure [Le ft Arm] 129/64 Pulse Oximetry 94 94 Oxygen Delivery Me thod Room Air Room Air 08/16/23 18:25 08/16/23 18:27 08/16/23 19:00 Temperature 100 F H 100 F H 98.8 F Pulse Rate [Left P ulse Oximeter] 106 H Respiratory Rate 20 Blood Pressure [Le ft Arm] 108/65 Pulse Oximetry 92 Oxygen Delivery Me thod Room Air 08/17/23 01:05 08/17/23 01:12 Temperature 97.8 F Pulse Rate [Left P ulse Oximeter] 81 Respiratory Rate 16 16 Blood Pressure [Le ft Arm] 123/76 Pulse Oximetry 95 95 Oxygen Delivery Me thod Room Air Room Air DS: Data Data Completed and Pending Completed studies during hospitalization: Procedures Pending studies at discharge: Urine culture, preliminary growing Gram-negative rods, strep agalactiae (group B) Labs on day of discharge: Labs from last 24 hours 08/17/23 06:02 WBC 5.28 RBC 4.03 Hgb 10.2 L Hct 33.5 MCV 83 MCH 25 L MCHC 30 L Plt Count 307 Sodium 141 Potassium 3.7 Chloride 108 Carbon Dioxide 23 Anion Gap 10 BUN 13 Creatinine 0.6 Estimated Creat Clear 43.91 Estimated GFR 95 Glucose 113 Calcium 10.3 Preliminary micro results at discharge 08/15/23 10:25 Urine Culture - Preliminary Urine Suprapubic Gram negative bishop Strep agalactiae - (group b) Discharge Plan Discharge Disposition: Home, Self-Care Date of Admission: 08/16/23 09:12 Attending Provider on Discharge: Elif Fink Primary Care Provider: Lory Hudson Condition: Improved Anticipated Discharge Date/Time: 08/17/23 11:23 Discharge Medications: New cephalexin 500 mg capsule 500 mg PO BID Qty: 10 0RF Continued anastrozole 1 mg tablet 1 mg PO DAILY cetirizine 10 mg tablet 10 mg PO DAILY tizanidine 4 mg tablet 4 mg PO HS citalopram 10 mg tablet 10 mg PO DAILY clonazepam 0.5 mg tablet 1 mg PO HS baclofen 20 mg tablet 40 mg PO QID levothyroxine 50 mcg tablet 50 mcg PO QAM simvastatin 20 mg tablet 20 mg PO HS omeprazole 20 mg capsule,delayed release(DR/EC) 20 mg PO QAM metoprolol tartrate 25 mg tablet 12.5 mg PO BID calcium carbonate-vitamin D3 600 mg-10 mcg (400 unit) tablet 1 tab PO QAM dalfampridine [Ampyra] 10 mg tablet extended release 12 hr 10 mg PO Q12H Xarelto 10 mg tablet 10 mg PO QPM Tysabri 300 mg/15 mL solution 300 mg IV Q28D Rx Instructions: administer over 60 mins melatonin 10 mg capsule 20 mg PO HS multivitamin [Daily Multi-Vitamin] Tablet 1 tab PO DAILY omega [id number] oil [Fish Oil] 1,000 mg (120 mg-180 mg) capsule 1 cap PO DAILY alendronate 70 mg tablet 70 mg PO .WEEKLY potassium chloride 10 mEq Capsule, Extended Release 10 meq PO DAILY Qty: 30 0RF ferrous sulfate 325 mg (65 mg iron) tablet 325 mg PO Q OTHER DAY Qty: 100 0RF Discharge Orders: Discharge Order (Routine); Ordered 08/17/23 Ordered By: Elif Fink Patient Education: Cephalexin (By mouth), Urinary Tract Infection in Older Adults (GEN) Additional Instructions: You were receiving ceftriaxone in the hospital for your UTI. Continue oral cephalexin for 5 day course. Continue home wound cares with follow-up in Wound Care Clinic next week as previously scheduled. Activity Level: Activity as Tolerated Discharge Diet: Regular Follow Up Appointments: Lory Hudson PA-C [Primary Care Provider] - 08/25/23 (Post hospital follow-up, AMS, UTI) Forms: [employer] Info Instructions
--- NOTE | 2023-08-17 17:00 | PC.NURSE ---
Discharge - Pt alert, oriented, cooperative. Pt tolerating RA, regular diet, fluids. Pt denied pain, SOB, nausea. Wound care performed prior to discharge. IV removed with catheter intact. Discharge education provided to pt and family with verbalized understanding. Pt belongings form signed, belongings and medications pack with pt belongings. Pt discharged to home with spouse and family member via wheelchair at approximately 1257.
== END 2023-08-17 12:57 | disposition home or self-care (01) | DRG 689 ==
LOC: ED 13:59 → MEDSURG 14:25
PROVIDERS: Physician Assistant; Admitting Provider Family Medicine; Emergency Provider Family Medicine; PCP Internal Medicine; Visit Provider Family Medicine
DX: N39.0 Urinary tract infection, site not specified (principal); L89.44 Pressure ulcer of contiguous site of back, buttock and hip, stage 4; M86.68 Other chronic osteomyelitis, other site; N31.9 Neuromuscular dysfunction of bladder, unspecified; G35 Multiple sclerosis; B95.1 Streptococcus, group B, as the cause of diseases classified elsewhere; I48.0 Paroxysmal atrial fibrillation; Z79.01 Long term (current) use of anticoagulants; D64.9 Anemia, unspecified; Z86.718 Personal history of other venous thrombosis and embolism; G47.30 Sleep apnea, unspecified; E66.01 Morbid (severe) obesity due to excess calories; R41.0 Disorientation, unspecified; Z99.3 Dependence on wheelchair; Z68.39 Body mass index [BMI] 39.0-39.9, adult
CPT/HCPCS: 36415; 71045; 80048; 80053; 81001; 83605; 84145; 84443; 85025; 85027; 86140; 87086; 87186; 87631; 94761; 97161; 99284; G0378; A9270; J0696; J7030

== ENCOUNTER 2023-09-05 14:53 | Outpatient (CLI) | payer MEDICARE, BC, SELFPAY | END 2023-09-05 14:54 | disposition home or self-care (01) | LOC: WOUND 14:53 | PROVIDERS: PCP Internal Medicine; Visit Provider Nurse Practitioner Family | DX: M86.68 Other chronic osteomyelitis, other site (principal); L89.314 Pressure ulcer of right buttock, stage 4; L89.323 Pressure ulcer of left buttock, stage 3; G35 Multiple sclerosis; M62.3 Immobility syndrome (paraplegic); Z99.3 Dependence on wheelchair | CPT/HCPCS: 11042 ==

== ENCOUNTER 2023-09-22 14:44 | Outpatient (CLI) | payer MEDICARE, BC, SELFPAY | END 2023-09-22 14:45 | disposition home or self-care (01) | LOC: WOUND 14:44 | PROVIDERS: PCP Internal Medicine; Visit Provider Nurse Practitioner Family | DX: M86.68 Other chronic osteomyelitis, other site (principal); L89.314 Pressure ulcer of right buttock, stage 4; M62.3 Immobility syndrome (paraplegic); Z99.3 Dependence on wheelchair | CPT/HCPCS: 11042 ==

== ENCOUNTER 2023-09-29 15:01 | Outpatient (CLI) | payer MEDICARE, BC, SELFPAY | END 2023-09-29 15:02 | disposition home or self-care (01) | LOC: WOUND 15:01 | PROVIDERS: PCP Internal Medicine; Visit Provider Nurse Practitioner Family | DX: M86.68 Other chronic osteomyelitis, other site (principal); L89.314 Pressure ulcer of right buttock, stage 4; M62.3 Immobility syndrome (paraplegic); Z99.3 Dependence on wheelchair | CPT/HCPCS: 11042 ==

== ENCOUNTER 2023-10-06 14:28 | Outpatient (CLI) | payer MEDICARE, BC, SELFPAY | END 2023-10-06 14:29 | disposition home or self-care (01) | LOC: WOUND 14:28 | PROVIDERS: PCP Internal Medicine; Visit Provider Nurse Practitioner Family | DX: M86.68 Other chronic osteomyelitis, other site (principal); L89.314 Pressure ulcer of right buttock, stage 4; M62.3 Immobility syndrome (paraplegic); Z99.3 Dependence on wheelchair | CPT/HCPCS: 11042 ==

== ENCOUNTER 2023-10-13 14:41 | Outpatient (CLI) | payer MEDICARE, BC, SELFPAY | END 2023-10-13 14:42 | disposition home or self-care (01) | LOC: WOUND 14:42 | PROVIDERS: PCP Internal Medicine; Visit Provider Nurse Practitioner Family | DX: M86.68 Other chronic osteomyelitis, other site (principal); L89.314 Pressure ulcer of right buttock, stage 4; G35 Multiple sclerosis; Z99.3 Dependence on wheelchair | CPT/HCPCS: 11043 ==

== ENCOUNTER 2023-10-20 14:47 | Outpatient (CLI) | payer MEDICARE, BC, SELFPAY | END 2023-10-20 14:48 | disposition home or self-care (01) | LOC: WOUND 14:47 | PROVIDERS: PCP Internal Medicine; Visit Provider Nurse Practitioner Family | DX: M86.68 Other chronic osteomyelitis, other site (principal); L89.314 Pressure ulcer of right buttock, stage 4; M62.3 Immobility syndrome (paraplegic); Z99.3 Dependence on wheelchair | CPT/HCPCS: 11042 ==

== ENCOUNTER 2023-10-27 14:39 | Outpatient (CLI) | payer MEDICARE, BC, SELFPAY | END 2023-10-27 14:40 | disposition home or self-care (01) | LOC: WOUND 14:39 | PROVIDERS: PCP Internal Medicine; Visit Provider Nurse Practitioner Family | DX: M86.68 Other chronic osteomyelitis, other site (principal); L89.314 Pressure ulcer of right buttock, stage 4; M62.3 Immobility syndrome (paraplegic); Z99.3 Dependence on wheelchair | CPT/HCPCS: 11042 ==

== ENCOUNTER 2023-11-10 14:47 | Outpatient (CLI) | payer MEDICARE, BC, SELFPAY | END 2023-11-10 14:48 | disposition home or self-care (01) | LOC: WOUND 14:47 | PROVIDERS: PCP Internal Medicine; Visit Provider Physician Assistant | DX: M86.68 Other chronic osteomyelitis, other site (principal); L89.314 Pressure ulcer of right buttock, stage 4; M62.3 Immobility syndrome (paraplegic); Z99.3 Dependence on wheelchair | CPT/HCPCS: 15271; 15275; Q4151 ==

== ENCOUNTER 2023-12-01 14:26 | Outpatient (CLI) | payer MEDICARE, BC, SELFPAY | END 2023-12-01 14:27 | disposition home or self-care (01) | LOC: WOUND 14:27 | PROVIDERS: PCP Internal Medicine; Visit Provider Nurse Practitioner Family | DX: M86.68 Other chronic osteomyelitis, other site (principal); L89.314 Pressure ulcer of right buttock, stage 4; M62.3 Immobility syndrome (paraplegic); Z99.3 Dependence on wheelchair | CPT/HCPCS: 15271; Q4151 ==

== ENCOUNTER 2023-12-15 14:27 | Outpatient (CLI) | payer MEDICARE, BC, SELFPAY | END 2023-12-15 14:28 | disposition home or self-care (01) | LOC: WOUND 14:27 | PROVIDERS: PCP Internal Medicine; Visit Provider Nurse Practitioner Family | DX: M86.68 Other chronic osteomyelitis, other site (principal); L89.314 Pressure ulcer of right buttock, stage 4; M62.3 Immobility syndrome (paraplegic); G35 Multiple sclerosis; Z99.3 Dependence on wheelchair | CPT/HCPCS: 11042 ==

== ENCOUNTER 2023-12-22 14:19 | Outpatient (CLI) | payer MEDICARE, BC, SELFPAY | END 2023-12-22 14:20 | disposition home or self-care (01) | LOC: WOUND 14:20 | PROVIDERS: PCP Internal Medicine; Visit Provider Nurse Practitioner Family | DX: M86.68 Other chronic osteomyelitis, other site (principal); L89.314 Pressure ulcer of right buttock, stage 4; M62.3 Immobility syndrome (paraplegic); Z99.3 Dependence on wheelchair | CPT/HCPCS: 15271; Q4151 ==

== ENCOUNTER 2024-01-05 14:23 | Outpatient (CLI) | payer MEDICARE, BC, SELFPAY | END 2024-01-05 14:24 | disposition home or self-care (01) | LOC: WOUND 14:23 | PROVIDERS: PCP Internal Medicine; Visit Provider Nurse Practitioner Family | DX: M86.68 Other chronic osteomyelitis, other site (principal); L89.314 Pressure ulcer of right buttock, stage 4; G35 Multiple sclerosis; Z99.3 Dependence on wheelchair | CPT/HCPCS: 15271; Q4151 ==

== ENCOUNTER 2024-01-19 14:30 | Outpatient (CLI) | payer MEDICARE, BC, SELFPAY | END 2024-01-19 14:31 | disposition home or self-care (01) | LOC: WOUND 01-23 12:13 | PROVIDERS: PCP Internal Medicine; Visit Provider Nurse Practitioner Family | DX: M86.68 Other chronic osteomyelitis, other site (principal); L89.314 Pressure ulcer of right buttock, stage 4; L89.323 Pressure ulcer of left buttock, stage 3; S31.010A Laceration without foreign body of lower back and pelvis without penetration into retroperitoneum, initial encounter; M62.3 Immobility syndrome (paraplegic); Z99.3 Dependence on wheelchair | CPT/HCPCS: 11042; 97597 ==

== ENCOUNTER 2024-02-02 08:13 | Outpatient (CLI) | payer MEDICARE, BC, SELFPAY | END 2024-02-02 08:14 | disposition home or self-care (01) | LOC: WOUND 02-28 17:04 | PROVIDERS: PCP Internal Medicine; Visit Provider Nurse Practitioner Family | DX: M86.68 Other chronic osteomyelitis, other site (principal); L89.314 Pressure ulcer of right buttock, stage 4; S31.010A Laceration without foreign body of lower back and pelvis without penetration into retroperitoneum, initial encounter; G35 Multiple sclerosis; M62.3 Immobility syndrome (paraplegic); Z99.3 Dependence on wheelchair | CPT/HCPCS: 11042 ==

== ENCOUNTER 2024-02-16 14:29 | Outpatient (CLI) | payer MEDICARE, BC, SELFPAY | END 2024-02-16 14:30 | disposition home or self-care (01) | LOC: WOUND 14:29 | PROVIDERS: PCP Internal Medicine; Visit Provider Nurse Practitioner Family | DX: L89.314 Pressure ulcer of right buttock, stage 4 (principal); L89.323 Pressure ulcer of left buttock, stage 3; S31.010A Laceration without foreign body of lower back and pelvis without penetration into retroperitoneum, initial encounter; M62.3 Immobility syndrome (paraplegic); G35 Multiple sclerosis; Z99.3 Dependence on wheelchair | CPT/HCPCS: 87070; 87186; G0463 ==

== ENCOUNTER 2024-03-01 14:27 | Outpatient (CLI) | payer MEDICARE, BC, SELFPAY | END 2024-03-01 14:28 | disposition home or self-care (01) | LOC: WOUND 14:27 | PROVIDERS: PCP Internal Medicine; Visit Provider Nurse Practitioner Family | DX: M86.68 Other chronic osteomyelitis, other site (principal); L89.314 Pressure ulcer of right buttock, stage 4; S31.010A Laceration without foreign body of lower back and pelvis without penetration into retroperitoneum, initial encounter; G35 Multiple sclerosis; M62.3 Immobility syndrome (paraplegic); Z99.3 Dependence on wheelchair | CPT/HCPCS: 11042; 97597 ==

== ENCOUNTER 2024-03-29 14:18 | Outpatient (CLI) | payer MEDICARE, BC, SELFPAY | END 2024-03-29 14:19 | disposition home or self-care (01) | LOC: WOUND 14:18 | PROVIDERS: PCP Internal Medicine; Visit Provider Nurse Practitioner Family | DX: M86.68 Other chronic osteomyelitis, other site (principal); L89.314 Pressure ulcer of right buttock, stage 4; G35 Multiple sclerosis; M62.3 Immobility syndrome (paraplegic); Z99.3 Dependence on wheelchair | CPT/HCPCS: 11042 ==

== ENCOUNTER 2024-04-26 15:17 | Outpatient (CLI) | payer MEDICARE, BC, SELFPAY | END 2024-04-26 15:18 | disposition home or self-care (01) | LOC: WOUND 15:18 | PROVIDERS: PCP Internal Medicine; Visit Provider Nurse Practitioner Family | DX: M86.68 Other chronic osteomyelitis, other site (principal); L89.314 Pressure ulcer of right buttock, stage 4; M62.3 Immobility syndrome (paraplegic); Z99.3 Dependence on wheelchair | CPT/HCPCS: 11042 ==

== ENCOUNTER 2024-07-05 15:05 | Outpatient (CLI) | payer MEDICARE, BC, SELFPAY | END 2024-07-05 15:06 | disposition home or self-care (01) | LOC: WOUND 15:05 | PROVIDERS: PCP Internal Medicine; Visit Provider Nurse Practitioner Family | DX: M86.68 Other chronic osteomyelitis, other site (principal); L89.314 Pressure ulcer of right buttock, stage 4; G35 Multiple sclerosis; M62.3 Immobility syndrome (paraplegic); Z99.3 Dependence on wheelchair | CPT/HCPCS: 11042 ==